=== PATIENT | female | born 1985 | race Caucasian/White ===

== ENCOUNTER 2020-10-23 22:52 | Emergency (ER) | payer OTHER ==
[2020-10-24 00:04] LABS: Basophils % 1.1 % (0-1.3); Hematocrit 40.7 % (36.0-45.0); Lymphocytes % 31.6 % (15.3-44.8); MPV 7.9 fL (7.6-11.3); RBC Red Blood Cell Count 4.92 M/uL (3.86-4.86)
[2020-10-24 00:05] LABS: Protime INR 1.01
[2020-10-24 00:18] LABS: ALT/SGPT 20 U/L (12-78); AST/SGOT 10 U/L (15-37); Albumin 3.5 g/dL (3.4-5.0); Alkaline Phosphatase 104 U/L (45-117); BUN Blood Urea Nitrogen 13 mg/dL (7-18); Bicarbonate 30 mmol/L (21-32); Bilirubin Direct 0.1 mg/dL (0-0.2); Bilirubin Total 0.5 mg/dL (0.2-1.0); Glucose Level 96 mg/dL (74-106); NT PRO-BNP 100 pg/mL (<125); Potassium 3.7 mmol/L (3.5-5.1); Protein, Total 6.9 g/dL (6.4-8.2); Sodium Level 141 mmol/L (136-145); Troponin (Emerg Dept Use Only) < 0.02 ng/mL (0.0-0.045)
--- NOTE | 2020-10-24 00:56 | ER ---
Nurse's Notes [facility] Name: Chantal Richards Age: 34 yrs Sex: Female : 1985 Arrival Date: 10/23/2020 Time: 23:20 Bed DIS4 Private MD: Diagnosis: Chest pain, unspecified Presentation: 10/23 23:29 Chief complaint: Patient states: chest tightness that radiates into left arm for a few em days, denies pain N/V or shortness of breath, checked BP at home and it was 150/106. Coronavirus screen: Client denies travel out of the [place] in the last 14 days. Ebola Screen: Patient negative for fever greater than or equal to 101.5 degrees Fahrenheit, and additional compatible Ebola Virus Disease symptoms Patient denies exposure to infectious person. Patient denies travel to an Ebola-affected area in the 21 days before illness onset. No symptoms or risks identified at this time. Initial Sepsis Screen: Does the patient meet any 2 criteria? No. Patient's initial sepsis screen is negative. Does the patient have a suspected source of infection? No. Patient's initial sepsis screen is negative. Risk Assessment: Do you want to hurt yourself or someone else? Patient reports no desire to harm self or others. Onset of symptoms was October 23, 2020. 23:29 Method Of Arrival: Ambulatory em 23:29 Acuity: WEST 3 em Triage Assessment: 10/24 00:08 General: Appears in no apparent distress. Behavior is calm, cooperative. Pain: ak2 Complains of pain in chest. Cardiovascular: No deficits noted. 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 - Social history:: Smoking status: Patient reports the use of cigarette tobacco products, smokes one pack cigarettes per day. Screenin/12 00:09 Abuse screen: Denies threats or abuse. Denies injuries from another. Nutritional ak2 screening: No deficits noted. Tuberculosis screening: No symptoms or risk factors identified. Fall Risk None identified. Assessment: 00:09 Pain: Pain does not radiate. Pain began 2-3 days ago. ak2 00:09 General: Appears in no apparent distress. Neuro: No deficits noted. Cardiovascular: No ak2 deficits noted. Respiratory: No deficits noted. Vital Signs: 10/23 23:29 BP 115 / 70; Pulse 67; Resp 16; Temp 97.8; Pulse Ox 99% on R/A; Weight 136.98 kg; em Height 5 ft. 4 in. (162.56 cm); Pain 0/10; 10/24 00:39 BP 123 / 75; Pulse 61; Resp 18; Pulse Ox 98% on R/A; ak2 10/23 23:29 Body Mass Index 51.84 (136.98 kg, 162.56 cm) em ED Course: 10/23 23:20 Patient arrived in ED. am4 23:32 Triage completed. em 23:32 Arm band placed on. em 23:36 Montez Mott is Primary Nurse. ak2 23:37 Latrell Machado NP is PHCP. pm1 23:37 Arun Reyes MD is Attending Physician. pm1 07 00:09 Patient has correct armband on for positive identification. quality assurance monitor on. Pulse ak2 ox on. NIBP on. 00:09 No provider procedures requiring assistance completed. Patient did not have IV access ak2 during this emergency room visit. Patient maintains SpO2 saturation greater than 95% on room air. 00:59 XRAY Chest (1 view) In Process Unspecified. EDMS Administered Medications: 01:06 Drug: Ketorolac 30 mg Route: IVP; Site: right antecubital; ak2 Outcome: 00:40 Condition: good ak2 00:56 Discharge ordered by . pm1 01:09 Discharged to home ambulatory. ak2 01:09 Discharge instructions given to patient. 01:09 Patient left the ED. ak2 Signatures: Dispatcher [employer] EDMS Augusto Lowe RN RN Latrell Machado NP FRINGE MAKER pm1 Roslyn Flores am4 Montez Mott ak2
--- NOTE | 2020-10-24 00:57 | EDPHYS ---
Physician Documentation [facility] Name: Chantal Richards Age: 34 yrs Sex: Female : 1985 Arrival Date: 10/23/2020 Time: 23:20 Bed DIS4 Private MD: ED Physician Arun Reyes HPI: 10/23 23:37 This 34 yrs old Unknown Female presents to ER via Ambulatory with complaints of Chest pm1 Pain. 23:37 The patient or guardian reports chest pain that is located primarily in the mid-sternal pm1 area. The pain radiates to the left arm. Associated signs and symptoms: Pertinent negatives: abdominal pain, nausea, palpitations, shortness of breath, syncope, vomiting. The chest pain is described as a pressure. Duration: The patient or guardian reports multiple episodes, episodes last for a few seconds. Episode at 1000 this AM lasted for 30 minutes. Pain has improved now. Modifying factors: the symptoms are aggravated by exertion. Severity of pain: in the emergency department the pain has improved. The patient has not experienced similar symptoms in the past. The patient has not recently seen a physician. 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 - Social history:: Smoking status: Patient reports the use of cigarette tobacco products, smokes one pack cigarettes per day. ROS: 23:37 Constitutional: Negative for fever, chills, and weight loss. pm1 23:37 Respiratory: Negative for shortness of breath, cough, wheezing, and pleuritic chest pain, Abdomen/GI: Negative for abdominal pain, nausea, vomiting, diarrhea, and constipation, Back: Negative for injury and pain, MS/Extremity: Negative for injury and deformity, Skin: Negative for injury, rash, and discoloration. 23:37 Neuro: Negative for headache, weakness, numbness, tingling, and seizure. 23:37 Cardiovascular: Positive for chest pain, Negative for edema, orthopnea, palpitations. 23:37 All other systems are negative. Exam: 23:37 Constitutional: This is a well developed, well nourished patient who is awake, alert, pm1 and in no acute distress. Head/Face: Normocephalic, atraumatic. 23:37 Chest/axilla: Normal chest wall appearance and motion. Nontender with no deformity. No lesions are appreciated. 23:37 Back: No spinal tenderness. No costovertebral tenderness. Full range of motion. Skin: Warm, dry with normal turgor. Normal color with no rashes, no lesions, and no evidence of cellulitis. MS/ Extremity: Pulses equal, no cyanosis. Neurovascular intact. Full, normal range of motion. 23:37 Eyes: Exam is negative for acute changes, Extraocular movements: no acute changes, Conjunctiva: no acute changes, no injection. 23:37 Cardiovascular: Exam negative for acute changes, Rate: normal, Rhythm: regular, Pulses: no pulse deficits are appreciated, Heart sounds: normal, normal S1and S2. 23:37 Respiratory: Exam negative for acute changes, respiratory distress, shortness of breath, Breath sounds: are clear throughout. 23:37 Abdomen/GI: Inspection: obese Palpation: abdomen is soft and non-tender, in all quadrants. 23:37 Neuro: Exam negative for acute changes, Orientation: is normal, Mentation: is normal, Motor: is normal, moves all fours. Vital Signs: 23:29 BP 115 / 70; Pulse 67; Resp 16; Temp 97.8; Pulse Ox 99% on R/A; Weight 136.98 kg; em Height 5 ft. 4 in. (162.56 cm); Pain 0/10; 10/24 00:39 BP 123 / 75; Pulse 61; Resp 18; Pulse Ox 98% on R/A; ak2 10/23 23:29 Body Mass Index 51.84 (136.98 kg, 162.56 cm) em MDM: 10/23 23:37 Patient medically screened. pm1 10/24 00:48 Data reviewed: vital signs. Data interpreted: Pulse oximetry: on room air is 98 %. pm1 Interpretation: normal. Counseling: I had a detailed discussion with the patient and/or guardian regarding: the historical points, exam findings, and any diagnostic results supporting the discharge/admit diagnosis, lab results, radiology results, the need for outpatient follow up, to return to the emergency department if symptoms worsen or persist or if there are any questions or concerns that arise at home. 00:48 ED course: Patient does not want to stay in the hospital and would like to go home. pm1 Chest pain has improved with medications. Chest pain onset 3 days ago and cardiac work up and troponin is negative. 10/23 23:37 Order name: Basic Metabolic Panel pm1 10/23 23:37 Order name: CBC with Diff; Complete Time: 00:32 pm1 10/23 23:37 Order name: LFT's; Complete Time: 00:32 pm1 10/23 23:37 Order name: Magnesium; Complete Time: 00:32 pm1 10/23 23:37 Order name: NT PRO-BNP; Complete Time: 00:32 pm1 10/23 23:37 Order name: PT-INR; Complete Time: 00:32 pm1 10/23 23:37 Order name: Troponin (emerg Dept Use Only); Complete Time: 00:32 pm1 10/23 23:37 Order name: XRAY Chest (1 view); Complete Time: 13:46 pm1 10/23 23:37 Order name: EKG; Complete Time: 23:38 pm1 10/23 23:37 Order name: Cardiac monitoring pm1 10/23 23:37 Order name: EKG - Nurse/Tech pm1 10/23 23:37 Order name: IV Saline Lock pm10/23 23:37 Order name: Basic Metabolic Panel; Complete Time: 00:32 EDMS 10/23 23:37 Order name: Labs collected and sent pm1 10/23 23:37 Order name: O2 Per Protocol pm10/23 23:37 Order name: O2 Sat Monitoring pm1 Administered Medications: 01:06 Drug: Ketorolac 30 mg Route: IVP; Site: right antecubital; ak2 Disposition: 06:09 Co-signature as Attending Physician, Arun Reyes MD. [email or web address] Disposition Summary: 10/24/20 00:56 Discharge Ordered Location: Home pm1 Problem: new pm1 Symptoms: have improved pm1 Condition: Stable pm1 Diagnosis - Chest pain, unspecified pm1 Followup: pm1 - With: Emergency Department - When: As needed - Reason: Worsening of condition Followup: pm1 - With: Private Physician - When: 2 - 3 days - Reason: Recheck today's complaints, Continuance of care, Re-evaluation by your physician Discharge Instructions: - Discharge Summary Sheet pm1 - Nonspecific Chest Pain, Adult pm1 Forms: - Medication Reconciliation Form pm1 - Thank You Letter pm1 - Antibiotic Education pm1 - Prescription Opioid Use pm1 Signatures: Dispatcher [employer] Augusto Cannon, RN RN Latrell Ronquillo, CHEIKH SUPERVISOR CLAIMS pm1 Arun Reyes MD MD [facility] Montez Mott [facility]
[2020-10-24 01:19] VITALS: BP 123/75; O2SAT 98
[2020-10-24 01:21] VITALS: TEMP 97.8
[2020-10-24] MEDS ORDERED: KETOROLAC 30 MG/ML INJ ONE (01:24)
--- NOTE | 2020-10-24 08:46 | RAD REPORT ---
EXAM DESCRIPTION: RAD - Chest Single View - 10/24/2020 12:59 am CLINICAL HISTORY: CHEST PAIN Chest pain. COMPARISON: No comparisons FINDINGS: Portable technique limits examination quality. The lungs are grossly clear. The heart is normal in size. No displaced fractures. IMPRESSION: No acute intrathoracic process suspected.
--- NOTE | 2020-10-24 16:06 | EKG ---
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
== END 2020-10-24 01:09 | disposition home or self-care (01) ==
LOC: ER 22:52
DX: R07.9 Chest pain, unspecified (principal); F17.210 Nicotine dependence, cigarettes, uncomplicated
CPT/HCPCS: 36415; 71045; 80048; 80076; 83735; 83880; 84484; 85025; 85610; 93005; 96374; 99284

== ENCOUNTER 2021-11-15 15:29 | Observation (INO) | payer OTHER ==
--- OUTSIDE RECORDS SUMMARY | 2021-11-15 15:33 | XMS REPORT | Continuity of Care Document ---
:1985 Author Organization [facility] [place] t Address [address] [place] [address] Care Team Providers Name Role Phone RHETT FOSTER Primary Care Physician Unavailable ASCENCION SANDY Attending Clinician Unavailable RHETT FOSTER Attending Clinician Unavailable RHETT HARGROVE Attending Clinician Unavailable Heather BURNETTE Attending Clinician Unavailable Heather Smith Attending Clinician ANT RANKIN Attending Clinician Unavailable Ant Rankin MD Attending Clinician Doctor Unassigned, [place] Attending Clinician Unavailable Rhett Foster MD Attending Clinician Ivis Rodriguez Attending Clinician Lenin Orozco Attending Clinician IVIS SEPULVEDA Attending Clinician Unavailable THO Attending Clinician Unavailable KATYA HOWELL Attending Clinician Unavailable Heather BURNETTE Admitting Clinician Unavailable THO Admitting Clinician Unavailable Payers Payer Name Policy Type Policy Number Effective Date Expiration Date [facility] [id number] 2021 [place] 00:00[place] [id number] 2020 00:00:00 Problems Condition Condition Condition Status Onset Resolution Last Treating Co mments Source Name Details Category Date Date Treatment Clinician Date Status Status Disease Active 2020-04 [facility] [address] ity of laparoscop [place] sleeve ic sleeve 00 Medi sara gastrectom gastrectom Br anch y y Pain Pain Disease Active Univers pelvic pelvic 3-02 ity of 00:: [place] [facility] BMI BMI Disease Active Univers 45.0-49.9, 45.0-49.9, 3-02 it y of adult adult 00:00: [place] [facility] Hyperchole Hyperchole Disease Active U charlee sterolemia sterolemia 01-05 it y of 00:: [place] [address] Medical Branch Abnormal Abnormal Disease Active Overview: Un shellie TSH TSH 01-05 Formattin ity of 00:00: g of this note Medical might be Branch different from the original. 01/06/20: Low TSH, f/u labs ordered. Kidney Kidney Disease Active 2018-04 Univers stones stones 2-27 ity of 00:00: [place] [facility] Obesity Obesity Disease Active 2018-04 Univers (BMI (BMI 2-12 ity of 30-39.9) 30-39.9) 00:00: [address] Branch UTI UTI Disease Active 2018-04 Univers symptoms symptoms 2-12 ity of 00:00: [address] Screen for Screen for Disease Active 2018-04 U charlee STD STD 2-12 ity of (sexually (sexually 00:[place] transmit[place] transmitte 00 Me dical d disease) d disease) Br anch Gastroesop Gastroesop Disease Active U charlee hageal hageal 2-13 ity of reflux reflux 00:00: [place] disease, disease, 00 Medica l esophagiti esophagiti Br anch s presence s presence not not specified specified Microscopi Microscopi Disease Active 2017-04 U charlee c c 0-12 it[place] of hematuria hematuria 00:00[place] [facility] Abnormal Abnormal Disease Active Unive rs cervical cervical 9-11 ity of Papanicola Papanicola [place] smear, ou smear, 00 Medi sara unspecifie unspecifie Br anch d abnormal d abnormal pap pap finding finding IUD IUD Disease Active 2016-04 Univers (intrauter (intrauter 2-08 it y of ine ine 00:00: [place] device) in device) in [address] Branch Anxiety Anxiety Disease Active Univers and and 12-31 it[place] of depression depression [place] 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 12-31 ity of reaction reaction 00:00: [place] [facility] Well woman Well woman Disease Active U nivers exam exam 12-14 ity of 00:00: [place] [facility] Morbid Morbid Disease Active Univers obesity obesity 12-14 ity of 00:00: [place] [facility] Encounter Encounter Disease Active Uni vers for repeat for repeat 11-23 it y of Papanicola Papanicola 00:[place] smear ou smear 00 Medica l of cervix of cervix Bran ch Cardiomyop Cardiomyop Disease Active U nivers athy athy 11-07 ity of 00:00: [place] [facility] CHF CHF Disease Active Univers (congestiv (congestiv 11-07 it y of e heart e heart 00:00: [place] failure) failure) 00 Medica l Branch Vaginal Vaginal Disease Active 2015-04 Overview: Univ ers low risk low risk 2-07 Formattin ity of human human 00:00: g of this [place] papillomav papillomav 00 note Me dical irus (HPV) irus (HPV) might be Branch DNA test DNA test different positive positive from the original. Needs repeat pap in 1 year Allergies, Adverse Reactions, Alerts Allergy Allergy Status Severity Reaction(s) Onset Inactive Treating Comm ents Source Name Type Date Date Clinician NO KNOWN Drug Active Univers ALLERGIE Class ity of S [facility] Social History Social Habit Start Date Stop Date Quantity Comments Source Exposure to 2021-10-30 2021-11-09 Not sure [facility] SARS-CoV-2 (event) 00:00:00 14:46:00 [facility] Alcohol intake 2021-11-07 2021-11-07 0 /d University of 00:00:00 00:00:00 [facility] Cigarettes smoked 2021-05-24 2021-05-24 Univers ity of current (pack per 00:00:00 00:00:00 [facility] ed) - Reported Branch Tobacco use and 2021-05-24 2021-05-24 Smokeless Universit y of exposure 00:00:00 00:00:00 tobacco non-user [facility] [place] History of tobacco 2019-05-24 2008-12-28 Cigarette Smoker University of use 00:00:00 00:00:00 [facility] Sex [birth year] Universit y of 00:00:00 00:00:00 [facility] Smoking Status Start Date Stop Date Source Never Smoker [place] [facility] Kaveh virgen Ex-smoker 2021-05-24 00:00:00 2021-05-24 00:00:00 [facility] Medications Ordered Filled Start Stop Current Ordering Indication Dosage Frequency Signature Comments Components Source Medication Medication Date Date Medication? Clinician (SIG) Name Name NaCl 0.9% No 1000mL at 999 Uni vers (NS) bolus 11-09 mL/hr, ity of infusion 22:00: 22:12 1,000 mL, Jesus as 1,000 mL 00 :00 IV Medical Infusion, [place] ONCE, 1 dose, On [place] 11/09/21 at 1700, STAT ketorolac No 15mg 15 mg, Unive rs (TORADOL) 11-09 Slow IV ity of injection 20:45: 19:47 Push, [place] 15 mg 00 :00 ONCE, 1 Medical dose, On Branch [place] 11/09/21 at 1545, AYAKA dicyclomine Yes [id number] 20mg Take 1 Univers 20 mg 11-09 tablet by ity of tablet 00:00: mouth 4 [place] 00 (four) Medical times [place] daily. sulfamethox 2021- Yes [id number] 1{tbl} Take 1 Univers azole-trime -11-13 tablet by it y of thoprim 00:00: 04:59 mouth in [place] (BACTRIM 00 :00 the Medical DS) 800-160 morning Branc h mg per and 1 tablet tablet in the evening. Do all this for 5 days. sulfamethox 2021- Yes [id number] 1{tbl} Take 1 Univers azole-trime 11-07 tablet by it y of thoprim 00:00: 04:59 mouth in [place] (BACTRIM 00 :00 the Medical DS) 800-160 morning Branc h mg per and 1 tablet tablet in the evening. Do all this for 5 days. ondansetron 2021-0 Yes [id number] DISSOLVE 1 Univers 4 mg 7-22 TABLET ON ity of disintegrat 00:00: THE TONGUE [place] ing tablet 00 EVERY 8 Medica l HOURS Branch NEEDED FOR NAUSEA ondansetron 2021-0 Yes [id number] DISSOLVE 1 Univers 4 mg 7-22 TABLET ON ity of disintegrat 00:00: THE TONGUE [place] ing tablet 00 EVERY 8 Medica l HOURS Branch NEEDED FOR NAUSEA ondansetron 2021-0 Yes [id number] DISSOLVE 1 Univers 4 mg 7-22 TABLET ON ity of disintegrat 00:00: THE TONGUE [place] ing tablet 00 EVERY 8 Medica l HOURS Branch NEEDED FOR NAUSEA busPIRone 2021-0 Yes 15mg Take 1 Univer s 15 mg 6-28 tablet by ity of tablet 00:00: mouth 2 [place] (two) Medical times Branch daily. busPIRone 2021-0 Yes 15mg Take 1 Univer s 15 mg 6-28 tablet by ity of tablet 00:00: mouth 2 [place] (two) Medical times Branch daily. busPIRone 2021-0 Yes 15mg Take 1 Univer s 15 mg 6-28 tablet by ity of tablet 00:00: mouth 2 [place] (two) Medical times Branch daily. busPIRone 2021-0 Yes 15mg Take 1 Univer s 15 mg 6-28 tablet by ity of tablet 00:00: mouth 2 [place] (two) Medical times Branch daily. Nitrofurant 2021-0 2021- Yes [id number] 100mg Take 1 Univers oin&Nit. 6-17 06-25 capsule by ity of Macrocryst 00:00: 04:59 mouth 2 [place] as 100 mg 00 :00 (two) Medical capsule times Branch daily for 7 days. venlafaxine 2021-0 Yes [id number] TAKE 1 Univers XR 150 mg 5-31 CAPSULE BY ity of 24 hr 00:00: MOUTH [place] capsule 00 EVERY DAY Medical WITH FOOD Branch venlafaxine 2021-0 Yes [id number] TAKE 1 Univers XR 150 mg 5-31 CAPSULE BY ity of 24 hr 00:00: MOUTH [place] capsule 00 EVERY DAY Medical WITH FOOD Branch venlafaxine 2021-0 Yes [id number] TAKE 1 Univers XR 150 mg 5-31 CAPSULE BY ity of 24 hr 00:00: MOUTH [place] capsule 00 EVERY DAY Medical WITH FOOD Branch venlafaxine 2021-0 Yes [id number] TAKE 1 Univers XR 150 mg 5-31 CAPSULE BY ity of 24 hr 00:00: MOUTH [place] capsule 00 EVERY DAY Medical WITH FOOD Branch venlafaxine 2021-0 Yes [id number] TAKE 1 Univers XR 150 mg 5-31 CAPSULE BY ity of 24 hr 00:00: MOUTH [place] capsule 00 EVERY DAY Medical WITH FOOD Branch venlafaxine 2021-0 Yes [id number] TAKE 1 Univers XR 150 mg 5-31 CAPSULE BY ity of 24 hr 00:00: MOUTH [place] capsule 00 EVERY DAY Medical WITH FOOD Branch traMADoL 50 2021-0 Yes [id number] 50mg Take 1 Univ ers mg tablet 5-19 tablet by ity o f 00:00: mouth [place] 00 every 6 Medical (six) Branch hours as needed for Pain (scale 4-6). Indication s: acute pain ibuprofen 2021-0 Yes [id number] 600mg Take 1 Univers 600 mg 5-19 [id number] tablet by ity of tablet 00:00: mouth [place] 00 every 6 Medical (six) Branch hours as needed for Pain (scale 4-6). traMADoL 50 2021-0 Yes [id number] 50mg Take 1 Univ ers mg tablet 5-19 tablet by ity o f 00:00: mouth [place] 00 every 6 Medical (six) Branch hours as needed for Pain (scale 4-6). Indication s: acute pain ibuprofen 2021-0 Yes [id number] 600mg Take 1 Univers 600 mg 5-19 [id number] tablet by ity of tablet 00:00: mouth [place] 00 every 6 Medical (six) Branch hours as needed for Pain (scale 4-6). traMADoL 50 2021-0 Yes [id number] 50mg Take 1 Univ ers mg tablet 5-19 tablet by ity o f 00:00: mouth [place] 00 every 6 Medical (six) Branch hours as needed for Pain (scale 4-6). Indication s: acute pain ibuprofen 2021-0 Yes [id number] 600mg Take 1 Univers 600 mg 5-19 [id number] tablet by ity of tablet 00:00: mouth [place] 00 every 6 Medical (six) Branch hours as needed for Pain (scale 4-6). traMADoL 50 2021-0 Yes [id number] 50mg Take 1 Univ ers mg tablet - tablet by ity o f 00:00: mouth [place] 00 every 6 Medical (six) Branch hours as needed for Pain (scale 4-6). Indication s: acute pain ibuprofen Yes [id number] 600mg Take 1 Univers 600 mg - [id number] tablet by ity of tablet 00:00: mouth [place] 00 every 6 Medical (six) Branch hours as needed for Pain (scale 4-6). traMADoL 50 2021- No [id number] 50mg Take 1 Uni vers mg tablet 08-31 tablet by ity of 00:00: 00:00 mouth [place] 00 :00 every 6 Medical (six) Branch hours as needed for Pain (scale 4-6). Indication s: acute pain ibuprofen 0 2021- No [id number] 600mg Take 1 Univers 600 mg 08-31 [id number] tablet by ity o f tablet 00:00: 00:00 mouth [place] 00 :00 every 6 Medical (six) Branch hours as needed for Pain (scale 4-6). BINAXNOW Yes TEST Univer s COVID-19 AG 5-13 DIRECTED ity of SELF TEST 00:00: TODAY [place] Kit 00 Medical Branch BINAXNOW 0 Yes TEST Univer s COVID-19 AG 5-13 DIRECTED ity of SELF TEST 00:00: TODAY [place] Kit 00 Medical Branch BINAXNOW 2021- No TEST Unive rs COVID-19 AG 5-13 11-07 DIRECTED ity of SELF TEST 00:00: 00:00 TODAY [place] Kit 00 :00 Medical Branch ondansetron Yes [id number] DISSOLVE 1 Univers 4 mg 4-21 TABLET ON ity of disintegrat 00:00: THE TONGUE [place] ing tablet 00 EVERY 8 Medica l HOURS Branch NEEDED FOR NAUSEA ondansetron 0 Yes [id number] DISSOLVE 1 Univers 4 mg 4-21 TABLET ON ity of disintegrat 00:00: THE TONGUE [place] ing tablet 00 EVERY 8 Medica l HOURS Branch NEEDED FOR NAUSEA ondansetron 0 Yes [id number] DISSOLVE 1 Univers 4 mg 4-21 TABLET ON ity of disintegrat 00:00: THE TONGUE [place] ing tablet 00 EVERY 8 Medica l HOURS Branch NEEDED FOR NAUSEA ondansetron 0 2022- No [id number] DISSOLVE 1 Univers 4 mg 4-21 07-22 TABLET ON ity of disintegrat 00:00: 00:00 THE TONGUE [place] ing tablet 00 :00 EVERY 8 Medica l HOURS Branch NEEDED FOR NAUSEA OMEPRAZOLE 2021-0 Yes [id number] 40mg TAKE 1 Univers 40 mg 4-14 CAPSULE BY ity of capsule 00:00: [facility] DAILY Medical Branch OMEPRAZOLE 2021-0 Yes [id number] 40mg TAKE 1 Univers 40 mg 4-14 CAPSULE BY ity of capsule 00:00: [facility] DAILY Medical Branch OMEPRAZOLE 2021-0 Yes [id number] 40mg TAKE 1 Univers 40 mg 4-14 CAPSULE BY ity of capsule 00:00: [facility] DAILY Medical Branch OMEPRAZOLE 2021-0 Yes [id number] 40mg TAKE 1 Univers 40 mg 4-14 CAPSULE BY ity of capsule 00:00: [facility] DAILY Medical Branch OMEPRAZOLE 2021-0 Yes [id number] 40mg TAKE 1 Univers 40 mg 4-14 CAPSULE BY ity of capsule 00:00: [facility] DAILY Medical Branch OMEPRAZOLE 2021-0 Yes [id number] 40mg TAKE 1 Univers 40 mg 4-14 CAPSULE BY ity of capsule 00:00: [facility] DAILY Medical Branch BARIATRIC 2021-0 Yes 1{tbl} Take 1 Univ ers MULTIVITAMI 2-09 tablet by ity of NS ORAL 14:30: mouth 2 [place] [address] [facility]) Medical times Branch daily. VITAMIN D-3 2021-0 Yes [id number] Take Univ ers ORAL 2-09 50,000 ity of 14:30: Units by [place] [address] mouth. Medical Branch BARIATRIC 2021-0 Yes 1{tbl} Take 1 Univ ers MULTIVITAMI 2-09 tablet by ity of NS ORAL 14:30: mouth 2 [place] [address] (two) Medical times Branch daily. VITAMIN D-3 2021-0 Yes [id number] Take Univ ers ORAL 2-09 50,000 ity of 14:30: Units by [place] [address] mouth. Medical Branch BARIATRIC 2022-0 Yes 1{tbl} Take 1 Univ ers MULTIVITAMI 2-09 tablet by ity of NS ORAL 14:30: mouth 2 [place] 31 (two) Medical times Branch daily. VITAMIN D-3 Yes [id number] Take Univ ers ORAL 2-09 50,000 ity of 14:30: Units by [place] 31 mouth. Medical Branch BARIATRIC Yes 1{tbl} Take 1 Univ ers MULTIVITAMI 2-09 tablet by ity of NS ORAL 14:30: mouth 2 [place] 31 (two) Medical times Branch daily. VITAMIN D-3 Yes [id number] Take Univ ers ORAL 2-09 50,000 ity of 14:30: Units by [place] 31 mouth. Medical Branch BARIATRIC Yes 1{tbl} Take 1 Univ ers MULTIVITAMI 2-09 tablet by ity of NS ORAL 14:30: mouth 2 [place] 31 (two) Medical times Branch daily. VITAMIN D-3 Yes [id number] Take Univ ers ORAL 2-09 50,000 ity of 14:30: Units by [place] 31 mouth. Medical Branch BARIATRIC Yes 1{tbl} Take 1 Univ ers MULTIVITAMI 2-09 tablet by ity of NS ORAL 14:30: mouth 2 [place] 31 (two) Medical times Branch daily. VITAMIN D-3 Yes [id number] Take Univ ers ORAL 2-09 50,000 ity of 14:30: Units by [place] 31 mouth. Medical Branch levonorgest Yes 1{each} 1 Each by Univers rel 20 7-14 Intrauteri ity of mcg/24 15:36: ne route. [place] hours (5 48 Medical yrs) 52 mg Branch IUD levonorgest Yes 1{each} 1 Each by Univers rel 20 7-14 Intrauteri ity of mcg/24 15:36: ne route. [place] hours (5 48 Medical yrs) 52 mg Branch IUD levonorgest Yes 1{each} 1 Each by Univers rel 20 7-14 Intrauteri ity of mcg/24 15:36: ne route. [place] hours (5 48 Medical yrs) 52 mg Branch IUD levonorgest Yes 1{each} 1 Each by Univers rel 20 7-14 Intrauteri ity of mcg/24 15:36: ne route. [place] hours (5 48 Medical yrs) 52 mg Branch IUD levonorgest 2020-0 Yes 1{each} 1 Each by Univers rel 20 7-14 Intrauteri ity of mcg/24 15:36: ne route. [place] hours (5 48 Medical yrs) 52 mg Branch IUD levonorgest 2020-0 Yes 1{each} 1 Each by Univers rel 20 7-14 Intrauteri ity of mcg/24 15:36: ne route. [place] hours (5 48 Medical yrs) 52 mg Branch IUD busPIRone 2020-0 Yes 15mg Take 15 mg Un shellie 15 mg 4-21 by mouth 2 ity of tablet 00:00: (two) [place] 00 times Medical daily. Branch busPIRone 2020-0 Yes 15mg Take 15 mg Un shellie 15 mg 4-21 by mouth 2 ity of tablet 00:00: (two) [place] 00 times Medical daily. Branch busPIRone 1-0 Yes 15mg Take 15 mg Un shellie 15 mg 4-21 by mouth 2 ity of tablet 00:00: (two) [place] 00 times Medical daily. Branch busPIRone 2020-0 Yes 15mg Take 15 mg Un shellie 15 mg 4-21 by mouth 2 ity of tablet 00:00: (two) [place] 00 times Medical daily. Branch busPIRone 2021-0 2- No 15mg Take 15 mg U nivers 15 mg 4-21 07-26 by mouth 2 ity of tablet 00:00: 00:00 (two) [place] 00 :00 times Medical daily. Branch levocetiriz 2019- Yes 5mg Take 1 Univ ers ine 5 mg 2-13 tablet by ity of tablet 00:00: mouth [place] 00 daily. Medical Branch levocetiriz 2019- Yes 5mg Take 1 Univ ers ine 5 mg 2-13 tablet by ity of tablet 00:00: mouth [place] 00 daily. Medical Branch levocetiriz 2019- Yes 5mg Take 1 Univ ers ine 5 mg 2-13 tablet by ity of tablet 00:00: mouth [place] 00 daily. Medical Branch levocetiriz 2019- Yes 5mg Take 1 Univ ers ine 5 mg 2-13 tablet by ity of tablet 00:00: mouth [place] 00 daily. Medical Branch levocetiriz 2018-04 Yes 5mg Take 1 Univ ers ine 5 mg 2-13 tablet by ity of tablet 00:00: mouth daily. Medical Branch levocetiriz 2018-04 Yes 5mg Take 1 Univ ers ine 5 mg 2-13 tablet by ity of tablet 00:00: mouth daily. Medical Branch FLUTICASONE Yes [id number] SHAKE U nivers 50 1-30 LIQUID AND ity of mcg/actuati 00:00: USE 2 [place] on nasal 00 SPRAYS IN Medica l spray EACH Branch NOSTRIL DAILY FLUTICASONE Yes [id number] SHAKE U nivers 50 1-30 LIQUID AND ity of mcg/actuati 00:00: USE 2 [place] on nasal 00 SPRAYS IN Medica l spray EACH Branch NOSTRIL DAILY FLUTICASONE Yes [id number] SHAKE U nivers 50 1-30 LIQUID AND ity of mcg/actuati 00:00: USE 2 [place] on nasal 00 SPRAYS IN Medica l spray EACH Branch NOSTRIL DAILY FLUTICASONE Yes [id number] SHAKE U nivers 50 1-30 LIQUID AND ity of mcg/actuati 00:00: USE 2 [place] on nasal 00 SPRAYS IN Medica l spray EACH Branch NOSTRIL DAILY FLUTICASONE Yes [id number] SHAKE U nivers 50 1-30 LIQUID AND ity of mcg/actuati 00:00: USE 2 [place] on nasal 00 SPRAYS IN Medica l spray EACH Branch NOSTRIL DAILY FLUTICASONE Yes [id number] SHAKE U nivers 50 1-30 LIQUID AND ity of mcg/actuati 00:00: USE 2 [place] on nasal 00 SPRAYS IN Medica l spray EACH Branch NOSTRIL DAILY diclofenac diclofenac No diclofenac [facility] sodium 75 sodium 75 sodium 75 Family mg mg mg Practic tablet,berto tablet,berto tablet,del e yed release yed release ayed TK 1 T PO TK 1 T PO release TK BID WC BID WC 1 T PO BID WC omeprazole omeprazole No omeprazole [place] 40 mg 40 mg 40 mg Family capsule,del capsule,del capsule,de Practic ayed ayed layed e release release release TAKE 1 TAKE 1 TAKE 1 CAPSULE BY CAPSULE BY CAPSULE BY MOUTH DAILY MOUTH DAILY MOUTH DAILY Saxenda 3 Saxenda 3 No Saxenda 3 [place] mg/0.5 mL mg/0.5 mL mg/0.5 mL Family (18 mg/3 (18 mg/3 (18 mg/3 Pra ctic mL) mL) mL) e subcutaneou subcutaneou subcutaneo s pen s pen us pen injector injector injector ADM 3 MG SC ADM 3 MG SC ADM 3 MG D D SC D sertraline sertraline No sertraline [facility] 100 mg 100 mg 100 mg Family tablet TAKE tablet TAKE tablet Practic 1 TABLET BY 1 TABLET BY TAKE 1 e MOUTH EVERY MOUTH EVERY TABLET BY DAY DAY MOUTH EVERY DAY venlafaxine venlafaxine No venlafaxin [facility] ER 150 mg ER 150 mg e ER 150 F amily capsule,ext capsule,ext mg P ractic ended ended capsule,ex e release 24 release 24 tended hr TAKE 1 hr TAKE 1 release 24 CAPSULE BY CAPSULE BY hr TAKE 1 MOUTH EVERY MOUTH EVERY CAPSULE BY DAY WITH DAY WITH MOUTH FOOD FOOD EVERY DAY WITH FOOD amoxicillin amoxicillin No 1 Q12H amoxicilli [facility] [phone] [id number] [phone] Family mg-potassiu mg-potassiu mg-potassi Practic m m um e clavulanate clavulanate clavulanat 125 mg 125 mg e 125 mg tablet Take tablet Take tablet 1 tablet 1 tablet Take 1 every 12 every 12 tablet hours by hours by every 12 oral route oral route hours by with meals with meals oral route for 7 days. for 7 days. with meals for 7 days. aripiprazol aripiprazol No aripiprazo [place] e 5 mg e 5 mg le 5 mg Family tablet TAKE tablet TAKE tablet Practic 1 TABLET BY 1 TABLET BY TAKE 1 e MOUTH EVERY MOUTH EVERY TABLET BY DAY DAY MOUTH EVERY DAY BD BD No BD [place] Ultra-Fine Ultra-Fine Ultra-Fine Family Cora Pen Cora Pen Cora Pen Pra ctic Needle 32 Needle 32 Needle 32 e gauge x gauge x gauge x 5/32" U UTD 5/32" U UTD 5/32" U DAILY TO DAILY TO UTD DAILY INJ SAXENDA INJ SAXENDA TO INJ SAXENDA buspirone 5 buspirone 5 No buspirone [place] mg tablet mg tablet 5 mg Famil y TAKE 1 TAKE 1 tablet Practic TABLET BY TABLET BY TAKE 1 e MOUTH THREE MOUTH THREE TABLET BY TIMES DAILY TIMES DAILY MOUTH THREE TIMES DAILY Immunizations Ordered Filled Immunization Date Status Comments Sourc e Immunization Name Name Influenza Virus 2020-12-07 Completed Universit y of Vaccine 00:00:00 [facility] Influenza Virus 2020-12-07 Completed Universit y of Vaccine 00:00:00 [facility] Influenza Virus 2020-12-07 Completed Universit y of Vaccine 00:00:00 [facility] Influenza Virus 2020-12-07 Completed Universit y of Vaccine 00:00:00 [facility] SARS-COV-2 SARS-COV-2 2020-05-30 Completed [facility] (COVID-19) vaccine, (COVID-19) vaccine, 00:00:00 Practice UNSPECIFIED UNSPECIFIED SARS-COV-2 COVID-19 2020-05-24 Completed Unive rsity of PFIZER VACCINE 00:00:00 [facility] [place] [facility] SARS-COV-2 COVID-19 2020-05-24 Completed Unive rsity of PFIZER VACCINE 00:00:00 [facility] [place] [facility] SARS-COV-2 COVID-19 2020-05-24 Completed Unive rsity of PFIZER VACCINE 00:00:00 [facility] [place] [facility] SARS-COV-2 COVID-19 2020-05-24 Completed Unive rsity of PFIZER VACCINE 00:00:00 [facility] [place] [facility] SARS-COV-2 SARS-COV-2 2020-05-03 Completed [facility] (COVID-19) vaccine, (COVID-19) vaccine, 00:00:00 Practice UNSPECIFIED UNSPECIFIED SARS-COV-2 COVID-19 2020-04-15 Completed Unive rsity of PFIZER VACCINE 00:00:00 [facility] [place] [facility] SARS-COV-2 COVID-19 2020-04-15 Completed Unive rsity of PFIZER VACCINE 00:00:00 [facility] [place] [facility] SARS-COV-2 COVID-19 2020-04-15 Completed Unive rsity of PFIZER VACCINE 00:00:00 [facility] [place] [facility] SARS-COV-2 COVID-19 2020-04-15 Completed Unive rsity of PFIZER VACCINE 00:00:00 [facility] [place] [facility] SARS-COV-2 COVID-19 2020-04-15 Completed Unive rsity of PFIZER VACCINE 00:00:00 [facility] [place] [facility] SARS-COV-2 COVID-19 2020-04-15 Completed Unive rsity of PFIZER VACCINE 00:00:00 [facility] Branch Influenza Virus 2019-12-07 Completed Universit y of Vaccine Quad IM, 00:00:00 [place] [facility] Preserv and ABX Branch Free 6 MO-64 YRS Influenza Virus 2019-12-07 Completed Universit y of Vaccine [facility] IM, 00:00:00 [place] [facility] Preserv and ABX Branch Free 6 MO-64 YRS Influenza Virus 2019-12-07 Completed Universit y of Vaccine [facility] IM, 00:00:00 [place] [facility] Preserv and ABX Branch Free 6 MO-64 YRS Influenza Virus 2019-12-07 Completed Universit y of Vaccine [facility] IM, 00:00:00 [place] [facility] Preserv and ABX Branch Free 6 MO-64 YRS Influenza Virus 2019-12-03 Completed Universit y of Vaccine [place] .5 mL 00:00:00 [place] [facility] 6+ MO Branch Influenza Virus 2019-12-03 Completed Universit y of Vaccine [place] .5 mL 00:00:00 [facility] IM 6+ MO Branch Influenza Virus 2019-12-03 Completed Universit y of Vaccine [place] .5 mL 00:00:00 [facility] IM 6+ MO Branch Influenza Virus 2019-12-03 Completed Universit y of Vaccine [place] .5 mL 00:00:00 [facility] 6+ MO Branch Pneumococcal 13 2019-06-19 Completed Universit y of Conjugate, PCV13 00:00:[address] [facility] dical (Prevnar 13) Branch Pneumococcal 13 2019-06-19 Completed Universit y of Conjugate, PCV13 00:00:[address] [facility] dical (Prevnar 13) Branch Pneumococcal 13 2019-06-19 Completed Universit y of Conjugate, PCV13 00:00:[address] [facility] dical (Prevnar 13) Branch Pneumococcal 13 2019-06-19 Completed Universit y of Conjugate, PCV13 00:00:[address] [facility] dical (Prevnar 13) Branch Influenza Virus 2018-12-14 Completed Universit y of Vaccine Quad .5 mL 00:00:00 [facility] IM 6+ MO Branch Influenza Virus 2018-12-14 Completed Universit y of Vaccine Quad .5 mL 00:00:00 [facility] IM 6+ MO Branch Influenza Virus 2018-12-14 Completed Universit y of Vaccine Quad .5 mL 00:00:00 [facility] IM 6+ MO Branch Influenza Virus 2018-12-14 Completed Universit y of Vaccine Quad .5 mL 00:00:00 [facility] 6+ [place] Influenza Virus 2018-12-14 Completed Universit y of Vaccine Quad .5 mL 00:00:00 [facility] 6+ MO Branch Influenza Virus 2018-12-14 Completed Universit y of Vaccine Quad .5 mL 00:00:00 [facility] 6+ MO Branch Pneumococcal 2018-07-15 Completed University o f Polysaccharide, 00:00:00 [facility] PPSV23 (PNEUMOVAX) Branch Pneumococcal 2018-07-15 Completed University o f Polysaccharide, 00:00:00 [facility] PPSV23 (PNEUMOVAX) Branch Pneumococcal 2018-07-15 Completed University o f Polysaccharide, 00:00:00 [facility] PPSV23 (PNEUMOVAX) Branch Pneumococcal 2018-07-15 Completed University o f Polysaccharide, 00:00:00 [facility] PPSV23 (PNEUMOVAX) Branch Pneumococcal 2018-07-15 Completed University o f Polysaccharide, 00:00:00 [facility] PPSV23 (PNEUMOVAX) Branch Pneumococcal 2018-07-15 Completed University o f Polysaccharide, 00:00:00 [facility] PPSV23 (PNEUMOVAX) Branch Influenza Virus 2017-11-30 Completed Universit y of Vaccine 00:00:00 [facility] Influenza Virus 2017-11-30 Completed Universit y of Vaccine 00:00:00 [facility] Influenza Virus 2017-11-30 Completed Universit y of Vaccine 00:00:00 [facility] Influenza Virus 2017-11-30 Completed Universit y of Vaccine 00:00:00 [facility] Influenza Virus 2017-11-30 Completed Universit y of Vaccine 00:00:00 [facility] Influenza Virus 2017-11-30 Completed Universit y of Vaccine 00:00:00 [facility] Rho (d) Immune 2016-11-02 Completed University of Globulin 00:00:00 [facility] Rho (d) Immune 2016-11-02 Completed University of Globulin 00:00:00 [facility] Rho (d) Immune 2016-11-02 Completed University of Globulin 00:00:00 [facility] Rho (d) Immune 2016-11-02 Completed University of Globulin 00:00:00 [facility] Rho (d) Immune 2016-11-02 Completed University of Globulin 00:00:00 [facility] Rho (d) Immune 2016-11-02 Completed University of Globulin 00:00:00 [facility] TDAP 2016-08-17 Completed University of 00:00:00 [facility] TDAP 2016-08-17 Completed University of 00:00:00 [facility] TDAP 2016-08-17 Completed University of 00:00:00 [facility] TDAP 2016-08-17 Completed University of 00:00:00 [facility] TDAP 2016-08-17 Completed University of 00:00:00 [facility] TDAP 2016-08-17 Completed University of 00:00:00 [facility] Influenza Virus 2016-03-16 Completed Universit y of Vaccine Quad IM 3+ 00:00:00 [facility] Influenza Virus 2016-03-16 Completed Universit y of Vaccine Quad IM 3+ 00:00:00 [facility] Influenza Virus 2016-03-16 Completed Universit y of Vaccine Quad IM 3+ 00:00:00 [facility] Influenza Virus 2016-03-16 Completed Universit y of Vaccine Quad IM 3+ 00:00:00 [facility] Influenza Virus 2016-03-16 Completed Universit y of Vaccine Quad IM 3+ 00:00:00 [facility] Influenza Virus 2016-03-16 Completed Universit y of Vaccine Quad IM 3+ 00:00:00 [facility] Rubella 2011-09-03 Completed University of 00:00:00 [facility] Rubella 2011-09-03 Completed University of 00:00:00 [facility] Rubella 2011-09-03 Completed University of 00:00:00 [facility] Rubella 2011-09-03 Completed University of 00:00:00 [facility] Rubella 2011-09-03 Completed University of 00:00:00 [facility] Rubella 2011-09-03 Completed University of 00:00:00 [facility] Td 2006-04-15 Completed University of 00:00:00 [facility] Td 2006-04-15 Completed University of 00:00:00 [facility] Td 2006-04-15 Completed University of 00:00:00 [facility] Td 2006-04-15 Completed University of 00:00:00 [facility] Td 2006-04-15 Completed University of 00:00:00 [facility] Td 2006-04-15 Completed University of 00:00:00 [facility] Vital Signs Vital Name Observation Time Observation Value Comments Source Heart rate 2021-11-09 22:06:00 60 /min [facility] Oxygen saturation in 2021-11-09 22:06:00 98 /min University of Arterial blood by [facility] Pulse oximetry Branch Systolic blood 2021-11-09 22:03:00 111 mm[Hg] Univer sity of pressure [facility] Diastolic blood 2021-11-09 22:03:00 75 mm[Hg] Unive rsity of pressure [facility] Respiratory rate 2021-11-09 22:03:00 18 /min Univ ersity [facility] Body temperature 2021-11-09 18:59:00 37.06 Tanisha Univ ers[facility] Body weight 2021-11-09 18:59:00 86.183 kg [facility] BMI 2021-11-09 18:59:00 28.06 kg/m2 [facility] Systolic blood 2021-11-07 22:35:00 116 mm[Hg] Univer sity of pressure [facility] Diastolic blood 2021-11-07 22:35:00 79 mm[Hg] Unive rsity of pressure [facility] Heart rate 2021-11-07 22:35:00 73 /min [facility] Body temperature 2021-11-07 22:35:00 36.72 Tanisha [facility] Respiratory rate 2021-11-07 22:35:00 16 /min Univ ers[facility] Body height 2021-11-07 22:35:00 175.3 cm [facility] Body weight 2021-11-07 22:35:00 86.365 kg [facility] BMI 2021-11-07 22:35:00 28.12 kg/m2 [facility] Oxygen saturation in 2021-11-07 22:35:00 99 /min University of Arterial blood by [facility] Pulse oximetry Branch Systolic blood 2021-09-29 22:37:00 123 mm[Hg] Univer sity of pressure [facility] Diastolic blood 2021-09-29 22:37:00 77 mm[Hg] Unive rsity of pressure [facility] Heart rate 2021-09-29 22:37:00 65 /min [facility] Body temperature 2021-09-29 22:37:00 36.83 Tanisha [facility] Respiratory rate 2021-09-29 22:37:00 16 /min [facility] Body height 2021-09-29 22:37:00 175.3 cm [facility] Body weight 2021-09-29 22:37:00 94.62 kg [facility] BMI 2021-09-29 22:37:00 30.80 kg/m2 [facility] Oxygen saturation in 2021-09-29 22:37:00 100 /min [facility] Arterial blood by [facility] Pulse oximetry Branch Height 2020-09-07 00:00:00 69 [in_i] [facility] BMI (Body Mass 2020-09-07 00:00:00 43.1 kg/m2 [facility] Family Index) Practice Body Weight 2020-09-07 00:00:00 292 [lb_av] [facility] Procedures Procedure Date / Time Performing Clinician Source Performed CT ABDOMEN PELVIS WO 2021-11-09 19:46:15 Heather Burnette [facility] CONTRAST [facility] POCT TEST 2021-11-09 19:40:00 Heather Burnette [facility] LIPASE 2021-11-09 19:39:00 Heather Burnette [facility] MAGNESIUM 2021-11-09 19:39:00 Heather Burnette [facility] COMP. METABOLIC PANEL 2021-11-09 19:39:00 Heather Burnette [facility] ([id number]) [facility] CBC WITH DIFF 2021-11-09 19:39:00 Heather Burnette [facility] URINALYSIS 2021-11-09 19:05:00 Heather Burnette Taisha [facility] CONSENT/REFUSAL FOR 2021-11-09 18:52:52 Doctor Unassigned, No Un [facility] DIAGNOSIS AND TREATMENT Name Medical [place] POCT URINALYSIS 2021-11-07 22:44:00 Ant Rankin [facility] POCT URINALYSIS 2021-09-29 00:00:00 Ivis Sepulveda o tavon [facility] AUTHORIZATION FOR 2021-09-14 05:01:00 Doctor Unassigned, No Univ [facility] RELEASE OF PHI Name Medical Branch Plan of Care Planned Activity Planned Date Details Comments Source Instructions [facility] Family Practice Encounters Start End Encounter Admission Attending Care Care Encounter Source Date/Time Date/Time Type Type Clinicians Facility Department ID 2021-11-29 2021-11-29 [id number] Univers 15:30:00 15:30:[id number] [facility] 2021-11-29 2021-11-29 Outpatient Shari [facility]KA [facility] [id number] Univers 15:30:00 15:30:[address] [facility] 2021-11-21 2021-11-21 Outpatient R CRISTIAN [facility] [id number] Univers 08:30:00 08:30:00 RHETT [id number] [facility] 2021-11-20 2021-11-20 Outpatient Shari HARGROVE [facility] [id number] Univers 00:00:00 00:00:00 RHETT [id number] [facility] 2021-11-16 2021-11-16 Outpatient R [facility] [id number] Univers 10:30:00 10:30:00 [facility] [id number] [facility] 2021-11-10 2021-11-10 Outpatient Shari FOSTER [facility] [id number] Univers 10:30:00 10:30:00 [facility] [id number] [facility] 2021-11-09 2021-11-09 Emergency X Haether BURNETTE [facility] ERT [id number] Univers 14:01:00 17:13:00 ity [facility] 2021-11-09 2021-11-09 Emergency Heather Burnette [facility] [id number] Univers 14:01:00 17:13:00 Taisha CAMPOS [id number] i ty [facility] [id number] [facility] [id number] [place] [address] [place] 2021-11-07 2021-11-07 Outpatient R CHUCHO [facility] [id number] Univers 17:20:00 17:56:21 ANT [facility] 2021-11-07 2021-11-07 [facility] [id number] Univers 17:20:00 17:56:21 [id number] [facility] y of [place] 4.2.7.2.686 Jesus as NITISH?BLEA [id number] [place] stacie HOBBS [address] [place] MEDICAL OFFICE [facility] 2021-11-07 2021-11-07 Outpatient R [facility] [id number] Univers 17:20:00 17:20:00 [id number] [facility] 2021-11-03 2021-11-03 Refill Doctor [facility] [id number] Univers 00:00:00 00:00:00 Unassigned, HEALTH [id number] ity of [place] BETH [id number] Jesus as NITISH?BLEA [id number] Va stacie HOBBS 044 [facility] OFFICE [facility] 2021-10-19 2021-10-19 [facility] [id number] Q-[id number] Univers 09:00:00 09:00:00 RHETT [id number] [facility] 2021-10-19 2021-10-19 [facility] [id number] Univers 09:00:00 09:00:00 RHETT [facility] 2021-10-10 2021-10-10 [facility] [id number] Univers 00:00:00 00:00:00 [place] [id number] it y of [place] BETH [id number] Jesus as NITISH?BLEA [id number] Va stacie HOBBS [address] [place] [address] OFFICE [facility] 2021-10-09 2021-10-09 [facility] [id number] Q-[id number] Univers 10:30:00 10:30:00 RHETT [id number] [facility] 2021-10-09 2021-10-09 Outpatient R [facility] [id number] Univers 10:30:00 10:30:00 RHETT jesus [facility] 2021-09-29 2021-09-29 Urgent Coco Ivis [facility] [id number] Univers 17:45:00 18:05:00 Care Rubinmojennifer [facility] [id number] ity of [place] 4.2.7.2.686 Jesus as NITISH?BLEA [id number] [address] MEDICAL OFFICE BUILDING 2021-09-29 2021-09-29 Outpatient R COCO [facility] [id number] Univers 17:45:00 17:45:00 IVIS [facility] 2021-09-14 2021-09-14 Orders Doctor CAM [id number] Univers 00:00:00 00:00:00 Only Unassigned, [place] [id number] [id number] Jesus as [id number] [address] 2020-09-09 2020-09-09 Outpatient FREEMAN_P_W VFP VFP [address] [place] [address] 08:41:00 08:41:00 AG [id number] Family Practic e 2020-09-07 2020-09-07 Outpatient FREEMAN_P_W VFP VFP [address] [place] [address] 04:12:00 04:12:00 AG [id number] Family Practic e 2020-09-07 2020-09-07 Porchae B VFP [place] - [id number] [facility] 00:00:00 00:00:00 Clover Cronell Famil y SCRAPPER: [id number] Medical - Pract [facility]_[place] [address], ([facility]) [place] [address] , Ph. 2020-09-06 2020-09-06 Outpatient FREEMAN_P_W VFP VFP 155 [id number] [facility] 07:41:00 07:41:00 AG [id number] Family Practic e 2020-03-14 2020-03-14 Outpatient [facility] [id number] [place] 00:00:00 00:00:00 KATYA [address] 2020-02-23 2020-02-23 Outpatient [facility] [id number] [place] 00:00:00 00:00:00 KATYA [address] Results Test Description Test Time Test Comments Results Result Comments Source MAGNESIUM 2021-11-09 20:05:24 Test Item Value Reference Range Interpretation Comme nts MAGNESIUM (test code = 2029902512) 2.0 mg/dL 1.7-2.4 Lab Interpretation (test code = 46303-0) Normal [facility] METABOLIC PANEL (09833)2021-11-09 20:05:04 Test Item Value Reference Range Interpretation Comments NA (test code = 139 mmol/L 135-145 5190345209) K (test code = 3.7 mmol/L 3.5-5 4104170227) CL (test code = 106 mmol/L 98-108 5586756535) CO2 TOTAL (test code 24 mmol/L 23-31 = 2338460297) AGAP (test code = 2-16 7932111257) BUN (test code = 13 mg/dL 7-23 5929862583) GLUCOSE (test code = 78 mg/dL 70-110 6437476561) CREATININE (test code 0.71 mg/dL 0.5-1.04 = 8818978307) TOTAL BILI (test code 0.9 mg/dL 0.1-1.1 = 8810946364) CALCIUM (test code = 9.1 mg/dL 8.6-10.6 8533877863) T PROTEIN (test code 6.9 g/dL 6.3-8.2 = 2830161421) ALBUMIN (test code = 4.2 g/dL 3.5-5 6610822223) ALK PHOS (test code = 79 U/L 34-122 7808206477) ALTv (test code = 14 U/L 5-35 1742-6) AST(SGOT) (test code 18 U/L 13-40 = 4201088619) eGFR (test code = mL/min/1.73m2 5222516398) MILA (test code = MILA) Association of Glomerular Filtration Rate (GFR) and Staging of Kidney Disease* + + +- +| GFR (mL/min/1.73 m2) ?| With Kidney Damage ?| ?Without Kidney Damage+ ------+ ----+ ------+| ?>90 ?| ?Stage one ?| ? Normal ?+ -+ + -+| ?60-89 ?| ?Stage two ?| ? Decreased GFR ? + + +- +| ?30-59 ?| ?Stage three ?| ? Stage three ? + + +- +| ?15-29 ?| ?Stage four ? | ? Stage four ?+ -+ + -+| ?<15 (or dialysis) ? ?| ?Stage five ? | ? Stage five ?+ -+ + -+ *Each stage assumes the associated GFR level has been in effect for at least three months. ?Stages 1 to 5, with or without kidney disease, indicate chronic kidney disease. Notes: Determination of stages one and two (with eGFR >59mL/min/1.73 m2) requires estimation of kidney damage for at least three months as defined by structural or functional abnormalities of the kidney, manifested by either:Pathological abnormalities or Markers of kidney damage (including abnormalities in the composition of the blood or urine or abnormalities in imaging tests). [facility]2022-07-28 20:02:45 Test Item Value Reference Range Interpretation Comments LIPASE (test code = 8054290523) 45 U/L 0-220 Lab Interpretation (test code = Normal 01268-1) [facility] WITH [id number] 19:55:44 Test Item Value Reference Range Interpretation Comments WBC (test code = See_Comment [Automated message] 6690-2) The system [employer] generated this result transmitted ref erence range: 4.30 - 1 1.10 10*3/?L. The re ference range was not u sed to interpret this result as normal/abnor mal. RBC (test code = See_Comment [Automated message] 789-8) The system [employer] generated this result transmitted ref erence range: 3.93 - 5 .25 10*6/?L. The re ference range was not u sed to interpret this result as normal/abnor mal. HGB (test code = 14.1 g/dL 11.6-15 718-7) HCT (test code = 41.6 % 35.7-45.2 4544-3) MCV (test code = 85.2 fL 80.6-95.5 787-2) MCH (test code = 28.9 pg 25.9-32.8 785-6) MCHC (test code = 33.9 g/dL 31.6-35.1 786-4) RDW-SD (test code 41.3 fL 39-49.9 = 66860-6) RDW-CV (test code 13.2 % 12-15.5 = 788-0) PLT (test code = See_Comment [Automated message] 777-3) The system [employer] generated this result transmitted ref erence range: 166 - 35 8 10*3/?L. The re ference range was not u sed to interpret this result as normal/abnor mal. MPV (test code = 10.1 fL 9.5-12.9 13244-0) NRBC/100 WBC (test See_Comment [Automat ed message] code = 4684709413) The syste m which generated this result transmitted ref erence range: 0.0 - 10 .0 /100 WBCs. The refer ence range was not u sed to interpret this result as normal/abnor mal. NRBC x10^3 (test See_Comment [Automated message] code = 6858473133) The syste m which generated this result transmitted ref erence range: 10*3/?L. The reference range was not used to interpr et this result as normal/abnormal . GRAN MAT (NEUT) % 52.6 % (test code = 770-8) IMM GRAN % (test 0.30 % code = 3691165661) LYMPH % (test code 36.5 % = 736-9) MONO % (test code 7.9 % = 5905-5) EOS % (test code = 2.0 % 713-8) BASO % (test code 0.7 % = 706-2) GRAN MAT 3.14 10*3/uL 1.88-7.09 x10^3(ANC) (test code = 1454116540) IMM GRAN x10^3 0-0.06 (test code = 8153128124) LYMPH x10^3 (test 2.18 10*3/uL 1.32-3.29 code = 731-0) MONO x10^3 (test 0.47 10*3/uL 0.33-0.92 code = 742-7) EOS x10^3 (test 0.12 10*3/uL 0.03-0.39 code = 711-2) BASO x10^3 (test 0.04 10*3/uL 0.01-0.07 code = 704-7) [facility] [id number] 19:40:00 Test Item Value Reference Range Interpretation Comments POCT PREG (test code = 1605) negative On board controls acceptable with present C Line (test code = 3574) POCT PREG LOT # (test code = 3575) [id number] POCT PREG TEST DATE (test 02/12/2023 code = 3576) Lab Interpretation (test code = Normal 27113-3) [facility] URINALYSIS W SPECIFIC [id number] 22:44:00 Test Item Value Reference Range Interpretation Comments POCT U SP GRAV (test code = 1.030 mg/dl 1.005-1.025 A 3255) POCT PH U (test code = 3254) 5 mg/dl 5-8 POCT U LEUK EST (test code = + Negative - Negative 3263) POCT U NIT (test code = 3262) pos Negative - Negative POCT U PROT (test code = trace Negative - Negative 3259) POCT U GLU (test code = 3256) norm Negative - Negative POCT U KETONE (test code = neg Negative - Negative 3258) POCT U UROBILI (test code = norm 0.2-1 3260) POCT U BILI (test code = neg Negative - Negative 3261) POCT U BLD (test code = 3257) trace Negative - Negative POCT U COLOR (test code = dark 3266) POCT U APPEAR (test code = cloudy 3267) Lab Interpretation (test code Abnormal = 35123-1) [facility] URINALYSIS W SPECIFIC [id number] 22:58:00 Test Item Value Reference Range Interpretation Comments POCT U SP GRAV 1.020 mg/dl 1.005-1.025 (test code = 3255) POCT PH U (test 5.0 mg/dl 5-8 code = 3254) POCT U LEUK EST negative Negative - Negative (test code = 3263) POCT U NIT (test positive Negative - Negative code = 3262) POCT U PROT (test trace Negative - Negative code = 3259) POCT U GLU (test normal Negative - Negative code = 3256) POCT U KETONE negative Negative - Negative (test code = 3258) POCT U UROBILI normal 0.2-1 (test code = 3260) POCT U BILI (test negative Negative - Negative code = 3261) POCT U BLD (test trace Negative - Negative code = 3257) POCT U COLOR (test dark yellow code = 3266) POCT U APPEAR clear (test code = 3267) MILA (test code = accurate development and MILA) interpretation of all internal controls [facility]
[2021-11-15 16:31] LABS: Absolute Lymphocytes (CBC) 2.3 K/uL (0.7-4.9); Hematocrit 41.4 % (36.0-45.0); Lymphocytes % 32.1 % (15.3-44.8); MCV 85.1 fL (80-100); RBC Red Blood Cell Count 4.86 M/uL (3.86-4.86)
[2021-11-15] MEDS ORDERED: NA CHLORIDE 0.9% 1,000 ML ONE ×2 (16:31→19:33)
[2021-11-15] MEDS ORDERED: KETOROLAC 30 MG/ML INJ ONE (16:31)
[2021-11-15] MEDS ORDERED: ONDANSETRON 4 MG/2 ML VIAL ONE ×2 (16:31→19:33)
--- NOTE | 2021-11-15 16:45 | RAD REPORT ---
EXAM DESCRIPTION: US - Abdomen Exam Limited - 11/15/2021 4:32 pm CLINICAL HISTORY: ABD PAIN COMPARISON: No comparisons FINDINGS: Multiple variably sized gallstones are present filling the lumen of a normal-sized gallbla dder. Sludge is present within the lumen as well. There is no wall thickening or pericholecystic flui d. No common duct stone or biliary tree dilatation identified. IMPRESSION: Multi stone cholelithiasis with no wall thickening or pericholecystic fluid. No duct stone or biliary tree dilatation.
[2021-11-15 16:47] LABS: Albumin 3.5 g/dL (3.4-5.0); Bilirubin Total 0.5 mg/dL (0.2-1.0); Potassium 3.9 mmol/L (3.5-5.1); Protein, Total 6.8 g/dL (6.4-8.2)
--- NOTE | 2021-11-15 16:52 | EDPHYS ---
Physician Documentation [facility] Name: Chantal Crews Age: 35 yrs Sex: Female : 1985 Arrival Date: 11/15/2021 Time: 15:31 Bed 24 Private MD: Sincere Baptiste ED Physician Cristopher Cordova HPI: 11/15 16:01 This 35 yrs old Female presents to ER via Ambulatory with complaints of Abdominal Pain. kb 16:01 The patient presents with abdominal pain in the right upper quadrant. Onset: The kb symptoms/episode began/occurred 1 week(s) ago. The symptoms do not radiate. Associated signs and symptoms: Pertinent positives: nausea, Pertinent negatives: diarrhea, fever, vomiting. The symptoms are described as constant. Modifying factors: The symptoms are alleviated by nothing, the symptoms are aggravated by nothing. Severity of pain: At its worst the pain was moderate in the emergency department the pain is unchanged. The patient has not experienced similar symptoms in the past. The patient has been recently seen by a physician:. Patient reports right upper quadrant pain that started last week. Was seen at [facility] on , had blood work and CT scan done which revealed gallstones. Was seen by Dr. Grewal yesterday scheduled for outpatient ultrasound tomorrow. Came in today because pain was worse. Reports nausea denies vomiting or diarrhea denies fever.. SPINNERET PERSON: 15:38 LMP N/A - Mirena tw2 Historical: - Allergies: 15:35 No Known Allergies; tw2 - Home Meds: 15:35 venlafaxine 150 mg oral tr24 1 tab once daily [Active]; buspirone 15 mg Oral tab 1 tab tw2 3 times a day [Active]; dicyclomine 20 mg Oral tab 1 tab 3 times per day [Active]; Zofran 4 mg Oral tab 1 tab 4 times per day [Active]; omeprazole 40 mg Oral cpDR 1 cap once daily [Active]; - PMHx: 15:35 Hypertensive disorder; Depressive disorder; tw2 - PSHx: 15:35 gastric sleeve; Tonsillectomy; section; Appendectomy; adenoid sx; tw2 - Immunization history:: Client reports receiving the 2nd dose of the Covid vaccine. - Social history:: Smoking status: Patient reports the use of cigarette tobacco products, smokes one pack cigarettes per day. ROS: 16:01 Constitutional: Negative for fever, chills, and weight loss. kb 16:01 Abdomen/GI: Positive for abdominal pain, nausea, Negative for vomiting, diarrhea. 16:01 All other systems are negative. Exam: 16:01 Constitutional: This is a well developed, well nourished patient who is awake, alert, kb and in no acute distress. Head/Face: Normocephalic, atraumatic. ENT: Moist Mucous membranes Cardiovascular: Regular rate and rhythm with a normal S1 and S2. No gallops, murmurs, or rubs. No pulse deficits. Respiratory: Respirations even and unlabored. No increased work of breathing. Talking in full sentences Skin: Warm, dry with normal turgor. Normal color. MS/ Extremity: Pulses equal, no cyanosis. Neurovascular intact. Full, normal range of motion. Neuro: Awake and alert, GCS 15, oriented to person, place, time, and situation. Moves all extremities. Normal gait. Psych: Awake, alert, with orientation to person, place and time. Behavior, mood, and affect are within normal limits. 16:01 Abdomen/GI: Inspection: abdomen appears normal, Bowel sounds: normal, in all quadrants, Palpation: soft, in all quadrants, moderate abdominal tenderness, in the right upper quadrant. Vital Signs: 15:33 BP 115 / 85; Pulse 75; Resp 17; Temp 97.9(TE); Pulse Ox 98% on R/A; Weight 79.38 kg tw2 (R); Height 5 ft. 9 in. (175.26 cm); Pain 10/10; 17:00 BP 118 / 64; Pulse 69; Resp 18; Pulse Ox 98% on R/A; ph 18:00 BP 120 / 87; Pulse 56; Resp 18; Pulse Ox 98% on R/A; ph 19:20 BP 119 / 65; Pulse 51; Resp 18; Pulse Ox 100% on R/A; ph 15:33 Body Mass Index 25.84 (79.38 kg, 175.26 cm) tw2 MDM: 15:41 Patient medically screened. kb 15:51 Physician consultation: Sincere Grewal MD in the emergency department to see patient at kb 15:51. 16:01 Data reviewed: vital signs, nurses notes. Data interpreted: Pulse oximetry: on room air kb is 98 %. Interpretation: normal. 16:06 Counseling: I had a detailed discussion with the patient and/or guardian regarding: the kb historical points, exam findings, and any diagnostic results supporting the discharge/admit diagnosis, lab results, radiology results, the need for further work-up and treatment in the hospital. ED course: Dr. Grewal saw patient in ER. Once patient admitted under his service with IV fluids, pain medication as needed, antibiotics, n.p.o. after midnight. Plan is to take patient to the OR tomorrow.. 11/15 15:47 Order name: CBC with Diff; Complete Time: 16:42 kb 11/15 15:47 Order name: CMP; Complete Time: 16:50 kb 11/15 15:47 Order name: Lipase; Complete Time: 16:50 kb 11/15 15:47 Order name: Abdomen Limited US; Complete Time: 16:50 kb 11/15 16:51 Order name: SARS RAPID; Complete Time: 18:25 kb 11/15 15:47 Order name: IV Saline Lock; Complete Time: 16:18 kb 11/15 15:47 Order name: Labs collected and sent; Complete Time: 16:18 kb Administered Medications: 16:32 Drug: Zofran (Ondansetron) 4 mg Route: IVP; Site: right antecubital; ph 19:19 Follow up: Response: No adverse reaction ph 16:35 Drug: NS 0.9% 1000 ml Route: IV; Rate: 1 bolus; Site: right antecubital; ph 19:19 Follow up: Response: No adverse reaction; IV Status: Completed infusion; IV Intake: ph 1000ml 16:35 Drug: Ketorolac 15 mg Route: IVP; Site: right antecubital; ph 16:50 Follow up: Response: No adverse reaction; Pain is unchanged, physician notified ph 17:10 Drug: morphine 4 mg Route: IVP; Infused Over: 4 mins; Site: right antecubital; ph 19:16 Follow up: Response: No adverse reaction ld1 18:16 Drug: Zosyn (piperacillin-tazobactam) 3.375 grams Route: IVPB; Infused Over: 60 mins; ph Site: right antecubital; 19:15 Follow up: Response: No adverse reaction; IV Status: Completed infusion; IV Intake: ld1 100ml Disposition Summary: 11/15/21 16:51 Hospitalization Ordered Hospitalization Status: Observation kb Provider: Sincere Grewal Condition: Stable kb Problem: new kb Symptoms: are unchanged kb Bed/Room Type: Standard kb Location: Intensive Care Unit(11/15/21 20:11) Room Assignment: 2-(11/15/21 20:11) cg Diagnosis - Other cholelithiasis without obstruction kb Forms: - Medication Reconciliation Form kb - SBAR form kb Signatures: Dispatcher [employer] EDSharron Crespo, CABLE RESPOOLER-C CABLE RESPOOLER-Ciarra Vasquez RN RN Allison Valentine RN RN Mami Chang RN RN tw2 Uma Gutierres RN ld1 Corrections: (The following items were deleted from the chart) 20:11 16:51 Telemetry/MedSurg (observation) kb 20:11 16:51 kb
--- NOTE | 2021-11-15 16:52 | ER ---
Nurse's Notes [facility] Name: Chantal Crews Age: 35 yrs Sex: Female : 1985 Arrival Date: 11/15/2021 Time: 15:31 Bed 24 Private MD: Sincere Baptiste Diagnosis: Other cholelithiasis without obstruction Presentation: 11/15 15:33 Chief complaint: Patient states: its my gallbladder. i went to [facility] last tw2 week and they told me it was my intestines. so i took my paperwork to dr. araujo and he told me i had gallstones and if it got worse to call him. i left a voicemail and text the staff and i am just in pain. +N. Coronavirus screen: At this time, the client does not indicate any symptoms associated with coronavirus-19. Ebola Screen: Patient denies travel to an Ebola-affected area in the 21 days before illness onset. Initial Sepsis Screen: Does the patient meet any 2 criteria? No. Patient's initial sepsis screen is negative. Does the patient have a suspected source of infection? No. Patient's initial sepsis screen is negative. Risk Assessment: Do you want to hurt yourself or someone else? Patient reports no desire to harm self or others. Onset of symptoms was November 15, 2021. 15:33 Method Of Arrival: Ambulatory tw2 15:33 Acuity: WEST 3 tw2 Triage Assessment: 15:35 General: Appears in no apparent distress. uncomfortable, Behavior is calm, cooperative, tw2 appropriate for age. Pain: Complains of pain in right lower quadrant. GI: Reports lower abdominal pain, upper abdominal pain, nausea. 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 - Social history:: Smoking status: Patient reports the use of cigarette tobacco products, smokes one pack cigarettes per day. Screenin:39 Abuse screen: Denies threats or abuse. Nutritional screening: No deficits noted. tw2 Tuberculosis screening: No symptoms or risk factors identified. Fall Risk None identified. Assessment: 16:30 General: Appears in no apparent distress. uncomfortable, well groomed, Behavior is ph calm, cooperative, appropriate for age, Reports fever for. Pain: Complains of pain in right upper quadrant. Neuro: Level of Consciousness is awake, alert, obeys commands, Oriented to person, place, time, situation. Cardiovascular: Capillary refill < 3 seconds in bilateral fingers Patient's skin is warm and dry. Respiratory: Airway is patent Respiratory effort is even, unlabored, Respiratory pattern is regular, symmetrical. GI: Abdomen is non-distended, Bowel sounds present X 4 quads. Abd is soft X 4 quads Reports upper abdominal pain, nausea. Derm: Skin is healthy with good turgor, Skin is pink, warm \T\ dry. Musculoskeletal: Circulation, motion, and sensation intact. Range of motion: intact in all extremities. Vital Signs: 15:33 BP 115 / 85; Pulse 75; Resp 17; Temp 97.9(TE); Pulse Ox 98% on R/A; Weight 79.38 kg tw2 (R); Height 5 ft. 9 in. (175.26 cm); Pain 10/10; 17:00 BP 118 / 64; Pulse 69; Resp 18; Pulse Ox 98% on R/A; ph 18:00 BP 120 / 87; Pulse 56; Resp 18; Pulse Ox 98% on R/A; ph 19:20 BP 119 / 65; Pulse 51; Resp 18; Pulse Ox 100% on R/A; ph 15:33 Body Mass Index 25.84 (79.38 kg, 175.26 cm) tw2 ED Course: 15:31 Patient arrived in ED. mr 15:31 Sincere Baptiste MD is Private Physician. mr 15:34 Sharron Gould FNP-C is PHCP. kb 15:34 Cristopher Cordova MD is Attending Physician. kb 15:35 Triage completed. tw2 15:38 Arm band placed on. tw2 16:00 Ciarra Berman RN is Primary Nurse. ph 16:15 Initial lab(s) drawn, by me, sent to lab. Inserted saline lock: 20 gauge in right dh3 antecubital area, using aseptic technique. Blood collected. 16:33 Abdomen Limited US In Process Unspecified. EDMS 16:51 Sincere Araujo MD is Hospitalizing Provider. kb 19:24 Patient has correct armband on for positive identification. Bed in low position. Call ph light in reach. Side rails up X 1. panel monitor on. Pulse ox on. Door closed. Noise minimized. Warm blanket given. 19:24 No provider procedures requiring assistance completed. Patient admitted, IV remains in ph place. Administered Medications: 16:32 Drug: Zofran (Ondansetron) 4 mg Route: IVP; Site: right antecubital; ph 19:19 Follow up: Response: No adverse reaction ph 16:35 Drug: NS 0.9% 1000 ml Route: IV; Rate: 1 bolus; Site: right antecubital; ph 19:19 Follow up: Response: No adverse reaction; IV Status: Completed infusion; IV Intake: ph 1000ml 16:35 Drug: Ketorolac 15 mg Route: IVP; Site: right antecubital; ph 16:50 Follow up: Response: No adverse reaction; Pain is unchanged, physician notified ph 17:10 Drug: morphine 4 mg Route: IVP; Infused Over: 4 mins; Site: right antecubital; ph 19:16 Follow up: Response: No adverse reaction ld1 18:16 Drug: Zosyn (piperacillin-tazobactam) 3.375 grams Route: IVPB; Infused Over: 60 mins; ph Site: right antecubital; 19:15 Follow up: Response: No adverse reaction; IV Status: Completed infusion; IV Intake: ld1 100ml Medication: 19:24 VIS not applicable for this client. ph Intake: 19:15 IV: 100ml; Total: 100ml. ld1 19:19 IV: 1000ml; Total: 1100ml. ph Outcome: 16:51 Decision to Hospitalize by Provider. kb 21:44 Admitted to ICU accompanied by nurse, via wheelchair, room 2, with chart, Report called ld1 to STONE Jorgensen 21:44 Condition: stable 21:44 Instructed on the need for admit. 21:48 Patient left the ED. ld1 Signatures: Dispatcher [employer] EDMS Sharron Gould, JOANN NELSONP-Charlotte Short Ciarra Berman, RN RN Mami Chang RN RN [facility] Uma Gutierres RN RN ld1
[2021-11-15] MEDS ORDERED: MORPHINE 4 MG/ML SYR ONE ×2 (17:23→19:33)
[2021-11-15] MEDS ORDERED: NA CHLORIDE 0.9% 100 ML ONE (18:00)
[2021-11-15] MEDS ORDERED: PIPERACIL/TAZO 3.375 GM VIAL IV ONE (18:01)
[2021-11-15 18:20] LABS: SARS-CoV-2 Antigen Rapid Res Negative (Negative)
[2021-11-15] MEDS: NA CHLORIDE 0.9% 1,000 ML IV SCH (19:14)
[2021-11-15] MEDS: PIPER TAZO 3.375 GM in NA CHLORIDE 0.9% 100 ML IV SCH (19:14)
[2021-11-15] MEDS ORDERED: ONDANSETRON 4 MG/2 ML VIAL IV PRN (19:14)
[2021-11-15] MEDS: MORPHINE 4 MG/ML SYR IV PRN ×2 (19:27→23:15)
[2021-11-15 22:23] VITALS: BMI 25.8
[2021-11-16] MEDS: PIPER TAZO 3.375 GM in NA CHLORIDE 0.9% 100 ML IV SCH ×3 (00:55→20:38)
[2021-11-16] MEDS: NA CHLORIDE 0.9% 1,000 ML IV SCH ×3 (03:36→20:38)
[2021-11-16] MEDS: MORPHINE 4 MG/ML SYR IV PRN ×4 (04:17→20:24)
[2021-11-16 05:10] LABS: Absolute Lymphocytes (CBC) 2.4 K/uL (0.7-4.9); Hematocrit 34.5 % (36.0-45.0); Lymphocytes % 51.8 % (15.3-44.8); MCV 85.2 fL (80-100); MPV 7.8 fL (7.6-11.3); RBC Red Blood Cell Count 4.05 M/uL (3.86-4.86)
[2021-11-16 05:21] LABS: Albumin 2.8 g/dL (3.4-5.0); Bilirubin Direct 0.1 mg/dL (0-0.2); Bilirubin Total 0.6 mg/dL (0.2-1.0); Potassium 4.7 mmol/L (3.5-5.1); Protein, Total 5.4 g/dL (6.4-8.2)
[2021-11-16 12:42] LABS: Specific Gravity > 1.030 (1.005-1.030)
[2021-11-16] MEDS ORDERED: propofoL 200 MG/20 ML VIAL IV ONE (14:05)
[2021-11-16] MEDS ORDERED: FENTANYL CITR 100 MCG/2 ML ONE (14:05)
[2021-11-16] MEDS ORDERED: MIDAZOLAM HCL 2 MG/2 ML INJ ONE (14:05)
[2021-11-16] MEDS ORDERED: ROCURONIUM 50 MG/5 ML VIAL IV ONE (14:05)
[2021-11-16] MEDS ORDERED: ONDANSETRON 4 MG/2 ML VIAL ONE (14:09)
[2021-11-16] MEDS ORDERED: LIDOCAINE 1% MPF 2 ML AMPULE ONE (14:12)
[2021-11-16] MEDS ORDERED: dexAMETHasone 10 MG/ML VIAL ONE (15:11)
[2021-11-16] MEDS ORDERED: GLYCOPYRROLATE 0.2 MG/ML SYR ONE (15:24)
[2021-11-16] MEDS ORDERED: KETOROLAC 30 MG/ML INJ ONE (16:26)
--- NOTE | 2021-11-16 16:27 | RAD REPORT ---
EXAM DESCRIPTION: RAD - Cholangiogram Oper-Xray Or - 11/16/2021 4:02 pm FINDINGS: Three portable KUB images were obtained during intraoperative cholangiogram. Visualize common duct shows no stone or other intraluminal abnormality. No stricture or mass. No susp icious or unexpected finding.
--- NOTE | 2021-11-16 16:37 | P.HP ---
Date of Service: 11/15/21 PC: This 35-year-old female presents the emergency room with severe right upper quadrant abdominal pain for diagnosis and treatment. HPC: This patient, who has had previous gastric surgery for weight loss, presents with severe right upper quadrant abdominal pain. I had seen her before in my office. She had a CT scan before that showed gallstones. Should we were waiting an ultrasound for the confirmation, but the patient got herself in crisis and is now in the ER. PSHx: Previous C-sections x4, gastric bypass surgery [sleeve] PMHx: Negative Social Hx: No known allergies Sys R: No cough, wheeze, shortness of breath. No chest pain or palpitations. States she is in relatively good shape, but has been having increasing di scomfort over the last few months. Did have 1 prior ER visit at another facility. O/E: Awake alert very uncomfortable vital signs are stable HEENT: Nonicteric Chest: Chest movement equal bilaterally Abd: Tender in the right upper quadrant [place]: Intact Data: Has documented gallstones Impression: Cholecystitis with cholelithiasis, biliary colic Plan: I will take to the operating room for laparoscopic possible open cholecystectomy with a cholangiogram. The risks of this procedure have been discussed. The possibility of bleeding, infection, injury to bile ducts blood vessels and intestines has been described. The possible need for an open and/or further surgeries and procedures was discussed.
--- NOTE | 2021-11-16 16:43 | P.OP ---
Preoperative diagnosis: Acute on chronic cholecystitis cholecystitis with cholelithiasis, biliary c Postoperative diagnosis: The same Primary procedure: Laparoscopic cholecystectomy Secondary procedure: Intraoperative cholangiogram Anesthesia: General Estimated blood loss: Less than 10 cc Specimen: Gallbladder and contents Findings: Inflamed edematous gallbladder Operative Technique: The patient brought the operating room there the abdomen was prepped with a DuraPrep solution, she was draped in the usual aseptic manner. This patient has had weight loss surgery. She has a lot of redundant skin. Attention was turned towards the umbilicus. A skin incision was made in the subumbilical area. A finger was placed in this to demonstrate down to the fasc ia of the midline. The Visiport was now put into this incision and on top of the fascia. Applying traction with a traumatic towel clip, the anterior abdominal wall was elevated. We now slowly used the Visiport to enter the peritoneal cavity. As we did this we did walk the instrument in a caudad direction. We eventually got into the peritoneal cavity through which we obtained a pneumoperitoneum. Under direct vision a 5 mm trocar was placed in the upper midline and 2 other 5 mm trochars on the right lateral side of the abdomen. We were now able to visualize the right upper quadrant. With the patient placed in reverse Trendelenburg and rolled to the left we could see the gallbladder itself. It was markedly distended and edematous in nature. Chronic adhesions had formed as well as acute ones. These were taken down using blunt and sharp dissection. The cystic duct and artery were now isolated. Having obtained the critical view a clip was placed between the gallbladder and the c ystic duct. An opening was made into the cystic duct through which we obtained intraoperative cholangiogram. It was necessary to use the x-ray machine as the fluoroscopy was unavailable. We did 5 7 and 11 seconds shots to demonstrate the extrahepatic biliary tree. No filling defects were noted. At this point clips were placed on the distal portion of the cystic duct. The cystic artery was dealt with in a similar fashion. The structures were now divided. We began our dissection out of the gallbladder off of the liver bed. We could see that there were small areas in 2 places that appeared to be small duct of Luschka. We clipped these and divided them in the usual manner. The gallbladder was now detached, placed into an Endo Catch, and brought out through the umbilical trocar site. Attention was turned back towards our umbilical trocar site. This is a 10 mm hole. I tried to close this by me if through our umbilical incision how ever we had walked it may be 4 cm in a caudad direction and we could not easily place our Endo Close needle. Hence a counterincision was made on the skin directly over the opening. The Endo Close was then used to approximate the fascial defect. Attention was turned towards the rest of the peritoneal cavity. Adequate hemostasis having been ensured, the area was aspirated of irrigating fluid. The pneumoperitoneum was collapsed, and trever applied to the skin. At the end of the procedure she was stable and sent to the recovery room. Needle sponge instrument count were correct. No drains were placed. Complications: None Transferred to: Recovery Room Condition: Good
[2021-11-16] MEDS ORDERED: HYDROCODONE/APAP 7.5/325 MG TAB PO PRN (16:50)
[2021-11-16] MEDS: HYDROMORPHONE HCL 1 MG/ML INJ ONE ×4 (16:54→17:19)
[2021-11-16 17:49] VITALS: O2SAT 97
[2021-11-16] MEDS: PANTOPRAZOLE 40MG TABLET PO SCH (20:57)
[2021-11-17] MEDS: HYDROCODONE/APAP 7.5/325 MG TAB PO PRN ×2 (00:43→09:57)
[2021-11-17] MEDS: PIPER TAZO 3.375 GM in NA CHLORIDE 0.9% 100 ML IV SCH ×2 (00:43→09:52)
[2021-11-17] MEDS: MORPHINE 4 MG/ML SYR IV PRN ×2 (02:09→06:38)
[2021-11-17] MEDS: NA CHLORIDE 0.9% 1,000 ML IV SCH (06:35)
[2021-11-17] MEDS: PANTOPRAZOLE 40MG TABLET PO SCH (06:35)
[2021-11-17 12:10] VITALS: BP 99/60; TEMP 97
[2021-11-17] MEDS ORDERED: PANTOPRAZOLE 40MG TABLET PO SCH (20:34)
== END 2021-11-17 13:03 | disposition home or self-care (01) ==
LOC: ER 15:29 → ERHOLD 16:55 → 3RD-ICU 21:17 → 2ND 11-16 14:00
PROVIDERS: ADMIT Surgery; ATTEND Surgery
PROC: 0FT44ZZ Resection of Gallbladder, Percutaneous Endoscopic Approach (ICD-10-PCS; principal; 2021-11-15)
PROC: BF00YZZ Plain Radiography of Bile Ducts using Other Contrast (ICD-10-PCS; 2021-11-15)
DX: K80.12 Calculus of gallbladder with acute and chronic cholecystitis without obstruction (principal); F17.210 Nicotine dependence, cigarettes, uncomplicated; Z20.822 Contact with and (suspected) exposure to COVID-19; Z98.84 Bariatric surgery status
CPT/HCPCS: 96365; 96361; 85025 ×2; 80048; 36415; 81025; 80076; 88304; 83690 ×2; 80053; 74300; 76705; 94010; 96375; 99285; 87811; 47563; J2704; J2543 ×6; J2250; J3010; J1100; J1170 ×2; J7030 ×7; J2405 ×3

== ENCOUNTER 2021-11-17 14:03 | Emergency (ER) | payer OTHER ==
--- OUTSIDE RECORDS SUMMARY | 2021-11-17 14:07 | XMS REPORT | Continuity of Care Document ---
:1985 Author Organization [facility] t Address [address] [place] [address] Care Team Providers Name Role Phone Rhett Foster MD Primary Care Physician [phone] ASCENCION SANDY Attending Clinician Unavailable RHETT FOSTER Attending Clinician Unavailable RHETT HARGROVE Attending Clinician Unavailable Rhett Foster MD Attending Clinician Heather BURNETTE Attending Clinician Unavailable Heather Smith Attending Clinician ANT RANKIN Attending Clinician Unavailable Ant Rankin MD Attending Clinician Doctor Unassigned, [place] Attending Clinician Unavailable Ivis Rodriguez Attending Clinician Lenin Orozco Attending Clinician IVIS SEPULVEDA Attending Clinician Unavailable KRAIG_P_YULI Attending Clinician Unavailable KATYA HOWELL Attending Clinician Unavailable Heather BURNETTE Admitting Clinician Unavailable THO Admitting Clinician Unavailable Payers Payer Name Policy Type Policy Number Effective Date Expiration Date [facility] [id number] 2021 [place] 00[place] [id number] 2020 00:00:00 Problems Condition Condition Condition Status Onset Resolution Last Treating Co mments Source Name Details Category Date Date Treatment Clinician Date Status Status Disease Active 2020-04 Univers post post 1-05 ity of laparoscop [place]op [place] sleeve ic sleeve 00 Medi sara gastrectom gastrectom Br anch y y Pain Pain Disease Active Univers pelvic pelvic 3-02 ity of 00:00: [place] [address] Medical Branch BMI BMI Disease Active Univers 45.0-49.9, 45.0-49.9, 3-02 it y of adult adult 00:00: [place] [facility] Branch Hyperchole Hyperchole Disease Active U charlee sterolemia sterolemia 01-05 it y of 00:: [place] [address] Medical Branch Abnormal Abnormal Disease Active Overview: Un shellie TSH TSH 01-05 Formattin ity of 00:00: g of this note Medical might be Branch different from the original. 01/06/20: Low TSH, f/u labs ordered. Kidney Kidney Disease Active 2018-04 Univers stones stones 2-27 ity of 00:00: [address] Branch Obesity Obesity Disease Active 2018-04 Univers (BMI (BMI 2-12 ity of 30-39.9) 30-39.9) 00:00: [place] [address] Medical Branch UTI UTI Disease Active 2018-04 Univers symptoms symptoms 2-12 ity of 00:00: [address] Screen for Screen for Disease Active [...] specified Microscopi Microscopi Disease Active 2017-04 U [place] c c 0-12 it[place] of hemat[place] Abnormal Abnormal Disease Active Unive [...] grief 12-31 ity of reaction reaction 00:00: [place] 00 [facility] Well woman Well woman Disease Active U nivers exam exam 12-14 ity of 00:00: Medical Branch Morbid Morbid Disease Active Univers obesity obesity 12-14 ity of 00:00: Medical [place] Encounter Encounter Disease Active Uni vers for repeat for repeat 11-23 it y of Papanicola [place]ola [place] smear ou smear 00 Medica l of cervix of cervix Bran ch Cardiomyop Cardiomyop Disease Active U nivers athy athy 11-07 ity of 00:00: [place] 00 Medical Branch CHF CHF Disease Active Univers (congestiv (congestiv 11-07 it y of e heart e heart 00:00: [place] failure) failure) 00 Medica l Branch Vaginal Vaginal Disease Active 2015-04 Overview: Univ ers low risk low risk 2-07 Formattin ity of human human 00:00: g of this [place] papillomav papillomav 00 note Me dical irus (HPV) irus (HPV) might be Branch DNA test DNA test different positive positive from the original. Needs repeat pap in 1 year Allergies, Adverse Reactions, Alerts Allergy Allergy Status Severity Reaction(s) Onset Inactive Treating Comm ents Source Name Type Date Date Clinician NO KNOWN Drug Active Univers ALLERGIE Class ity of S [place] [facility] Social History Social Habit Start Date Stop Date Quantity Comments Source Alcohol intake 2021-11-10 2021-11-10 0 /d University of 00:00:00 00:00:00 [place] [facility] Exposure to 2021-10-30 2021-11-09 Not sure [facility] SARS-CoV-2 (event) 00:00:00 14:46:00 [place] [facility] Cigarettes smoked 2021-05-24 2021-05-24 Univers ity of current (pack per 00:00:00 00:00:00 [place] ) - Reported Branch Tobacco use and 2021-05-24 2021-05-24 Smokeless Universit y of exposure 00:00:00 00:00:00 tobacco non-user [facility] History of tobacco 2019-05-24 2008-12-28 Cigarette Smoker University of use 00:00:00 00:00:00 [place] [facility] Sex [birth year] Universit y of 00:00:00 00:00:00 [place] [facility] Smoking Status Start Date Stop Date Source Never Smoker [facility] param Ex-smoker 2021-05-24 00:00:00 2021-05-24 00:00:00 [facility] Medications Ordered Filled Start Stop Current Ordering Indication Dosage Frequency Signature Comments Components Source Medication Medication Date Date Medication? Clinician (SIG) Name Name NaCl 0.9% No 1000mL at 999 Uni vers (NS) bolus 11-09 mL/hr, ity of infusion 22:00: 22:12 1,000 mL, [place] as 1,000 mL 00 :00 IV Medical Infusion, Branch ONCE, 1 dose, On [place] 11/09/21 at 1700, STAT ketorolac No 15mg 15 mg, Unive rs (TORADOL) 11-09 Slow IV ity of injection 20:45: 19:47 Push, [place] 15 mg 00 :00 ONCE, 1 Medical dose, On Branch [facility] 11/09/21 at 1545, AYAKA dicyclomine Yes [id number] 20mg Take 1 Univers 20 mg -28 tablet by ity of tablet 00:00: mouth 4 [place] [address] ([facility]) Medical times [place] daily. dicyclomine Yes [id number] 20mg Take 1 Univers 20 mg 7-28 tablet by ity of tablet 00:00: mouth 4 [place] 00 (four) Medical times Valentine daily. sulfamethox 2021- Yes [id number] 1{tbl} Take 1 Univers azole-trime 11-07 tablet by it y of thoprim 00:00: 04:59 mouth in [place] (BACTRIM 00 :00 the Medical DS) 800-160 morning Branc h mg per and 1 tablet tablet in the evening. Do all this for 5 days. sulfamethox 2-0 2- Yes [id number] 1{tbl} Take 1 Univers azole-trime 7-26 08-01 tablet by it y of thoprim 00:00: 04:59 mouth in [place] (BACTRIM 00 :00 the Medical DS) 800-160 morning Branc h mg per and 1 tablet tablet in the evening. Do all this for 5 days. ondansetron 2021-0 Yes [id number] DISSOLVE 1 Univers 4 mg 7-22 TABLET ON ity of disintegrat 00:00: THE TONGUE [place] ing tablet 00 EVERY 8 Medica l HOURS Branch NEEDED FOR NAUSEA ondansetron 2021-0 Yes [id number] DISSOLVE 1 Univers 4 mg 7-22 TABLET ON ity of disintegrat 00:00: THE TONGUE [place] ing tablet 00 EVERY 8 Medica l HOURS Branch NEEDED FOR NAUSEA ondansetron 2021-0 Yes [id number] DISSOLVE 1 Univers 4 mg 7-22 TABLET ON ity of disintegrat 00:00: THE TONGUE [place] ing tablet 00 EVERY 8 Medica l HOURS Branch NEEDED FOR NAUSEA ondansetron 2021-0 Yes [id number] DISSOLVE 1 Univers 4 mg 7-22 TABLET ON ity of disintegrat 00:00: THE TONGUE [place] ing tablet 00 EVERY 8 Medica l HOURS Branch NEEDED FOR NAUSEA busPIRone 2-0 Yes 15mg Take 1 Univer s 15 mg 6-28 tablet by ity of tablet 00:00: mouth 2 (two) Medical times Branch daily. busPIRone 2022-0 Yes 15mg Take 1 Univer s 15 mg 6-28 tablet by ity of tablet 00:00: mouth 2 (two) Medical times Branch daily. busPIRone 2022-0 Yes 15mg Take 1 Univer s 15 mg 6-28 tablet by ity of tablet 00:00: mouth 2 (two) Medical times Branch daily. busPIRone 2022-0 Yes 15mg Take 1 Univer s 15 mg 6-28 tablet by ity of tablet 00:00: mouth 2 (two) Medical times Branch daily. busPIRone 2022-0 Yes 15mg Take 1 Univer s 15 mg 6-28 tablet by ity of tablet 00:00: mouth 2 [place] 00 (two) Medical times Branch daily. Nitrofurant 2021- Yes [id number] 100mg Take 1 Univers oin&Nit. 6-17 06-25 capsule by ity of Macrocryst 00:00: 04:59 mouth 2 [place] as 100 mg 00 :00 (two) Medical capsule times Branch daily for 7 days. venlafaxine 0 Yes [id number] TAKE 1 Univers XR 150 mg 5-31 CAPSULE BY ity of 24 hr 00:00: MOUTH [place] capsule 00 EVERY DAY Medical WITH FOOD Branch venlafaxine 0 Yes [id number] TAKE 1 Univers XR 150 mg 5-31 CAPSULE BY ity of 24 hr 00:00: MOUTH [place] capsule 00 EVERY DAY Medical WITH FOOD Branch venlafaxine 0 Yes [id number] TAKE 1 Univers XR 150 mg 5-31 CAPSULE BY ity of 24 hr 00:00: MOUTH [place] capsule 00 EVERY DAY Medical WITH FOOD Branch venlafaxine 0 Yes [id number] TAKE 1 Univers XR 150 mg 5-31 CAPSULE BY ity of 24 hr 00:00: MOUTH [place] capsule 00 EVERY DAY Medical WITH FOOD Branch venlafaxine 0 Yes [id number] TAKE 1 Univers XR 150 mg 5-31 CAPSULE BY ity of 24 hr 00:00: MOUTH [place] capsule 00 EVERY DAY Medical WITH FOOD Branch venlafaxine 0 Yes [id number] TAKE 1 Univers XR 150 mg 5-31 CAPSULE BY ity of 24 hr 00:00: MOUTH [place] capsule 00 EVERY DAY Medical WITH FOOD Branch venlafaxine 0 Yes [id number] TAKE 1 Univers XR 150 mg 5-31 [...] 4-6). Indication s: acute pain ibuprofen 0 Yes [id number] 600mg Take 1 Univers 600 mg 5-19 [id number] tablet by ity of tablet 00:00: mouth [place] 00 every 6 Medical (six) Branch hours as needed for Pain (scale 4-6). traMADoL 50 2021-0 Yes [id number] 50mg Take 1 Univ ers mg tablet 5-19 tablet by ity o f 00:00: mouth [place] 00 every 6 Medical (six) Branch hours as needed for Pain (scale 4-6). Indication s: acute pain ibuprofen 2021-0 Yes [id number] 600mg Take 1 Univers 600 mg 5-19 [id number] tablet by ity of tablet 00:00: mouth [place] 00 every 6 Medical (six) Branch hours as needed for Pain (scale 4-6). traMADoL 50 2021-0 Yes [id number] 50mg Take 1 Univ ers mg tablet 5-19 tablet by ity o f 00:00: mouth [place] 00 every 6 Medical (six) Branch hours as needed for Pain (scale 4-6). Indication s: acute pain ibuprofen 2021-0 Yes [id number] 600mg Take 1 Univers 600 mg 5- [id number] tablet by ity of tablet 00:00: mouth [place] 00 every 6 Medical (six) Branch hours as needed for Pain (scale 4-6). traMADoL 50 2021-0 Yes [id number] 50mg Take 1 Univ ers mg tablet 5-19 tablet by ity o f 00:00: mouth [place] 00 every 6 Medical (six) Branch hours as needed for Pain (scale 4-6). Indication s: acute pain ibuprofen 2021-0 Yes [id number] 600mg Take 1 Univers 600 mg 5-19 [id number] tablet by ity of tablet 00:00: mouth [place] 00 every 6 Medical (six) Branch hours as needed for Pain (scale 4-6). traMADoL 50 2021-0 2021- No [id number] 50mg Take 1 Uni vers mg tablet 08-31- tablet by ity of 00:00: 00:00 mouth [place] 00 :00 every 6 Medical (six) Branch hours as needed for Pain (scale 4-6). Indication s: acute pain ibuprofen 2021-0 2021- No [id number] 600mg Take 1 Univers 600 mg -31 10- [id number] tablet by ity o f tablet 00:00: 00:00 mouth [place] 00 :00 every 6 Medical (six) Branch hours as needed for Pain (scale 4-6). BINAXNOW 0 Yes TEST Univer s COVID-19 AG 5-13 DIRECTED ity of SELF TEST 00:00: TODAY [place] Kit 00 Medical Branch BINAXNOW 2-0 Yes TEST Univer s COVID-19 AG 5-13 DIRECTED ity of SELF TEST 00:00: TODAY [place] Kit 00 Medical Branch BINAXNOW 2-0 2022- No TEST Unive rs COVID-19 AG 5-13 11-07 DIRECTED ity of SELF TEST 00:00: 00:00 TODAY [place] Kit 00 :00 Medical Branch ondansetron 2-0 Yes [id number] DISSOLVE 1 Univers 4 mg 4-21 TABLET ON ity of disintegrat 00:00: THE TONGUE [place] ing tablet 00 EVERY 8 Medica l HOURS Branch NEEDED FOR NAUSEA ondansetron 2-0 Yes [id number] DISSOLVE 1 Univers 4 mg 4-21 TABLET ON ity of disintegrat 00:00: THE TONGUE [place] ing tablet 00 EVERY 8 Medica l HOURS Branch NEEDED FOR NAUSEA ondansetron 2-0 Yes [id number] DISSOLVE 1 Univers 4 mg 4-21 TABLET ON ity of disintegrat 00:00: THE TONGUE [place] ing tablet 00 EVERY 8 Medica l HOURS Branch NEEDED FOR NAUSEA ondansetron 2-0 2- No [id number] DISSOLVE 1 Univers 4 mg 4-21 07-22 TABLET ON ity of disintegrat 00:00: 00:00 THE TONGUE [place] ing tablet 00 :00 EVERY 8 Medica l HOURS Branch NEEDED FOR NAUSEA OMEPRAZOLE 2022-0 Yes [id number] 40mg TAKE 1 Univers 40 mg 4-14 CAPSULE BY ity of capsule 00:00: [facility] 00 DAILY Medical Branch OMEPRAZOLE 2022-0 Yes [id number] 40mg TAKE 1 Univers 40 mg 4-14 CAPSULE BY ity of capsule 00:00: MOUTH 00 DAILY Medical Branch OMEPRAZOLE 2022-0 Yes [id number] 40mg TAKE 1 Univers 40 mg 4-14 CAPSULE BY ity of capsule 00:00: MOUTH [place] 00 DAILY Medical Branch OMEPRAZOLE 2022-0 Yes [id number] 40mg TAKE 1 Univers 40 mg 4-14 CAPSULE BY ity of capsule 00:00: MOUTH [place] 00 DAILY Medical Branch OMEPRAZOLE 2022-0 Yes [id number] 40mg TAKE 1 Univers 40 mg 4-14 CAPSULE BY ity of capsule 00:00: MOUTH [place] 00 DAILY Medical Branch OMEPRAZOLE 2022-0 Yes [id number] 40mg TAKE 1 Univers 40 mg 4-14 CAPSULE BY ity of capsule 00:00: MOUTH [place] 00 DAILY Medical Branch OMEPRAZOLE 2021-0 Yes [id number] 40mg TAKE 1 Univers 40 mg 4-14 CAPSULE BY ity of capsule 00:00: MOUTH [place] 00 DAILY Medical Branch BARIATRIC 2021-0 Yes 1{tbl} Take 1 Univ ers MULTIVITAMI 2-09 tablet by ity of NS ORAL 14:30: mouth 2 [place] [address] (two) Medical times Branch daily. VITAMIN D-3 Yes [id number] Take Univ ers ORAL 2-09 50,000 ity of 14:30: Units by [place] [address] mouth. Medical Branch BARIATRIC Yes 1{tbl} Take 1 Univ ers MULTIVITAMI 2-09 tablet by ity of NS ORAL 14:30: mouth 2 [place] [address] (two) Medical times Branch daily. VITAMIN D-3 Yes [id number] Take Univ ers ORAL 2-09 50,000 ity of 14:30: Units by [place] [address] mouth. Medical Branch BARIATRIC Yes 1{tbl} Take 1 Univ ers MULTIVITAMI 2-09 tablet by ity of NS ORAL 14:30: mouth 2 [place] [address] (two) Medical times Branch daily. VITAMIN D-3 Yes [id number] Take Univ ers ORAL 2-09 50,000 ity of 14:30: Units by [place] [address] mouth. Medical Branch BARIATRIC Yes 1{tbl} Take 1 Univ ers MULTIVITAMI 2-09 tablet by ity of NS ORAL 14:30: mouth 2 [place] [address] (two) Medical times Branch daily. VITAMIN D-3 Yes [id number] Take Univ ers ORAL 2-09 50,000 ity of 14:30: Units by [place] [address] mouth. Medical Branch BARIATRIC Yes 1{tbl} Take 1 Univ ers MULTIVITAMI 2-09 tablet by ity of NS ORAL 14:30: mouth 2 [place] [address] (two) Medical times Branch daily. VITAMIN D-3 Yes [id number] Take Univ ers ORAL 2-09 50,000 ity of 14:30: Units by [place] [address] mouth. Medical Branch BARIATRIC Yes 1{tbl} Take 1 Univ ers MULTIVITAMI 2-09 tablet by ity of NS ORAL 14:30: mouth 2 [place] [address] (two) Medical times Branch daily. VITAMIN D-3 Yes [id number] Take Univ ers ORAL 2-09 50,000 ity of 14:30: Units by [place] [address] mouth. Medical Branch BARIATRIC Yes 1{tbl} Take 1 Univ ers MULTIVITAMI 2-09 tablet by ity of NS ORAL 14:30: mouth 2 [place] [address] (two) Medical times Branch daily. VITAMIN D-3 Yes [id number] Take [facility] ers ORAL 2-09 50,000 ity of 14:30: Units by [place] [address] mouth. Medical Branch levonorgest 2020-0 Yes 1{each} 1 Each by Univers rel 20 7-14 Intrauteri ity of mcg/24 15:36: ne route. [place] hours (5 48 Medical yrs) 52 mg Branch IUD levonorgest 0 Yes 1{each} 1 Each by Univers rel 20 7-14 Intrauteri ity of mcg/24 15:36: ne route. [place] hours (5 48 Medical yrs) 52 mg Branch IUD levonorgest Yes 1{each} 1 Each by Univers rel 20 7-14 Intrauteri ity of mcg/24 15:36: ne route. [place] hours (5 48 Medical yrs) 52 mg Branch IUD levonorgest 0 Yes 1{each} 1 Each by Univers rel 20 7-14 Intrauteri ity of mcg/24 15:36: ne route. [place] hours (5 48 Medical yrs) 52 mg Branch IUD levonorgest 2020-0 Yes 1{each} 1 Each by Univers rel 20 7-14 Intrauteri ity of mcg/24 15:36: ne route. [place] hours (5 48 Medical yrs) 52 mg Branch IUD levonorgest 0 Yes 1{each} 1 Each by Univers rel 20 7-14 Intrauteri ity of mcg/24 15:36: ne route. [place] hours (5 48 Medical yrs) 52 mg Branch IUD levonorgest 2020-0 Yes 1{each} 1 Each by Univers rel 20 7-14 Intrauteri ity of mcg/24 15:36: ne route. [place] hours (5 48 Medical yrs) 52 mg Branch IUD busPIRone 2021-0 Yes 15mg Take 15 mg Un shellie [...] 00 times Medical daily. Branch busPIRone 2020-0 2021- No 15mg Take 15 mg U nivers 15 mg 4-21 -26 by mouth 2 ity of tablet 00:00: 00:00 (two) [place] 00 :00 times Medical daily. Branch levocetiriz 2018-04 Yes 5mg Take 1 [...] 00:00: mouth [place] 00 daily. Medical Branch FLUTICASONE 2019-0 Yes [id number] SHAKE U nivers 50 1-30 LIQUID AND ity of mcg/actuati 00:00: USE 2 [place] on nasal 00 SPRAYS IN Medica l spray EACH Branch NOSTRIL DAILY FLUTICASONE Yes [id number] SHAKE U nivers 50 1-30 LIQUID AND ity of mcg/actuati 00:00: USE 2 [place] on nasal 00 SPRAYS IN Medica l spray EACH Branch NOSTRIL DAILY FLUTICASONE Yes [id number] SHAKE U nivers 50 1-30 LIQUID AND ity of mcg/actuati 00:00: USE 2 [place] on nasal 00 SPRAYS IN Medica l spray EACH Branch NOSTRIL DAILY FLUTICASONE Yes [id number] SHAKE U nivers 50 1-30 LIQUID AND ity of mcg/actuati 00:00: USE 2 [place] on nasal 00 SPRAYS IN Medica l spray EACH Branch NOSTRIL DAILY FLUTICASONE Yes [id number] SHAKE U nivers 50 1-30 LIQUID AND ity of mcg/actuati 00:00: USE 2 [place] on nasal 00 SPRAYS IN Medica l spray EACH Branch NOSTRIL DAILY FLUTICASONE Yes [id number] SHAKE U nivers 50 1-30 LIQUID AND ity of mcg/actuati 00:00: USE 2 [place] on nasal 00 SPRAYS IN Medica l spray EACH Branch NOSTRIL DAILY FLUTICASONE Yes [id number] SHAKE U nivers 50 1-30 LIQUID AND ity of mcg/actuati 00:00: USE 2 [place] on nasal 00 SPRAYS IN Medica l spray EACH Branch NOSTRIL DAILY diclofenac diclofenac No diclofenac [facility] sodium 75 sodium 75 sodium 75 Family [...] D SC D sertraline sertraline No sertraline [place] 100 mg 100 mg 100 mg Family tablet TAKE tablet TAKE tablet Practic 1 TABLET BY 1 TABLET BY TAKE 1 e MOUTH EVERY MOUTH EVERY TABLET BY DAY DAY MOUTH EVERY DAY venlafaxine venlafaxine No venlafaxin [place] ER 150 mg ER 150 mg e ER 150 F amily capsule,ext capsule,ext mg P ractic ended ended capsule,ex e release 24 release 24 tended hr TAKE 1 hr TAKE 1 release 24 CAPSULE BY CAPSULE BY hr TAKE 1 MOUTH EVERY MOUTH EVERY CAPSULE BY DAY WITH DAY WITH MOUTH FOOD FOOD EVERY DAY WITH FOOD amoxicillin amoxicillin No 1 Q12H amoxicilli [facility] [id number] 875 Family mg-potassiu mg-potassiu [...] Completed Universit y of Vaccine 00:00:00 [place] [facility] Influenza Virus 2020-12-07 Completed Universit y of Vaccine 00:00:00 [place] [facility] Influenza Virus 2020-12-07 Completed Universit y of Vaccine 00:00:00 [place] [facility] Influenza Virus 2020-12-07 Completed Universit y of Vaccine 00:00:00 [place] [facility] Influenza Virus 2020-12-07 Completed Universit y of Vaccine 00:00:00 [place] [facility] SARS-COV-2 SARS-COV-2 2020-05-30 Completed [facility] (COVID-19) vaccine, (COVID-19) vaccine, 00:00:00 Practice UNSPECIFIED UNSPECIFIED SARS-COV-2 COVID-19 2020-05-24 Completed Unive rsity of PFIZER VACCINE 00:00:[address] [facility] SARS-COV-2 COVID-19 2020-05-24 Completed Unive rsity of PFIZER VACCINE 00:00:[address] [facility] SARS-COV-2 COVID-19 2020-05-24 Completed Unive rsity of PFIZER VACCINE 00:00:[address] [facility] SARS-COV-2 COVID-19 2020-05-24 Completed Unive rsity of PFIZER VACCINE 00:00:[address] [facility] SARS-COV-2 COVID-19 2020-05-24 Completed Unive rsity of PFIZER VACCINE 00:00:[address] [facility] SARS-COV-2 SARS-COV-2 2020-05-03 Completed [facility] (COVID-19) vaccine, (COVID-19) vaccine, 00:00:00 Practice UNSPECIFIED UNSPECIFIED SARS-COV-2 COVID-19 2020-04-15 Completed Unive rsity of PFIZER VACCINE 00:00:[address] [facility] SARS-COV-2 COVID-19 2020-04-15 Completed Unive rsity of PFIZER VACCINE 00:00:[address] [facility] SARS-COV-2 COVID-19 2020-04-15 Completed Unive rsity of PFIZER VACCINE 00:00:[address] [facility] SARS-COV-2 COVID-19 2020-04-15 Completed Unive rsity of PFIZER VACCINE 00:00:[address] [facility] SARS-COV-2 COVID-19 2020-04-15 Completed Unive rsity of PFIZER VACCINE 00:00:[address] [facility] SARS-COV-2 COVID-19 2020-04-15 Completed Unive rsity of PFIZER VACCINE 00:00:[address] [facility] SARS-COV-2 COVID-19 2020-04-15 Completed Unive rsity of PFIZER VACCINE 00:00:[address] [facility] Influenza Virus 2019-12-07 Completed Universit y of Vaccine Quad IM, 00:00:00 [facility] dical Preserv and ABX Branch Free 6 MO-64 YRS Influenza Virus 2019-12-07 Completed Universit y of Vaccine Quad IM, 00:00:00 [place] Me dical Preserv and ABX Branch Free 6 MO-64 YRS Influenza Virus 2019-12-07 Completed Universit y of Vaccine Quad IM, 00:00:00 [place] Me dical Preserv and ABX Branch Free 6 MO-64 YRS Influenza Virus 2019-12-07 Completed Universit y of Vaccine Quad IM, 00:00:00 [facility] dical Preserv and ABX Branch Free 6 MO-64 YRS Influenza Virus 2019-12-07 Completed Universit y of Vaccine Quad IM, 00:00:00 [facility] dical Preserv and ABX Branch Free 6 MO-64 YRS Influenza Virus 2019-12-03 Completed Universit y of Vaccine Quad .5 mL 00:00:00 [place] Medical IM 6+ MO Branch Influenza Virus 2019-12-03 Completed Universit y of Vaccine Quad .5 mL 00:00:00 [place] Medical IM 6+ MO Branch Influenza Virus 2019-12-03 Completed Universit y of Vaccine Quad .5 mL 00:00:00 [facility] IM 6+ MO Branch Influenza Virus 2019-12-03 Completed Universit y of Vaccine Quad .5 mL 00:00:00 [place] Medical IM 6+ MO Branch Influenza Virus 2019-12-03 Completed Universit y of Vaccine Quad .5 mL 00:00:00 [place] Medical IM 6+ MO Branch Pneumococcal 13 2019-06-19 Completed Universit y of Conjugate, PCV13 00:00:00 [facility] dical (Prevnar 13) Branch Pneumococcal 13 2019-06-19 Completed Universit y of Conjugate, PCV13 00:00:00 [facility] dical (Prevnar 13) Branch Pneumococcal 13 2019-06-19 Completed Universit y of Conjugate, PCV13 00:00:00 [facility] dical (Prevnar 13) Branch Pneumococcal 13 2019-06-19 Completed Universit y of Conjugate, PCV13 00:00:00 [facility] dical (Prevnar 13) Branch Pneumococcal 13 2019-06-19 Completed Universit y of Conjugate, PCV13 00:00:00 [facility] dical (Prevnar 13) Branch Influenza Virus 2018-12-14 Completed Universit y of Vaccine Quad .5 mL 00:00:00 [place] Medical IM 6+ MO Branch Influenza Virus 2018-12-14 Completed Universit y of Vaccine Quad .5 mL 00:00:00 [place] Medical IM 6+ MO Branch Influenza Virus 2018-12-14 Completed Universit y of Vaccine Quad .5 mL 00:00:00 [place] Medical IM 6+ MO Branch Influenza Virus 2018-12-14 Completed Universit y of Vaccine Quad .5 mL 00:00:00 [place] Medical IM 6+ MO Branch Influenza Virus 2018-12-14 Completed Universit y of Vaccine Quad .5 mL 00:00:00 [facility] 6+ MO Branch Influenza Virus 2018-12-14 Completed Universit y of Vaccine Quad .5 mL 00:00:00 [place] Medical IM 6+ MO Branch Influenza Virus 2018-12-14 Completed Universit y of Vaccine Quad .5 mL 00:00:00 [facility] 6+ MO Branch Pneumococcal 2018-07-15 Completed University [...] 2018-07-15 Completed University o f Polysaccharide, 00:00:00 [place] Med ical PPSV23 (PNEUMOVAX) Branch Influenza Virus 2017-11-30 Completed Universit y of Vaccine 00:00:00 [facility] Influenza Virus 2017-11-30 Completed Universit y of Vaccine 00:00:00 [facility] Influenza Virus 2017-11-30 Completed Universit y of Vaccine 00:00:00 [place] [facility] Influenza Virus 2017-11-30 Completed Universit y of Vaccine 00:00:00 [place] [facility] Influenza Virus 2017-11-30 Completed Universit y of Vaccine 00:00:00 [place] [facility] Influenza Virus 2017-11-30 Completed Universit y of Vaccine 00:00:00 [place] [facility] Influenza Virus 2017-11-30 Completed Universit y of Vaccine 00:00:00 [facility] Rho (d) Immune 2016-11-02 Completed University of Globulin 00:00:00 [place] [facility] Rho (d) Immune 2016-11-02 Completed University of Globulin 00:00:00 [place] [facility] Rho (d) Immune 2016-11-02 Completed [facility] Globulin 00:00:00 [facility] Rho (d) Immune 2016-11-02 Completed [facility] Globulin 00:00:00 [facility] Rho (d) Immune 2016-11-02 Completed [facility] Globulin 00:00:00 [facility] Rho (d) Immune 2016-11-02 Completed [facility] Globulin 00:00:00 [facility] Rho (d) Immune 2016-11-02 Completed [facility] Globulin 00:00:00 [facility] TDAP 2016-08-17 Completed University of 00:00:00 [facility] TDAP 2016-08-17 Completed University of 00:00:00 [facility] TDAP 2016-08-17 Completed University of 00:00:00 [facility] TDAP 2016-08-17 Completed University of 00:00:00 [facility] TDAP 2016-08-17 Completed University of 00:00:00 [facility] TDAP 2016-08-17 Completed University of 00:00:00 [facility] TDAP 2016-08-17 Completed University of 00:00:00 [facility] Influenza Virus 2016-03-16 Completed Universit y of Vaccine Quad IM 3+ 00:00:00 [facility] Influenza Virus 2016-03-16 Completed Universit y of Vaccine Quad IM 3+ 00:00:00 [facility] Influenza Virus 2016-03-16 Completed Universit y of Vaccine Quad IM 3+ 00:00:00 [facility] Influenza Virus 2016-03-16 Completed Universit y of Vaccine Quad IM 3+ 00:00:00 [facility] Influenza Virus 2016-03-16 Completed Universit y of Vaccine Quad IM 3+ 00:00:00 [facility] Influenza Virus 2016-03-16 Completed Universit y of Vaccine Quad IM 3+ 00:00:00 [facility] Influenza Virus 2016-03-16 Completed Universit y of Vaccine Quad IM 3+ 00:00:00 [facility] Rubella 2011-09-03 Completed University of 00:00:00 [facility] Rubella 2011-09-03 Completed [facility] of 00:00:00 [facility] Rubella 2011-09-03 Completed [facility] of 00:00:00 [facility] Rubella 2011-09-03 Completed [facility] of 00:00:00 [facility] Rubella 2011-09-03 Completed [facility] of 00:00:00 [facility] Rubella 2011-09-03 Completed University of 00:00:00 [facility] Rubella 2011-09-03 Completed University of 00:00:00 [facility] Td 2006-04-15 Completed University of 00:00:00 [facility] Td 2006-04-15 Completed [facility] of 00:00:00 [facility] Td 2006-04-15 Completed University of 00:00:00 [facility] Td 2006-04-15 Completed University of 00:00:00 [facility] Td 2006-04-15 Completed University of 00:00:00 [facility] Td 2006-04-15 Completed University of 00:00:00 [facility] Td 2006-04-15 Completed University of 00:00:00 [facility] Vital Signs Vital Name Observation Time Observation Value Comments Source Heart rate 2021-11-09 22:06:00 60 /min [facility] Oxygen saturation in 2021-11-09 22:06:00 98 /min [facility] Arterial blood by [facility] Pulse oximetry Branch Systolic blood 2021-11-09 22:03:00 111 mm[Hg] Univer sity of pressure [facility] Diastolic blood 2021-11-09 22:03:00 75 mm[Hg] Unive rsity of pressure [facility] Respiratory rate 2021-11-09 22:03:00 18 /min [facility] Body temperature 2021-11-09 18:59:00 37.06 Tanisha [facility] Body weight 2021-11-09 18:59:00 86.183 kg [facility] BMI 2021-11-09 18:59:00 28.06 kg/m2 [facility] Systolic blood 2021-11-07 22:35:00 116 mm[Hg] Univer sity of pressure [facility] Diastolic blood 2021-11-07 22:35:00 79 mm[Hg] Unive rsity of pressure [facility] Heart rate 2021-11-07 22:35:00 73 /min [facility] Body temperature 2021-11-07 22:35:00 36.72 Tanisha [facility] Respiratory rate 2021-11-07 22:35:00 16 /min [facility] Body height 2021-11-07 22:35:00 175.3 cm [facility] Body weight 2021-11-07 22:35:00 86.365 kg [facility] BMI 2021-11-07 22:35:00 28.12 kg/m2 [facility] Oxygen saturation in 2021-11-07 22:35:00 99 /min [facility] of Arterial blood by [employer] sara Pulse oximetry Branch Systolic blood 2021-09-29 22:37:00 123 mm[Hg] Univer sity of pressure [facility] Diastolic blood 2021-09-29 22:37:00 77 mm[Hg] Unive rsity of pressure [facility] Heart rate 2021-09-29 22:37:00 65 /min [facility] Body temperature 2021-09-29 22:37:00 36.83 Tanisha [facility] Respiratory rate 2021-09-29 22:37:00 16 /min [facility] Body height 2021-09-29 22:37:00 175.3 cm [facility] Body weight 2021-09-29 22:37:00 94.62 kg [facility] BMI 2021-09-29 22:37:00 30.80 kg/m2 [facility] Oxygen saturation in 2021-09-29 22:37:00 100 /min [facility] of Arterial blood by [employer] sara Pulse oximetry Branch Height 2020-09-07 00:00:00 69 [in_i] [facility] BMI (Body Mass 2020-09-07 00:00:00 43.1 kg/m2 [facility] Body Weight 2020-09-07 00:00:00 292 [lb_av] [facility] Procedures Procedure Date / Time Performing Clinician Source Performed CT ABDOMEN PELVIS WO 2021-11-09 19:46:15 Heather Burnette [facility] CONTRAST [facility] POCT TEST 2021-11-09 19:40:00 Heather Burnette [facility] LIPASE 2021-11-09 19:39:00 Heather Burnette [facility] MAGNESIUM 2021-11-09 19:39:00 Heather Burnette Taisha [facility] COMP. METABOLIC PANEL 2021-11-09 19:39:[address] [facility] ([id number]) [facility] CBC WITH DIFF 2021-11-09 19:39:[address] [facility] URINALYSIS 2021-11-09 19:05:[address] [facility] CONSENT/REFUSAL FOR 2021-11-09 18:52:52 Doctor Unassigned, No [facility] DIAGNOSIS AND TREATMENT [facility] POCT URINALYSIS 2021-11-07 22:44:00 Ant Rankin [facility] POCT URINALYSIS 2021-09-29 00:00:00 Ivis Sepulveda [facility] AUTHORIZATION FOR 2021-09-14 05:01:00 Doctor Unassigned, No [facility] RELEASE OF PHI [facility] Plan of Care Planned Activity Planned Date Details Comments Source Instructions [facility] Encounters Start End Encounter Admission Attending Care Care Encounter Source Date/Time Date/Time Type Type Clinicians Facility Department ID 2021-11-29 2021-11-[address] [facility] [id number] Univers 15:30:00 15:30:00 ASCENCION [id number] [facility] 2021-11-29 2021-11-[address] [facility] [id number] Univers 15:30:00 15:30:00 ASCENCION [facility] 2021-11-21 2021-11-[address] [facility] [id number] Univers 08:30:00 08:30:[id number] [facility] 2021-11-20 2021-11-[address] [facility] [id number] Univers 00:00:00 00:00:[id number] [facility] 2021-11-16 2021-11-[address] [facility] [id number] Univers 10:30:00 10:30:[id number] [facility] 2021-11-16 2021-11-16 [facility] [id number] Univers 00:00:00 00:00:00 [facility] [id number] it y of [place] CAMP[place] [id number] Jesus as NITISH?BLE [id number] Oh stacie [address] MEDICAL OFFICE BUILDING 2021-11-10 2021-11-[address] [facility] [id number] Univers 10:30:00 10:30:00 RHETT [id number] [facility] 2021-11-09 2021-11-09 Emergency X Heather BURNETTE [facility] ERT [id number] Univers 14:01:00 17:13:[address] [facility] 2021-11-09 2021-11-09 Emergency Heather Burnette [facility] [id number] Univers 14:01:00 17:13:00 Taisha CAMPOS [id number] i [id number] [id number] [facility] [address] 2021-11-07 2021-11-[address] [facility] [id number] Univers 17:20:00 17:56:21 ANT [facility] 2021-11-07 2021-11-07 Urgent Chucho [facility] [id number] Univers 17:20:00 17:56:21 Care Ant [facility] [id number] it y of [place] [id number] Jesus as NITISH?BLEA [id number] Oh stacie HOBBS [address] MEDICAL OFFICE [facility] 2021-11-07 2021-11-[address] [facility] [id number] Univers 17:20:00 17:20:[id number] [facility] 2021-11-03 2021-11-03 Refill Doctor [facility] 1.2.840.114 [id number] Univers 00:00:00 [facility]:00:[facility] [id number] ity of [place] [id number] Jesus as NITISH?BLEA [id number] Oh stacie HOBBS [address] [place] OFFICE [facility] 2021-10-19 2021-10-19 [facility] [id number] Q-[id number] Univers 09:00:00 09:00:00 RHETT [id number] [facility] 2021-10-19 2021-10-19 [facility] [id number] Univers 09:00:00 09:00:00 RHETT [facility] 2021-10-10 2021-10-10 Telephone [facility] 1.2.840.114 [id number] Univers 00:00:00 00:00:00 [facility] [id number] it y of [place] [id number] Jesus as NITISH?BLEA [id number] Oh stacie [facility] [address] [place] OFFICE [facility] 2021-10-09 2021-10-09 [facility] [id number] Q-[id number] Univers 10:30:00 10:30:00 RHETT [id number] [facility] 2021-10-09 2021-10-09 [facility] [id number] Univers 10:30:00 10:30:00 RHETT [facility] 2021-09-29 2021-09-29 Urgent Ivis Sepulveda [facility] 1.2.840.114 [id number] Univers 17:45:00 18:05:00 Lenin Rucker [facility] [id number] ity of [place] [id number] Jesus as NITISH?BLEA [id number] Oh stacie [address] MEDICAL OFFICE BUILDING 2021-09-29 2021-09-[address] [facility] [id number] Univers 17:45:00 17:45:00 IVIS ity of [facility] 2021-09-14 2021-09-14 Orders Doctor CAM 1.2.840.114 [id number] [facility] 00:00:00 00:00:00 Only Unassigned, STEPHANIE [id number] [place] [facility] [id number] Jesus as [id number] [address] 2020-09-09 2020-09-09 Outpatient FREEMAN_P_W VFP VFP [id number] [facility] 08:41:00 08:41:00 AG [id number] Family Practic e 2020-09-07 2020-09-07 Outpatient FREEMAN_P_W VFP VFP [id number] [facility] 04:12:00 04:12:00 AG [id number] Family Practic e 2020-09-07 2020-09-07 Porchae B VFP [place] - [id number] [facility] 00:00:00 00:00:00 Kraig Clover Famil y NANOSCIENCE TECHNICIAN: [id number] Medical - Pract [facility], [place] [address], ([facility]) [place] [address] , Ph. 2020-09-06 2020-09-06 Outpatient FREEMAN_P_W VFP VFP [id number] [facility] 07:41:00 07:41:00 AG [id number] Family Practic e 2020-03-14 2020-03-14 Outpatient DANTE, [facility] [id number] 00:00:00 00:00:00 KATYA [address] 2020-02-23 2020-02-23 Outpatient DANTE, [facility] [id number] 00:00:00 00:00:00 KATYA [address] Results Test Description Test Time Test Comments Results Result Comments Source MAGNESIUM 2021-11-09 20:05:24 Test Item Value Reference Range Interpretation Comme nts MAGNESIUM (test code = 5525884825) 2.0 mg/dL 1.7-2.4 Lab Interpretation (test code = 19016-2) [facility]07726[facility]2021-11-09 20:05:04 Test Item Value Reference Range Interpretation Comments NA (test code = 139 mmol/L 135-145 6410798808) K (test code = 3.7 mmol/L 3.5-5 9973981164) CL (test code = 106 mmol/L 98-108 4118052503) CO2 TOTAL (test code 24 mmol/L 23-31 = 8217040889) AGAP (test code = 2-16 8293874055) BUN (test code = 13 mg/dL 7-23 8919218937) GLUCOSE (test code = 78 mg/dL 70-110 0486182104) CREATININE (test code 0.71 mg/dL 0.5-1.04 = 4971061279) TOTAL BILI (test code 0.9 mg/dL 0.1-1.1 = 5091159881) CALCIUM (test code = 9.1 mg/dL 8.6-10.6 7687600814) T PROTEIN (test code 6.9 g/dL 6.3-8.2 = 0834883965) ALBUMIN (test code = 4.2 g/dL 3.5-5 6925375807) ALK PHOS (test code = 79 U/L 34-122 9642549157) ALTv (test code = 14 U/L 5-35 1742-6) AST(SGOT) (test code 18 U/L 13-40 = 4190186484) eGFR (test code = mL/min/1.73m2 7256807924) MILA (test code = MILA) Association of [...] or urine or abnormalities in imaging tests). [facility] 20[facility]02:45 Test Item Value Reference Range Interpretation Comments LIPASE (test code = 4365128515) 45 U/L 0-220 Lab Interpretation (test code = Normal 35272-1) [facility] WITH [id number] 19:55:44 Test Item Value Reference Range Interpretation Comments WBC (test code = See_Comment [Automated message] 7690-2) The system FREEjit generated this result transmitted ref erence range: 4.30 - 1 1.10 10*3/?L. The re ference range was not u sed to interpret this result as normal/abnor mal. RBC (test code = See_Comment [Automated message] 789-8) The system FREEjit generated this result transmitted ref erence range: [...] RDW-SD (test code 41.3 fL 39-49.9 = 19093-8) RDW-CV (test code 13.2 % 12-15.5 = 788-0) PLT (test code = See_Comment [Automated message] 777-3) The system whic h generated this result transmitted ref erence range: 166 - 35 8 10*3/?L. The re ference range was not u sed to interpret this result as normal/abnor mal. MPV (test code = 10.1 fL 9.5-12.9 80315-6) NRBC/100 WBC (test See_Comment [Automat ed message] code = 0482099547) The syste m which generated this result transmitted ref erence range: 0.0 - 10 .0 /100 WBCs. The refer ence range was not u sed to interpret this result as normal/abnor mal. NRBC x10^3 (test See_Comment [Automated message] code = 0938933124) The syste m which generated this result transmitted ref erence range: 10*3/?L. The reference range was not used to interpr et this result as normal/abnormal . GRAN MAT (NEUT) % 52.6 % (test code = 770-8) IMM GRAN % (test 0.30 % code = 1874448387) LYMPH % (test code 36.5 % = 736-9) MONO % (test code 7.9 % = 5905-5) EOS % (test code = 2.0 % 713-8) BASO % (test code 0.7 % = 706-2) GRAN MAT 3.14 10*3/uL 1.88-7.09 x10^3(ANC) (test code = 2367986098) IMM GRAN x10^3 0-0.06 (test code = 8671549404) LYMPH x10^3 (test 2.18 10*3/uL 1.32-3.29 code = 731-0) MONO x10^3 (test 0.47 10*3/uL 0.33-0.92 code = 742-7) EOS x10^3 (test 0.12 10*3/uL 0.03-0.39 code = 711-2) BASO x10^3 (test 0.04 10*3/uL 0.01-0.07 code = 704-7) [facility] [id number] 19:40:00 Test Item Value Reference Range Interpretation Comments POCT PREG (test code = 1605) negative On board controls acceptable with present C Line (test code = 3574) POCT PREG LOT # (test code = 3575) [id number] POCT PREG TEST DATE (test 02/12/2023 code = 3576) Lab Interpretation (test code = Normal 53801-9) [facility] URINALYSIS W SPECIFIC [id number] 22:44:00 Test Item Value Reference Range Interpretation Comments POCT U SP GRAV (test code = 1.030 mg/dl 1.005-1.025 A 3255) POCT PH U (test code = 3254) 5 mg/dl 5-8 POCT U LEUK EST (test code = + Negative - Negative 3) POCT U NIT (test code = 3262) pos Negative - Negative POCT U PROT (test code = trace Negative - Negative 3259) POCT U GLU (test code = 3256) norm Negative - Negative POCT U KETONE (test code = neg Negative - Negative 8) POCT U UROBILI (test code = norm 0.2-1 0) POCT U BILI (test code = neg Negative - Negative 3261) POCT U BLD (test code = 3257) trace Negative - Negative POCT U COLOR (test code = dark 3266) POCT U APPEAR (test code = cloudy 3267) Lab Interpretation (test code Abnormal = 70940-8) [facility] URINALYSIS W SPECIFIC [id number] 22:58:00 Test Item Value Reference Range Interpretation [...] and MILA) interpretation of all internal controls [facility]
[2021-11-17 14:48] LABS: Absolute Lymphocytes (CBC) 1.8 K/uL (0.7-4.9); Hematocrit 27.3 % (36.0-45.0); Lymphocytes % 12.5 % (15.3-44.8); MCV 85.8 fL (80-100); RBC Red Blood Cell Count 3.18 M/uL (3.86-4.86)
[2021-11-17 14:51] LABS: Protime INR 1.22
[2021-11-17 15:05] LABS: Potassium 4.4 mmol/L (3.5-5.1)
--- NOTE | 2021-11-17 16:12 | RAD REPORT ---
EXAM DESCRIPTION: CT - Abdomen Pelvis W Contrast - 11/17/2021 4:00 pm CLINICAL HISTORY: Abdominal pain COMPARISON: none. TECHNIQUE: Computed axial tomography of the abdomen pelvis was obtained. 100 cc Isovue-300 was admin istered intravenously. Oral contrast was not requested which limits evaluation of bowel and appendix All CT scans are performed using dose optimization technique as appropriate and may include automated exposure control or mA/KV adjustment according to patient size. FINDINGS: Recent cholecystectomy. Minimal fluid collection within the gallbladder fossa. Small amoun t of pneumoperitoneum. 14 centimeter hematoma within the right anterior subcutaneous fat of the abdomen extending to the lev el of iliac crest. Extensive stranding within the adjacent subcutaneous fat. No intraabdominal hematoma. IUD in place. 2 centimeter right ovarian cyst. Small amount of free fluid. No evidence of diverticuli tis IMPRESSION: 14 centimeters hematoma within the right anterior subcutaneous fat of the abdomen
--- NOTE | 2021-11-17 16:13 | RAD REPORT ---
EXAM DESCRIPTION: Clarita Single View11/17/2021 3:16 pm CLINICAL HISTORY: Abdominal pain COMPARISON: 2020 FINDINGS: The lungs appear clear of acute infiltrate. The heart is normal size IMPRESSION: No acute abnormalities displayed
[2021-11-17] MEDS ORDERED: NA CHLORIDE 0.9% 1,000 ML ONE ×2 (16:35→17:52)
[2021-11-17] MEDS ORDERED: FENTANYL CITR 100 MCG/2 ML ONE (19:11)
--- NOTE | 2021-11-17 19:30 | EDPHYS ---
Physician Documentation [facility] Name: Chantal Crews Age: 36 yrs Sex: Female : 1985 Arrival Date: 11/17/2021 Time: 14:06 Bed 6 Private MD: ED Physician Roscoe Morse HPI: 11/17 14:23 This 36 yrs old Female presents to ER via EMS with complaints of Syncope. pm1 14:23 The patient has experienced syncope, collapsed. Onset: The symptoms/episode pm1 began/occurred just prior to arrival. Duration: This was a single episode. Context: the episode(s) was witnessed, by family, occurred at home, occurred while the patient was standing, Just prior to the episode the patient experienced dizziness. Associated injury: The patient did not suffer any apparent associated injury. Associated signs and symptoms: Pertinent negatives: chest pain, headache, shortness of breath, neck pain. Current symptoms: Currently, the patient is not experiencing any symptoms. The patient has not experienced similar symptoms in the past. The patient has been recently seen by a physician: Dr. Grewal. 36 year old female presents ER with complaints of syncopal episode. Patient with admission to the hospital 2 days ago with surgery yesterday for cholecystectomy. Patient kept in the hospital due to hematoma to her abdominal wall. Patient discharged home today and as she got out of her truck she started feeling dizziness. She tried to walk to sit down and she collapsed. No head injury or neck pain. Patient reports pain to abdominal area that is the same as her postoperative pain. Patient has not taken any pain medications today or any hypertension medications. 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: 14:14 LMP N/A - Post-menopause jg9 Historical: - Allergies: 14:10 No Known Allergies; jg9 - Home Meds: 14:10 buspirone 15 mg Oral tab 1 tab 3 TIMES A DAY [Active]; dicyclomine 20 mg Oral tab 1 tab jg9 3 times per day [Active]; omeprazole 40 mg Oral cpDR 1 cap once daily [Active]; venlafaxine 150 mg Oral tr24 1 tab once daily [Active]; Zofran 4 mg Oral tab 1 tab 4 times per day [Active]; - PMHx: 14:10 depressive disorder; Hypertensive disorder; jg9 - PSHx: 14:10 adenoid sx; Appendectomy; section; gastric sleeve; Tonsillectomy; jg9 - Immunization history:: Client reports receiving the 2nd dose of the Covid vaccine, Pneumococcal vaccine is up to date, Flu vaccine is not up to date. - Social history:: Smoking status: Patient reports the use of cigarette tobacco products, smokes one pack cigarettes per day. ROS: 14:23 Constitutional: Negative for fever, chills, and weight loss, Cardiovascular: Negative pm1 for chest pain, palpitations, and edema, Respiratory: Negative for shortness of breath, cough, wheezing, and pleuritic chest pain. 14:23 Back: Negative for injury and pain, MS/Extremity: Negative for injury and deformity, Skin: Negative for injury, rash, and discoloration. 14:23 Abdomen/GI: Positive for abdominal pain, of the abdomen diffusely, Negative for nausea, vomiting, diarrhea, constipation. 14:23 Neuro: Positive for dizziness, Negative for headache, numbness, tingling. 14:23 All other systems are negative. Exam: 14:23 Abdomen/GI: Inspection: bruising, right lower quadrant and left lower quadrant, pm1 Palpation: soft, in all quadrants, mild abdominal tenderness. 14:23 Constitutional: This is a well developed, well nourished patient who is awake, alert, and in no acute distress. Head/Face: Normocephalic, atraumatic. 14:23 Back: No spinal tenderness. No costovertebral tenderness. Full range of motion. 14:23 MS/ Extremity: Pulses equal, no cyanosis. Neurovascular intact. Full, normal range of motion. 14:23 Cardiovascular: Exam negative for acute changes, Rate: normal, Rhythm: regular, Pulses: no pulse deficits are appreciated. 14:23 Respiratory: Exam negative for acute changes, respiratory distress, shortness of breath. 14:23 Skin: Appearance: normal except for affected area, ecchymosis, noted on the, left lower quadrant and right lower quadrant. 14:23 Neuro: Exam negative for acute changes, Orientation: is normal, Mentation: is normal, Motor: moves all fours. Vital Signs: 14:05 BP 100 / 58; Pulse 82; Resp 17 S; Temp 98.0(TE); Pulse Ox 98% on R/A; Weight 79.38 kg; jg9 Height 5 ft. 9 in. (175.26 cm); Pain 8/10; 14:41 BP 95 / 56 Supine; tp1 14:42 BP 101 / 67 Sitting; tp1 14:46 BP 92 / 60; Pulse 70; Resp 18 S; Pulse Ox 98% on R/A; jg9 15:15 BP 95 / 59; Pulse 76; Resp 18 S; Pulse Ox 100% on R/A; jg9 16:25 BP 107 / 57; Pulse 72; Resp 19; Pulse Ox 98% on R/A; tp1 17:20 BP 113 / 55; Pulse 76; Resp 19; Pulse Ox 98% on R/A; tp1 18:05 BP 110 / 56 RA; Pulse 70; Resp 22; Pulse Ox 100% on R/A; tp1 18:07 BP 94 / 46 LA; tp1 18:54 BP 105 / 54 RA; Pulse 65; Resp 13; Pulse Ox 100% on R/A; tp1 19:29 BP 113 / 58; Pulse 68; Resp 25; Pulse Ox 100% ; vc1 14:05 Body Mass Index 25.84 (79.38 kg, 175.26 cm) jg9 MDM: 14:14 Patient medically screened. pm1 15:08 Physician consultation: Sincere Grewal MD regarding patient's condition, in the pm1 emergency department to see patient at 15:08, No need for CT imaging of abdomen. Bleeding rom hematoma. Apply abdomina binder to patient and give IV fluids, 2 L NS. 17:41 ED course: Patient is feeling better after 2 L of normal saline but reported she has pm1 not urinated yet. Patient would like another bag of normal saline.. 19:28 Data reviewed: vital signs. Data interpreted: Pulse oximetry: on room air is 100 %. pm1 Interpretation: normal. Counseling: I had a detailed discussion with the patient and/or guardian regarding: the historical points, exam findings, and any diagnostic results supporting the discharge/admit diagnosis, lab results, radiology results, the need for outpatient follow up, a general surgeon, to return to the emergency department if symptoms worsen or persist or if there are any questions or concerns that arise at home. 11/17 14:23 Order name: Basic Metabolic Panel; Complete Time: 15:09 pm1 11/17 14:23 Order name: CBC with Diff; Complete Time: 14:55 pm1 11/17 14:23 Order name: PT-INR; Complete Time: 14:55 pm1 11/17 14:23 Order name: Troponin HS; Complete Time: 15:09 pm1 11/17 14:23 Order name: XRAY Chest (1 view); Complete Time: 16:22 pm1 11/17 15:30 Order name: CT Abd/Pelvis - IV Contrast Only; Complete Time: 16:22 pm1 11/17 14:23 Order name: EKG; Complete Time: 14:24 pm1 11/17 14:23 Order name: Cardiac monitoring; Complete Time: 14:40 pm1 11/17 14:23 Order name: EKG - Nurse/Tech; Complete Time: 14:33 pm1 11/17 14:23 Order name: IV Saline Lock; Complete Time: 14:33 pm1 11/17 14:23 Order name: Labs collected and sent; Complete Time: 14:33 pm1 11/17 14:23 Order name: O2 Per Protocol; Complete Time: 14:33 pm1 11/17 14:23 Order name: O2 Sat Monitoring; Complete Time: 14:33 pm11/17 14:23 Order name: Orthostatics; Complete Time: 14:47 pm1 11/17 15:09 Order name: Misc. Order: Abdominal binder; Complete Time: 16:35 pm1 EC:18 Rate is 68 beats/min. Rhythm is regular, Normal Sinus Rhythm with No ectopy. QRS [place] pm1 is Normal. No Q waves. No ST changes noted. Clinical impression: No evidence of ischemia and Sinus rhythm with short [place], nonspecific T wave abnormality, abnormal normal EKG. Administered Medications: 14:58 Drug: NS 0.9% 1000 ml Route: IV; Rate: 1000 ml; Site: right antecubital; tp1 15:30 Follow up: IV Status: Completed infusion; IV Intake: 1000ml jg9 16:30 Drug: NS 0.9% 1000 ml Route: IV; Rate: 1000 ml; Site: right antecubital; tp1 17:18 Follow up: IV Status: Completed infusion; IV Intake: 1000ml tp1 17:58 Drug: NS 0.9% 1000 ml Route: IV; Rate: 1000 ml; Site: right antecubital; jg9 18:53 Follow up: IV Status: Completed infusion; IV Intake: 1000ml tp1 19:09 Drug: fentaNYL (PF) 25 mcg Route: IVP; Site: right antecubital; tp1 19:29 Follow up: Response: No adverse reaction; Marked relief of symptoms; Pain is decreased; vc1 RASS: Alert and Calm (0) Point of Care Testin:14 n/a jg9 Ranges: Critical Glucose Levels:Adult <50 mg/dl or >400 mg/dl <40 mg/dl or >180 mg/dl Disposition Summary: 11/17/21 19:29 Discharge Ordered Location: Home pm1 Problem: new pm1 Symptoms: have improved pm1 Condition: Stable pm1 Diagnosis - Dehydration pm1 - Syncope pm1 Followup: pm1 - With: Emergency Department - When: As needed - Reason: Worsening of condition Followup: pm1 - With: Private Physician - When: 2 - 3 days - Reason: Recheck today's complaints, Continuance of care, Re-evaluation by your physician Discharge Instructions: - Discharge Summary Sheet pm1 - Dehydration, Adult pm1 - Orthostatic Hypotension pm1 - Syncope pm1 - Rehydration, Adult pm1 Forms: - Medication Reconciliation Form pm1 - Thank You Letter pm1 - Antibiotic Education pm1 - Prescription Opioid Use pm1 Signatures: Dispatcher [employer] EDMS Latrell Machado NP PARTS CLERK [employer] MAINTENANCE pm1 Leidy Sanchez RN RN tp1 Coco Herrera RN RN jg9 Mariaa Delgado RN vc1
--- NOTE | 2021-11-17 19:30 | ER ---
Nurse's Notes [facility] Name: Chantal Crews Age: 36 yrs Sex: Female : 1985 Arrival Date: 11/17/2021 Time: 14:06 Bed 6 Private MD: Diagnosis: Dehydration;Syncope Presentation: 11/17 14:05 Initial Sepsis Screen: Does the patient meet any 2 criteria? No. Patient's initial jg9 sepsis screen is negative. Does the patient have a suspected source of infection? No. Patient's initial sepsis screen is negative. Risk Assessment: Do you want to hurt yourself or someone else? Patient reports no desire to harm self or others. Onset of symptoms was November 17, 2021. 14:05 Acuity: WEST 3 jg9 14:07 Chief complaint: EMS states: EMS report syncopal event/seizure activity reported by jg9 bystanders, patient discharged today after having a cholecystectomy on 11/15/21, patient remained in hospital under observation due to hematoma that developed secondary to the surgery and patient was discharged this morning. Patient reports that she stood up felt dizzy went to sit back down and the next thing she remembered was hearing her Mom on the phone will 911. Coronavirus screen: Vaccine status: Patient reports receiving the 2nd dose of the covid vaccine. Ebola Screen: Patient negative for fever greater than or equal to 101.5 degrees Fahrenheit, and additional compatible Ebola Virus Disease symptoms Patient denies exposure to infectious person. Patient denies travel to an Ebola-affected area in the 21 days before illness onset. 14:07 Method Of Arrival: EMS: [facility] jg9 Triage Assessment: 14:00 General: Appears uncomfortable, Behavior is calm, cooperative. Pain: Complains of pain jg9 in right lower quadrant and left lower quadrant Pain currently is 8 out of 10 on a pain scale. Neuro: Reports dizziness, since this morning a syncopal episode. SPRAGGER: 14:14 LMP N/A - Post-menopause jg9 Historical: - Allergies: 14:10 No Known Allergies; jg9 - Home Meds: 14:10 buspirone 15 mg Oral tab 1 tab 3 TIMES A DAY [Active]; dicyclomine 20 mg Oral tab 1 tab jg9 3 times per day [Active]; omeprazole 40 mg Oral cpDR 1 cap once daily [Active]; venlafaxine 150 mg Oral tr24 1 tab once daily [Active]; Zofran 4 mg Oral tab 1 tab 4 times per day [Active]; - PMHx: 14:10 depressive disorder; Hypertensive disorder; jg9 - PSHx: 14:10 adenoid sx; Appendectomy; section; gastric sleeve; Tonsillectomy; jg9 - Immunization history:: Client reports receiving the 2nd dose of the Covid vaccine, Pneumococcal vaccine is up to date, Flu vaccine is not up to date. - Social history:: Smoking status: Patient reports the use of cigarette tobacco products, smokes one pack cigarettes per day. Screenin:13 Abuse screen: Denies threats or abuse. Denies injuries from another. Nutritional jg9 screening: No deficits noted. Tuberculosis screening: No symptoms or risk factors identified. Fall Risk Fall in past 12 months (25 points). Assessment: 14:15 Neuro: Level of Consciousness is awake, alert, obeys commands, Oriented to person, jg9 place, time, situation, Appropriate for age. 14:15 Cardiovascular: Rhythm is regular. jg9 14:21 Pain: Complains of pain in abdomen Pain does not radiate. Pain currently is 7 out of 10 tp1 on a pain scale. Quality of pain is described as tender, Pain began 2-3 days ago. Neuro:. Cardiovascular: Patient's skin is warm and dry. Respiratory: Airway is patent Respiratory effort is even, unlabored. GI: Abdomen is round non-distended, bruised on right lower quadrant and left lower quadrant Patient currently denies nausea, vomiting. : No signs and/or symptoms were reported regarding the genitourinary system. EENT: No deficits noted. EENT: Lid(s) pale. Derm: Skin is pale. Musculoskeletal: Circulation, motion, and sensation intact. 14:22 Reassessment: provider notified of pain, provider stated pain medication is being with tp1 held due to vitals. 14:42 Reassessment: reported feeling like she was about to pass out, dizziness, and sweating tp1 while standing during orthostatic BP. currently is resting in bed. BP 92/60, HR 70, RR 18. provider notified. 15:00 Reassessment: Rai at bedside. tp1 15:40 Reassessment: Patient appears in no apparent distress at this time. No changes from tp1 previously documented assessment. Patient and/or family updated on plan of care and expected duration. Pain level reassessed. Patient is alert, oriented x 3, equal unlabored respirations, skin warm/dry/pink. rates pain 8/10. 16:41 Reassessment: Patient appears in no apparent distress at this time. No changes from tp1 previously documented assessment. Patient and/or family updated on plan of care and expected duration. Pain level reassessed. Patient is alert, oriented x 3, equal unlabored respirations, skin warm/dry/pink. ABD binder placed on P. rates pain 9/10, denies need for pain medication. 17:41 Reassessment: Patient appears in no apparent distress at this time. No changes from tp1 previously documented assessment. Patient and/or family updated on plan of care and expected duration. Pain level reassessed. Patient is alert, oriented x 3, equal unlabored respirations, skin warm/dry/pink. rates pain 7/10. states "pain is tolerable". 18:52 Reassessment: Patient appears in no apparent distress at this time. No changes from tp1 previously documented assessment. Patient and/or family updated on plan of care and expected duration. Pain level reassessed. Patient is alert, oriented x 3, equal unlabored respirations, skin warm/dry/pink. assisted to restroom. rates pain 10/10. 19:28 Reassessment: Patient and/or family updated on plan of care and expected duration. Pain vc1 level reassessed. Patient is alert, oriented x 3, equal unlabored respirations, skin warm/dry/pink. Patient states feeling better. Patient states symptoms have improved. 19:32 Reassessment: Pt states " I am feeling better and ready to go home". jb4 Vital Signs: 14:05 BP 100 / 58; Pulse 82; Resp 17 S; Temp 98.0(TE); Pulse Ox 98% on R/A; Weight 79.38 kg; jg9 Height 5 ft. 9 in. (175.26 cm); Pain 8/10; 14:41 BP 95 / 56 Supine; tp1 14:42 BP 101 / 67 Sitting; tp1 14:46 BP 92 / 60; Pulse 70; Resp 18 S; Pulse Ox 98% on R/A; jg9 15:15 BP 95 / 59; Pulse 76; Resp 18 S; Pulse Ox 100% on R/A; jg9 16:25 BP 107 / 57; Pulse 72; Resp 19; Pulse Ox 98% on R/A; tp1 17:20 BP 113 / 55; Pulse 76; Resp 19; Pulse Ox 98% on R/A; tp1 18:05 BP 110 / 56 RA; Pulse 70; Resp 22; Pulse Ox 100% on R/A; tp1 18:07 BP 94 / 46 LA; tp1 18:54 BP 105 / 54 RA; Pulse 65; Resp 13; Pulse Ox 100% on R/A; tp1 19:29 BP 113 / 58; Pulse 68; Resp 25; Pulse Ox 100% ; vc1 14:05 Body Mass Index 25.84 (79.38 kg, 175.26 cm) jg9 ED Course: 14:06 Patient arrived in ED. jg9 14:06 Coco Herrera RN is Primary Nurse. j9 14:06 Latrell Machado NP is PHCP. pm1 14:06 Roscoe Morse MD is Attending Physician. pm1 14:10 Triage completed. jg9 14:14 Arm band placed on right wrist. jg9 14:15 Patient has correct armband on for positive identification. Bed in low position. Call jg9 light in reach. Side rails up X 1. 14:15 Maintain EMS IV. Dressing intact. Good blood return noted. Site clean \\T\\ dry. Gauge \\T\\ jg 9 site: 20 r ac. 14:21 Primary Nurse role handed off by Coco Herrera, STONE tp1 14:21 Leidy Sanchez RN is Primary Nurse. tp1 14:29 Client placed on continuous cardiac and pulse oximetry monitoring. NIBP monitoring tp1 applied. 14:33 Initial lab(s) drawn, sent to lab. EKG done, reviewed by Latrell Machado NP. tp1 14:34 Door closed. Noise minimized. Warm blanket given. tp1 14:36 Basic Metabolic Panel Sent. kc6 14:36 CBC with Diff Sent. kc6 14:36 PT-INR Sent. kc6 14:36 Troponin HS Sent. kc6 15:18 XRAY Chest (1 view) In Process Unspecified. EDMS 16:02 CT Abd/Pelvis - IV Contrast Only In Process Unspecified. EDMS 18:52 Assisted to bathroom. tp1 19:30 No provider procedures requiring assistance completed. IV discontinued, intact, vc1 bleeding controlled, No redness/swelling at site. Pressure dressing applied. Administered Medications: 14:58 Drug: NS 0.9% 1000 ml Route: IV; Rate: 1000 ml; Site: right antecubital; tp1 15:30 Follow up: IV Status: Completed infusion; IV Intake: 1000ml jg9 16:30 Drug: NS 0.9% 1000 ml Route: IV; Rate: 1000 ml; Site: right antecubital; tp1 17:18 Follow up: IV Status: Completed infusion; IV Intake: 1000ml tp1 17:58 Drug: NS 0.9% 1000 ml Route: IV; Rate: 1000 ml; Site: right antecubital; jg9 18:53 Follow up: IV Status: Completed infusion; IV Intake: 1000ml tp1 19:09 Drug: fentaNYL (PF) 25 mcg Route: IVP; Site: right antecubital; tp1 19:29 Follow up: Response: No adverse reaction; Marked relief of symptoms; Pain is decreased; vc1 RASS: Alert and Calm (0) Medication: 19:30 VIS not applicable for this client. vc1 Point of Care Testin:14 n/a jg9 Ranges: Intake: 15:30 IV: 1000ml; Total: 1000ml. jg9 17:18 IV: 1000ml; Total: 2000ml. tp1 18:53 IV: 1000ml; Total: 3000ml. tp1 Outcome: 19:29 Discharge ordered by . pm1 19:45 Discharged to home via wheelchair. vc1 19:45 Condition: good 19:45 Discharge instructions given to patient, Instructed on discharge instructions, follow up and referral plans. 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 19:46 Patient left the ED. vc1 Signatures: Dispatcher [employer] EDMS Latrell Machado METAL ENGRAVER METAL ENGRAVER pm1 Sincere Maria RN RN jb4 Leidy Sanchez RN RN tp1 Coco Herrera RN RN jg9 Mariaa Delgado RN RN vc1 Manjula Carranza kc6 Corrections: (The following items were deleted from the chart) 15:28 14:46 BP 92 / 60; Pulse 70bpm; Resp 18bpm; Pulse Ox 98% RA; tp1 jg9 17:27 17:20 BP 96 / 52; Pulse 76bpm; Resp 19bpm; Pulse Ox 98% RA; tp1 tp1 18:52 18:04 Reassessment: Patient appears in no apparent distress at this time. No changes tp1 from previously documented assessment. Patient and/or family updated on plan of care and expected duration. Pain level reassessed. Patient is alert, oriented x 3, equal unlabored respirations, skin warm/dry/pink. rates pain 7/10. states "pain is tolerable" tp1 19:09 19:07 fentaNYL (PF) 25 mcg IVP in left antecubital tp1 tp1 19:10 16:30 NS 0.9% 1000 ml IV at 1000 ml in left antecubital tp1 tp1 19:10 17:18 IV Status: Completed infusion; IV Intake: 1000ml tp1 tp1
[2021-11-17 20:54] VITALS: TEMP 98
[2021-11-17 21:24] VITALS: O2SAT 100
[2021-11-17 21:33] VITALS: BP 113/58
--- NOTE | 2021-11-18 09:13 | EKG ---
Test Date: 2021-11-17 Test Time: 14:17:18 Battalion Chief: YOSVANY MEASUREMENT RESULTS: Intervals: Rate: 68 SC: 98 QRSD: 76 QT: 336 QTc: 357 Lloyd: P: 42 SC: 98 QRS: -6 T: 65 INTERPRETIVE STATEMENTS: Sinus rhythm with short SC Nonspecific T wave abnormality Abnormal ECG No previous ECG available for comparison Electronically Signed On 11-18-21 09:12:54 CDT by Moisés Evangelista
== END 2021-11-17 19:46 | disposition home or self-care (01) ==
LOC: ER 14:03
DX: E86.0 Dehydration (principal); I10 Essential (primary) hypertension; F32.A Depression, unspecified; F17.210 Nicotine dependence, cigarettes, uncomplicated
CPT/HCPCS: 96361; 93005; 85025; 80048; 36415; 85610; 84484; 74177; 71045; 96374; 99284; Q9967; J3010; J7030 ×2

== ENCOUNTER 2023-02-06 08:32 | Emergency (ER) | payer BC ==
--- OUTSIDE RECORDS SUMMARY | 2023-02-06 08:45 | XMS REPORT | Continuity of Care Document ---
:[address] [facility] t Address [address] [facility] [address] [place] [address] Care Team Providers Name Role Phone Asked, No Pcp Primary Care Physician Unavailable CHRISTIE GONZALEZ Attending Clinician Unavailable MARLEY MCFARLANE Attending Clinician Unavailable Marley Rueda Attending Clinician SAKSHI AGUIRRE Attending Clinician Unavailable Nurse, [facility] Attending Clinician Unavailable Unknown, Attending Attending Clinician Unavailable Sakshi Aguirre PA-C Attending Clinician Nidhi Castillo Attending Clinician Rhett Foster MD Attending Clinician Christie Gonzalez MD Attending Clinician SARAH DIXON Attending Clinician Unavailable KIRSTIN RANKIN Attending Clinician Unavailable Chucho COOMBS, Kirstin Attending Clinician Doctor Unassigned, Gaylord Attending Clinician Unavailable Michael Hernandez Attending Clinician Unavailable CORAL SCHNEIDER Attending Clinician Unavailable Ibikunle ENROLLMENT ADVISOR, Folusho F Attending Clinician AYANNA ALONSO Attending Clinician Unavailable Aynana Alonso MD Attending Clinician RUTH PITT Attending Clinician Unavailable Ruth Pitt NP Attending Clinician 2, Adc Lab Attending Clinician Unavailable Kaleb RITTER, Mohini Attending Clinician Unavailable Ebcuca ENROLLMENT ADVISORLenin Attending Clinician JAMI BARRETO Attending Clinician Unavailable Estevan ENROLLMENT ADVISOR, Jami Attending Clinician GENOVEVA ALEXANDRE Attending Clinician Unavailable LENIN TERRELL Attending Clinician Unavailable Bettie NELSONP, Genoveva Attending Clinician TIANA SMITH Attending Clinician Unavailable Ace RITTER, Allison Attending Clinician Unavailable Radha Jimenez RN Attending Clinician Unavailable FADY KIMBLE Attending Clinician Unavailable Lamin NELSONP, Fady Attending Clinician Kellie Salas LVN Attending Clinician Unavailable Tiana Smith MD Attending Clinician Lab, Ang - Db Attending Clinician Unavailable RHETT FOSTER Attending Clinician Unavailable RHETT HARGROVE Attending Clinician Unavailable Heather GARCIA Attending Clinician Unavailable Heather Smith Attending Clinician BRIANNA COWAN Attending Clinician Unavailable TIANA BURK Attending Clinician Unavailable Tiana Tyler Attending Clinician Nidhi Castillo MD Attending Clinician ORQUIDEA WATSON Attending Clinician Unavailable Pob, Adc Lab Main Attending Clinician Unavailable NIDHI CASTILLO Attending Clinician Unavailable Heather Attending Clinician Unavailable Only, Ang Db Test Attending Clinician Unavailable FREECALLUMP_ALEXG Attending Clinician Unavailable Kapil Almanza DO Attending Clinician Karel NELSONP, Braulio Mccarthy Attending Clinician BRAULIO GARBER Attending Clinician Unavailable Pascale Oreilly Attending Clinician Teri Shepherd MD Attending Clinician KATYA HOWELL Attending Clinician Unavailable Visit, Stephan-chp Nurse Attending Clinician Unavailable Nick Lopez Attending Clinician NICK BERNARD Attending Clinician Unavailable Provider, [facility] Attending Clinician Unavailable UNKNOWN, ATTENDING Attending Clinician Unavailable Lab, Adc Fam Pob I Attending Clinician Unavailable Ulises Paniagua Attending Clinician SAIMA PARKS Attending Clinician Unavailable Magdaleno Hewitt MD, Saima Attending Clinician ULISES NEGRETE Attending Clinician Unavailable Eda Coates RN Attending Clinician Jan RITTER, Margi Stone Attending Clinician TERI SHEPHERD Attending Clinician Unavailable AMADOU BERNARD Attending Clinician Unavailable Nidhi Castillo Admitting Clinician Unavailable CORAL SCHNEIDER Admitting Clinician Unavailable RUTH PITT Admitting Clinician Unavailable Heather GARCIA Admitting Clinician Unavailable AMADOU BERNARD Admitting Clinician Unavailable TIANA BURK Admitting Clinician Unavailable Rickey_Kaveh Admitting Clinician Unavailable HEATHER_YULI Admitting Clinician Unavailable TERI SHEPHERD Admitting Clinician Unavailable Payers Payer Name Policy Type Policy Number Effective Date Expiration Date S ource [facility] OF [place] [facility] [id number] 2020 [facility] 00:00:00 [facility] [id number] 2019 [place]PO/[place] 00:[place] [id number] 2020 00:00:00 Problems Condition Condition Condition Status Onset Resolution Last Treating Co mments Source Name Details Category Date Date Treatment Clinician Date CHF CHF Disease Active Methodi (congestiv (congestiv 11-08 st e heart e heart 00:00: Hospita failure) failure) 00 l History of History of Disease Active M ethodi morbid morbid 11-08 obesity obesity 00:00: Hospita 00 l Arthritis Arthritis Disease Active Met hodi 11-08 st 00:00: Hospita 00 l Status Status Disease Active 2020-04 Univers post post 1-05 ity of [place]osc[place] sleeve ic sleeve 00 Medi sara gastrectom gastrectom Br anch y y Pain Pain Disease Active Univers pelvic pelvic 3-02 ity of 00:00: [place] [address] Medical Branch BMI BMI Disease Active Univers 45.0-49.9, 45.0-49.9, 3-02 it y of adult adult 00:00: [place] [facility] Abnormal Abnormal Disease Active Overview: Un shellie TSH TSH 01-05 Formattin ity of 00:00: g of this note Medical might be Branch different from the original. 01/06/20: Low TSH, f/u labs ordered. Hyperchole Hyperchole Disease Active M ethodi sterolemia sterolemia 01-05 st 00:00: Hospita 00 l Kidney Kidney Disease Active 2018-04 Methodi stones stones 2-27 st 00:00: Hospita 00 l Obesity Obesity Disease Active 2018-04 Univers (BMI (BMI 2-12 ity of 30-39.9) 30-39.9) 00:00: [place] [address] Medical Branch UTI UTI Disease Active 2018-04 Univers symptoms symptoms 2-12 ity of 00:00: [place] [facility] Screen for Screen for Disease Active 2018-04 U nivers STD STD 2-12 ity of (sexually ([place] transmit[place] transmitte 00 Me dical d disease) d disease) Br anch Gastroesop Gastroesop Disease Active M ethodi hageal hageal 2-13 st reflux reflux 00:00: Hospita disease disease 00 l Microscopi Microscopi Disease Active 2017-04 M ethodi c c 0-12 st hematuria hematuria 00:00: Hosp iza 00 l Abnormal Abnormal Disease Active Unive rs cervical cervical 9-11 ity of Papanicola [place]ola [place] smear, ou smear, 00 Medi sara unspecifie unspecifie Br anch d abnormal d abnormal pap pap finding finding IUD IUD Disease Active 2016-04 Univers (intrauter (intrauter 2-08 it y of ine ine 00:00: [place] device) in device) in [address] Branch Presence Presence Disease Active 2016-04 Metho di of 52 mg of [address] levonorges levonorges 00:00: Ho spita trel-relea trel-relea 00 l sing sing intrauteri intrauteri ne device ne device (IUD) (IUD) 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 12-31 ity of reaction reaction 00:00: [place] 00 Medical Branch Anxiety Anxiety Disease Active Methodi and and 12-31 st depression depression 00:00: Ho spita 00 l Well woman Well woman Disease Active U nivers exam exam 12-14 ity of 00:00: [place] [facility] Morbid Morbid Disease Active Univers obesity obesity 12-14 ity of 00:00: Medical Branch Encounter Encounter Disease Active Uni vers for repeat for repeat 11-23 it y of Papanicola [place]apan[place]ola [place] smear ou smear 00 Medica l of cervix of cervix Bran ch CHF CHF Disease Active Univers (congestiv (congestiv 11-07 it y of e heart e heart 00:00: [place] failure) failure) 00 Medica l Branch Cardiomyop Cardiomyop Disease Active M ethodi athy athy 11-07 st 00:00: Hospita 00 l Vaginal Vaginal Disease Active 2015-04 Overview: Univ ers low risk low risk 2-07 Formattin ity of human human 00:00: g of this [place] papillomav papillomav 00 note Me dical irus (HPV) irus (HPV) might be Branch DNA test DNA test different positive positive from the original. Needs repeat pap in 1 year Allergies, Adverse Reactions, Alerts Allergy Allergy Status Severity Reaction(s) Onset Inactive Treating Comm ents Source Name Type Date Date Clinician No Known DA Active [facility] [place] [facility] NO KNOWN Drug Active [facility] ALLERGIE Class ity of S [facility] Family History Family Member Diagnosis Comments Start Date Stop Date Source Maternal grandmother Heart disease [facility] Maternal grandmother Ovarian cancer [facility] Maternal grandmother Diabetes [facility] Natural mother Diabetes [facility] Natural mother Ovarian cancer [facility] Paternal grandfather Colon cancer [facility] Paternal grandfather Heart disease [facility] Paternal grandfather Hypertension [facility] Paternal grandmother Heart disease [facility] Paternal grandmother Hypertension [facility] Natural father Hypertension [facility] Maternal grandfather Hypertension [facility] Maternal grandfather Lung cancer [facility] Social History Social Habit Start Date Stop Date Quantity Comments Source Gender identity [facility] History of tobacco Smokes tobacco Me thodist use daily Hospital Sexual orientation [facility] Tobacco use and 2022-11-08 2022-11-08 Smokeless Restorationism exposure 00:00:00 00:00:00 tobacco non-user Hospital Alcohol intake 2022-11-08 2022-11-08 Current drinker Metho dist 00:00:00 00:00:00 of alcohol Hospital (finding) History of Social 2022-11-08 2022-11-[address] function 00:00:00 00:00:00 Hospital Exposure to 2022-07-08 2022-07-18 Not sure University SARS-CoV-2 (event) 00:00:00 04:53:00 [facility] Cigarettes smoked 2022-03-28 2022-03-28 Univers ity of current (pack per 00:00:00 00:00:00 [facility] ) - Reported Branch Alcohol Comment 2020-02-23 2020-02-23 1-2 Beers month Meth odist 00:00:00 00:00:00 Hospital Sex [birth year] Universit y of 00:00:00 00:00:00 [facility] Smoking Status Start Date Stop Date Source Never Smoker [place] Family P param Smokes tobacco daily 2022-11-08 00:00:00 [facility] Ex-smoker 2022-03-28 00:00:00 2022-03-28 00:00:00 [facility] Medications Ordered Filled Start Stop Current Ordering Indication Dosage Frequency Signature Comments Components Source Medication Medication Date Date Medication? Clinician (SIG) Name Name nicotine 2022- No [id number] 1{patch Q24H Place 1 Methodi (NICODERM 12-24 } patch on st CQ) 7 mg/24 00:00: 04:59 the skin H ospita hr 00 :00 daily for l 14 days. estradioL 1 Yes [id number] 1mg Take 1 Univers mg tablet 9-06 tablet by ity o f 00:00: mouth in [place] 00 the Medical morning. Branch estradioL 1 2022-0 Yes [id number] 1mg Take 1 Univers mg tablet 9-06 tablet by ity o f 00:00: mouth in [place] 00 the Medical morning. Branch estradioL 1 2022-0 Yes [id number] 1mg Take 1 Univers mg tablet 9-06 tablet by ity o f 00:00: mouth in [place] 00 the Medical morning. Branch estradioL 1 2022-0 Yes [id number] 1mg Take 1 Univers mg tablet 9-06 tablet by ity o f 00:00: mouth in [place] 00 the Medical morning. Branch nicotine 2022-2022- No [id number] 1{patch Q24H Place 1 Methodi (NICODERM 8-27 09-11 } patch on st CQ) 14 00:00: 04:59 the skin Hospit a mg/24 hr 00 :00 daily for l 14 days. nicotine 2022-2022- No [id number] 1{patch Q24H Place 1 Methodi (NICODERM 7-30 08-28 } patch on st CQ) 21 00:00: 04:59 the skin Hospit a mg/24 hr 00 :00 daily for l 28 days. Nitrofurant 2022-2022- Yes [id number] 100mg Take 1 Univers oin&Nit. 7 08-05 capsule by ity of Macrocryst 00:00: 04:59 [place] 100 mg 00 :00 the Medical capsule morning Branch and 1 capsule in the evening. Do all this for 5 days. phenazopyri 2022-2022- Yes [id number] 200mg Take 2 Univers dine 100 mg 11-11 08-02 tablets by i ty of tablet 00:00: 04:59 mouth in [place] 00 :00 the Medical morning Branch and 2 tablets at noon and 2 tablets in the evening. Do all this for 2 days. nicotine 2022- No [id number] Place 21 Methodi 21-14-7 727 07-[address] mg/24 hr 00:00: 00:00 skin daily Ho spita patch, TD 00 :00 for 28 l daily, days, THEN sequential 14 mg daily for 14 days, THEN 7 mg daily for 14 days. sertraline 2022- No 100mg QD Take 100 M ethodi (ZOLOFT) 11-06 07-[address] 100 MG 14:35: 00:00 mouth Hospita tablet 26 :00 daily. l lamoTRIgine 2022-0 Yes 25mg QD Take 1 Meth gamaliel (LaMICtal) 7-25 tablet (25 st 25 MG 14:13: mg total) Hospita tablet 24 by mouth l daily. venlafaxine 0 Yes Method i XR 7-25 st (EFFEXOR-XR 00:00: Hospit a ) 150 MG 24 00 l hr capsule busPIRone 0 Yes Methodi (BUSPAR) 30 7-25 st MG tablet 00:00: Hospita 00 l estradioL 2022-0 Yes Methodi (ESTRACE) 1 7-24 st MG tablet 00:00: Hospita 00 l dexamethaso 2022- No 10mg 10 mg, Uni vers ne 10-26 Oral, ity of (DECADRON 04:45: 16:44 ONCE, 1 [place] PHOS[place]ATE) 00 :00 dose, On Medic al injection [facility] 10 mg 10/25/22 at 2345, Routine dexamethaso 2022- No 10mg 10 mg, Uni vers ne sod phos 10-26 Slow IV ity of PF 03:45: 03:42 Push, [place] injection 00 :00 ONCE, 1 Medical 10 mg dose, On [facility] 10/25/22 at 2245, 1 mL LORazepam 2022- No .5mg 0.5 mg, Univ ers (ATIVAN) 10-26 Slow IV ity of injection 03:30: 03:39 Push, [place] 0.5 mg 00 :00 ONCE, 1 Medical dose, On [facility] 10/25/22 at 2230, STAT dexAMETHaso 2022- No 8mg 8 mg, Univ ers ne 10-25 Oral, ity of (DECADRON) 14:15: 13:12 ONCE, 1 [place] as tablet 8 mg 00 :00 dose, On Medi sara [facility] 10/25/22 at 0915, Routine ketorolac 2022- No 60mg 60 mg, Unive rs (TORADOL) 10-25 Intramuscu ity of injection 14:00: 13:11 [place] 60 mg 00 :00 NOW, 1 Medical dose, On Branch [facility] 10/25/22 at 0900, AYAKA gabapentin 2022-0 2022- No 300mg 300 mg, Un shellie (NEURONTIN) 10-25 Oral, ity of capsule 300 13:15: 13:12 ONCE, 1 [place] mg 00 :00 dose, On Medical [place] Branch 10/25/22 at 0815, AYAKA ketorolac 2022-0 Yes [id number] 10mg Take 1 Un shellie 10 mg 7-13 tablet by ity of tablet 00:00: mouth [place] 00 every 6 Medical (six) Branch hours as needed for Pain (scale 4-6) or Pain (scale 7-10). gabapentin 2022-0 Yes [id number] 100mg Take 1 Univers (NEURONTIN) 7-13 capsule by it y of 100 mg 00:00: mouth in [place] capsule 00 the Medical morning Branch and 1 capsule at noon and 1 capsule in the evening. predniSONE 2022-0 Yes [id number] Take 2 U nivers 20 mg 7-13 tablets PO ity of tablet 00:00: daily [place] [facility] Branch ketorolac 2022-0 Yes [id number] 10mg Take 1 Un shellie 10 mg 7-13 tablet by ity of tablet 00:00: mouth [place] 00 every 6 Medical (six) Branch hours as needed for Pain (scale 4-6) or Pain (scale 7-10). gabapentin 2022-0 Yes [id number] 100mg Take 1 Univers (NEURONTIN) 7-13 capsule by it y of 100 mg 00:00: mouth in [place] capsule 00 the Medical morning Branch and 1 capsule at noon and 1 capsule in the evening. predniSONE 2023-0 Yes [id number] Take 2 U nivers 20 mg 7-13 tablets PO ity of tablet 00:00: daily [place] [facility] ketorolac 2023-0 Yes [id number] 10mg Take 1 Un shellie 10 mg 7-13 tablet by ity of tablet 00:00: mouth [place] 00 every 6 Medical (six) Branch hours as needed for Pain (scale 4-6) or Pain (scale 7-10). gabapentin 2023-0 Yes [id number] 100mg Take 1 Univers (NEURONTIN) 7-13 capsule by it y of 100 mg 00:00: mouth in [place] capsule 00 the Medical morning Branch and 1 capsule at noon and 1 capsule in the evening. predniSONE 2022-0 Yes [id number] Take 2 U nivers 20 mg 7-13 tablets PO ity of tablet 00:00: daily Medical Branch ketorolac 2023-0 Yes [id number] 10mg Take 1 Un shellie 10 mg 7-13 tablet by ity of tablet 00:00: mouth [place] 00 every 6 Medical (six) Branch hours as needed for Pain (scale 4-6) or Pain (scale 7-10). gabapentin 2022-0 Yes [id number] 100mg Take 1 Univers (NEURONTIN) 7-13 capsule by it y of 100 mg 00:00: mouth in [place] capsule 00 the Medical morning Branch and 1 capsule at noon and 1 capsule in the evening. predniSONE 2022-0 Yes [id number] Take 2 U nivers 20 mg 7-13 tablets PO ity of tablet 00:00: daily Medical Branch ketorolac 2023-0 Yes [id number] 10mg Take 1 Un shellie 10 mg 7-13 tablet by ity of tablet 00:00: mouth [place] 00 every 6 Medical (six) Branch hours as needed for Pain (scale 4-6) or Pain (scale 7-10). gabapentin 2022-0 Yes [id number] 100mg Take 1 Univers (NEURONTIN) 7-13 capsule by it y of 100 mg 00:00: mouth in [place] capsule 00 the Medical morning Branch and 1 capsule at noon and 1 capsule in the evening. predniSONE 3-0 Yes [id number] Take 2 U nivers 20 mg 7-13 tablets PO ity of tablet 00:00: daily Medical Branch ketorolac 2023-0 Yes [id number] 10mg Take 1 Un shellie 10 mg 7-13 tablet by ity of tablet 00:00: mouth [place] 00 every 6 Medical (six) Branch hours as needed for Pain (scale 4-6) or Pain (scale 7-10). gabapentin 2023-0 Yes [id number] 100mg Take 1 Univers (NEURONTIN) 7-13 capsule by it y of 100 mg 00:00: mouth in [place] capsule 00 the Medical morning Branch and 1 capsule at noon and 1 capsule in the evening. predniSONE 2023-0 Yes [id number] Take 2 U nivers 20 mg 7-13 tablets PO ity of tablet 00:00: daily [place] [facility] Branch ketorolac 2023-0 Yes [id number] 10mg Take 1 Un shellie 10 mg 7-13 tablet by ity of tablet 00:00: mouth [place] 00 every 6 Medical (six) Branch hours as needed for Pain (scale 4-6) or Pain (scale 7-10). gabapentin 202-0 Yes [id number] 100mg Take 1 Univers (NEURONTIN) 7-13 capsule by it y of 100 mg 00:00: mouth in [place] capsule 00 the Medical morning Branch and 1 capsule at noon and 1 capsule in the evening. predniSONE 2022-0 Yes [id number] Take 2 U nivers 20 mg 7-13 tablets PO ity of tablet 00:00: daily [place] [facility] Branch ketorolac 3-0 Yes [id number] 10mg Take 1 Un shellie 10 mg 7-13 tablet by ity of tablet 00:00: mouth [place] 00 every 6 Medical (six) Branch hours as needed for Pain (scale 4-6) or Pain (scale 7-10). gabapentin 2022-0 Yes [id number] 100mg Take 1 Univers (NEURONTIN) 7-13 capsule by it y of 100 mg 00:00: mouth in [place] capsule 00 the Medical morning Branch and 1 capsule at noon and 1 capsule in the evening. predniSONE 2022-0 Yes [id number] Take 2 U nivers 20 mg 7-13 tablets PO ity of tablet 00:00: daily [place] [facility] Branch ketorolac 2023-0 Yes [id number] 10mg Take 1 Un shellie 10 mg 7-13 tablet by ity of tablet 00:00: mouth [place] 00 every 6 Medical (six) Branch hours as needed for Pain (scale 4-6) or Pain (scale 7-10). gabapentin 2023-0 Yes [id number] 100mg Take 1 Univers (NEURONTIN) 7-13 capsule by it y of 100 mg 00:00: mouth in [place] capsule 00 the Medical morning Branch and 1 capsule at noon and 1 capsule in the evening. predniSONE 3-0 Yes [id number] Take 2 U nivers 20 mg 7-13 tablets PO ity of tablet 00:00: daily [place] [facility] Branch ketorolac 2023-0 Yes [id number] 10mg Take 1 Un shellie 10 mg 7-13 tablet by ity of tablet 00:00: mouth [place] 00 every 6 Medical (six) Branch hours as needed for Pain (scale 4-6) or Pain (scale 7-10). gabapentin 2022-0 Yes [id number] 100mg Take 1 Univers (NEURONTIN) 7-13 capsule by it y of 100 mg 00:00: mouth in [place] capsule 00 the Medical morning Branch and 1 capsule at noon and 1 capsule in the evening. predniSONE 2022-0 Yes [id number] Take 2 U nivers 20 mg 7-13 tablets PO ity of tablet 00:00: daily [place] 00 Medical Branch HYDROcodone 2022-0 2022- No 1{tbl} 1 tablet, Univers -acetaminop 10-13 Oral, ity of hen (NORCO) 02:15: 01:38 ONCE, 1 [place] 10-325 mg 00 :00 dose, On Medica l tablet 1 Fri Branch tablet 10/12/22 at 2115, Routine ibuprofen 2022-0 2022- No 800mg 800 mg, Uni vers (IBU) 10-13 Oral, ity of tablet 800 01:15: 01:39 ONCE, 1 [place] mg 00 :00 dose, On Medical Fri Branch 10/12/22 at 2015, AYAKA naproxen 2022-0 Yes [id number] 500mg Take 1 Univers 500 mg 6-30 [id number] tablet by ity of tablet 00:00: mouth 2 [place] 00 (two) Medical times Branch daily with meals as needed for Pain (scale 4-6) or Pain (scale 1-3). naproxen 2022-0 Yes [id number] 500mg Take 1 Univers 500 mg 6-30 [id number] tablet by ity of tablet 00:00: mouth 2 [place] 00 (two) Medical times Branch daily with meals as needed for Pain (scale 4-6) or Pain (scale 1-3). naproxen 2022-0 Yes [id number] 500mg Take 1 Univers 500 mg 6-30 [id number] tablet by ity of tablet 00:00: mouth 2 [place] 00 (two) Medical times Branch daily with meals as needed for Pain (scale 4-6) or Pain (scale 1-3). naproxen 2022-0 Yes [id number] 500mg Take 1 Univers 500 mg 6-30 [id number] tablet by ity of tablet 00:00: mouth (two) Medical times Branch daily with meals as needed for Pain (scale 4-6) or Pain (scale 1-3). naproxen 2023-0 Yes [id number] 500mg Take 1 Univers 500 mg 6-30 [id number] tablet by ity of tablet 00:00: mouth (two) Medical times Branch daily with meals as needed for Pain (scale 4-6) or Pain (scale 1-3). naproxen 2023-0 Yes [id number] 500mg Take 1 Univers 500 mg 6-30 [id number] tablet by ity of tablet 00:00: mouth (two) Medical times Branch daily with meals as needed for Pain (scale 4-6) or Pain (scale 1-3). naproxen 3-0 Yes [id number] 500mg Take 1 Univers 500 mg 6-30 [id number] tablet by ity of tablet 00:00: mouth (two) Medical times Branch daily with meals as needed for Pain (scale 4-6) or Pain (scale 1-3). naproxen 3-0 Yes [id number] 500mg Take 1 Univers 500 mg 6-30 [id number] tablet by ity of tablet 00:00: mouth (two) Medical times Branch daily with meals as needed for Pain (scale 4-6) or Pain (scale 1-3). naproxen 3-0 Yes [id number] 500mg Take 1 Univers 500 mg 6-30 [id number] tablet by ity of tablet 00:00: mouth (two) Medical times Branch daily with meals as needed for Pain (scale 4-6) or Pain (scale 1-3). naproxen 2023-0 Yes [id number] 500mg Take 1 Univers 500 mg 6-30 [id number] tablet by ity of tablet 00:00: mouth (two) Medical times Branch daily with meals as needed for Pain (scale 4-6) or Pain (scale 1-3). naproxen 2023-0 Yes [id number] 500mg Take 1 Univers 500 mg 6-30 [id number] tablet by ity of tablet 00:00: mouth (two) Medical times Branch daily with meals as needed for Pain (scale 4-6) or Pain (scale 1-3). VENLAFAXINE 2022-0 Yes [id number] TAKE 1 Univers XR 150 mg 6-26 CAPSULE BY ity of 24 hr 00:00: MOUTH [place] capsule 00 EVERY DAY Medical WITH FOOD Branch VENLAFAXINE 3-0 Yes [id number] TAKE 1 Univers XR 150 mg 6-26 CAPSULE BY ity of 24 hr 00:00: MOUTH [place] capsule 00 EVERY DAY Medical WITH FOOD Branch VENLAFAXINE 2022-0 Yes [id number] TAKE 1 Univers XR 150 mg 6-26 CAPSULE BY ity of 24 hr 00:00: MOUTH [place] capsule 00 EVERY DAY Medical WITH FOOD Branch VENLAFAXINE 2022-0 Yes [id number] TAKE 1 Univers XR 150 mg 6-26 CAPSULE BY ity of 24 hr 00:00: MOUTH [place] capsule 00 EVERY DAY Medical WITH FOOD Branch VENLAFAXINE 2022-0 Yes [id number] TAKE 1 Univers XR 150 mg 6-26 CAPSULE BY ity of 24 hr 00:00: MOUTH [place] capsule 00 EVERY DAY Medical WITH FOOD Branch VENLAFAXINE 2022-0 Yes [id number] TAKE 1 Univers XR 150 mg 6-26 CAPSULE BY ity of 24 hr 00:00: MOUTH [place] capsule 00 EVERY DAY Medical WITH FOOD Branch VENLAFAXINE 2022-0 Yes [id number] TAKE 1 Univers XR 150 mg 6-26 CAPSULE BY ity of 24 hr 00:00: MOUTH [place] capsule 00 EVERY DAY Medical WITH FOOD Branch VENLAFAXINE 2022-0 Yes [id number] TAKE 1 Univers XR 150 mg 6-26 CAPSULE BY ity of 24 hr 00:00: MOUTH [place] capsule 00 EVERY DAY Medical WITH FOOD Branch VENLAFAXINE 2022-0 Yes [id number] TAKE 1 Univers XR 150 mg 6-26 CAPSULE BY ity of 24 hr 00:00: MOUTH [place] capsule 00 EVERY DAY Medical WITH FOOD Branch VENLAFAXINE 2022-0 Yes [id number] TAKE 1 Univers XR 150 mg 6-26 CAPSULE BY ity of 24 hr 00:00: MOUTH [place] capsule 00 EVERY DAY Medical WITH FOOD Branch VENLAFAXINE 3-0 Yes [id number] TAKE 1 Univers XR 150 mg 6-26 CAPSULE BY ity of 24 hr 00:00: MOUTH [place] capsule 00 EVERY DAY Medical WITH FOOD Branch VENLAFAXINE 2023-0 Yes [id number] TAKE 1 Univers XR 150 mg 6-26 CAPSULE BY ity of 24 hr 00:00: MOUTH [place] capsule 00 EVERY DAY Medical WITH FOOD Branch VENLAFAXINE 2022-0 Yes [id number] TAKE 1 Univers XR 150 mg 6-26 CAPSULE BY ity of 24 hr 00:00: MOUTH [place] capsule 00 EVERY DAY Medical WITH FOOD Branch VENLAFAXINE 2022-0 Yes [id number] TAKE 1 Univers XR 150 mg 5-15 CAPSULE BY ity of 24 hr 00:00: MOUTH [place] capsule 00 EVERY DAY Medical WITH FOOD Branch VENLAFAXINE 2022-0 2023- No [id number] TAKE 1 [facility] XR 150 mg 5-15 06-26 CAPSULE BY ity of 24 hr 00:00: 00:00 MOUTH [place] capsule 00 :00 EVERY DAY Medical WITH FOOD Branch ondansetron 2022-0 Yes 4mg Take 1 [facility] 4 mg 4-24 tablet by ity of disintegrat 00:00: mouth [place] ing tablet 00 every 8 Medica l (eight) Branch hours as needed for Nausea and Vomiting (N/V). ondansetron 2022-0 Yes 4mg Take 1 [facility] ers 4 mg 4-24 tablet by ity of disintegrat 00:00: mouth [place] ing tablet 00 every 8 Medica l (eight) Branch hours as needed for Nausea and Vomiting (N/V). ondansetron 2022-0 Yes 4mg Take 1 [facility] ers 4 mg 4-24 tablet by ity of disintegrat 00:00: mouth [place] ing tablet 00 every 8 Medica l (eight) Branch hours as needed for Nausea and Vomiting (N/V). ondansetron 2022-0 Yes 4mg Take 1 [facility] ers 4 mg 4-24 tablet by ity of disintegrat 00:00: mouth [place] ing tablet 00 every 8 Medica l (eight) Branch hours as needed for Nausea and Vomiting (N/V). ondansetron 3-0 2023- No 4mg Take 1 [facility] vers 4 mg 4-24 06-30 tablet by [facility] disintegrat 00:00: 00:[place] :00 every 8 Medica l (eight) Branch hours as needed for Nausea and Vomiting (N/V). estradioL 1 2022-0 Yes [id number] 1mg Take 1 [facility] mg tablet 4-13 tablet by ity o f 00:00: mouth in [place] 00 the Medical morning. Branch estradioL 1 2022-0 Yes [id number] 1mg Take 1 [facility] mg tablet 4-13 tablet by ity o f 00:00: mouth in [place] the Medical morning. Branch estradioL 1 2022-0 Yes [id number] 1mg Take 1 [facility] mg tablet 4-13 tablet by ity o f 00:00: mouth in [place] the Medical morning. Branch estradioL 1 2022-0 Yes [id number] 1mg Take 1 [facility] mg tablet 4-13 tablet by ity o f 00:00: mouth in [place] the Medical morning. Branch estradioL 1 2022-0 Yes [id number] 1mg Take 1 [facility] mg tablet 4-13 tablet by ity o f 00:00: mouth in [place] the Medical morning. Branch estradioL 1 2022-0 Yes [id number] 1mg Take 1 [facility] mg tablet 4-13 tablet by ity o f 00:00: mouth in [place] the Medical morning. Branch estradioL 1 2022-0 Yes [id number] 1mg Take 1 [facility] mg tablet 4-13 tablet by ity o f 00:00: mouth in [place] the Medical morning. Branch estradioL 1 2022-0 Yes [id number] 1mg Take 1 [facility] mg tablet 4-13 tablet by ity o f 00:00: mouth in [place] the Medical morning. Branch estradioL 1 2022-0 Yes [id number] 1mg Take 1 [facility] mg tablet 4-13 tablet by ity o f 00:00: mouth in [place] the Medical morning. Branch estradioL 1 2022-0 Yes [id number] 1mg Take 1 [facility] mg tablet 4-13 tablet by ity o f 00:00: mouth in [place] the Medical morning. Branch estradioL 1 2022-0 Yes [id number] 1mg Take 1 [facility] mg tablet 4-13 tablet by ity o f 00:00: mouth in [place] the Medical morning. Branch estradioL 1 2022-0 3- No [id number] 1mg Take 1 [facility] mg tablet 4-13 09-06 tablet by ity of 00:00: 00:00 mouth in [place] 00 :00 the Medical morning. Branch venlafaxine 2022-0 Yes [id number] TAKE 1 [facility] XR 150 mg 4-11 CAPSULE BY ity of 24 hr 00:00: MOUTH [place] capsule 00 EVERY DAY Medical WITH FOOD Branch busPIRone 2023-0 Yes [id number] 15mg Take 1 [facility] 15 mg 4-11 tablet by ity of tablet 00:00: mouth in [place] the Medical morning Branch and 1 tablet in the evening. ondansetron 2023-0 Yes [id number] Appointmen [facility] 4 mg 4-11 t is ity of disintegrat 00:00: required [place] ing tablet 00 before Medical next Branch refill omeprazole 2023-0 Yes [id number] 40mg Take 1 [facility] 40 mg 4-11 capsule by ity of capsule 00:00: mouth in [place] 00 the Medical morning. Branch venlafaxine 2023-0 Yes [id number] TAKE 1 [facility] XR 150 mg 4-11 CAPSULE BY ity of 24 hr 00:00: MOUTH [place] capsule 00 EVERY DAY Medical WITH FOOD Branch busPIRone 3-0 Yes [id number] 15mg Take 1 [facility] n[facility] 15 mg 4-11 tablet by ity of tablet 00:00: mouth in [place] the Medical morning Branch and 1 tablet in the evening. ondansetron 2023-0 Yes [id number] Appointmen [facility] 4 mg 4-11 t is ity of disintegrat 00:00: required [place] ing tablet 00 before Medical next Branch refill omeprazole 3-0 Yes [id number] 40mg Take 1 [facility] 40 mg 4-11 capsule by ity of capsule 00:00: mouth in [place] 00 the Medical morning. Branch omeprazole 3-0 Yes [id number] 40mg Take 1 [facility] 40 mg 4-11 capsule by ity of capsule 00:00: mouth in [place] 00 the Medical morning. Branch venlafaxine 2023-0 Yes [id number] TAKE 1 [facility] XR 150 mg 4-11 CAPSULE BY ity of 24 hr 00:00: MOUTH [place] capsule 00 EVERY DAY Medical WITH FOOD Branch busPIRone 2023-0 Yes [id number] 15mg Take 1 [facility] n[facility] 15 mg 4-11 tablet by ity of tablet 00:00: mouth in [place] 00 the Medical morning Branch and 1 tablet in the evening. ondansetron 2023-0 Yes [id number] Appointmen [facility] 4 mg 4-11 t is ity of disintegrat 00:00: required [place] ing tablet 00 before Medical next Branch refill omeprazole 2023-0 Yes [id number] 40mg Take 1 [facility] 40 mg 4-11 capsule by ity of capsule 00:00: mouth in [place] 00 the Medical morning. Branch omeprazole 2022-0 Yes [id number] 40mg Take 1 [facility] 40 mg 4-11 capsule by ity of capsule 00:00: mouth in [place] 00 the Medical morning. Branch venlafaxine 2022-0 Yes [id number] TAKE 1 [facility] XR 150 mg 4-11 CAPSULE BY ity of 24 hr 00:00: MOUTH [place] capsule 00 EVERY DAY Medical WITH FOOD Branch busPIRone 2022-0 Yes [id number] 15mg Take 1 [facility] n[facility] 15 mg 4-11 tablet by ity of tablet 00:00: mouth in [place] the Medical morning Branch and 1 tablet in the evening. ondansetron 2022-0 Yes [id number] Appointmen [facility] 4 mg 4-11 t is ity of disintegrat 00:00: required [place] ing tablet 00 before Medical next Branch refill omeprazole 2022-0 Yes [id number] 40mg Take 1 [facility] 40 mg 4-11 capsule by ity of capsule 00:00: mouth in [place] the Medical morning. Branch omeprazole 2022-0 Yes [id number] 40mg Take 1 [facility] 40 mg 4-11 capsule by ity of capsule 00:00: mouth in [place] the Medical morning. Branch venlafaxine 2022-0 Yes [id number] TAKE 1 [facility] XR 150 mg 4-11 CAPSULE BY ity of 24 hr 00:00: MOUTH [place] capsule 00 EVERY DAY Medical WITH FOOD Branch busPIRone 2022-0 Yes [id number] 15mg Take 1 [facility] nivers 15 mg 4-11 tablet by ity of tablet 00:00: mouth in [place] the Medical morning Branch and 1 tablet in the evening. ondansetron 3-0 Yes [id number] Appointmen [facility] 4 mg 4-11 t is ity of disintegrat 00:00: required [place] ing tablet 00 before Medical next Branch refill omeprazole 2022-0 Yes [id number] 40mg Take 1 [facility] 40 mg 4-11 capsule by ity of capsule 00:00: mouth in [place] 00 the Medical morning. Branch omeprazole 2022-0 Yes [id number] 40mg Take 1 [facility] 40 mg 4-11 capsule by ity of capsule 00:00: mouth in [place] 00 the Medical morning. Branch venlafaxine 3-0 Yes [id number] TAKE 1 [facility] XR 150 mg 4-11 CAPSULE BY ity of 24 hr 00:00: MOUTH [place] capsule 00 EVERY DAY Medical WITH FOOD Branch busPIRone 3-0 Yes [id number] 15mg Take 1 [facility] nivers 15 mg 4-11 tablet by ity of tablet 00:00: mouth in [place] 00 the Medical morning Branch and 1 tablet in the evening. ondansetron 3-0 Yes [id number] Appointmen [facility] 4 mg 4-11 t is ity of disintegrat 00:00: required [place] ing tablet 00 before Medical next Branch refill omeprazole 3-0 Yes [id number] 40mg Take 1 [facility] 40 mg 4-11 capsule by ity of capsule 00:00: mouth in [place] 00 the Medical morning. Branch omeprazole 3-0 Yes [id number] 40mg Take 1 [facility] 40 mg 4-11 capsule by ity of capsule 00:00: mouth in [place] the Medical morning. Branch busPIRone 3-0 Yes [id number] 15mg Take 1 [facility] n[facility] 15 mg 4-11 tablet by ity of tablet 00:00: mouth in [place] the Medical morning Branch and 1 tablet in the evening. ondansetron 3-0 Yes [id number] Appointmen [facility] 4 mg 4-11 t is ity of disintegrat 00:00: required [place] ing tablet 00 before Medical next Branch refill omeprazole 3-0 Yes [id number] 40mg Take 1 [facility] 40 mg 4-11 capsule by ity of capsule 00:00: mouth in [place] 00 the Medical morning. Branch omeprazole 2023-0 Yes [id number] 40mg Take 1 [facility] 40 mg 4-11 capsule by ity of capsule 00:00: mouth in [place] 00 the Medical morning. Branch busPIRone 2023-0 Yes [id number] 15mg Take 1 [facility] n[facility] 15 mg 4-11 tablet by ity of tablet 00:00: mouth in [place] the Medical morning Branch and 1 tablet in the evening. ondansetron 2023-0 Yes [id number] Appointmen [facility] 4 mg 4-11 t is ity of disintegrat 00:00: required [place] ing tablet 00 before Medical next Branch refill omeprazole 3-0 Yes [id number] 40mg Take 1 [facility] 40 mg 4-11 capsule by ity of capsule 00:00: mouth in [place] the morning. Branch omeprazole 3-0 Yes [id number] 40mg Take 1 [facility] 40 mg 4-11 capsule by ity of capsule 00:00: mouth in [place] the morning. Branch busPIRone 2022-0 Yes [id number] 15mg Take 1 [facility] nivers 15 mg 4-11 tablet by ity of tablet 00:00: mouth in [place] the morning Branch and 1 tablet in the evening. ondansetron 2022-0 Yes [id number] Appointmen [facility] 4 mg 4-11 t is ity of disintegrat 00:00: required [place] ing tablet 00 before next Branch refill omeprazole 2022-0 Yes [id number] 40mg Take 1 [facility] 40 mg 4-11 capsule by ity of capsule 00:00: mouth in [place] the morning. Branch omeprazole 2022-0 Yes [id number] 40mg Take 1 [facility] 40 mg 4-11 capsule by ity of capsule 00:00: mouth in [place] the morning. Branch busPIRone 2022-0 Yes [id number] 15mg Take 1 [facility] n[facility] 15 mg 4-11 tablet by ity of tablet 00:00: mouth in [place] the morning Branch and 1 tablet in the evening. omeprazole 2022-0 Yes [id number] 40mg Take 1 [facility] 40 mg 4-11 capsule by ity of capsule 00:00: mouth in [place] the morning. Branch busPIRone 3-0 Yes [id number] 15mg Take 1 [facility] nivers 15 mg 4-11 tablet by ity of tablet 00:00: mouth in [place] the morning Branch and 1 tablet in the evening. omeprazole 3-0 Yes [id number] 40mg Take 1 [facility] 40 mg 4-11 capsule by ity of capsule 00:00: mouth in [place] the morning. Branch busPIRone 3-0 Yes [id number] 15mg Take 1 [facility] nivers 15 mg 4-11 tablet by ity of tablet 00:00: mouth in [place] the morning Branch and 1 tablet in the evening. omeprazole 2023-0 Yes [id number] 40mg Take 1 [facility] 40 mg 4-11 capsule by ity of capsule 00:00: mouth in [place] the morning. Branch busPIRone 3-0 Yes [id number] 15mg Take 1 [facility] nivers 15 mg 4-11 tablet by ity of tablet 00:00: mouth in [place] the morning Branch and 1 tablet in the evening. omeprazole 2023-0 Yes [id number] 40mg Take 1 [facility] 40 mg 4-11 capsule by ity of capsule 00:00: mouth in [place] the morning. Branch busPIRone 3-0 Yes [id number] 15mg Take 1 [facility] nivers 15 mg 4-11 tablet by ity of tablet 00:00: mouth in [place] the morning Branch and 1 tablet in the evening. omeprazole 3-0 Yes [id number] 40mg Take 1 [facility] 40 mg 4-11 capsule by ity of capsule 00:00: mouth in [place] the morning. Branch busPIRone 3-0 Yes [id number] 15mg Take 1 [facility] nivers 15 mg 4-11 tablet by ity of tablet 00:00: mouth in [place] the morning Branch and 1 tablet in the evening. omeprazole 3-0 Yes [id number] 40mg Take 1 [facility] 40 mg 4-11 capsule by ity of capsule 00:00: mouth in [place] the morning. Branch busPIRone 3-0 Yes [id number] 15mg Take 1 [facility] nivers 15 mg 4-11 tablet by ity of tablet 00:00: mouth in [place] the morning Branch and 1 tablet in the evening. omeprazole 3-0 Yes [id number] 40mg Take 1 [facility] 40 mg 4-11 capsule by ity of capsule 00:00: mouth in [place] the morning. Branch busPIRone 2023-0 Yes [id number] 15mg Take 1 [facility] nivers 15 mg 4-11 tablet by ity of tablet 00:00: mouth in [place] the morning Branch and 1 tablet in the evening. omeprazole 2023-0 Yes [id number] 40mg Take 1 [facility] 40 mg 4-11 capsule by ity of capsule 00:00: mouth in [place] the Medical morning. Branch busPIRone 3-0 Yes [id number] 15mg Take 1 [facility] nivers 15 mg 4-11 tablet by ity of tablet 00:00: mouth in [place] 00 the Medical morning Branch and 1 tablet in the evening. omeprazole 2022-0 Yes [id number] 40mg Take 1 [facility] 40 mg 4-11 capsule by ity of capsule 00:00: mouth in [place] 00 the Medical morning. Branch busPIRone 2022-0 Yes [id number] 15mg Take 1 [facility] nivers 15 mg 4-11 tablet by ity of tablet 00:00: mouth in [place] 00 the Medical morning Branch and 1 tablet in the evening. omeprazole 2022-0 Yes [id number] 40mg Take 1 [facility] 40 mg 4-11 capsule by ity of capsule 00:00: mouth in [place] 00 the Medical morning. Branch busPIRone 2022-0 Yes [id number] 15mg Take 1 [facility] nivers 15 mg 4-11 tablet by ity of tablet 00:00: mouth in [place] 00 the Medical morning Branch and 1 tablet in the evening. omeprazole 2022-0 Yes [id number] 40mg Take 1 [facility] 40 mg 4-11 capsule by ity of capsule 00:00: mouth in [place] 00 the Medical morning. Branch ondansetron 2022- No [id number] Appointmen [facility] 4 mg 4-11 06-30 t is ity of disintegrat 00:00: 00:00 required [place] ing tablet 00 :00 before Medical next Branch refill omeprazole 2022-2022- No [id number] 40mg Take 1 [facility] 40 mg 4-11 06-30 capsule by ity of capsule 00:00: 00:00 mouth in [place] 00 :00 the Medical morning. Branch venlafaxine 2022- No [id number] TAKE 1 [facility] XR 150 mg 4-11 05-15 CAPSULE BY ity of 24 hr 00:00: 00:00 MOUTH [place] capsule 00 :00 EVERY DAY Medical WITH FOOD Branch levonorgest 2022- No [id number] 1{devic [facility] reL 07-18 e} ity of (MIRENA) 22:00: 21:13 [place] IUD 1 00 :00 [facility] Branch levonorgest 2022- No [id number] 1{devic 1 Device, [facility] reL 07-18 e} Intrauteri ity of (MIRENA) 22:00: 21:13 [place], ONCE, [place] IUD 1 00 :00 1 dose, On [place] Sat07/18/22 Branch at 1700, Routine levonorgest No [id number] 1{devic [facility] reL 4-05 04-05 e} ity of (MIRENA) 22:00: 21:13 [place] IUD 1 00 :00 [place] [facility] levonorgest 2022- No [id number] 1{devic 1 Device, [facility] reL 4-05 04-05 e} Intrauteri ity of (MIRENA) 22:00: 21:13 ne, ONCE, [place] IUD 1 00 :00 1 dose, On [place] 07/18/22 Branch at 1700, Routine levonorgest 2022- No 1{devic 1 Device [facility] rel 20 4-05 04-05 e} by ity of mcg/24 15:01: 00:[place]uteri [place] hours (5 06 :00 ne route. Medica l yrs) 52 mg Branch IUD levonorgest 2022- No 1{devic 1 Device [facility] rel 20 4-05 04-05 e} by ity of mcg/24 15:01: 00:[place] Intrauteri [place] hours (5 06 :00 ne route. Medica l yrs) 52 mg Branch IUD levonorgest 2022- No 1{devic 1 Device [facility] rel 20 4-05 04-05 e} by ity of mcg/24 15:01: 00:[place] Intrauteri [place] hours (5 06 :00 ne route. Medica l yrs) 52 mg Branch IUD levonorgest 2022- No 1{devic 1 Device [facility] rel 20 4-05 04-05 e} by ity of mcg/24 15:01: 00:00 Intrauteri [place] hours (5 06 :00 ne route. Medica l yrs) 52 mg Branch IUD levonorgest 2022- No 1{devic 1 Device [facility] rel 20 4-05 04-05 e} by ity of mcg/24 15:01: 00:[place] Intrauteri [place] hours (5 06 :00 ne route. Medica l yrs) 52 mg Branch IUD levonorgest 2022- No 1{devic 1 Device [facility] rel 20 4-05 04-05 e} by ity of mcg/24 15:01: 00:00 Intrauteri [place] hours (5 06 :00 ne route. Medica l yrs) 52 mg Branch IUD levonorgest 2022- No 1{devic 1 Device [facility] rel 20 4-05 04-05 e} by ity of mcg/24 15:01: 00:[place] Intrauteri [place] hours (5 06 :00 ne route. Medica l yrs) 52 mg Branch IUD BARIATRIC Yes 1{tbl} Take 1 Univ ers MULTIVITAMI 4-05 tablet by ity of NS ORAL 14:19: mouth 2 [place] [address] (two) Medical times Branch daily. VITAMIN D-3 Yes [id number] Take Univ ers ORAL 4-05 50,000 ity of 14:19: Units by [place] 48 mouth. Medical Branch BARIATRIC Yes 1{tbl} Take 1 Univ ers MULTIVITAMI 4-05 tablet by ity of NS ORAL 14:19: mouth 2 [place] [address] (two) Medical times Branch daily. VITAMIN D-3 Yes [id number] Take Univ ers ORAL 4-05 50,000 ity of 14:19: Units by [place] mouth. Medical Branch BARIATRIC Yes 1{tbl} Take 1 Univ ers MULTIVITAMI 4-05 tablet by ity of NS ORAL 14:19: mouth 2 [place] 48 (two) Medical times Branch daily. VITAMIN D-3 Yes [id number] Take Univ ers ORAL 4-05 50,000 ity of 14:19: Units by [place] 48 mouth. Medical Branch BARIATRIC Yes 1{tbl} Take 1 [facility] ers MULTIVITAMI 4-05 tablet by ity of NS ORAL 14:19: mouth 2 [place] 48 (two) Medical times Branch daily. VITAMIN D-3 Yes [id number] Take Univ ers ORAL 4-05 50,000 ity of 14:19: Units by [place] 48 mouth. Medical Branch BARIATRIC Yes 1{tbl} Take 1 [facility] ers MULTIVITAMI 4-05 tablet by ity of NS ORAL 14:19: mouth 2 [place] 48 (two) Medical times Branch daily. VITAMIN D-3 Yes [id number] Take Univ ers ORAL 4-05 50,000 ity of 14:19: Units by [place] 48 mouth. Medical Branch BARIATRIC Yes 1{tbl} Take 1 [facility] ers MULTIVITAMI 4-05 tablet by ity of NS ORAL 14:19: mouth 2 [place] [address] (two) Medical times Branch daily. VITAMIN D-3 Yes [id number] Take Univ ers ORAL 4-05 50,000 ity of 14:19: Units by [place] 48 mouth. Medical Branch BARIATRIC Yes 1{tbl} Take 1 Univ ers MULTIVITAMI 4-05 tablet by ity of NS ORAL 14:19: mouth 2 [place] 48 (two) Medical times Branch daily. VITAMIN D-3 Yes [id number] Take Univ ers ORAL 4-05 50,000 ity of 14:19: Units by [place] 48 mouth. Medical Branch BARIATRIC Yes 1{tbl} Take 1 Univ ers MULTIVITAMI 4-05 tablet by ity of NS ORAL 14:19: mouth 2 [place] [address] (two) Medical times Branch daily. VITAMIN D-3 Yes [id number] Take Univ ers ORAL 4-05 50,000 ity of 14:19: Units by [place] mouth. Medical Branch BARIATRIC Yes 1{tbl} Take 1 Univ ers MULTIVITAMI 4-05 tablet by ity of NS ORAL 14:19: mouth 2 [place] [address] (two) Medical times Branch daily. VITAMIN D-3 Yes [id number] Take Univ ers ORAL 4-05 50,000 ity of 14:19: Units by [place] 48 mouth. Medical Branch BARIATRIC Yes 1{tbl} Take 1 [facility] ers MULTIVITAMI 4-05 tablet by ity of NS ORAL 14:19: mouth 2 [place] 48 (two) Medical times Branch daily. VITAMIN D-3 Yes [id number] Take Univ ers ORAL 4-05 50,000 ity of 14:19: Units by [place] 48 mouth. Medical Branch BARIATRIC Yes 1{tbl} Take 1 Univ ers MULTIVITAMI 4-05 tablet by ity of NS ORAL 14:19: mouth 2 [place] 48 (two) Medical times Branch daily. VITAMIN D-3 Yes [id number] Take Univ ers ORAL 4-05 50,000 ity of 14:19: Units by [place] mouth. Medical Branch BARIATRIC Yes 1{tbl} Take 1 [facility] ers MULTIVITAMI 4-05 tablet by ity of NS ORAL 14:19: mouth 2 [place] [address] (two) Medical times Branch daily. VITAMIN D-3 0 Yes [id number] Take Univ ers ORAL 4-05 50,000 ity of 14:19: Units by [place] 48 mouth. Medical Branch BARIATRIC Yes 1{tbl} Take 1 [facility] ers MULTIVITAMI 4-05 tablet by ity of NS ORAL 14:19: mouth 2 [place] [address] (two) Medical times Branch daily. VITAMIN D-3 0 Yes [id number] Take Univ ers ORAL 4-05 50,000 ity of 14:19: Units by [place] [address] mouth. Medical Branch BARIATRIC Yes 1{tbl} Take 1 [facility] ers MULTIVITAMI 4-05 tablet by ity of NS ORAL 14:19: mouth 2 [place] [address] ([facility]) Medical times Branch daily. VITAMIN D-3 Yes [id number] Take Univ ers ORAL 4-05 50,000 ity of 14:19: Units by [place] [address] mouth. Medical Branch BARIATRIC Yes 1{tbl} Take 1 Univ ers MULTIVITAMI 4-05 tablet by ity of NS ORAL 14:19: mouth 2 [place] [address] (two) Medical times Branch daily. VITAMIN D-3 0 Yes [id number] Take Univ ers ORAL 4-05 50,000 ity of 14:19: Units by [place] [address] mouth. Medical Branch BARIATRIC Yes 1{tbl} Take 1 Univ ers MULTIVITAMI 4-05 tablet by ity of NS ORAL 14:19: mouth 2 [place] [address] (two) Medical times Branch daily. VITAMIN D-3 0 Yes [id number] Take Univ ers ORAL 4-05 50,000 ity of 14:19: Units by [place] 48 mouth. Medical Branch BARIATRIC Yes 1{tbl} Take 1 [facility] ers MULTIVITAMI 4-05 tablet by ity of NS ORAL 14:19: mouth 2 [place] [address] (two) Medical times Branch daily. VITAMIN D-3 2023-0 Yes [id number] Take Univ ers ORAL 4-05 50,000 ity of 14:19: Units by [place] 48 mouth. Medical Branch BARIATRIC Yes 1{tbl} Take 1 Univ ers MULTIVITAMI 4-05 tablet by ity of NS ORAL 14:19: mouth 2 [place] 48 (two) Medical times Branch daily. VITAMIN D-3 Yes [id number] Take Univ ers ORAL 4-05 50,000 ity of 14:19: Units by [place] 48 mouth. Medical Branch BARIATRIC Yes 1{tbl} Take 1 Univ ers MULTIVITAMI 4-05 tablet by ity of NS ORAL 14:19: mouth 2 [place] 48 (two) Medical times Branch daily. VITAMIN D-3 Yes [id number] Take Univ ers ORAL 4-05 50,000 ity of 14:19: Units by [place] 48 mouth. Medical Branch BARIATRIC Yes 1{tbl} Take 1 Univ ers MULTIVITAMI 4-05 tablet by ity of NS ORAL 14:19: mouth 2 [place] 48 (two) Medical times Branch daily. VITAMIN D-3 Yes [id number] Take Univ ers ORAL 4-05 50,000 ity of 14:19: Units by [place] 48 mouth. Medical Branch BARIATRIC Yes 1{tbl} Take 1 Univ ers MULTIVITAMI 4-05 tablet by ity of NS ORAL 14:19: mouth 2 [place] 48 (two) Medical times Branch daily. VITAMIN D-3 Yes [id number] Take Univ ers ORAL 4-05 50,000 ity of 14:19: Units by [place] 48 mouth. Medical Branch BARIATRIC Yes 1{tbl} Take 1 Univ ers MULTIVITAMI 4-05 tablet by ity of NS ORAL 14:19: mouth 2 [place] 48 (two) Medical times Branch daily. VITAMIN D-3 Yes [id number] Take Univ ers ORAL 4-05 50,000 ity of 14:19: Units by [place] 48 mouth. Medical Branch BARIATRIC Yes 1{tbl} Take 1 Univ ers MULTIVITAMI 4-05 tablet by ity of NS ORAL 14:19: mouth 2 [place] 48 (two) Medical times Branch daily. VITAMIN D-3 Yes [id number] Take Univ ers ORAL 4-05 50,000 ity of 14:19: Units by [place] 48 mouth. Medical Branch BARIATRIC Yes 1{tbl} Take 1 Univ ers MULTIVITAMI 4-05 tablet by ity of NS ORAL 14:19: mouth 2 [place] [address] (two) Medical times Branch daily. VITAMIN D-3 Yes [id number] Take Univ ers ORAL 4-05 50,000 ity of 14:19: Units by [place] 48 mouth. Medical Branch BARIATRIC Yes 1{tbl} Take 1 Univ ers MULTIVITAMI 4-05 tablet by ity of NS ORAL 14:19: mouth 2 [place] [address] (two) Medical times Branch daily. VITAMIN D-3 Yes [id number] Take Univ ers ORAL 4-05 50,000 ity of 14:19: Units by [place] 48 mouth. Medical Branch BARIATRIC Yes 1{tbl} Take 1 Univ ers MULTIVITAMI 4-05 tablet by ity of NS ORAL 14:19: mouth 2 [place] [address] (two) Medical times Branch daily. VITAMIN D-3 Yes [id number] Take Univ ers ORAL 4-05 50,000 ity of 14:19: Units by [place] mouth. Medical Branch BARIATRIC Yes 1{tbl} Take 1 Univ ers MULTIVITAMI 4-05 tablet by ity of NS ORAL 14:19: mouth 2 [place] [address] (two) Medical times Branch daily. VITAMIN D-3 Yes [id number] Take Univ ers ORAL 4-05 50,000 ity of 14:19: Units by [place] mouth. Medical Branch BARIATRIC Yes 1{tbl} Take 1 Univ ers MULTIVITAMI 4-05 tablet by ity of NS ORAL 14:19: mouth 2 [place] [address] (two) Medical times Branch daily. VITAMIN D-3 Yes [id number] Take Univ ers ORAL 4-05 50,000 ity of 14:19: Units by [place] 48 mouth. Medical Branch BARIATRIC Yes 1{tbl} Take 1 Univ ers MULTIVITAMI 4-05 tablet by ity of NS ORAL 14:19: mouth 2 [place] [address] (two) Medical times Branch daily. VITAMIN D-3 0 Yes [id number] Take Univ ers ORAL 4-05 50,000 ity of 14:19: Units by [place] 48 mouth. Medical Branch ONDANSETRON 2023-0 Yes [id number] DISSOLVE 1 [facility] 4 mg 2-13 TABLET ON ity of disintegrat 00:00: THE TONGUE [place] ing tablet 00 EVERY 8 Medica l HOURS Branch NEEDED FOR NAUSEA ONDANSETRON 2023-0 Yes [id number] DISSOLVE 1 [facility] 4 mg 2-13 TABLET ON ity of disintegrat 00:00: THE TONGUE [place] ing tablet 00 EVERY 8 Medica l HOURS Branch NEEDED FOR NAUSEA ONDANSETRON 2023-0 Yes [id number] DISSOLVE 1 [facility] 4 mg 2-13 TABLET ON ity of disintegrat 00:00: THE TONGUE [place] ing tablet 00 EVERY 8 Medica l HOURS Branch NEEDED FOR NAUSEA ONDANSETRON 2023-0 Yes [id number] DISSOLVE 1 [facility] 4 mg 2-13 TABLET ON ity of disintegrat 00:00: THE TONGUE [place] ing tablet 00 EVERY 8 Medica l HOURS Branch NEEDED FOR NAUSEA ONDANSETRON 2023-0 Yes [id number] DISSOLVE 1 [facility] 4 mg 2-13 TABLET ON ity of disintegrat 00:00: THE TONGUE [place] ing tablet 00 EVERY 8 Medica l HOURS Branch NEEDED FOR NAUSEA ONDANSETRON 2023-0 Yes [id number] DISSOLVE 1 [facility] 4 mg 2-13 TABLET ON ity of disintegrat 00:00: THE TONGUE [place] ing tablet 00 EVERY 8 Medica l HOURS Branch NEEDED FOR NAUSEA ONDANSETRON 2023-0 Yes [id number] DISSOLVE 1 [facility] 4 mg 2-13 TABLET ON ity of disintegrat 00:00: THE TONGUE [place] ing tablet 00 EVERY 8 Medica l HOURS Branch NEEDED FOR NAUSEA ONDANSETRON 2023-0 3- No [id number] DISSOLVE 1 [facility] 4 mg 2-13 04-11 TABLET ON ity of disintegrat 00:00: 00:00 THE TONGUE [place] ing tablet 00 :00 EVERY 8 Medica l HOURS Branch NEEDED FOR NAUSEA BUSPIRONE 2023-0 Yes [id number] TAKE 1 U nivers 15 mg 2-02 TABLET BY ity of tablet 00:00: [facility] 00 TWICE Medical DAILY Branch BUSPIRONE 2023-0 Yes [id number] TAKE 1 U nivers 15 mg 2-02 TABLET BY ity of tablet 00:00: [facility] 00 TWICE Medical DAILY Branch BUSPIRONE 2023-0 Yes [id number] TAKE 1 U nivers 15 mg 2-02 TABLET BY ity of tablet 00:00: MOUTH [place] 00 TWICE Medical DAILY Branch BUSPIRONE 0 Yes [id number] TAKE 1 U nivers 15 mg 2-02 TABLET BY ity of tablet 00:00: MOUTH [place] 00 TWICE Medical DAILY Branch BUSPIRONE 0 Yes [id number] TAKE 1 U nivers 15 mg 2-02 TABLET BY ity of tablet 00:00: MOUTH [place] 00 TWICE Medical DAILY Branch BUSPIRONE 0 Yes [id number] TAKE 1 U nivers 15 mg 2-02 TABLET BY ity of tablet 00:00: MOUTH [place] 00 TWICE Medical DAILY Branch BUSPIRONE 0 Yes [id number] TAKE 1 U nivers 15 mg 2-02 TABLET BY ity of tablet 00:00: MOUTH [place] 00 TWICE Medical DAILY Branch BUSPIRONE 0 Yes [id number] TAKE 1 U nivers 15 mg 2-02 TABLET BY ity of tablet 00:00: MOUTH [place] 00 TWICE Medical DAILY Branch BUSPIRONE 0 2022- No [id number] TAKE 1 [facility] 15 mg 2-02 04-11 TABLET BY ity of tablet 00:00: 00:00 MOUTH [place] 00 :00 TWICE Medical DAILY Branch PNV 2021-04- No Take by Univers no.95/ashely 2-14 12-14 mouth. ity o f us 14:19: 00:00 [place] fum/folic 11 :00 Medical ac Branch ( ORAL) PNV 2021-04- No Take by Univers no.95/ashely 2-14 12-14 mouth. ity o f us 14:19: 00:00 [place] fum/folic 11 :00 Medical ac Branch ( ORAL) BARIATRIC 2021-04 Yes 1{tbl} Take 1 Univ ers MULTIVITAMI 2-14 tablet by ity of NS ORAL 13:54: mouth 2 [place] 51 (two) Medical times Branch daily. BARIATRIC 2021-04 Yes 1{tbl} Take 1 Univ ers MULTIVITAMI 2-14 tablet by ity of NS ORAL 13:54: mouth 2 [place] 51 (two) Medical times Branch daily. BARIATRIC 2021-04 Yes 1{tbl} Take 1 Univ ers MULTIVITAMI 2-14 tablet by ity of NS ORAL 13:54: mouth 2 [place] 51 (two) Medical times Branch daily. BARIATRIC 2021-04 Yes 1{tbl} Take 1 Univ ers MULTIVITAMI 2-14 tablet by ity of NS ORAL 13:54: mouth 2 [place] 51 (two) Medical times Branch daily. BARIATRIC 2021-04 Yes 1{tbl} Take 1 Univ ers MULTIVITAMI 2-14 tablet by ity of NS ORAL 13:54: mouth 2 [place] 51 (two) Medical times Branch daily. BARIATRIC 2021-04 Yes 1{tbl} Take 1 Univ ers MULTIVITAMI 2-14 tablet by ity of NS ORAL 13:54: mouth 2 [place] 51 (two) Medical times Branch daily. BARIATRIC 2021-04 Yes 1{tbl} Take 1 Univ ers MULTIVITAMI 2-14 tablet by ity of NS ORAL 13:54: mouth 2 [place] 51 (two) Medical times Branch daily. BARIATRIC 2021-04 Yes 1{tbl} Take 1 Univ ers MULTIVITAMI 2-14 tablet by ity of NS ORAL 13:54: mouth 2 [place] 51 (two) Medical times Branch daily. BARIATRIC 2021-04 Yes 1{tbl} Take 1 Univ ers MULTIVITAMI 2-14 tablet by ity of NS ORAL 13:54: mouth 2 [place] 51 (two) Medical times Branch daily. estradioL 2021-04 Yes [id number] 1mg Take 1 [facility] mg tablet 2-14 tablet by ity o f 00:00: mouth in [place] 00 the Medical morning. Branch miSOPROStoL 2021-04 Yes [id number] 200ug Take 1 [facility] 200 mcg 2-14 tablet by ity of tablet 00:00: mouth [place] [address] SEE-INSTRU Medical CTIONS. Branch Take one tab the night before and one tab the morning of procedure estradioL 1 2021-04 Yes [id number] 1mg Take 1 [facility] mg tablet 2-14 tablet by ity o f 00:00: mouth in [place] 00 the Medical morning. Branch miSOPROStoL 2021-04 Yes [id number] 200ug Take 1 [facility] 200 mcg 2-14 tablet by ity of tablet 00:00: mouth [place] [address] SEE-INSTRU Medical CTIONS. Branch Take one tab the night before and one tab the morning of procedure estradioL 1 2021-04 Yes [id number] 1mg Take 1 [facility] mg tablet 2-14 tablet by ity o f 00:00: mouth in [place] 00 the Medical morning. Branch miSOPROStoL 2021-04 Yes [id number] 200ug Take 1 [facility] 200 mcg 2-14 tablet by ity of tablet 00:00: [facility] [place] [facility] Branch Take one tab the night before and one tab the morning of procedure estradioL 1 2021-04 Yes [id number] 1mg Take 1 [facility] mg tablet 2-14 tablet by ity o f 00:00: mouth in [place] the Medical morning. Branch miSOPROStoL 2021-04 Yes [id number] 200ug Take 1 [facility] 200 mcg 2-14 tablet by ity of tablet 00:00: mouth [place] [facility] Branch Take one tab the night before and one tab the morning of procedure estradioL 1 2021-04 Yes [id number] 1mg Take 1 [facility] mg tablet 2-14 tablet by ity o f 00:00: mouth in [place] the Medical morning. Branch miSOPROStoL 2021-04 Yes [id number] 200ug Take 1 [facility] 200 mcg 2-14 tablet by ity of tablet 00:00: mouth [place] [facility] Branch Take one tab the night before and one tab the morning of procedure estradioL 1 2021-04 Yes [id number] 1mg Take 1 [facility] mg tablet 2-14 tablet by ity o f 00:00: mouth in [place] the Medical morning. Branch miSOPROStoL 2021-04 Yes [id number] 200ug Take 1 [facility] 200 mcg 2-14 tablet by ity of tablet 00:00: mouth [place] [facility]. Branch Take one tab the night before and one tab the morning of procedure estradioL 1 2021-04 Yes [id number] 1mg Take 1 [facility] mg tablet 2-14 tablet by ity o f 00:00: mouth in [place] the Medical morning. Branch miSOPROStoL 2021-04 Yes [id number] 200ug Take 1 [facility] 200 mcg 2-14 tablet by ity of tablet 00:00: mouth [place] [facility]. Branch Take one tab the night before and one tab the morning of procedure estradioL 1 2021-04 Yes [id number] 1mg Take 1 [facility] mg tablet 2-14 tablet by ity o f 00:00: mouth in [place] the Medical morning. Branch miSOPROStoL 2021-04 Yes [id number] 200ug Take 1 [facility] 200 mcg 2-14 tablet by ity of tablet 00:00: mouth [place] 00 [facility] CTIONS. Branch Take one tab the night before and one tab the morning of procedure estradioL 1 2021-04 Yes [id number] 1mg Take 1 [facility] mg tablet 2-14 tablet by ity o f 00:00: mouth in [place] 00 the Medical morning. Branch miSOPROStoL 2021-04 Yes [id number] 200ug Take 1 [facility] 200 mcg 2-14 tablet by ity of tablet 00:00: mouth [place] [facility]. Branch Take one tab the night before and one tab the morning of procedure miSOPROStoL 2021-04- No [id number] 200ug Take 1 [facility] 200 mcg 2-14 04-05 tablet by ity of tablet 00:00: 00:00 [facility] Branch Take one tab the night before and one tab the morning of procedure estradioL 1 2021-04- No [id number] 1mg Take 1 [facility] mg tablet 2-14 04-05 tablet by ity of 00:00: 00:00 mouth in [place] 00 :00 the Medical morning. Branch miSOPROStoL 2021-04- No [id number] 200ug Take 1 [facility] 200 mcg 2-14 04-05 tablet by ity of tablet 00:00: 00:00 [facility] 00 :00 [facility] CTIONS. Branch Take one tab the night before and one tab the morning of procedure estradioL 1 2021-04- No [id number] 1mg Take 1 [facility] mg tablet 2-14 04-05 tablet by ity of 00:00: 00:00 mouth in [place] 00 :00 the Medical morning. Branch BUSPIRONE 2021-04 Yes TAKE 1 Univer s 15 mg 1-18 TABLET BY ity of tablet 00:00: MOUTH [place] 00 TWICE Medical DAILY Branch BUSPIRONE 2021-04 Yes TAKE 1 Univer s 15 mg 1-18 TABLET BY ity of tablet 00:00: MOUTH [place] 00 TWICE Medical DAILY Branch BUSPIRONE 2021-04 Yes TAKE 1 Univer s 15 mg 1-18 TABLET BY ity of tablet 00:00: [facility] 00 TWICE Medical DAILY Branch BUSPIRONE 2021-04- No TAKE 1 Unive rs 15 mg -18 05-17 TABLET BY ity of tablet 00:00: 00:00 MOUTH [place] 00 :00 TWICE Medical DAILY Branch ketorolac 2021-04- No [id number] 30mg [facility] (TORADOL) -14 14 4 ity of injection 19:15: 18:22 [place] 30 mg 00 :00 Medical Branch ketorolac 2021-04- No [id number] 30mg 30 mg, Univers (TORADOL) 04-28 4 Intramuscu ity of injection 19:15: 18:22 [place], ONCE, [place] 30 mg 00 :00 1 dose, On Medical Mon Branch 02/26/22 at 1315, Routine cyclobenzap 2021-04 Yes [id number] 5mg Take 1 Univers rine 5 mg 1-14 4 tablet by ity o f tablet 00:00: mouth at [place] 00 bedtime. Medical Branch [facility] 2021-04 Yes [id number] 5mL Take 5 mL Univers mine-pseudo 1-14 by mouth 4 it y of ephedrine-D 00:00: (four) [place] (BROMFED 00 times Medical DM) 2-30-10 daily as Bran ch mg/5 mL needed for syrup Congestion /Allergies . cyclobenzap 2021-04 Yes [id number] 5mg Take 1 Univers rine 5 mg 1-14 4 tablet by ity o f tablet 00:00: mouth at [place] 00 bedtime. Medical Branch [facility] 2021-04 Yes [id number] 5mL Take 5 mL [facility] mine-pseudo 1-14 by mouth 4 it y of ephedrine-D 00:00: (four) [place] (BROMFED 00 times Medical DM) 2-30-10 daily as Bran ch mg/5 mL needed for syrup Congestion /Allergies . cyclobenzap 2021-04 Yes [id number] 5mg Take 1 [facility] rine 5 mg 1-14 4 tablet by ity o f tablet 00:00: mouth at [place] 00 bedtime. Medical Branch [facility] 2021-04 Yes [id number] 5mL Take 5 mL Univers mine-pseudo 1-14 by mouth 4 it y of ephedrine-D 00:00: (four) [place] (BROMFED 00 times Medical DM) 2-30-10 daily as Bran ch mg/5 mL needed for syrup Congestion /Allergies . cyclobenzap 2021-04 Yes [id number] 5mg Take 1 Univers rine 5 mg 1-14 4 tablet by ity o f tablet 00:00: mouth at [place] 00 bedtime. [facility] 2021-04 Yes [id number] 5mL Take 5 mL [facility] mine-pseudo 1-14 by mouth 4 it y of ephedrine-D 00:00: (four) [place] (BROMFED 00 times Medical DM) 2-30-10 daily as Bran ch mg/5 mL needed for syrup Congestion /Allergies . cyclobenzap 2021-04 Yes [id number] 5mg Take 1 Univers rine 5 mg 1-14 4 tablet by ity o f tablet 00:00: mouth at [place] 00 bedtime. Medical Branch [facility] 2021-04 Yes [id number] 5mL Take 5 mL [facility] mine-pseudo 1-14 by mouth 4 it y of ephedrine-D 00:00: (four) [place] (BROMFED 00 times Medical DM) 2-30-10 daily as Bran ch mg/5 mL needed for syrup Congestion /Allergies . cyclobenzap 2021-04 Yes [id number] 5mg Take 1 Univers rine 5 mg 1-14 4 tablet by ity o f tablet 00:00: mouth at [place] 00 bedtime. Medical [facility] 2021-04 Yes [id number] 5mL Take 5 mL [facility] mine-pseudo 1-14 by mouth 4 it y of ephedrine-D 00:00: (four) [place] (BROMFED 00 times Medical DM) 2-30-10 daily as Bran ch mg/5 mL needed for syrup Congestion /Allergies . cyclobenzap 2021-04 Yes [id number] 5mg Take 1 Univers rine 5 mg 1-14 4 tablet by ity o f tablet 00:00: mouth at [place] 00 bedtime. [facility] Yes [id number] 5mL Take 5 mL [facility] mine-pseudo 1-14 by mouth 4 it y of ephedrine-D 00:00: (four) [place] (BROMFED 00 times Medical DM) 2-30-10 daily as Bran ch mg/5 mL needed for syrup Congestion /Allergies . cyclobenzap 2021-04 Yes [id number] 5mg Take 1 Univers rine 5 mg 1-14 4 tablet by ity o f tablet 00:00: mouth at [place] 00 bedtime. Medical Branch [facility] 2021-04 Yes [id number] 5mL Take 5 mL Univers mine-pseudo 1-14 by mouth 4 it y of ephedrine-D 00:00: (four) [place] (BROMFED 00 times Medical DM) 2-30-10 daily as Bran ch mg/5 mL needed for syrup Congestion /Allergies . cyclobenzap 2021-04 Yes [id number] 5mg Take 1 Univers rine 5 mg 1-14 4 tablet by ity o f tablet 00:00: mouth at [place] 00 bedtime. Medical Branch [facility] 2021-04 Yes [id number] 5mL Take 5 mL Univers mine-pseudo 1-14 by mouth 4 it y of ephedrine-D 00:00: (four) [place] (BROMFED 00 times Medical DM) 2-30-10 daily as Bran ch mg/5 mL needed for syrup Congestion /Allergies . cyclobenzap 2021-04 Yes [id number] 5mg Take 1 Univers rine 5 mg 1-14 4 tablet by ity o f tablet 00:00: mouth at [place] 00 bedtime. Medical Branch [facility] 2021-04 Yes [id number] 5mL Take 5 mL Univers mine-pseudo 1-14 by mouth 4 it y of ephedrine-D 00:00: (four) [place] (BROMFED 00 times Medical DM) 2-30-10 daily as Bran ch mg/5 mL needed for syrup Congestion /Allergies . cyclobenzap 2021-04 Yes [id number] 5mg Take 1 Univers rine 5 mg 1-14 4 tablet by ity o f tablet 00:00: mouth at [place] 00 bedtime. [facility] 2021-04 Yes [id number] 5mL Take 5 mL [facility] mine-pseudo 1-14 by mouth 4 it y of ephedrine-D 00:00: (four) [place] (BROMFED 00 times Medical DM) 2-30-10 daily as Bran ch mg/5 mL needed for syrup Congestion /Allergies . cyclobenzap 2021-04 Yes [id number] 5mg Take 1 Univers rine 5 mg 1-14 4 tablet by ity o f tablet 00:00: mouth at [place] 00 bedtime. Medical Branch bromphenira 2021-04 Yes [id number] 5mL Take 5 mL [facility] mine-pseudo 1-14 by mouth 4 it y of ephedrine-D 00:00: (four) [place] (BROMFED times Medical DM) 2-30-10 daily as Bran ch mg/5 mL needed for syrup Congestion /Allergies . bromphenira 2021-04 Yes [id number] 5mL Take 5 mL [facility] mine-pseudo 1-14 by mouth 4 it y of ephedrine-D 00:00: (four) [place] (BROMFED 00 times Medical DM) 2-30-10 daily as Bran ch mg/5 mL needed for syrup Congestion /Allergies . bromphenira 2021-04 Yes [id number] 5mL Take 5 mL [facility] mine-pseudo 1-14 by mouth 4 it y of ephedrine-D 00:00: (four) [place] (BROMFED times Medical DM) 2-30-10 daily as Bran ch mg/5 mL needed for syrup Congestion /Allergies . bromphenira 2021-04 Yes [id number] 5mL Take 5 mL [facility] mine-pseudo 1-14 by mouth 4 it y of ephedrine-D 00:00: (four) [place] (BROMFED times Medical DM) 2-30-10 daily as Bran ch mg/5 mL needed for syrup Congestion /Allergies . bromphenira 2021-04 Yes [id number] 5mL Take 5 mL Univers mine-pseudo 1-14 by mouth 4 it y of ephedrine-D 00:00: (four) [place] (BROMFED 00 times Medical DM) 2-30-10 daily as Bran ch mg/5 mL needed for syrup Congestion /Allergies . bromphenira 2021-04 Yes [id number] 5mL Take 5 mL [facility] mine-pseudo 1-14 by mouth 4 it y of ephedrine-D 00:00: (four) [place] (BROMFED 00 times Medical DM) 2-30-10 daily as Bran ch mg/5 mL needed for syrup Congestion /Allergies . bromphenira 2021-04 Yes [id number] 5mL Take 5 mL [facility] mine-pseudo 1-14 by mouth 4 it y of ephedrine-D 00:00: (four) [place] (BROMFED 00 times Medical DM) 2-30-10 daily as Bran ch mg/5 mL needed for syrup Congestion /Allergies . bromphenira 2021-04 Yes [id number] 5mL Take 5 mL [facility] mine-pseudo 1-14 by mouth 4 it y of ephedrine-D 00:00: (four) [place] (BROMFED 00 times Medical DM) 2-30-10 daily as Bran ch mg/5 mL needed for syrup Congestion /Allergies . bromphenira 2021-04 Yes [id number] 5mL Take 5 mL Univers mine-pseudo 1-14 by mouth 4 it y of ephedrine-D 00:00: (four) [place] (BROMFED 00 times Medical DM) 2-30-10 daily as Bran ch mg/5 mL needed for syrup Congestion /Allergies . bromphenira 2021-04 Yes [id number] 5mL Take 5 mL [facility] mine-pseudo 1-14 by mouth 4 it y of ephedrine-D 00:00: (four) [place] (BROMFED 00 times Medical DM) 2-30-10 daily as Bran ch mg/5 mL needed for syrup Congestion /Allergies . bromphenira 2021-04 Yes [id number] 5mL Take 5 mL [facility] mine-pseudo 1-14 by mouth 4 it y of ephedrine-D 00:00: (four) [place] (BROMFED 00 times Medical DM) 2-30-10 daily as Bran ch mg/5 mL needed for syrup Congestion /Allergies . bromphenira 2021-04 Yes [id number] 5mL Take 5 mL [facility] mine-pseudo 1-14 by mouth 4 it y of ephedrine-D 00:00: (four) [place] (BROMFED 00 times Medical DM) 2-30-10 daily as Bran ch mg/5 mL needed for syrup Congestion /Allergies . bromphenira 2021-04 Yes [id number] 5mL Take 5 mL Univers mine-pseudo 1-14 by mouth 4 it y of ephedrine-D 00:00: (four) [place] (BROMFED 00 times Medical DM) 2-30-10 daily as Bran ch mg/5 mL needed for syrup Congestion /Allergies . bromphenira 2021-04- No [id number] 5mL Take 5 mL [facility] mine-pseudo 1-14 06-30 by mouth 4 i ty of ephedrine-D 00:00: 00:00 (four) [place] (BROMFED 00 :00 times Medical DM) 2-30-10 daily as Bran ch mg/5 mL needed for syrup Congestion /Allergies . cyclobenzap 2021-04- No [id number] 5mg Take 1 Univers rine 5 mg 04-28 4 tablet by ity of tablet 00:00: 00:00 mouth at [place] 00 :00 bedtime. Medical Branch cyclobenzap 2021-04- No [id number] 5mg Take 1 Univers rine 5 mg 04-28 4 tablet by ity of tablet 00:00: 00:00 mouth at [place] 00 :00 bedtime. Medical Branch amoxicillin 2021-04- No [id number] 1{tbl} Take 1 Univers -clavulanat -14 -22 tablet by it y of e 00:00: 05:59 mouth in [place] (AUGMENTIN) 00 :00 the Medical 875-125 mg morning Branch per tablet and 1 tablet in the evening. Do all this for 7 days. amoxicillin 2021-04- No [id number] 1{tbl} Take 1 Univers -clavulanat -14 -22 tablet by it y of e 00:00: 05:59 mouth in [place] (AUGMENTIN) 00 :00 the Medical 875-125 mg morning Branch per tablet and 1 tablet in the evening. Do all this for 7 days. amoxicillin 2021-04- No [id number] 1{tbl} Take 1 Univers -clavulanat 1-14 -22 tablet by it y of e 00:00: 05:59 mouth in [place] (AUGMENTIN) 00 :00 the Medical 875-125 mg morning Branch per tablet and 1 tablet in the evening. Do all this for 7 days. fluconazole 2021-04 Yes [id number] 150mg Take 1 Univers (DIFLUCAN) 0-29 tablet by ity of 150 mg 00:00: mouth [place] tablet 00 every 72 Medical ([facility] wo) hours. fluconazole 2021-04 Yes [id number] 150mg Take 1 Univers (DIFLUCAN) 0-29 tablet by ity of 150 mg 00:00: mouth [place] tablet 00 every 72 Medical ([facility]) hours. fluconazole 2021-04 Yes [id number] 150mg Take 1 Univers (DIFLUCAN) 0-29 tablet by ity of 150 mg 00:00: mouth [place] tablet 00 every 72 Medical ([facility]) hours. fluconazole 2021-04 Yes [id number] 150mg Take 1 Univers (DIFLUCAN) 0-29 tablet by ity of 150 mg 00:00: mouth [place] tablet 00 every 72 Medical ([facility] wo) hours. fluconazole 2021-04 Yes [id number] 150mg Take 1 Univers (DIFLUCAN) 0-29 tablet by ity of 150 mg 00:00: mouth [place] tablet 00 every 72 Medical ([facility] wo) hours. fluconazole 2021-04 Yes [id number] 150mg Take 1 Univers (DIFLUCAN) 0-29 tablet by ity of 150 mg 00:00: mouth [place] tablet 00 every 72 Medical ([facility]) hours. fluconazole 2021-04 Yes [id number] 150mg Take 1 Univers (DIFLUCAN) 0-29 tablet by ity of 150 mg 00:00: mouth [place] tablet 00 every 72 Medical ([facility] wo) hours. fluconazole 2021-04 Yes [id number] 150mg Take 1 Univers (DIFLUCAN) 0-29 tablet by ity of 150 mg 00:00: mouth [place] tablet 00 every 72 Medical ([facility]) hours. fluconazole 2021-04 Yes [id number] 150mg Take 1 Univers (DIFLUCAN) 0-29 tablet by ity of 150 mg 00:00: mouth [place] tablet 00 every 72 Medical ([facility] wo) hours. fluconazole 2021-04 Yes [id number] 150mg Take 1 Univers (DIFLUCAN) 0-29 tablet by ity of 150 mg 00:00: mouth [place] tablet 00 every 72 Medical ([facility] wo) hours. fluconazole 2021-04 Yes [id number] 150mg Take 1 Univers (DIFLUCAN) 0-29 tablet by ity of 150 mg 00:00: mouth [place] tablet 00 every 72 Medical ([facility] wo) hours. fluconazole 2021-04 Yes [id number] 150mg Take 1 Univers (DIFLUCAN) 0-29 tablet by ity of 150 mg 00:00: mouth [place] tablet 00 every 72 Medical ([facility] wo) hours. fluconazole 2021-04 Yes [id number] 150mg Take 1 Univers (DIFLUCAN) 0-29 tablet by ity of 150 mg 00:00: mouth [place] tablet 00 every 72 Medical ([facility] wo) hours. fluconazole 2021-04- No [id number] 150mg Take 1 Univers (DIFLUCAN) 0-29 04-05 tablet by ity of 150 mg 00:00: 00:00 mouth [place] tablet 00 :00 every 72 Medical ([facility] wo) hours. fluconazole 2021-04- No [id number] 150mg Take 1 Univers (DIFLUCAN) 0-29 04-05 tablet by ity of 150 mg 00:00: 00:00 mouth [place] tablet 00 :00 every 72 Medical ([facility] wo) hours. metroNIDAZO 2021-04- No [id number] 500mg Take 1 Univers LE (FLAGYL) 0-29 11-06 tablet by it y of 500 mg 00:00: 04:59 mouth [place] tablet 00 :00 every 12 Medical (twelve) Branch hours for 7 days. ONDANSETRON 2021-04 Yes [id number] DISSOLVE 1 Univers 4 mg 0-20 TABLET ON ity of disintegrat 00:00: THE TONGUE [place] ing tablet 00 EVERY 8 Medica l HOURS Branch NEEDED FOR NAUSEA ONDANSETRON 2021-04 Yes [id number] DISSOLVE 1 Univers 4 mg 0-20 TABLET ON ity of disintegrat 00:00: THE TONGUE [place] ing tablet 00 EVERY 8 Medica l HOURS Branch NEEDED FOR NAUSEA ONDANSETRON 2021-04 Yes [id number] DISSOLVE 1 Univers 4 mg 0-20 TABLET ON ity of disintegrat 00:00: THE TONGUE [place] ing tablet 00 EVERY 8 Medica l HOURS Branch NEEDED FOR NAUSEA ONDANSETRON 2021-04 Yes [id number] DISSOLVE 1 Univers 4 mg 0-20 TABLET ON ity of disintegrat 00:00: THE TONGUE [place] ing tablet 00 EVERY 8 Medica l HOURS Branch NEEDED FOR NAUSEA ONDANSETRON 2021-04 Yes [id number] DISSOLVE 1 [facility] 4 mg 0-20 TABLET ON ity of disintegrat 00:00: THE TONGUE [place] ing tablet 00 EVERY 8 Medica l HOURS Branch NEEDED FOR NAUSEA ONDANSETRON 2021-04 Yes [id number] DISSOLVE 1 [facility] 4 mg 0-20 TABLET ON ity of disintegrat 00:00: THE TONGUE [place] ing tablet 00 EVERY 8 Medica l HOURS Branch NEEDED FOR NAUSEA ONDANSETRON 2021- Yes [id number] DISSOLVE 1 [facility] 4 mg 0-20 TABLET ON ity of disintegrat 00:00: THE TONGUE [place] ing tablet 00 EVERY 8 Medica l HOURS Branch NEEDED FOR NAUSEA ONDANSETRON 2021- Yes [id number] DISSOLVE 1 [facility] 4 mg 0-20 TABLET ON ity of disintegrat 00:00: THE TONGUE [place] ing tablet 00 EVERY 8 Medica l HOURS Branch NEEDED FOR NAUSEA ONDANSETRON 2021- Yes [id number] DISSOLVE 1 [facility] 4 mg 0-20 TABLET ON ity of disintegrat 00:00: THE TONGUE [place] ing tablet 00 EVERY 8 Medica l HOURS Branch NEEDED FOR NAUSEA ONDANSETRON 2021- Yes [id number] DISSOLVE 1 [facility] 4 mg 0-20 TABLET ON ity of disintegrat 00:00: THE TONGUE [place] ing tablet 00 EVERY 8 Medica l HOURS Branch NEEDED FOR NAUSEA ONDANSETRON 2021-3- No [id number] DISSOLVE 1 Univers 4 mg 0-20 02-13 TABLET ON ity of disintegrat 00:00: 00:00 THE TONGUE [place] ing tablet 00 :00 EVERY 8 Medica l HOURS Branch NEEDED FOR NAUSEA bromphenira 2021-0 Yes [id number] 5mL Take 5 mL [facility] mine-pseudo 9-06 by mouth 4 it y of ephedrine-D 00:00: (four[place] (BROMFED 00 times Medical DM) 2-30-10 daily as Bran ch mg/5 mL needed for syrup Congestion /Allergies . bromphenira 2021-0 Yes [id number] 5mL Take 5 mL [facility] mine-pseudo 9-06 by mouth 4 it y of ephedrine-D 00:00: (four) [place] (BROMFED 00 times Medical DM) 2-30-10 daily as Bran ch mg/5 mL needed for syrup Congestion /Allergies . bromphenira 2021-0 Yes [id number] 5mL Take 5 mL [facility] mine-pseudo 9-06 by mouth 4 it y of ephedrine-D 00:00: (four) [place] (BROMFED 00 times Medical DM) 2-30-10 daily as Bran ch mg/5 mL needed for syrup Congestion /Allergies . bromphenira 2022-0 Yes [id number] 5mL Take 5 mL [facility] mine-pseudo 9-06 by mouth 4 it y of ephedrine-D 00:00: (four) [place] (BROMFED 00 times Medical DM) 2-30-10 daily as Bran ch mg/5 mL needed for syrup Congestion /Allergies . bromphenira 2022-0 Yes [id number] 5mL Take 5 mL [facility] mine-pseudo 9-06 by mouth 4 it y of ephedrine-D 00:00: (four) [place] (BROMFED 00 times Medical DM) 2-30-10 daily as Bran ch mg/5 mL needed for syrup Congestion /Allergies . bromphenira 2021-0 Yes [id number] 5mL Take 5 mL [facility] mine-pseudo 9-06 by mouth 4 it y of ephedrine-D 00:00: (four) [place] (BROMFED 00 times Medical DM) 2-30-10 daily as Bran ch mg/5 mL needed for syrup Congestion /Allergies . bromphenira 2021-0 Yes [id number] 5mL Take 5 mL [facility] mine-pseudo 9-06 by mouth 4 it y of ephedrine-D 00:00: (four) [place] (BROMFED 00 times Medical DM) 2-30-10 daily as Bran ch mg/5 mL needed for syrup Congestion /Allergies . bromphenira 2021-0 Yes [id number] 5mL Take 5 mL [facility] mine-pseudo 9-06 by mouth 4 it y of ephedrine-D 00:00: (four) [place] (BROMFED 00 times Medical DM) 2-30-10 daily as Bran ch mg/5 mL needed for syrup Congestion /Allergies . bromphenira 2-0 Yes [id number] 5mL Take 5 mL [facility] mine-pseudo 9-06 by mouth 4 it y of ephedrine-D 00:00: (four) [place] (BROMFED 00 times Medical DM) 2-30-10 daily as Bran ch mg/5 mL needed for syrup Congestion /Allergies . bromphenira 2021-0 2- No [id number] 5mL Take 5 mL [facility] mine-pseudo 9-06 11-14 by mouth 4 i ty of ephedrine-D 00:00: 00:00 (four) [place] (BROMFED 00 :00 times Medical DM) 2-30-10 daily as Bran ch mg/5 mL needed for syrup Congestion /Allergies . ondansetron 2022-0 Yes [id number] DISSOLVE 1 Univers 4 mg 8-22 TABLET ON ity of disintegrat 00:00: THE TONGUE [place] ing tablet 00 EVERY 8 Medica l HOURS Branch NEEDED FOR NAUSEA ondansetron 2022-0 Yes [id number] DISSOLVE 1 [facility] 4 mg 8-22 TABLET ON ity of disintegrat 00:00: THE TONGUE [place] ing tablet 00 EVERY 8 Medica l HOURS Branch NEEDED FOR NAUSEA ondansetron 2022-0 Yes [id number] DISSOLVE 1 [facility] 4 mg 8-22 TABLET ON ity of disintegrat 00:00: THE TONGUE [place] ing tablet 00 EVERY 8 Medica l HOURS Branch NEEDED FOR NAUSEA ondansetron 2022-0 Yes [id number] DISSOLVE 1 [facility] 4 mg 8-22 TABLET ON ity of disintegrat 00:00: THE TONGUE [place] ing tablet 00 EVERY 8 Medica l HOURS Branch NEEDED FOR NAUSEA ondansetron 2022-0 Yes [id number] DISSOLVE 1 [facility] 4 mg 8-22 TABLET ON ity of disintegrat 00:00: THE TONGUE [place] ing tablet 00 EVERY 8 Medica l HOURS Branch NEEDED FOR NAUSEA ondansetron 2022-0 Yes [id number] DISSOLVE 1 [facility] 4 mg 8-22 TABLET ON ity of disintegrat 00:00: THE TONGUE [place] ing tablet 00 EVERY 8 Medica l HOURS Branch NEEDED FOR NAUSEA ondansetron 2022-0 2022- No [id number] DISSOLVE 1 [facility] 4 mg 8-22 10-20 TABLET ON ity of disintegrat 00:00: 00:00 THE TONGUE [place] ing tablet 00 :00 EVERY 8 Medica l HOURS Branch NEEDED FOR NAUSEA HYDROcodone 2-0 Yes 1{tbl} Take 1 [facility] -acetaminop 8-18 tablet by ity of hen 10-325 00:00: mouth [place] 00 (four) Medical times Branch daily. HYDROcodone 2022-0 Yes 1{tbl} Take 1 [facility] [place] -acetaminop 8-18 tablet by ity of hen 10-325 00:00: mouth 4 [place] tablet 00 (four) Medical times Branch daily. HYDROcodone 2021-0 Yes 1{tbl} Take 1 [facility] [place] -acetaminop 8-18 tablet by ity of hen 10-325 00:00: mouth 4 [place] tablet 00 (four) Medical times Branch daily. HYDROcodone 0 Yes 1{tbl} Take 1 [facility] [place] -acetaminop 8-18 tablet by ity of hen 10-325 00:00: mouth 4 [place] tablet 00 (four) Medical times Branch daily. HYDROcodone 0 Yes 1{tbl} Take 1 [facility] [place] -acetaminop 8-18 tablet by ity of hen 10-325 00:00: mouth 4 [place] tablet 00 (four) Medical times Branch daily. HYDROcodone 0 Yes 1{tbl} Take 1 [facility] [place] -acetaminop 8-18 tablet by ity of hen 10-325 00:00: mouth 4 [place] tablet 00 (four) Medical times Branch daily. HYDROcodone Yes 1{tbl} Take 1 [facility] [place] -acetaminop 8-18 tablet by ity of hen 10-325 00:00: mouth 4 [place] tablet 00 (four) Medical times Branch daily. HYDROcodone 2021- No 1{tbl} Take 1 [facility] -acetaminop 8-18 12-14 tablet by it y of hen 10-325 00:00: 00:00 mouth 4 [place] mg tablet 00 :00 (four) Medical times Branch daily. HYDROcodone 2021- No 1{tbl} Take 1 [facility]ivers -acetaminop 8-18 12-14 tablet by it y of hen 10-325 00:00: 00:00 mouth 4 [place] mg tablet 00 :00 (four) Medical times Branch daily. BARIATRIC 2021- Yes 1{tbl} Take 1 [facility] ers MULTIVITAMI 8-09 tablet by ity of NS ORAL 09:49: mouth 2 [place] 37 (two) Medical times Branch daily. PNV 2021-0 Yes Take by [facility] no.95/ashely 8-09 mouth. ity of us 09:49: [place] fum/folic 37 Medical ac Branch ( ORAL) BARIATRIC 2021-0 Yes 1{tbl} Take 1 [facility] ers MULTIVITAMI 8-09 tablet by ity of NS ORAL 09:49: mouth 2 [place] 37 (two) Medical times Branch daily. PNV 2021-0 Yes Take by [facility] no.95/ashely 8-09 mouth. ity of us 09:49: [place] fum/folic 37 Medical ac Branch ( ORAL) BARIATRIC 2021-0 Yes 1{tbl} Take 1 [facility] ers MULTIVITAMI 8-09 tablet by ity of NS ORAL 09:49: mouth 2 [place] 37 (two) Medical times Branch daily. PNV 2021-0 Yes Take by [facility] no.95/ashely 8-09 mouth. ity of us 09:49: [place] fum/folic 37 Medical ac Branch ( ORAL) BARIATRIC 2021-0 Yes 1{tbl} Take 1 [facility] ers MULTIVITAMI 8-09 tablet by ity of NS ORAL 09:49: mouth 2 [place] 37 (two) Medical times Branch daily. PNV 2021-0 Yes Take by [facility] no.95/ashely 8-09 mouth. ity of us 09:49: [place] fum/folic 37 Medical ac Branch ( ORAL) BARIATRIC 2021-0 Yes 1{tbl} Take 1 [facility] ers MULTIVITAMI 8-09 tablet by ity of NS ORAL 09:49: mouth 2 [place] 37 (two) Medical times Branch daily. PNV 2021-0 Yes Take by [facility] no.95/ashely 8-09 mouth. ity of us 09:49: [place] fum/folic 37 Medical ac Branch ( ORAL) BARIATRIC 2021-0 Yes 1{tbl} Take 1 [facility] ers MULTIVITAMI 8-09 tablet by ity of NS ORAL 09:49: mouth 2 [place] 37 (two) Medical times Branch daily. PNV 2021-0 Yes Take by [facility] no.95/ashely 8-09 mouth. ity of us 09:49: [place] fum/folic 37 Medical ac Branch ( ORAL) BARIATRIC 2021-0 Yes 1{tbl} Take 1 [facility] ers MULTIVITAMI 8-09 tablet by ity of NS ORAL 09:49: mouth 2 [place] 37 (two) Medical times Branch daily. PNV 2021-0 Yes Take by [facility] no.95/ashely 8-09 mouth. ity of us 09:49: [place] fum/folic 37 Medical ac Branch ( ORAL) BARIATRIC 2021-0 Yes 1{tbl} Take 1 [facility] ers MULTIVITAMI 8-09 tablet by ity of NS ORAL 09:49: mouth 2 [place] 37 (two) Medical times Branch daily. PNV 2021-0 Yes Take by [facility] no.95/ashely 8-09 mouth. ity of us 09:49: [place] fum/folic 37 Medical ac Branch ( ORAL) BARIATRIC 2021-0 Yes 1{tbl} Take 1 [facility] ers MULTIVITAMI 8-09 tablet by ity of NS ORAL 09:49: mouth 2 [place] 37 (two) Medical times Branch daily. PNV 2021-0 Yes Take by [facility] no.95/ashely 8-09 mouth. ity of us 09:49: [place] fum/folic 37 Medical ac Branch ( ORAL) BARIATRIC 2021-0 Yes 1{tbl} Take 1 [facility] ers MULTIVITAMI 8-09 tablet by ity of NS ORAL 09:49: mouth 2 [place] 37 (two) Medical times Branch daily. PNV 2021-0 Yes Take by [facility] no.95/ashely 8-09 mouth. ity of us 09:49: [place] fum/folic 37 Medical ac Branch ( ORAL) BARIATRIC 2021-0 Yes 1{tbl} Take 1 [facility] ers MULTIVITAMI 8-09 tablet by ity of NS ORAL 09:49: mouth 2 [place] 37 (two) Medical times Branch daily. PNV 2021-0 Yes Take by [facility] no.95/ashely 8-09 mouth. ity of us 09:49: [place] fum/folic 37 Medical ac Branch ( ORAL) BARIATRIC 2021-0 Yes 1{tbl} Take 1 [facility] ers MULTIVITAMI 8-09 tablet by ity of NS ORAL 09:49: mouth 2 [place] 37 (two) Medical times Branch daily. PNV 2021-0 Yes Take by [facility] no.95/ashely 8-09 mouth. ity of us 09:49: [place] fum/folic 37 Medical ac Branch ( ORAL) dicyclomine 2-0 Yes [id number] 20mg Take 1 [facility] 20 mg 7-28 tablet by ity of tablet 00:00: mouth 4 [place] 00 (four) Medical times Branch daily. dicyclomine 2022-0 Yes [id number] 20mg Take 1 [facility] 20 mg 7-28 tablet by ity of tablet 00:00: mouth 4 [place] 00 (four) Medical times Branch daily. dicyclomine 2022-0 Yes [id number] 20mg Take 1 [facility] 20 mg 7-28 tablet by ity of tablet 00:00: [address] ([facility]) Medical times Branch daily. dicyclomine 2022-0 Yes [id number] 20mg Take 1 [facility] 20 mg 7-28 tablet by ity of tablet 00:00: [address] (four) Medical times Branch daily. dicyclomine 2022-0 Yes [id number] 20mg Take 1 [facility] 20 mg 7-28 tablet by ity of tablet 00:00: [address] (four) Medical times Branch daily. dicyclomine 2022-0 Yes [id number] 20mg Take 1 [facility] 20 mg 7-28 tablet by ity of tablet 00:00: [address] ([facility]) Medical times Branch daily. dicyclomine 2022-0 Yes [id number] 20mg Take 1 [facility] 20 mg 7-28 tablet by ity of tablet 00:00: [address] ([facility]) Medical times Branch daily. dicyclomine 2022-0 Yes [id number] 20mg Take 1 [facility] 20 mg 7-28 tablet by ity of tablet 00:00: [address] ([facility]) Medical times Branch daily. dicyclomine 2022-0 Yes [id number] 20mg Take 1 [facility] 20 mg 7-28 tablet by ity of tablet 00:00: [address] ([facility]) Medical times Branch daily. dicyclomine 2022-0 Yes [id number] 20mg Take 1 [facility] 20 mg 7-28 tablet by ity of tablet 00:00: [address] ([facility]) Medical times Branch daily. dicyclomine 2022-0 Yes [id number] 20mg Take 1 [facility] 20 mg 7-28 tablet by ity of tablet 00:00: [address] ([facility]) Medical times Branch daily. dicyclomine 2022-0 Yes [id number] 20mg Take 1 [facility] 20 mg 7-28 tablet by ity of tablet 00:00: [address] ([facility]) Medical times Branch daily. dicyclomine 2022-0 Yes [id number] 20mg Take 1 [facility] 20 mg 7-28 tablet by ity of tablet 00:00: [address] ([facility]) Medical times Branch daily. dicyclomine 2022-0 Yes [id number] 20mg Take 1 [facility] 20 mg 7-28 tablet by ity of tablet 00:00: [address] (four) Medical times Branch daily. dicyclomine 2022-0 Yes [id number] 20mg Take 1 [facility] 20 mg 7-28 tablet by ity of tablet 00:00: [address] (four) Medical times Branch daily. dicyclomine 2022-0 Yes [id number] 20mg Take 1 [facility] 20 mg 7-28 tablet by ity of tablet 00:00: [address] (four) Medical times Branch daily. dicyclomine 2022-0 Yes [id number] 20mg Take 1 [facility] 20 mg 7-28 tablet by ity of tablet 00:00: [address] (four) Medical times Branch daily. dicyclomine 2022-0 Yes [id number] 20mg Take 1 [facility] 20 mg 7-28 tablet by ity of tablet 00:00: [address] (four) Medical times Branch daily. dicyclomine 2022-0 Yes [id number] 20mg Take 1 [facility] 20 mg 7-28 tablet by ity of tablet 00:00: [address] (four) Medical times Branch daily. dicyclomine 2022-0 Yes [id number] 20mg Take 1 [facility] 20 mg 7-28 tablet by ity of tablet 00:00: [address] (four) Medical times Branch daily. dicyclomine 2022-0 Yes [id number] 20mg Take 1 [facility] 20 mg 7-28 tablet by ity of tablet 00:00: [address] (four) Medical times Branch daily. dicyclomine 2022-0 2023- No [id number] 20mg Take 1 [facility] 20 mg 7-28 04-05 tablet by ity of tablet 00:00: 00:[address] 00 :00 (four) Medical times Branch daily. dicyclomine 2022-0 2023- No [id number] 20mg Take 1 [facility] 20 mg 7-28 04-05 tablet by ity of tablet 00:00: 00:[address] 00 :00 (four) Medical times Branch daily. busPIRone 2022-0 Yes 15mg Take 1 [facility] s 15 mg 6-28 tablet by ity of tablet 00:00: [address] 00 (two) Medical times Branch daily. busPIRone 2022-0 Yes 15mg Take 1 [facility] s 15 mg 6-28 tablet by ity of tablet 00:00: mouth (two) Medical times Branch daily. busPIRone 2022-0 Yes 15mg Take 1 [facility] 15 mg 6-28 tablet by ity of tablet 00:00: mouth 2 (two) Medical times Branch daily. busPIRone 2022-0 Yes 15mg Take 1 [facility] 15 mg 6-28 tablet by ity of tablet 00:00: mouth (two) Medical times Branch daily. busPIRone 2022-0 Yes 15mg Take 1 [facility] s 15 mg 6-28 tablet by ity of tablet 00:00: mouth (two) Medical times Branch daily. busPIRone 2022-0 Yes 15mg Take 1 [facility] 15 mg 6-28 tablet by ity of tablet 00:00: mouth (two) Medical times Branch daily. busPIRone 2022-0 Yes 15mg Take 1 [facility] 15 mg 6-28 tablet by ity of tablet 00:00: mouth (two) Medical times Branch daily. busPIRone 2022-0 Yes 15mg Take 1 [facility] s 15 mg 6-28 tablet by ity of tablet 00:00: mouth (two) Medical times Branch daily. busPIRone 2022-0 Yes 15mg Take 1 [facility] 15 mg 6-28 tablet by ity of tablet 00:00: mouth (two) Medical times Branch daily. busPIRone 2022-0 Yes 15mg Take 1 [facility] 15 mg 6-28 tablet by ity of tablet 00:00: mouth (two) Medical times Branch daily. busPIRone 2022-0 Yes 15mg Take 1 [facility] s 15 mg 6-28 tablet by ity of tablet 00:00: mouth 2 (two) Medical times Branch daily. busPIRone 2022-0 2022- No 15mg Take 1 [facility] 15 mg 6-28 11-18 tablet by ity of tablet 00:00: 00:00 mouth 2 [place] 00 :00 (two) Medical times Branch daily. busPIRone 2022-0 2022- No 15mg Take 1 [facility] 15 mg 6-28 11-18 tablet by ity of tablet 00:00: 00:00 mouth 2 [place] 00 :00 (two) Medical times Branch daily. venlafaxine 2021-0 Yes [id number] TAKE 1 [facility] XR 150 mg 5-31 CAPSULE BY ity of 24 hr 00:00: MOUTH [place] capsule 00 EVERY DAY Medical WITH FOOD Branch venlafaxine 2021-0 Yes [id number] TAKE 1 [facility] XR 150 mg 5-31 CAPSULE BY ity of 24 hr 00:00: MOUTH [place] capsule 00 EVERY DAY Medical WITH FOOD Branch venlafaxine 2021-0 Yes [id number] TAKE 1 [facility] XR 150 mg 5-31 CAPSULE BY ity of 24 hr 00:00: MOUTH [place] capsule 00 EVERY DAY Medical WITH FOOD Branch venlafaxine 2021-0 Yes [id number] TAKE 1 [facility] XR 150 mg 5-31 CAPSULE BY ity of 24 hr 00:00: MOUTH [place] capsule 00 EVERY DAY Medical WITH FOOD Branch venlafaxine 2021-0 Yes [id number] TAKE 1 [facility] XR 150 mg 5-31 CAPSULE BY ity of 24 hr 00:00: MOUTH [place] capsule 00 EVERY DAY Medical WITH FOOD Branch venlafaxine 2021-0 Yes [id number] TAKE 1 [facility] XR 150 mg 5-31 CAPSULE BY ity of 24 hr 00:00: MOUTH [place] capsule 00 EVERY DAY Medical WITH FOOD Branch venlafaxine 2021-0 Yes [id number] TAKE 1 [facility] XR 150 mg 5-31 CAPSULE BY ity of 24 hr 00:00: MOUTH [place] capsule 00 EVERY DAY Medical WITH FOOD Branch venlafaxine 2021-0 Yes [id number] TAKE 1 [facility] XR 150 mg 5-31 CAPSULE BY ity of 24 hr 00:00: MOUTH [place] capsule 00 EVERY DAY Medical WITH FOOD Branch venlafaxine 2021-0 Yes [id number] TAKE 1 [facility] XR 150 mg 5-31 CAPSULE BY ity of 24 hr 00:00: MOUTH [place] capsule 00 EVERY DAY Medical WITH FOOD Branch venlafaxine 2021-0 Yes [id number] TAKE 1 [facility] XR 150 mg 5-31 CAPSULE BY ity of 24 hr 00:00: MOUTH [place] capsule 00 EVERY DAY Medical WITH FOOD Branch venlafaxine 2021-0 Yes [id number] TAKE 1 [facility] XR 150 mg 5-31 CAPSULE BY ity of 24 hr 00:00: MOUTH [place] capsule 00 EVERY DAY Medical WITH FOOD Branch venlafaxine 2-0 Yes [id number] TAKE 1 [facility] XR 150 mg 5-31 CAPSULE BY ity of 24 hr 00:00: MOUTH [place] capsule 00 EVERY DAY Medical WITH FOOD Branch venlafaxine 2-0 Yes [id number] TAKE 1 [facility] XR 150 mg 5-31 CAPSULE BY ity of 24 hr 00:00: MOUTH [place] capsule 00 EVERY DAY Medical WITH FOOD Branch venlafaxine 2-0 Yes [id number] TAKE 1 [facility] XR 150 mg 5-31 CAPSULE BY ity of 24 hr 00:00: MOUTH [place] capsule 00 EVERY DAY Medical WITH FOOD Branch venlafaxine 2-0 Yes [id number] TAKE 1 [facility] XR 150 mg 5-31 CAPSULE BY ity of 24 hr 00:00: MOUTH [place] capsule 00 EVERY DAY Medical WITH FOOD Branch venlafaxine 2-0 Yes [id number] TAKE 1 [facility] XR 150 mg 5-31 CAPSULE BY ity of 24 hr 00:00: MOUTH [place] capsule 00 EVERY DAY Medical WITH FOOD Branch venlafaxine 2021-0 Yes [id number] TAKE 1 [facility] XR 150 mg 5-31 CAPSULE BY ity of 24 hr 00:00: MOUTH [place] capsule 00 EVERY DAY Medical WITH FOOD Branch venlafaxine 2021-0 Yes [id number] TAKE 1 [facility] XR 150 mg 5-31 CAPSULE BY ity of 24 hr 00:00: MOUTH [place] capsule 00 EVERY DAY Medical WITH FOOD Branch venlafaxine 2021-0 Yes [id number] TAKE 1 [facility] XR 150 mg 5-31 CAPSULE BY ity of 24 hr 00:00: MOUTH [place] capsule 00 EVERY DAY Medical WITH FOOD Branch venlafaxine 2-0 Yes [id number] TAKE 1 [facility] XR 150 mg 5-31 CAPSULE BY ity of 24 hr 00:00: MOUTH [place] capsule 00 EVERY DAY Medical WITH FOOD Branch venlafaxine 2-0 Yes [id number] TAKE 1 [facility] XR 150 mg 5-31 CAPSULE BY ity of 24 hr 00:00: MOUTH [place] capsule 00 EVERY DAY Medical WITH FOOD Branch venlafaxine 2-0 Yes [id number] TAKE 1 [facility] XR 150 mg 5-31 CAPSULE BY ity of 24 hr 00:00: MOUTH [place] capsule 00 EVERY DAY Medical WITH FOOD Branch venlafaxine 2-0 Yes [id number] TAKE 1 [facility] XR 150 mg 5-31 CAPSULE BY ity of 24 hr 00:00: MOUTH [place] capsule 00 EVERY DAY Medical WITH FOOD Branch venlafaxine 2022- No [id number] TAKE 1 [facility] XR 150 mg 5-31 04-11 CAPSULE BY ity of 24 hr 00:00: 00:00 MOUTH [place] capsule 00 :00 EVERY DAY Medical WITH FOOD Branch venlafaxine 2022- No [id number] TAKE 1 [facility] XR 150 mg 5-31 04-11 CAPSULE BY ity of 24 hr 00:00: 00:00 MOUTH [place] capsule 00 :00 EVERY DAY Medical WITH FOOD Branch traMADoL 50 2021- No [id number] 50mg Take 1 Uni vers mg tablet 08-31 tablet by ity of 00:00: 00:00 mouth [place] 00 :00 every 6 Medical (six) Branch hours as needed for Pain (scale 4-6). Indication s: acute pain ibuprofen 2021- No [id number] 600mg Take 1 [facility] 600 mg 08-31 [id number] tablet by ity o f tablet 00:00: 00:00 mouth [place] 00 :00 every 6 Medical (six) Branch hours as needed for Pain (scale 4-6). BINAXNOW 2021- No TEST Unive rs COVID-19 AG 08-25 DIRECTED ity of SELF TEST 00:00: 00:00 TODAY [place] Kit 00 :00 Medical Branch albuterol 2021- No 2{puff} Inhale 2 Univers (PROAIR -29 04-29 Puffs ity of HFA) 90 15:23: 00:00 every 6 [place] mcg/actuati 52 :00 (six) Medical on inhaler hours as Branc h needed for Wheezing or Shortness of Breath. albuterol 2021- No 2{puff} Inhale 2 [facility] (PROAIR 4-29 04-29 Puffs ity of HFA) 90 15:23: 00:00 every 6 [place] mcg/actuati 52 :00 (six) Medical on inhaler hours as Branc h needed for Wheezing or Shortness of Breath. albuterol 2021- No 2{puff} Inhale 2 [facility] (PROAIR 4-29 04-29 Puffs ity of HFA) 90 15:23: 00:00 every 6 [place] mcg/actuati 52 :00 (six) Medical on inhaler hours as Branc h needed for Wheezing or Shortness of Breath. albuterol 2021- No 2{puff} Inhale 2 [facility] (PROAIR -11 08-29 Puffs ity of HFA) 90 15:23: 00:00 every 6 [place] mcg/actuati 52 :00 (six) Medical on inhaler hours as Branc h needed for Wheezing or Shortness of Breath. ondansetron 2021- No [id number] DISSOLVE 1 [facility] 4 mg 4-21 - TABLET ON ity of disintegrat 00:00: 00:00 THE TONGUE [place] ing tablet 00 :00 EVERY 8 Medica l HOURS Branch NEEDED FOR NAUSEA OMEPRAZOLE 0 Yes [id number] 40mg TAKE 1 [facility] 40 mg 4-14 CAPSULE BY ity of capsule 00:00: [facility] DAILY Medical Branch OMEPRAZOLE 2021-0 Yes [id number] 40mg TAKE 1 [facility] 40 mg 4-14 CAPSULE BY ity of capsule 00:00: [facility] DAILY Medical Branch OMEPRAZOLE 2-0 Yes [id number] 40mg TAKE 1 [facility] 40 mg 4-14 CAPSULE BY ity of capsule 00:00: [facility] DAILY Medical Branch OMEPRAZOLE 2021-0 Yes [id number] 40mg TAKE 1 [facility] 40 mg 4-14 CAPSULE BY ity of capsule 00:00: [facility] DAILY Medical Branch OMEPRAZOLE 2-0 Yes [id number] 40mg TAKE 1 [facility] 40 mg 4-14 CAPSULE BY ity of capsule 00:00: [facility] DAILY Medical Branch OMEPRAZOLE 2-0 Yes [id number] 40mg TAKE 1 [facility] 40 mg 4-14 CAPSULE BY ity of capsule 00:00: [facility] DAILY Medical Branch OMEPRAZOLE 2-0 Yes [id number] 40mg TAKE 1 [facility] 40 mg 4-14 CAPSULE BY ity of capsule 00:00: [facility] DAILY Medical Branch OMEPRAZOLE 2-0 Yes [id number] 40mg TAKE 1 [facility] 40 mg 4-14 CAPSULE BY ity of capsule 00:00: [facility] DAILY Medical Branch OMEPRAZOLE 2-0 Yes [id number] 40mg TAKE 1 [facility] 40 mg 4-14 CAPSULE BY ity of capsule 00:00: MOUTH DAILY Medical Branch OMEPRAZOLE 2022-0 Yes [id number] 40mg TAKE 1 [facility] 40 mg 4-14 CAPSULE BY ity of capsule 00:00: MOUTH DAILY Medical Branch OMEPRAZOLE 2022-0 Yes [id number] 40mg TAKE 1 [facility] 40 mg 4-14 CAPSULE BY ity of capsule 00:00: MOUTH DAILY Medical Branch OMEPRAZOLE 2022-0 Yes [id number] 40mg TAKE 1 [facility] 40 mg 4-14 CAPSULE BY ity of capsule 00:00: MOUTH DAILY Medical Branch OMEPRAZOLE 2022-0 Yes [id number] 40mg TAKE 1 [facility] 40 mg 4-14 CAPSULE BY ity of capsule 00:00: MOUTH [place] DAILY Medical Branch OMEPRAZOLE 2022-0 Yes [id number] 40mg TAKE 1 [facility] 40 mg 4-14 CAPSULE BY ity of capsule 00:00: [facility] DAILY Medical Branch OMEPRAZOLE 2022-0 Yes [id number] 40mg TAKE 1 [facility] 40 mg 4-14 CAPSULE BY ity of capsule 00:00: [facility] DAILY Medical Branch OMEPRAZOLE 2022-0 Yes [id number] 40mg TAKE 1 [facility] 40 mg 4-14 CAPSULE BY ity of capsule 00:00: [facility] DAILY Medical Branch OMEPRAZOLE 2022-0 Yes [id number] 40mg TAKE 1 [facility] 40 mg 4-14 CAPSULE BY ity of capsule 00:00: [facility] DAILY Medical Branch OMEPRAZOLE 2022-0 Yes [id number] 40mg TAKE 1 [facility] 40 mg 4-14 CAPSULE BY ity of capsule 00:00: [facility] DAILY Medical Branch OMEPRAZOLE 2022-0 Yes [id number] 40mg TAKE 1 [facility] 40 mg 4-14 CAPSULE BY ity of capsule 00:00: [facility] DAILY Medical Branch OMEPRAZOLE 2022-0 Yes [id number] 40mg TAKE 1 [facility] 40 mg 4-14 CAPSULE BY ity of capsule 00:00: [facility] DAILY Medical Branch OMEPRAZOLE 2022-0 Yes [id number] 40mg TAKE 1 [facility] 40 mg 4-14 CAPSULE BY ity of capsule 00:00: [facility] DAILY Medical Branch OMEPRAZOLE 2022-0 Yes [id number] 40mg TAKE 1 [facility] 40 mg 4-14 CAPSULE BY ity of capsule 00:00: MOUTH [place] 00 DAILY Medical Branch OMEPRAZOLE 2022-0 Yes [id number] 40mg TAKE 1 [facility] 40 mg 4-14 CAPSULE BY ity of capsule 00:00: MOUTH [place] 00 DAILY Medical Branch OMEPRAZOLE 2021-0 2022- No [id number] 40mg TAKE 1 [facility] 40 mg 4-14 -11 CAPSULE BY ity of capsule 00:00: 00:00 MOUTH [place] 00 :00 DAILY Medical Branch OMEPRAZOLE 2021-0 2022- No [id number] 40mg TAKE 1 [facility] 40 mg 4-14 -11 CAPSULE BY ity of capsule 00:00: 00:00 MOUTH [place] 00 :00 DAILY Medical Branch VITAMIN D-3 Yes [id number] Take Univ ers ORAL 2-09 50,000 ity of 14:30: Units by [place] 31 mouth. Medical Branch VITAMIN D-3 Yes [id number] Take Univ ers ORAL 2-09 50,000 ity of 14:30: Units by [place] 31 mouth. Medical Branch VITAMIN D-3 Yes [id number] Take Univ ers ORAL 2-09 50,000 ity of 14:30: Units by [place] 31 mouth. Medical Branch VITAMIN D-3 Yes [id number] Take Univ ers ORAL 2-09 50,000 ity of 14:30: Units by [place] 31 mouth. Medical Branch VITAMIN D-3 Yes [id number] Take Univ ers ORAL 2-09 50,000 ity of 14:30: Units by [place] 31 mouth. Medical Branch VITAMIN D-3 Yes [id number] Take Univ ers ORAL 2-09 50,000 ity of 14:30: Units by [place] 31 mouth. Medical Branch VITAMIN D-3 0 Yes [id number] Take Univ ers ORAL 2-09 50,000 ity of 14:30: Units by [place] 31 mouth. Medical Branch VITAMIN D-3 Yes [id number] Take Univ ers ORAL 2-09 50,000 ity of 14:30: Units by [place] 31 mouth. Medical Branch VITAMIN D-3 0 Yes [id number] Take Univ ers ORAL 2-09 50,000 ity of 14:30: Units by [place] 31 mouth. Medical Branch VITAMIN D-3 0 Yes [id number] Take Univ ers ORAL 2-09 50,000 ity of 14:30: Units by [place] 31 mouth. Medical Branch VITAMIN D-3 Yes [id number] Take Univ ers ORAL 2-09 50,000 ity of 14:30: Units by [place] 31 mouth. Medical Branch VITAMIN D-3 Yes [id number] Take Univ ers ORAL 2-09 50,000 ity of 14:30: Units by [place] 31 mouth. Medical Branch VITAMIN D-3 Yes [id number] Take Univ ers ORAL 2-09 50,000 ity of 14:30: Units by [place] 31 mouth. Medical Branch VITAMIN D-3 Yes [id number] Take Univ ers ORAL 2-09 50,000 ity of 14:30: Units by [place] 31 mouth. Medical Branch VITAMIN D-3 Yes [id number] Take Univ ers ORAL 2-09 50,000 ity of 14:30: Units by [place] 31 mouth. Medical Branch VITAMIN D-3 Yes [id number] Take Univ ers ORAL 2-09 50,000 ity of 14:30: Units by [place] 31 mouth. Medical Branch VITAMIN D-3 Yes [id number] Take Univ ers ORAL 2-09 50,000 ity of 14:30: Units by [place] 31 mouth. Medical Branch VITAMIN D-3 Yes [id number] Take Univ ers ORAL 2-09 50,000 ity of 14:30: Units by [place] 31 mouth. Medical Branch VITAMIN D-3 Yes [id number] Take Univ ers ORAL 2-09 50,000 ity of 14:30: Units by [place] 31 mouth. Medical Branch VITAMIN D-3 Yes [id number] Take Univ ers ORAL 2-09 50,000 ity of 14:30: Units by [place] 31 mouth. Medical Branch VITAMIN D-3 Yes [id number] Take Univ ers ORAL 2-09 50,000 ity of 14:30: Units by [place] 31 mouth. Medical Branch ondansetron 2021- No [id number] 1 tablet [facility] 4 mg 04-26 PO q8hrs ity of disintegrat 00:00: 00:00 PRN nausea [place] ing tablet 00 :00 Medical Branch OMEPRAZOLE 2021- No [id number] 40mg TAKE 1 [facility] 40 mg 04-26 CAPSULE BY ity of capsule 00:00: 00:00 MOUTH [place] 00 :00 DAILY Medical Branch amLODIPine 0 2020- No [id number] 5mg Take 1 [facility] 5 mg tablet 11-24 tablet by it y of 00:00: 00:00 mouth [place] 00 :00 daily. Medical Branch losartan 50 2020-0 2020- No 50mg Take 50 mg [facility] mg tablet 11-14 by mouth ity o f 00:00: 00:00 daily. [place] 00 :00 Medical Branch levonorgest 2020-0 Yes 1{each} 1 [...] levonorgest 2020-0 Yes 1{each} 1 Each by [facility] rel 20 7-14 Intrauteri ity of mcg/24 15:36: ne route. [place] hours (5 48 Medical yrs) 52 mg Branch IUD levonorgest 0 Yes 1{each} 1 Each by [facility] rel 20 7-14 Intrauteri ity of mcg/24 15:36: ne route. [place] hours (5 48 Medical yrs) 52 mg Branch IUD levonorgest 0 Yes 1{each} 1 Each by [facility] rel 20 7-14 Intrauteri ity of mcg/24 15:36: ne route. [place] hours (5 48 Medical yrs) 52 mg Branch IUD levonorgest 2020-0 Yes 1{each} 1 Each by [facility] rel 20 7-14 Intrauteri ity of mcg/24 15:36: ne route. [place] hours (5 48 Medical yrs) 52 mg Branch IUD levonorgest 2020-0 Yes 1{each} 1 Each by [facility] rel 20 7-14 Intrauteri ity of mcg/24 15:36: ne route. [place] hours (5 48 Medical yrs) 52 mg Branch IUD levonorgest 2020-0 Yes 1{each} 1 Each by [facility] rel 20 7-14 Intrauteri ity of mcg/24 15:36: ne route. [place] hours (5 48 Medical yrs) 52 mg Branch IUD levonorgest 2021-0 Yes 1{each} 1 Each by [facility] rel 20 7-14 Intrauteri ity of mcg/24 15:36: ne route. [place] hours (5 48 Medical yrs) 52 mg Branch IUD levonorgest 2021-0 Yes 1{each} 1 Each by [facility] rel 20 7-14 Intrauteri ity of mcg/24 15:36: ne route. [place] [facility] (5 48 Medical yrs) 52 mg Branch IUD levonorgest 2021-0 Yes 1{each} 1 Each by [facility] rel 20 7-14 Intrauteri ity of mcg/24 15:36: ne route. [place] hours (5 48 Medical yrs) 52 mg Branch IUD levonorgest 2021-0 Yes 1{each} 1 Each by [facility] rel 20 7-14 Intrauteri ity of mcg/24 15:36: ne route. [facility] (5 48 Medical yrs) 52 mg Branch IUD levonorgest 2021-0 Yes 1{each} 1 Each by [facility] rel 20 7-14 Intrauteri ity of mcg/24 15:36: ne route. [place] hours (5 48 Medical yrs) 52 mg Branch IUD levonorgest 2021-0 Yes 1{each} 1 Each by [facility] rel 20 7-14 Intrauteri ity of mcg/24 15:36: ne route. [place] hours (5 48 Medical yrs) 52 mg Branch IUD levonorgest 2021-0 Yes 1{each} 1 Each by [facility] rel 20 7-14 Intrauteri ity of mcg/24 15:36: ne route. [place] hours (5 48 Medical yrs) 52 mg Branch IUD levonorgest 2021-0 Yes 1{each} 1 Each by [facility] rel 20 7-14 Intrauteri ity of mcg/24 15:36: ne route. [place] hours (5 48 Medical yrs) 52 mg Branch IUD levonorgest 2021-0 Yes 1{each} 1 Each by [facility] rel 20 7-14 Intrauteri ity of mcg/24 15:36: ne route. [place] hours (5 48 Medical yrs) 52 mg Branch IUD levonorgest 2021-0 Yes 1{each} 1 Each by [facility] rel [...] Intrauteri ity of mcg/24 15:36: ne route. [place] hours (5 48 Medical yrs) 52 mg Branch IUD OMEPRAZOLE 2020- No [id number] 40mg TAKE 1 [facility] 40 mg 7-12 10-05 CAPSULE BY ity of capsule 00:00: 00:00 MOUTH [place] 00 :00 DAILY Medical Branch venlafaxine 2021- No TAKE 1 [facility] vers XR 150 mg 6-30 05-31 CAPSULE BY ity of 24 hr 00:00: 00:00 MOUTH [place] capsule 00 :00 EVERY DAY Medical WITH FOOD Branch venlafaxine 2021- No TAKE 1 Uni vers XR 150 mg 6-30 05-31 CAPSULE BY ity of 24 hr 00:00: 00:00 MOUTH [place] capsule 00 :00 EVERY DAY Medical WITH FOOD Branch busPIRone 2021- No 15mg Take 15 mg U nivers 15 mg 4-02 11- by mouth 2 ity of tablet 00:00: 00:00 (two) [place] 00 :00 times Medical daily. Branch busPIRone 2021- No 15mg Take 15 mg U nivers 15 mg 4-21 -26 by mouth 2 ity of tablet 00:00: 00:00 (two) [place] 00 :00 times Medical daily. Branch busPIRone 2021- No 15mg Take 15 mg U nivers 15 mg 4-21 -26 by mouth 2 ity of tablet 00:00: 00:00 (two) [place] 00 :00 times Medical daily. Branch Nitrofurant 2020- No [id number] 100mg Take 1 [facility] oin&Nit. 3-16 capsule by ity of Macrocryst 00:00: 04:59 mouth 2 [place] as (MACROBID) 00 :00 (two) Medical 100 mg times Branch capsule daily for 10 days. metroNIDAZO 2020- No [id number] 500mg Take 1 [facility] LE 500 mg 06-1511 tablet by ity of tablet 00:00: 05:59 mouth 2 [place] 00 :00 (two) Medical times Branch daily for 7 days. ondansetron 2020- No [id number] 4mg Take 1 [facility] (ZOFRAN 06-13 tablet by ity of ODT) 4 mg 00:00: 00:00 mouth [place] disintegrat 00 :00 every 8 Medic al ing tablet (eight) Branch hours as needed for Nausea and Vomiting (N/V). benzonatate 2020- No [id number] 100mg Take 1 [facility] 100 mg 04-16 capsule by ity of capsule 00:00: 00:00 mouth 3 [place] 00 :00 (three) Medical times Branch daily as needed for Cough. methylPREDN 2020- No [id number] Take by Univers ISolone 4 04-16 mouth ity of mg tablets 00:00: 00:00 SEE-INSTRU [place] 00 :00 CTIONS. Medical follow Branch package directions sertraline 2019-04 Yes 100mg QD Take 100 [facility] th[facility] (ZOLOFT) 1-[address] 100 MG 11:39: [facility] tablet 29 daily. l omeprazole Yes 40mg QD Take 40 mg M ethodi (PriLOSEC) - by mouth st 40 MG 00:00: daily. [facility] capsule 00 l omeprazole Yes 40mg QD Take 1 Metho di (PriLOSEC) - capsule st 40 MG 00:00: (40 mg [facility] capsule 00 total) by l mouth daily. OMEPRAZOLE 2020- No [id number] 40mg TAKE 1 [facility] 40 mg 12-31-12 CAPSULE BY ity of capsule 00:00: 00:00 MOUTH [place] 00 :00 DAILY Medical Branch SAXENDA 3 2019- No [id number] INJECT 3 [facility] mg/0.5 mL 6-18 08-28 MG UNDER ity o f (18 mg/3 00:00: 00:[place]IN [place] mL) PnI[place] 00 :00 EVERY DAY Medica l Branch DICLOFENAC 2020- No [id number] TAKE 1 [facility] 75 mg EC 09-24 [id number] TABLET BY ity of tablet 00:00: 00:00 MOUTH [place] 00 :00 TWICE Medical DAILY WITH Branch MEALS DICLOFENAC No [id number] TAKE 1 [facility] 75 mg EC 09-24 [id number] TABLET BY ity of tablet 00:00: 00:00 MOUTH [place] 00 :00 TWICE Medical DAILY WITH Branch MEALS DICLOFENAC No [id number] TAKE 1 [facility] 75 mg EC 09-24 [id number] TABLET BY ity of tablet 00:00: 00:00 MOUTH [place] 00 :00 TWICE Medical DAILY WITH Branch MEALS naproxen 2019- No [id number] 500mg Take 1 [facility] 500 mg 08-23 tablet by ity of tablet 00:00: 00:00 mouth 2 [place] 00 :00 (two) Medical times Branch daily with meals. omeprazole 2019- No [id number] 40mg Take 1 [facility] 40 mg 07-08 capsule by ity of capsule 00:00: 00:00 mouth [place] 00 :00 daily. Medical Branch ondansetron 2019- No [id number] 4mg Take 1 [facility] 4 mg 04-27 tablet by ity of disintegrat 00:00: 00:00 mouth [place] tablet 00 :00 every 4 Medica l (four) Branch hours as needed for Nausea and Vomiting (N/V). traMADol 50 2019- No [id number] 50mg Take 1 [facility] mg tablet 04-27 tablet by ity of 00:00: 00:00 mouth [place] 00 :00 every 6 Medical (six) Branch hours as needed for Pain (scale 4-6). ARIPIPRAZOL No 5mg Take 5 mg [facility] E ORAL 04-16 by mouth ity of 00:00: 00:00 daily. [place] 00 :00 Takes 1 Medical 1/2 tablet Branch daily ARIPIPRAZOL 2020-0 2021- No 5mg Take 5 mg [facility] E ORAL 04-16 by mouth ity of 00:00: 00:00 daily. [place] 00 :00 Takes 1 Medical 1/2 tablet Branch daily ARIPIPRAZOL 2020- No 5mg Take 5 mg [facility] E ORAL 04-16 by mouth ity of 00:00: 00:00 daily. [place] 00 :00 Takes 1 Medical 1/2 tablet Branch daily traZODone 2019- No TK 1 T PO Un shellie 50 mg 04-16 QD HS PRN ity of tablet 00:00: 00:00 [place] 00 :00 Medical Branch Insulin 2018-04- No [id number] Use as Un shellie [place], 06-11 directed ity of Disposable, 00:00: 00:00 to inject [place] (PEN 00 :00 Saxenda Medical NEEDLE) 32 daily Branch gauge x 5/32" Ndle acetaminoph 2018-04- No [id number] 1{tbl} Take 1 [facility] en-codeine 05-30 tablet by ity of (TYLENOL-CO 00:00: 00:00 mouth [place] DEINE #3[place] 00 :00 every 4 Medical 300-30 mg (four) Branch tablet hours as needed for Pain (scale 1-3). levocetiriz 2018-04 Yes 5mg Take 1 Univ [...] mouth [place] 00 daily. Medical Branch levocetiriz 2019 Yes 5mg Take 1 Univ ers ine [...] mouth [place] 00 daily. Medical Branch levocetiriz 2019 Yes 5mg Take 1 Univ ers ine [...] tablet by ity of tablet 00:00: mouth in [place] 00 the Medical morning. Branch levocetiriz 2019- Yes 5mg Take 1 Univ ers ine 5 mg 2-13 tablet by ity of tablet 00:00: mouth in [place] 00 the Medical morning. Branch levocetiriz 2019- Yes 5mg Take 1 Univ ers ine 5 mg 2-13 tablet by ity of tablet 00:00: mouth in [place] 00 the Medical morning. Branch levocetiriz 2019- Yes 5mg Take 1 Univ ers ine 5 mg 2-13 tablet by ity of tablet 00:00: mouth in [place] 00 the Medical morning. Branch levocetiriz 2019- Yes 5mg Take 1 Univ ers ine 5 mg 2-13 tablet by ity of tablet 00:00: mouth in [place] 00 the Medical morning. Branch levocetiriz 2019- Yes 5mg Take 1 Univ ers ine 5 mg 2-13 tablet by ity of tablet 00:00: mouth in [place] 00 the Medical morning. Branch levocetiriz 2019- Yes 5mg Take 1 Univ ers ine 5 mg 2-13 tablet by ity of tablet 00:00: mouth in [place] 00 the Medical morning. Branch levocetiriz 2019- Yes 5mg Take 1 Univ ers ine 5 mg 2-13 tablet by ity of tablet 00:00: mouth in [place] 00 the Medical morning. Branch levocetiriz 2019- Yes 5mg Take 1 Univ ers ine 5 mg 2-13 tablet by ity of tablet 00:00: mouth in [place] 00 the Medical morning. Branch levocetiriz 2019- Yes 5mg Take 1 Univ ers ine 5 mg 2-13 tablet by ity of tablet 00:00: mouth in [place] 00 the Medical morning. Branch levocetiriz 2019- Yes 5mg Take 1 Univ ers ine 5 mg 2-13 tablet by ity of tablet 00:00: mouth in [place] 00 the Medical morning. Branch levocetiriz 2019- Yes 5mg Take 1 Univ ers ine 5 mg 2-13 tablet by ity of tablet 00:00: mouth in [place] 00 the Medical morning. Branch levocetiriz 2019- Yes 5mg Take 1 Univ ers ine 5 mg 2-13 tablet by ity of tablet 00:00: mouth in [place] 00 the Medical morning. Branch levocetiriz 2019- Yes 5mg Take 1 Univ ers ine 5 mg 2-13 tablet by ity of tablet 00:00: mouth in [place] 00 the Medical morning. Branch levocetiriz 2019- Yes 5mg Take 1 Univ ers ine 5 mg 2-13 tablet by ity of tablet 00:00: mouth in [place] 00 the Medical morning. Branch levocetiriz 2019- Yes 5mg Take 1 Univ ers ine 5 mg 2-13 tablet by ity of tablet 00:00: mouth in [place] 00 the Medical morning. Branch levocetiriz 2019- Yes 5mg Take 1 Univ ers ine 5 mg 2-13 tablet by ity of tablet 00:00: mouth in [place] 00 the Medical morning. Branch levocetiriz 2019- Yes 5mg Take 1 Univ ers ine 5 mg 2-13 tablet by ity of tablet 00:00: mouth in [place] 00 the Medical morning. Branch levocetiriz 2019- Yes 5mg Take 1 Univ ers ine 5 mg 2-13 tablet by ity of tablet 00:00: mouth in [place] 00 the Medical morning. Branch levocetiriz 2019- Yes 5mg Take 1 Univ ers ine 5 mg 2-13 tablet by ity of tablet 00:00: mouth in [place] 00 the Medical morning. Branch levocetiriz 2019- Yes 5mg Take 1 Univ ers ine 5 mg 2-13 tablet by ity of tablet 00:00: mouth in [place] 00 the Medical morning. Branch levocetiriz 2019- Yes 5mg Take 1 Univ ers ine 5 mg 2-13 tablet by ity of tablet 00:00: mouth in [place] 00 the Medical morning. Branch levocetiriz 2019- Yes 5mg Take 1 Univ ers ine 5 mg 2-13 tablet by ity of tablet 00:00: mouth in [place] 00 the Medical morning. Branch levocetiriz 2019- Yes 5mg Take 1 Univ ers ine 5 mg 2-13 tablet by ity of tablet 00:00: mouth in [place] 00 the Medical morning. Branch levocetiriz 2019- Yes 5mg Take 1 Univ ers ine 5 mg 2-13 tablet by ity of tablet 00:00: mouth in [place] 00 the Medical morning. Branch levocetiriz 2019- Yes 5mg Take 1 Univ ers ine 5 mg 2-13 tablet by ity of tablet 00:00: mouth in [place] 00 the Medical morning. Branch levocetiriz 2019- Yes 5mg Take 1 Univ ers ine 5 mg 2-13 tablet by ity of tablet 00:00: mouth in [place] 00 the Medical morning. Branch levocetiriz 2019- Yes 5mg Take 1 Univ ers ine 5 mg 2-13 tablet by ity of tablet 00:00: mouth in [place] 00 the Medical morning. Branch levocetiriz 2019- Yes 5mg Take 1 Univ ers ine 5 mg 2-13 tablet by ity of tablet 00:00: mouth in [place] 00 the Medical morning. Branch levocetiriz 2019- Yes 5mg Take 1 Univ ers ine 5 mg 2-13 tablet by ity of tablet 00:00: mouth in [place] 00 the Medical morning. Branch levocetiriz 2019- Yes 5mg Take 1 Univ ers ine 5 mg 2-13 tablet by ity of tablet 00:00: mouth in [place] 00 the Medical morning. Branch levocetiriz 2018- Yes 5mg Take 1 Univ ers ine 5 mg 2-13 tablet by ity of tablet 00:00: mouth in [place] 00 the Medical morning. Branch levocetiriz 2018- Yes 5mg Take 1 Univ ers ine 5 mg 2-13 tablet by ity of tablet 00:00: mouth in [place] 00 the Medical morning. Branch levocetiriz 2019- Yes 5mg Take 1 Univ ers ine 5 mg 2-13 tablet by ity of tablet 00:00: mouth in [place] 00 the Medical morning. Branch levocetiriz 2019- Yes 5mg Take 1 Univ ers ine 5 mg 2-13 tablet by ity of tablet 00:00: mouth in [place] 00 the Medical morning. Branch levocetiriz 2019- Yes 5mg Take 1 Univ ers ine 5 mg 2-13 tablet by ity of tablet 00:00: mouth in [place] 00 the Medical morning. Branch levocetiriz 2019- Yes 5mg Take 1 Univ ers ine 5 mg 2-13 tablet by ity of tablet 00:00: mouth in [place] 00 the Medical morning. Branch SERTraline 2018-04 2020- No TK 1 T PO U nivers 100 mg 2-05 09-18 QD ity of tablet 00:00: 00:00 [place] 00 :00 Medical Branch FLUTICASONE Yes [id number] SHAKE U nivers 50 1-30 LIQUID AND ity of mcg/actuati 00:00: USE 2 [place] on nasal 00 SPRAYS IN Medica l spray EACH Branch NOSTRIL DAILY FLUTICASONE Yes [id number] SHAKE U nivers 50 1-30 LIQUID AND ity of mcg/actuati 00:00: USE 2 [place] on nasal 00 SPRAYS IN Medica l spray EACH Branch NOSTRIL DAILY FLUTICASONE Yes [id number] SHAKE U nivers 50 1-30 LIQUID AND ity of mcg/actuati 00:00: USE 2 [place] on nasal 00 SPRAYS IN Medica l spray EACH Branch NOSTRIL DAILY FLUTICASONE Yes [id number] SHAKE U nivers 50 1-30 LIQUID AND ity of mcg/actuati 00:00: USE 2 [place] on nasal 00 SPRAYS IN Medica l spray EACH Branch NOSTRIL DAILY FLUTICASONE Yes [id number] SHAKE U nivers 50 1-30 LIQUID AND ity of mcg/actuati 00:00: USE 2 [place] on nasal 00 SPRAYS IN Medica l spray EACH Branch NOSTRIL DAILY FLUTICASONE Yes [id number] SHAKE U nivers 50 1-30 LIQUID AND ity of mcg/actuati 00:00: USE 2 [place] on nasal 00 SPRAYS IN Medica l spray EACH Branch NOSTRIL DAILY FLUTICASONE Yes [id number] SHAKE U nivers 50 1-30 LIQUID AND ity of mcg/actuati 00:00: USE 2 [place] on nasal 00 SPRAYS IN Medica l spray EACH Branch NOSTRIL DAILY FLUTICASONE Yes [id number] SHAKE U nivers 50 1-30 LIQUID AND ity of mcg/actuati 00:00: USE 2 [place] on nasal 00 SPRAYS IN Medica l spray EACH Branch NOSTRIL DAILY FLUTICASONE Yes [id number] SHAKE U nivers 50 1-30 LIQUID AND ity of mcg/actuati 00:00: USE 2 [place] on nasal 00 SPRAYS IN Medica l spray EACH Branch NOSTRIL DAILY FLUTICASONE Yes [id number] SHAKE U nivers 50 1-30 LIQUID AND ity of mcg/actuati 00:00: USE 2 [place] on nasal 00 SPRAYS IN Medica l spray EACH Branch NOSTRIL DAILY FLUTICASONE Yes [id number] SHAKE U nivers 50 1-30 LIQUID AND ity of mcg/actuati 00:00: USE 2 [place] on nasal 00 SPRAYS IN Medica l spray EACH Branch NOSTRIL DAILY FLUTICASONE Yes [id number] SHAKE U nivers 50 1-30 LIQUID AND ity of mcg/actuati 00:00: USE 2 [place] on nasal 00 SPRAYS IN Medica l spray EACH Branch NOSTRIL DAILY FLUTICASONE Yes [id number] SHAKE U nivers 50 1-30 LIQUID AND ity of mcg/actuati 00:00: USE 2 [place] on nasal 00 SPRAYS IN Medica l spray EACH Branch NOSTRIL DAILY FLUTICASONE Yes [id number] SHAKE U nivers 50 1-30 LIQUID AND ity of mcg/actuati 00:00: USE 2 [place] on nasal 00 SPRAYS IN Medica l spray EACH Branch NOSTRIL DAILY FLUTICASONE Yes [id number] SHAKE U nivers 50 1-30 LIQUID AND ity of mcg/actuati 00:00: USE 2 [place] on nasal 00 SPRAYS IN Medica l spray EACH Branch NOSTRIL DAILY FLUTICASONE Yes [id number] SHAKE U nivers 50 1-30 LIQUID AND ity of mcg/actuati 00:00: USE 2 [place] on nasal 00 SPRAYS IN Medica l spray EACH Branch NOSTRIL DAILY FLUTICASONE Yes [id number] SHAKE U nivers 50 1-30 LIQUID AND ity of mcg/actuati 00:00: USE 2 [place] on nasal 00 SPRAYS IN Medica l spray EACH Branch NOSTRIL DAILY FLUTICASONE Yes [id number] SHAKE U nivers 50 1-30 LIQUID AND ity of mcg/actuati 00:00: USE 2 [place] on nasal 00 SPRAYS IN Medica l spray EACH Branch NOSTRIL DAILY FLUTICASONE Yes [id number] SHAKE U nivers 50 1-30 LIQUID AND ity of mcg/actuati 00:00: USE 2 [place] on nasal 00 SPRAYS IN Medica l spray EACH Branch NOSTRIL DAILY FLUTICASONE Yes [id number] SHAKE U nivers 50 1-30 LIQUID AND ity of mcg/actuati 00:00: USE 2 [place] on nasal 00 SPRAYS IN Medica l spray EACH Branch NOSTRIL DAILY FLUTICASONE Yes [id number] SHAKE U nivers 50 1-30 LIQUID AND ity of mcg/actuati 00:00: USE 2 [place] on nasal 00 SPRAYS IN Medica l spray EACH Branch NOSTRIL DAILY FLUTICASONE Yes [id number] SHAKE U nivers 50 1-30 LIQUID AND ity of mcg/actuati 00:00: USE 2 [place] on nasal 00 SPRAYS IN Medica l spray EACH Branch NOSTRIL DAILY FLUTICASONE Yes [id number] SHAKE U nivers 50 1-30 LIQUID AND ity of mcg/actuati 00:00: USE 2 [place] 00 SPRAYS IN Medica l spray EACH Branch NOSTRIL DAILY FLUTICASONE Yes [id number] SHAKE U nivers 50 1-30 LIQUID AND ity of mcg/actuati 00:00: USE 2 [place] 00 SPRAYS IN Medica l spray EACH Branch NOSTRIL DAILY FLUTICASONE Yes [id number] SHAKE U nivers 50 1-30 LIQUID AND ity of mcg/actuati 00:00: USE 2 [place] 00 SPRAYS IN Medica l spray EACH Branch NOSTRIL DAILY FLUTICASONE Yes [id number] SHAKE U nivers 50 1-30 LIQUID AND ity of mcg/actuati 00:00: USE 2 [place] on nasal 00 SPRAYS IN Medica l spray EACH Branch NOSTRIL DAILY FLUTICASONE Yes [id number] SHAKE U nivers 50 1-30 LIQUID AND ity of mcg/actuati 00:00: USE 2 [place] on nasal 00 SPRAYS IN Medica l spray EACH Branch NOSTRIL DAILY FLUTICASONE Yes [id number] SHAKE U nivers 50 1-30 LIQUID AND ity of mcg/actuati 00:00: USE 2 [place] on nasal 00 SPRAYS IN Medica l spray EACH Branch NOSTRIL DAILY FLUTICASONE Yes [id number] SHAKE U nivers 50 1-30 LIQUID AND ity of mcg/actuati 00:00: USE 2 [place] on nasal 00 SPRAYS IN Medica l spray EACH Branch NOSTRIL DAILY FLUTICASONE Yes [id number] SHAKE U nivers 50 1-30 LIQUID AND ity of mcg/actuati 00:00: USE 2 [place] on nasal 00 SPRAYS IN Medica l spray EACH Branch NOSTRIL DAILY FLUTICASONE Yes [id number] SHAKE U nivers 50 1-30 LIQUID AND ity of mcg/actuati 00:00: USE 2 [place] on nasal 00 SPRAYS IN Medica l spray EACH Branch NOSTRIL DAILY FLUTICASONE Yes [id number] SHAKE U nivers 50 1-30 LIQUID AND ity of mcg/actuati 00:00: USE 2 [place] on nasal 00 SPRAYS IN Medica l spray EACH Branch NOSTRIL DAILY FLUTICASONE Yes [id number] SHAKE U nivers 50 1-30 LIQUID AND ity of mcg/actuati 00:00: USE 2 [place] on nasal 00 SPRAYS IN Medica l spray EACH Branch NOSTRIL DAILY FLUTICASONE Yes [id number] SHAKE U nivers 50 1-30 LIQUID AND ity of mcg/actuati 00:00: USE 2 [place] on nasal 00 SPRAYS IN Medica l spray EACH Branch NOSTRIL DAILY FLUTICASONE Yes [id number] SHAKE U nivers 50 1-30 LIQUID AND ity of mcg/actuati 00:00: USE 2 [place] on nasal 00 SPRAYS IN Medica l spray EACH Branch NOSTRIL DAILY FLUTICASONE Yes [id number] SHAKE U nivers 50 1-30 LIQUID AND ity of mcg/actuati 00:00: USE 2 [place] on nasal 00 SPRAYS IN Medica l spray EACH Branch NOSTRIL DAILY FLUTICASONE Yes [id number] SHAKE U nivers 50 1-30 LIQUID AND ity of mcg/actuati 00:00: USE 2 [place] on nasal 00 SPRAYS IN Medica l spray EACH Branch NOSTRIL DAILY FLUTICASONE Yes [id number] SHAKE U nivers 50 1-30 LIQUID AND ity of mcg/actuati 00:00: USE 2 [place] on nasal 00 SPRAYS IN Medica l spray EACH Branch NOSTRIL DAILY FLUTICASONE Yes [id number] SHAKE U nivers 50 1-30 LIQUID AND ity of mcg/actuati 00:00: USE 2 [place] on nasal 00 SPRAYS IN Medica l spray EACH Branch NOSTRIL DAILY FLUTICASONE Yes [id number] SHAKE U nivers 50 1-30 LIQUID AND ity of mcg/actuati 00:00: USE 2 [place] on nasal 00 SPRAYS IN Medica l spray EACH Branch NOSTRIL DAILY FLUTICASONE Yes [id number] SHAKE U nivers 50 1-30 LIQUID AND ity of mcg/actuati 00:00: USE 2 [place] on nasal 00 SPRAYS IN Medica l spray EACH Branch NOSTRIL DAILY FLUTICASONE Yes [id number] SHAKE U nivers 50 1-30 LIQUID AND ity of mcg/actuati 00:00: USE 2 [place] nasal 00 SPRAYS IN Medica l spray EACH Branch NOSTRIL DAILY FLUTICASONE Yes [id number] SHAKE U nivers 50 1-30 LIQUID AND ity of mcg/actuati 00:00: USE 2 [place] on nasal 00 SPRAYS IN Medica l spray EACH Branch NOSTRIL DAILY FLUTICASONE Yes [id number] SHAKE U nivers 50 1-30 LIQUID AND ity of mcg/actuati 00:00: USE 2 [place] nasal 00 SPRAYS IN Medica l spray EACH Branch NOSTRIL DAILY FLUTICASONE Yes [id number] SHAKE U nivers 50 1-30 LIQUID AND ity of mcg/actuati 00:00: USE 2 [place] on nasal 00 SPRAYS IN Medica l spray EACH Branch NOSTRIL DAILY FLUTICASONE Yes [id number] SHAKE U nivers 50 1-30 LIQUID AND ity of mcg/actuati 00:00: USE 2 [place] on nasal 00 SPRAYS IN Medica l spray EACH Branch NOSTRIL DAILY FLUTICASONE Yes [id number] SHAKE U nivers 50 1-30 LIQUID AND ity of mcg/actuati 00:00: USE 2 [place] nasal 00 SPRAYS IN Medica l spray EACH Branch NOSTRIL DAILY FLUTICASONE Yes [id number] SHAKE U nivers 50 1-30 LIQUID AND ity of mcg/actuati 00:00: USE 2 [place] on nasal 00 SPRAYS IN Medica l spray EACH Branch NOSTRIL DAILY FLUTICASONE Yes [id number] SHAKE U nivers 50 1-30 LIQUID AND ity of mcg/actuati 00:00: USE 2 [place] on nasal 00 SPRAYS IN Medica l spray EACH Branch NOSTRIL DAILY FLUTICASONE Yes [id number] SHAKE U nivers 50 1-30 LIQUID AND ity of mcg/actuati 00:00: USE 2 [place] on nasal 00 SPRAYS IN Medica l spray EACH Branch NOSTRIL DAILY FLUTICASONE Yes [id number] SHAKE U nivers 50 1-30 LIQUID AND ity of mcg/actuati 00:00: USE 2 [place] on nasal 00 SPRAYS IN Medica l spray EACH Branch NOSTRIL DAILY FLUTICASONE Yes [id number] SHAKE U nivers 50 1-30 LIQUID AND ity of mcg/actuati 00:00: USE 2 [place] on nasal 00 SPRAYS IN Medica l spray EACH Branch NOSTRIL DAILY FLUTICASONE Yes [id number] SHAKE U nivers 50 1-30 LIQUID AND ity of mcg/actuati 00:00: USE 2 [place] on nasal 00 SPRAYS IN Medica l spray EACH Branch NOSTRIL DAILY FLUTICASONE Yes [id number] SHAKE U nivers 50 1-30 LIQUID AND ity of mcg/actuati 00:00: USE 2 [place] on nasal 00 SPRAYS IN Medica l spray EACH Branch NOSTRIL DAILY FLUTICASONE Yes [id number] SHAKE U nivers 50 1-30 LIQUID AND ity of mcg/actuati 00:00: USE 2 [place] on nasal 00 SPRAYS IN Medica l spray EACH Branch NOSTRIL DAILY FLUTICASONE Yes [id number] SHAKE U nivers 50 1-30 LIQUID AND ity of mcg/actuati 00:00: USE 2 [place] on nasal 00 SPRAYS IN Medica l spray EACH Branch NOSTRIL DAILY FLUTICASONE Yes [id number] SHAKE U nivers 50 1-30 LIQUID AND ity of mcg/actuati 00:00: USE 2 [place] on nasal 00 SPRAYS IN Medica l spray EACH Branch NOSTRIL DAILY FLUTICASONE 2019-0 Yes [id number] SHAKE U nivers 50 1-30 LIQUID AND ity of mcg/actuati 00:00: USE 2 [place] on nasal 00 SPRAYS IN Medica l spray EACH Branch NOSTRIL DAILY diclofenac diclofenac No diclofenac [facility] sodium 75 sodium 75 sodium [...] Saxenda 3 Saxenda 3 No Saxenda 3 [facility] mg/0.5 mL mg/0.5 mL mg/0.5 mL [facility] (18 mg/3 (18 mg/3 (18 mg/3 Pra ctic mL) mL) mL) e subcutaneou subcutaneou subcutaneo s pen s pen us pen injector injector injector ADM 3 MG SC ADM 3 MG SC ADM 3 MG D D SC D sertraline sertraline No sertraline [facility] 100 mg 100 mg 100 mg Family tablet TAKE tablet TAKE tablet Practic 1 TABLET BY 1 TABLET BY TAKE 1 e MOUTH EVERY MOUTH EVERY TABLET BY DAY DAY MOUTH EVERY DAY venlafaxine venlafaxine No venlafaxin [facility] ER 150 mg ER 150 [...] FOOD amoxicillin amoxicillin No 1 Q12H amoxicilli [facility] [phone] Family [...] e gauge x gauge x gauge x " U UTD " U UTD " U DAILY TO DAILY TO UTD DAILY INJ SAXENDA INJ SAXENDA TO INJ SAXENDA buspirone 5 buspirone 5 No buspirone [place] mg tablet mg tablet 5 mg Famil y TAKE 1 TAKE 1 tablet Practic TABLET BY TABLET BY TAKE 1 e MOUTH THREE MOUTH THREE TABLET BY TIMES DAILY TIMES DAILY MOUTH THREE TIMES DAILY Immunizations Ordered Immunization Filled Date Status Comments Sour ce Name Immunization Name Influenza Virus 2022-01-16 Completed [facility]00 [facility] Influenza Virus 2022-01-16 Completed [facility] Vaccine 00:00:00 [facility] Influenza Virus 2022-01-16 Completed [facility] of Vaccine 00:00:00 [facility] Influenza Virus 2022-01-16 Completed [facility] of Vaccine 00:00:00 [facility] Influenza Virus 2022-01-16 Completed [facility] y of Vaccine 00:00:00 [facility] Influenza Virus 2022-01-16 Completed [facility] y of Vaccine 00:00:00 [facility] Influenza Virus 2022-01-16 Completed [facility] y of Vaccine 00:00:00 [facility] Influenza Virus 2022-01-16 Completed [facility] y of Vaccine 00:00:00 [facility] Influenza Virus 2022-01-16 Completed [facility]it y of Vaccine 00:00:00 [facility] Influenza Virus 2022-01-16 Completed [facility]it y of Vaccine 00:00:00 [facility] Influenza Virus 2022-01-16 Completed [facility]it y of Vaccine 00:00:00 [facility] Influenza Virus 2022-01-16 Completed [facility]it y of Vaccine 00:00:00 [facility] Influenza Virus 2022-01-16 Completed [facility]it y of Vaccine 00:00:00 [facility] Influenza Virus 2022-01-16 Completed [facility]it y of Vaccine 00:00:00 [facility] Influenza Virus 2022-01-16 Completed [facility] Vaccine [facility]:00 [facility] [facility] [place] Influenza Virus 2022-01-16 Completed [facility] Vaccine 00:00:00 [facility] [place] Influenza Virus 2022-01-16 Completed [facility] Vaccine 00:00:00 [facility] [place] Influenza Virus 2022-01-16 Completed [facility] Vaccine 00:00:00 [facility] [place] Influenza Virus 2022-01-16 Completed [facility] Vaccine 00:00:00 [facility] [place] Influenza Virus 2022-01-16 Completed [facility] Vaccine 00:00:00 [facility] [place] Influenza Virus 2022-01-16 Completed [facility] Vaccine 00:00:00 [facility] [place] Influenza Virus 2022-01-16 Completed [facility] Vaccine 00:00:00 [facility] [place] Influenza Virus 2022-01-16 Completed [facility] Vaccine 00:00:00 [facility] [place] Influenza Virus 2022-01-16 Completed [facility] Vaccine 00:00:00 [facility] [place] Influenza Virus 2022-01-16 Completed [facility] Vaccine 00:00:00 [facility] [place] Influenza Virus 2022-01-16 Completed [facility] Vaccine 00:00:00 [facility] [place] Influenza Virus 2022-01-16 Completed [facility] Vaccine 00:00:00 [facility] [place] Influenza Virus 2022-01-16 Completed [facility] Vaccine 00:00:00 [facility] [place] Influenza Virus 2022-01-16 Completed [facility] Vaccine 00:00:00 [facility] [place] Pneumococcal 20 2021-09-26 Completed [facility] of Conjugate, PCV20 00:00:00 [facility] dical (Prevnar 20) Branch Pneumococcal 20 2021-09-26 Completed [facility] of Conjugate, PCV20 00:00:00 [facility] dical (Prevnar 20) Branch Pneumococcal 20 2021-09-26 Completed [facility] of Conjugate, PCV20 00:00:00 [facility] dical (Prevnar 20) Branch Pneumococcal 20 2021-09-26 Completed [facility] of Conjugate, PCV20 00:00:00 [facility] dical (Prevnar 20) Branch Pneumococcal 20 2021-09-26 Completed [facility] of Conjugate, PCV20 00:00:00 [facility] dical (Prevnar 20) Branch Pneumococcal 20 2021-09-26 Completed [facility] Conjugate, PCV20 00:00:00 [facility] (Pre[facility]ar 20) [facility] Pneumococcal 20 2021-09-26 Completed [facility] Conjugate, PCV20 00:00:00 [facility] (Pre[facility]ar 20) [facility] Pneumococcal 20 2021-09-26 Completed [facility] Conjugate, PCV20 00:00:00 [facility] (Prevnar 20) [facility] Pneumococcal 20 2021-09-26 Completed [facility] Conjugate, PCV20 00:00:00 [facility] (Prevnar 20) [facility] Pneumococcal 20 2021-09-26 Completed [facility] Conjugate, PCV20 00:00:00 [facility] (Prevnar 20) [facility] Pneumococcal 20 2021-09-26 Completed [facility] Conjugate, PCV20 00:00:00 [facility] (Prevnar 20) [facility] Pneumococcal 20 2021-09-26 Completed [facility] Conjugate, PCV20 00:00:00 [facility] (Pre[facility]ar 20) [facility] Pneumococcal 20 2021-09-26 Completed [facility] Conjugate, PCV20 00:00:00 [facility] (Pre[facility]ar 20) [facility] Pneumococcal 20 2021-09-26 Completed [facility] Conjugate, PCV20 00:00:00 [facility] (Pre[facility]ar 20) [facility] Pneumococcal 20 2021-09-26 Completed [facility] Conjugate, PCV20 00:00:00 [facility] (Prevnar 20) [facility] Pneumococcal 20 2021-09-26 Completed [facility] Conjugate, PCV20 00:00:00 [facility] dical (Prevnar 20) Branch Pneumococcal 20 2021-09-26 Completed [facility] Conjugate, PCV20 00:00:00 [facility] (Pre[facility]ar 20) [facility] Pneumococcal 20 2021-09-26 Completed [facility] Conjugate, PCV20 00:00:00 [facility] (Prevnar 20) [facility] Pneumococcal 20 2021-09-26 Completed [facility] Conjugate, PCV20 00:00:00 [facility] (Prevnar 20) [facility] Pneumococcal 20 2021-09-26 Completed [facility] Conjugate, PCV20 00:00:00 [place] [facility] (Pre[facility]ar 20) [facility] Pneumococcal 20 2021-09-26 Completed [facility] Conjugate, PCV20 00:00:00 [place] [facility] (Prevnar 20) [facility] Pneumococcal 20 2021-09-26 Completed [facility] Conjugate, PCV20 00:00:00 [facility] (Prevnar 20) [facility] Pneumococcal 20 2021-09-26 Completed [facility] Conjugate, PCV20 00:00:00 [facility] (Prevnar 20) [facility] Pneumococcal 20 2021-09-26 Completed [facility] Conjugate, PCV20 00:00:00 [facility] (Prevnar 20) [facility] Pneumococcal 20 2021-09-26 Completed [facility] Conjugate, PCV20 00:00:00 [facility] (Prevnar 20) [facility] Pneumococcal 20 2021-09-26 Completed [facility] Conjugate, PCV20 00:00:00 [facility] (Prevnar 20) [facility] Pneumococcal 20 2021-09-26 Completed [facility] Conjugate, PCV20 00:00:00 [facility] (Prevnar 20) [facility] Pneumococcal 20 2021-09-26 Completed [facility] Conjugate, PCV20 00:00:00 [facility] dical (Prevnar 20) Branch Pneumococcal 20 2021-09-26 Completed [facility] of Conjugate, PCV20 00:00:00 [facility] dical (Prevnar 20) Branch SARS-COV-2 COVID-19 2021-01-12 Completed [facility] of PFIZER VACCINE 00:00:00 [facility] SARS-COV-2 COVID-19 2021-01-12 Completed [facility]ive rsity of PFIZER VACCINE 00:00:00 [facility] SARS-COV-2 COVID-19 2021-01-12 Completed [facility]ive rsity of PFIZER VACCINE 00:00:00 [facility] SARS-COV-2 COVID-19 2021-01-12 Completed [facility]ive rs[facility] of PFIZER VACCINE 00:00:00 [facility] SARS-COV-2 COVID-19 2021-01-12 Completed [facility]ive rs[facility] of PFIZER VACCINE 00:00:00 [facility] SARS-COV-2 COVID-19 2021-01-12 Completed [facility] of PFIZER VACCINE 00:00:00 [facility] SARS-COV-2 COVID-19 2021-01-12 Completed [facility] rs[facility] of PFIZER VACCINE 00:00:00 [facility] SARS-COV-2 COVID-19 2021-01-12 Completed [facility] PFIZER VACCINE 00:00:00 [facility] SARS-COV-2 COVID-19 2021-01-12 Completed [facility]ive rs[facility] of PFIZER VACCINE 00:00:00 [facility] SARS-COV-2 COVID-19 2021-01-12 Completed [facility] rs[facility] of PFIZER VACCINE 00:00:00 [facility] SARS-COV-2 COVID-19 2021-01-12 Completed [facility] rs[facility] of PFIZER VACCINE 00:00:00 [facility] SARS-COV-2 COVID-19 2021-01-12 Completed [facility] rs[facility] of PFIZER VACCINE 00:00:00 [facility] SARS-COV-2 COVID-19 2021-01-12 Completed [facility] rs[facility] of PFIZER VACCINE 00:00:00 [facility] SARS-COV-2 COVID-19 2021-01-12 Completed [facility] rs[facility] of PFIZER VACCINE 00:00:00 [facility] SARS-COV-2 COVID-19 2021-01-12 Completed [facility] rs[facility] of PFIZER VACCINE 00:00:00 [facility] SARS-COV-2 COVID-19 2021-01-12 Completed [facility]ive rsity of PFIZER VACCINE 00:00:00 [facility] SARS-COV-2 COVID-19 2021-01-12 Completed [facility] of PFIZER VACCINE 00:00:00 [facility] SARS-COV-2 COVID-19 2021-01-12 Completed [facility]ive rsity of PFIZER VACCINE 00:00:00 [facility] SARS-COV-2 COVID-19 2021-01-12 Completed [facility]ive rsity of PFIZER VACCINE 00:00:00 [facility] SARS-COV-2 COVID-19 2021-01-12 Completed [facility] rsity of PFIZER VACCINE 00:00:00 [facility] SARS-COV-2 COVID-19 2021-01-12 Completed [facility] rs[facility] of PFIZER VACCINE 00:00:00 [facility] SARS-COV-2 COVID-19 2021-01-12 Completed [facility]ive rs[facility] of PFIZER VACCINE 00:00:00 [facility] SARS-COV-2 COVID-19 2021-01-12 Completed [facility]ive rs[facility] of PFIZER VACCINE 00:00:00 [facility] SARS-COV-2 COVID-19 2021-01-12 Completed [facility] rs[facility] of PFIZER VACCINE 00:00:00 [facility] SARS-COV-2 COVID-19 2021-01-12 Completed [facility] of PFIZER VACCINE 00:00:00 [facility] SARS-COV-2 COVID-19 2021-01-12 Completed [facility] of PFIZER VACCINE 00:00:00 [facility] SARS-COV-2 COVID-19 2021-01-12 Completed [facility] of PFIZER VACCINE 00:00:00 [facility] SARS-COV-2 COVID-19 2021-01-12 Completed [facility] of PFIZER VACCINE 00:00:00 [facility] SARS-COV-2 COVID-19 2021-01-12 Completed [facility] of PFIZER VACCINE 00:00:00 [facility] Influenza Virus 2020-12-07 Completed [facility] Vaccine 00:00:00 [facility] [place] Influenza Virus 2020-12-07 Completed [facility] Vaccine 00:00:00 [facility] [place] Influenza Virus 2020-12-07 Completed [facility] Vaccine 00:00:00 [facility] [place] Influenza Virus 2020-12-07 Completed [facility] Vaccine 00:00:00 [facility] [place] Influenza Virus 2020-12-07 Completed [facility] Vaccine 00:00:00 [facility] [place] Influenza Virus 2020-12-07 Completed [facility] Vaccine 00:00:00 [facility] [place] Influenza Virus 2020-12-07 Completed [facility] Vaccine 00:00:00 [facility] [place] Influenza Virus 2020-12-07 Completed [facility] Vaccine 00:00:00 [facility] [place] Influenza Virus 2020-12-07 Completed [facility] Vaccine 00:00:00 [facility] [place] Influenza Virus 2020-12-07 Completed [facility] Vaccine 00:00:00 [facility] [place] Influenza Virus 2020-12-07 Completed [facility] Vaccine 00:00:00 [facility] [place] Influenza Virus 2020-12-07 Completed [facility] Vaccine 00:00:00 [facility] [place] Influenza Virus 2020-12-07 Completed [facility] Vaccine 00:00:00 [facility] [place] Influenza Virus 2020-12-07 Completed [facility] Vaccine 00:00:00 [facility] [place] Influenza Virus 2020-12-07 Completed [facility] Vaccine 00:00:00 [facility] [place] Influenza Virus 2020-12-07 Completed [facility] Vaccine 00:00:00 [facility] [place] Influenza Virus 2020-12-07 Completed [facility] Vaccine 00:00:00 [facility] [place] Influenza Virus 2020-12-07 Completed [facility] Vaccine 00:00:00 [facility] [place] Influenza Virus 2020-12-07 Completed [facility] Vaccine 00:00:00 [facility] [place] Influenza Virus 2020-12-07 Completed [facility] Vaccine 00:00:00 [facility] [place] Influenza Virus 2020-12-07 Completed [facility] Vaccine 00:00:00 [facility] [place] Influenza Virus 2020-12-07 Completed [facility] Vaccine 00:00:00 [facility] [place] Influenza Virus 2020-12-07 Completed [facility] Vaccine 00:00:00 [facility] [place] Influenza Virus 2020-12-07 Completed [facility] Vaccine 00:00:00 [facility] [place] Influenza Virus 2020-12-07 Completed [facility] Vaccine 00:00:00 [facility] [place] Influenza Virus 2020-12-07 Completed [facility] Vaccine 00:00:00 [facility] [place] Influenza Virus 2020-12-07 Completed [facility] Vaccine 00:00:00 [facility] [place] Influenza Virus 2020-12-07 Completed [facility] Vaccine 00:00:00 [facility] [place] Influenza Virus 2020-12-07 Completed [facility] Vaccine 00:00:00 [facility] [place] Influenza Virus 2020-12-07 Completed [facility] Vaccine 00:00:00 [facility] [place] Influenza Virus 2020-12-07 Completed [facility] Vaccine 00:00:00 [facility] [place] Influenza Virus 2020-12-07 Completed [facility] Vaccine 00:00:00 [facility] [place] Influenza Virus 2020-12-07 Completed [facility] Vaccine 00:00:00 [facility] [place] Influenza Virus 2020-12-07 Completed [facility] Vaccine 00:00:00 [facility] [place] Influenza Virus 2020-12-07 Completed [facility] Vaccine 00:00:00 [facility] [place] Influenza Virus 2020-12-07 Completed [facility] Vaccine 00:00:00 [facility] [place] Influenza Virus 2020-12-07 Completed [facility] Vaccine 00:00:00 [facility] [place] Influenza Virus 2020-12-07 Completed [facility] Vaccine 00:00:00 [facility] [place] Influenza Virus 2020-12-07 Completed [facility] Vaccine 00:00:00 [facility] [place] Influenza Virus 2020-12-07 Completed [facility] Vaccine 00:00:00 [facility] [place] Influenza Virus 2020-12-07 Completed [facility] Vaccine 00:00:00 [facility] [place] SARS-COV-2 SARS-COV-2 2020-05-30 Completed [facility] (COVID-19) vaccine, (COVID-19) 00:00:00 [facility] UNSPECIFIED vaccine, UNSPECIFIED SARS-COV-2 COVID-19 2020-05-24 Completed Unive rsity of PFIZER VACCINE 00:00:00 [facility] SARS-COV-2 COVID-19 2020-05-24 Completed Unive rsity of PFIZER VACCINE 00:00:00 [facility] SARS-COV-2 COVID-19 2020-05-24 Completed [facility]ive rs[facility] of PFIZER VACCINE 00:00:00 [facility] SARS-COV-2 COVID-19 2020-05-24 Completed [facility]ive rsity of PFIZER VACCINE 00:00:00 [facility] SARS-COV-2 COVID-19 2020-05-24 Completed [facility]ive rsity of PFIZER VACCINE 00:00:00 [facility] SARS-COV-2 COVID-19 2020-05-24 Completed [facility] of PFIZER VACCINE 00:00:00 [facility] SARS-COV-2 COVID-19 2020-05-24 Completed [facility] of PFIZER VACCINE 00:00:00 [facility] SARS-COV-2 COVID-19 2020-05-24 Completed [facility] of PFIZER VACCINE 00:00:00 [facility] SARS-COV-2 COVID-19 2020-05-24 Completed [facility] of PFIZER VACCINE 00:00:00 [facility] SARS-COV-2 COVID-19 2020-05-24 Completed [facility] of PFIZER VACCINE 00:00:00 [facility] SARS-COV-2 COVID-19 2020-05-24 Completed [facility] of PFIZER VACCINE 00:00:00 [facility] SARS-COV-2 COVID-19 2020-05-24 Completed [facility] of PFIZER VACCINE 00:00:00 [facility] SARS-COV-2 COVID-19 2020-05-24 Completed [facility] of PFIZER VACCINE 00:00:00 [facility] SARS-COV-2 COVID-19 2020-05-24 Completed [facility] rsity of PFIZER VACCINE 00:00:00 [facility] SARS-COV-2 COVID-19 2020-05-24 Completed [facility] of PFIZER VACCINE 00:00:00 [facility] SARS-COV-2 COVID-19 2020-05-24 Completed [facility] of PFIZER VACCINE 00:00:00 [facility] SARS-COV-2 COVID-19 2020-05-24 Completed [facility] of PFIZER VACCINE 00:00:00 [facility] SARS-COV-2 COVID-19 2020-05-24 Completed [facility] of PFIZER VACCINE 00:00:00 [facility] SARS-COV-2 COVID-19 2020-05-24 Completed [facility] of PFIZER VACCINE 00:00:00 [facility] SARS-COV-2 COVID-19 2020-05-24 Completed [facility] of PFIZER VACCINE 00:00:00 [facility] SARS-COV-2 COVID-19 2020-05-24 Completed [facility] of PFIZER VACCINE 00:00:00 [facility] SARS-COV-2 COVID-19 2020-05-24 Completed [facility] of PFIZER VACCINE 00:00:00 [facility] SARS-COV-2 COVID-19 2020-05-24 Completed [facility] of PFIZER VACCINE 00:00:00 [facility] SARS-COV-2 COVID-19 2020-05-24 Completed [facility] of PFIZER VACCINE 00:00:00 [facility] SARS-COV-2 COVID-19 2020-05-24 Completed [facility] of PFIZER VACCINE 00:00:00 [facility] SARS-COV-2 COVID-19 2020-05-24 Completed [facility] of PFIZER VACCINE 00:00:00 [facility] SARS-COV-2 COVID-19 2020-05-24 Completed [facility] of PFIZER VACCINE 00:00:00 [facility] SARS-COV-2 COVID-19 2020-05-24 Completed [facility] of PFIZER VACCINE 00:00:00 [facility] SARS-COV-2 COVID-19 2020-05-24 Completed [facility] of PFIZER VACCINE 00:00:00 [facility] SARS-COV-2 COVID-19 2020-05-24 Completed [facility] of PFIZER VACCINE 00:00:00 [facility] SARS-COV-2 COVID-19 2020-05-24 Completed [facility] of PFIZER VACCINE 00:00:00 [facility] SARS-COV-2 COVID-19 2020-05-24 Completed [facility] of PFIZER VACCINE 00:00:00 [facility] SARS-COV-2 COVID-19 2020-05-24 Completed [facility] of PFIZER VACCINE 00:00:00 [facility] SARS-COV-2 COVID-19 2020-05-24 Completed [facility] of PFIZER VACCINE 00:00:00 [facility] SARS-COV-2 COVID-19 2020-05-24 Completed [facility] of PFIZER VACCINE 00:00:00 [facility] SARS-COV-2 COVID-19 2020-05-24 Completed [facility] of PFIZER VACCINE 00:00:00 [facility] SARS-COV-2 COVID-19 2020-05-24 Completed [facility] of PFIZER VACCINE 00:00:00 [facility] SARS-COV-2 COVID-19 2020-05-24 Completed [facility] of PFIZER VACCINE 00:00:00 [facility] SARS-COV-2 COVID-19 2020-05-24 Completed [facility] of PFIZER VACCINE 00:00:00 [facility] SARS-COV-2 COVID-19 2020-05-24 Completed [facility] of PFIZER VACCINE 00:00:00 [facility] SARS-COV-2 COVID-19 2020-05-24 Completed [facility] of PFIZER VACCINE 00:00:00 [facility] SARS-COV-2 COVID-19 2020-05-03 Completed [facility] of PFIZER VACCINE 00:00:00 [facility] SARS-COV-2 COVID-19 2020-05-03 Completed [facility] of PFIZER VACCINE 00:00:00 [facility] SARS-COV-2 COVID-19 2020-05-03 Completed [facility] of PFIZER VACCINE 00:00:00 [facility] SARS-COV-2 COVID-19 2020-05-03 Completed [facility] of PFIZER VACCINE 00:00:00 [facility] SARS-COV-2 COVID-19 2020-05-03 Completed [facility] of PFIZER VACCINE 00:00:00 [facility] SARS-COV-2 COVID-19 2020-05-03 Completed [facility] of PFIZER VACCINE 00:00:00 [facility] SARS-COV-2 COVID-19 2020-05-03 Completed [facility] of PFIZER VACCINE 00:00:00 [facility] SARS-COV-2 COVID-19 2020-05-03 Completed [facility] of PFIZER VACCINE 00:00:00 [facility] SARS-COV-2 COVID-19 2020-05-03 Completed [facility] of PFIZER VACCINE 00:00:00 [facility] SARS-COV-2 COVID-19 2020-05-03 Completed [facility] of PFIZER VACCINE 00:00:00 [facility] SARS-COV-2 COVID-19 2020-05-03 Completed [facility] of PFIZER VACCINE 00:00:00 [facility] SARS-COV-2 COVID-19 2020-05-03 Completed [facility] of PFIZER VACCINE 00:00:00 [facility] SARS-COV-2 COVID-19 2020-05-03 Completed [facility] of PFIZER VACCINE 00:00:00 [facility] SARS-COV-2 COVID-19 2020-05-03 Completed [facility] of PFIZER VACCINE 00:00:00 [facility] SARS-COV-2 COVID-19 2020-05-03 Completed [facility] of PFIZER VACCINE 00:00:00 [facility] SARS-COV-2 COVID-19 2020-05-03 Completed [facility] of PFIZER VACCINE 00:00:00 [facility] SARS-COV-2 COVID-19 2020-05-03 Completed [facility] of PFIZER VACCINE 00:00:00 [facility] SARS-COV-2 COVID-19 2020-05-03 Completed [facility] of PFIZER VACCINE 00:00:00 [facility] SARS-COV-2 COVID-19 2020-05-03 Completed [facility] of PFIZER VACCINE 00:00:00 [facility] SARS-COV-2 COVID-19 2020-05-03 Completed [facility] of PFIZER VACCINE 00:00:00 [facility] SARS-COV-2 COVID-19 2020-05-03 Completed [facility] of PFIZER VACCINE 00:00:00 [facility] SARS-COV-2 COVID-19 2020-05-03 Completed [facility] of PFIZER VACCINE 00:00:00 [facility] SARS-COV-2 COVID-19 2020-05-03 Completed [facility] of PFIZER VACCINE 00:00:00 [facility] SARS-COV-2 COVID-19 2020-05-03 Completed [facility] of PFIZER VACCINE 00:00:00 [facility] SARS-COV-2 COVID-19 2020-05-03 Completed [facility] of PFIZER VACCINE 00:00:00 [facility] SARS-COV-2 COVID-19 2020-05-03 Completed [facility] of PFIZER VACCINE 00:00:00 [facility] SARS-COV-2 COVID-19 2020-05-03 Completed [facility] of PFIZER VACCINE 00:00:00 [facility] SARS-COV-2 COVID-19 2020-05-03 Completed [facility] of PFIZER VACCINE 00:00:00 [facility] SARS-COV-2 COVID-19 2020-05-03 Completed [facility] of PFIZER VACCINE 00:00:00 [facility] SARS-COV-2 SARS-COV-2 2020-05-03 Completed [facility] (COVID-19) vaccine, (COVID-19) 00:00:00 [facility] UNSPECIFIED vaccine, UNSPECIFIED SARS-COV-2 COVID-19 2020-04-15 Completed [facility] PFIZER VACCINE 00:00:00 [facility] SARS-COV-2 COVID-19 2020-04-15 Completed [facility] of PFIZER VACCINE 00:00:00 [facility] SARS-COV-2 COVID-19 2020-04-15 Completed [facility] of PFIZER VACCINE 00:00:00 [facility] SARS-COV-2 COVID-19 2020-04-15 Completed [facility] PFIZER VACCINE 00:00:00 [facility] SARS-COV-2 COVID-19 2020-04-15 Completed [facility] of PFIZER VACCINE 00:00:00 [facility] SARS-COV-2 COVID-19 2020-04-15 Completed [facility] of PFIZER VACCINE 00:00:00 [facility] SARS-COV-2 COVID-19 2020-04-15 Completed [facility] of PFIZER VACCINE 00:00:00 [facility] SARS-COV-2 COVID-19 2020-04-15 Completed [facility] of PFIZER VACCINE 00:00:00 [facility] SARS-COV-2 COVID-19 2020-04-15 Completed [facility] PFIZER VACCINE 00:00:00 [facility] SARS-COV-2 COVID-19 2020-04-15 Completed [facility] of PFIZER VACCINE 00:00:00 [facility] SARS-COV-2 COVID-19 2020-04-15 Completed [facility] of PFIZER VACCINE 00:00:00 [facility] SARS-COV-2 COVID-19 2020-04-15 Completed [facility] PFIZER VACCINE 00:00:00 [facility] SARS-COV-2 COVID-19 2020-04-15 Completed [facility] of PFIZER VACCINE 00:00:00 [facility] SARS-COV-2 COVID-19 2020-04-15 Completed [facility] PFIZER VACCINE 00:00:00 [facility] SARS-COV-2 COVID-19 2020-04-15 Completed [facility] of PFIZER VACCINE 00:00:00 [facility] SARS-COV-2 COVID-19 2020-04-15 Completed [facility] of PFIZER VACCINE 00:00:00 [facility] SARS-COV-2 COVID-19 2020-04-15 Completed [facility] of PFIZER VACCINE 00:00:00 [facility] SARS-COV-2 COVID-19 2020-04-15 Completed [facility] PFIZER VACCINE 00:00:00 [facility] SARS-COV-2 COVID-19 2020-04-15 Completed [facility] PFIZER VACCINE 00:00:00 [facility] SARS-COV-2 COVID-19 2020-04-15 Completed [facility] of PFIZER VACCINE 00:00:00 [facility] SARS-COV-2 COVID-19 2020-04-15 Completed [facility] of PFIZER VACCINE 00:00:00 [facility] SARS-COV-2 COVID-19 2020-04-15 Completed [facility] of PFIZER VACCINE 00:00:00 [facility] SARS-COV-2 COVID-19 2020-04-15 Completed [facility] of PFIZER VACCINE 00:00:00 [facility] SARS-COV-2 COVID-19 2020-04-15 Completed [facility] of PFIZER VACCINE 00:00:00 [facility] SARS-COV-2 COVID-19 2020-04-15 Completed [facility] of PFIZER VACCINE 00:00:00 [facility] SARS-COV-2 COVID-19 2020-04-15 Completed [facility] of PFIZER VACCINE 00:00:00 [facility] SARS-COV-2 COVID-19 2020-04-15 Completed [facility] of PFIZER VACCINE 00:00:00 [facility] SARS-COV-2 COVID-19 2020-04-15 Completed [facility] of PFIZER VACCINE 00:00:00 [facility] SARS-COV-2 COVID-19 2020-04-15 Completed [facility] of PFIZER VACCINE 00:00:00 [facility] SARS-COV-2 COVID-19 2020-04-15 Completed [facility] of PFIZER VACCINE 00:00:00 [facility] SARS-COV-2 COVID-19 2020-04-15 Completed [facility] of PFIZER VACCINE 00:00:00 [facility] SARS-COV-2 COVID-19 2020-04-15 Completed [facility] of PFIZER VACCINE 00:00:00 [facility] SARS-COV-2 COVID-19 2020-04-15 Completed [facility] of PFIZER VACCINE 00:00:00 [facility] SARS-COV-2 COVID-19 2020-04-15 Completed [facility] of PFIZER VACCINE 00:00:00 [facility] SARS-COV-2 COVID-19 2020-04-15 Completed [facility] of PFIZER VACCINE 00:00:00 [facility] SARS-COV-2 COVID-19 2020-04-15 Completed [facility] of PFIZER VACCINE 00:00:00 [facility] SARS-COV-2 COVID-19 2020-04-15 Completed [facility] of PFIZER VACCINE 00:00:00 [facility] SARS-COV-2 COVID-19 2020-04-15 Completed [facility] of PFIZER VACCINE 00:00:00 [facility] SARS-COV-2 COVID-19 2020-04-15 Completed [facility] of PFIZER VACCINE 00:00:00 [facility] SARS-COV-2 COVID-19 2020-04-15 Completed [facility] of PFIZER VACCINE 00:00:00 [facility] SARS-COV-2 COVID-19 2020-04-15 Completed [facility] of PFIZER VACCINE 00:00:00 [facility] Influenza Virus 2019-12-07 Completed [facility] of Vaccine Quad IM, 00:00:00 [place] [facility] Preserv and ABX Free Bran ch 6 MO-64 YRS Influenza Virus 2019-12-07 Completed [facility] Vaccine Quad IM, 00:00:00 [facility] Preserv and ABX Free Bran ch 6 MO-64 YRS Influenza Virus 2019-12-07 Completed [facility] Vaccine Quad IM, 00:00:00 [place] [facility] Preserv and ABX Free Bran ch 6 MO-64 YRS Influenza Virus 2019-12-07 Completed [facility] Vaccine Quad IM, 00:00:00 [place] [facility] Preserv and ABX Free Bran ch 6 MO-64 YRS Influenza Virus 2019-12-07 Completed [facility] Vaccine Quad IM, 00:00:00 [place] [facility] Preserv and ABX Free Bran ch 6 MO-64 YRS Influenza Virus 2019-12-07 Completed [facility] Vaccine Quad IM, 00:00:00 [place] [facility] Preserv and ABX Free Bran ch 6 MO-64 YRS Influenza Virus 2019-12-07 Completed [facility] Vaccine Quad IM, 00:00:00 [place] [facility] Preserv and ABX Free Bran ch 6 MO-64 YRS Influenza Virus 2019-12-07 Completed [facility] Vaccine Quad IM, 00:00:00 [place] [facility] Preserv and ABX Free Bran ch 6 MO-64 YRS Influenza Virus 2019-12-07 Completed [facility] Vaccine Quad IM, 00:00:00 [place] [facility] Preserv and ABX Free Bran ch 6 MO-64 YRS Influenza Virus 2019-12-07 Completed [facility] Vaccine Quad IM, 00:00:00 [place] [facility] Preserv and ABX Free Bran ch 6 MO-64 YRS Influenza Virus 2019-12-07 Completed [facility] Vaccine Quad IM, 00:00:00 [place] [facility] Preserv and ABX Free Bran ch 6 MO-64 YRS Influenza Virus 2019-12-07 Completed [facility] Vaccine Quad IM, 00:00:00 [place] [facility] Preserv and ABX Free Bran ch 6 MO-64 YRS Influenza Virus 2019-12-07 Completed [facility] Vaccine Quad IM, 00:00:00 [place] [facility] Preserv and ABX Free Bran ch 6 MO-64 YRS Influenza Virus 2019-12-07 Completed [facility] Vaccine Quad IM, 00:00:00 [place] [facility] Preserv and ABX Free Bran ch 6 MO-64 YRS Influenza Virus 2019-12-07 Completed [facility] Vaccine Quad IM, 00:00:00 [place] [facility] Preserv and ABX Free Bran ch 6 MO-64 YRS Influenza Virus 2019-12-07 Completed [facility] Vaccine Quad IM, 00:00:00 [place] [facility] Preserv and ABX Free Bran ch 6 MO-64 YRS Influenza Virus 2019-12-07 Completed [facility] Vaccine Quad IM, 00:00:00 [place] [facility] Preserv and ABX Free Bran ch 6 MO-64 YRS Influenza Virus 2019-12-07 Completed [facility] Vaccine Quad IM, 00:00:00 [place] [facility] Preserv and ABX Free Bran ch 6 MO-64 YRS Influenza Virus 2019-12-07 Completed [facility] Vaccine Quad IM, 00:00:00 [place] [facility] Preserv and ABX Free Bran ch 6 MO-64 YRS Influenza Virus 2019-12-07 Completed [facility] Vaccine Quad IM, 00:00:00 [place] [facility] Preserv and ABX Free Bran ch 6 MO-64 YRS Influenza Virus 2019-12-07 Completed [facility] Vaccine Quad IM, 00:00:00 [place] [facility] Preserv and ABX Free Bran ch 6 MO-64 YRS Influenza Virus 2019-12-07 Completed [facility] Vaccine Quad IM, 00:00:00 [place] [facility] Preserv and ABX Free Bran ch 6 MO-64 YRS Influenza Virus 2019-12-07 Completed [facility] Vaccine Quad IM, 00:00:00 [place] [facility] Preserv and ABX Free Bran ch 6 MO-64 YRS Influenza Virus 2019-12-07 Completed [facility] Vaccine Quad IM, 00:00:00 [place] [facility] Preserv and ABX Free Bran ch 6 MO-64 YRS Influenza Virus 2019-12-07 Completed [facility] Vaccine Quad IM, 00:00:00 [place] [facility] Preserv and ABX Free Bran ch 6 MO-64 YRS Influenza Virus 2019-12-07 Completed [facility] Vaccine Quad IM, 00:00:00 [place] [facility] Preserv and ABX Free Bran ch 6 MO-64 YRS Influenza Virus 2019-12-07 Completed [facility] Vaccine Quad IM, 00:00:00 [place] [facility] Preserv and ABX Free Bran ch 6 MO-64 YRS Influenza Virus 2019-12-07 Completed [facility] Vaccine Quad IM, 00:00:00 [place] [facility] Preserv and ABX Free Bran ch 6 MO-64 YRS Influenza Virus 2019-12-07 Completed [facility] Vaccine Quad IM, 00:00:00 [place] [facility] Preserv and ABX Free Bran ch 6 MO-64 YRS Influenza Virus 2019-12-07 Completed [facility] Vaccine Quad IM, 00:00:00 [place] [facility] Preserv and ABX Free Bran ch 6 MO-64 YRS Influenza Virus 2019-12-07 Completed [facility] Vaccine Quad IM, 00:00:00 [place] [facility] Preserv and ABX Free Bran ch 6 MO-64 YRS Influenza Virus 2019-12-07 Completed [facility] Vaccine Quad IM, 00:00:00 [place] [facility] Preserv and ABX Free Bran ch 6 MO-64 YRS Influenza Virus 2019-12-07 Completed [facility] Vaccine Quad IM, 00:00:00 [place] [facility] Preserv and ABX Free Bran ch 6 MO-64 YRS Influenza Virus 2019-12-07 Completed [facility] Vaccine Quad IM, 00:00:00 [place] [facility] Preserv and ABX Free Bran ch 6 MO-64 YRS Influenza Virus 2019-12-07 Completed [facility] Vaccine Quad IM, 00:00:00 [place] [facility] Preserv and ABX Free Bran ch 6 MO-64 YRS Influenza Virus 2019-12-07 Completed [facility] Vaccine Quad IM, 00:00:00 [place] [facility] Preserv and ABX Free Bran ch 6 MO-64 YRS Influenza Virus 2019-12-07 Completed [facility] Vaccine Quad IM, 00:00:00 [place] [facility] Preserv and ABX Free Bran ch 6 MO-64 YRS Influenza Virus 2019-12-07 Completed [facility] Vaccine Quad IM, 00:00:00 [place] [facility] Preserv and ABX Free Bran ch 6 MO-64 YRS Influenza Virus 2019-12-07 Completed [facility] Vaccine Quad IM, 00:00:00 [place] [facility] Preserv and ABX Free Bran ch 6 MO-64 YRS (FLUCELVAX) Influenza Virus 2019-12-07 Completed [facility] Vaccine Quad IM, 00:00:00 [place] [facility] Preserv and ABX Free Bran ch 6 MO-64 YRS (FLUCELVAX) Influenza Virus 2019-12-07 Completed [facility] Vaccine Quad IM, 00:00:00 [place] [facility] Preserv and ABX Free Bran ch 6 MO-64 YRS (FLUCELVAX) Influenza Virus 2019-12-03 Completed [facility] Vaccine Quad .5 mL 00:00:00 [facility] 6+ MO Branch Influenza Virus [...] y of Vaccine Quad .5 mL 00:00:00 [facility] 6+ MO Branch Influenza Virus [...] 00:00:00 [facility] 6+ MO Branch (FLUZONE/FLULAVAL/FL UARIX) Influenza Virus 2019-12-03 Completed [facility] Vaccine Quad .5 mL 00:00:00 [facility] 6+ MO [facility] (FLUZONE/FLULAVAL/FL UARIX) Influenza Virus 2019-12-03 Completed [facility] of Vaccine Quad .5 mL 00:00:00 [facility] IM 6+ MO Branch (FLUZONE/FLULAVAL/FL UARIX) Pneumococcal 13 2019-06-19 Completed [facility] of Conjugate, PCV13 00:00:00 [place] [facility] (Prevnar 13) Branch Pneumococcal 13 2019-06-19 Completed [facility] Conjugate, PCV13 00:00:00 [place] [facility] (Prevnar 13) Branch Pneumococcal 13 2019-06-19 Completed [facility] Conjugate, PCV13 00:00:00 [place] [facility] (Prevnar 13) Branch Pneumococcal 13 2019-06-19 Completed [facility] Conjugate, PCV13 00:00:00 [place] [facility] (Prevnar 13) Branch Pneumococcal 13 2019-06-19 Completed [facility] Conjugate, PCV13 00:00:00 [place] [facility] (Prevnar 13) Branch Pneumococcal 13 2019-06-19 Completed [facility] of Conjugate, PCV13 00:00:00 [place] [facility] (Prevnar 13) Branch Pneumococcal 13 2019-06-19 Completed [facility] of Conjugate, PCV13 00:00:00 [place] [facility] (Prevnar 13) Branch Pneumococcal 13 2019-06-19 Completed [facility] Conjugate, PCV13 00:00:00 [place] [facility] (Prevnar 13) Branch Pneumococcal 13 2019-06-19 Completed [facility] Conjugate, PCV13 00:00:00 [place] [facility] (Prevnar 13) Branch Pneumococcal 13 2019-06-19 Completed [facility] Conjugate, PCV13 00:00:00 [place] [facility] (Prevnar 13) Branch Pneumococcal 13 2019-06-19 Completed [facility] of Conjugate, PCV13 00:00:00 [place] [facility] (Prevnar 13) Branch Pneumococcal 13 2019-06-19 Completed [facility] of Conjugate, PCV13 00:00:00 [place] [facility] (Prevnar 13) Branch Pneumococcal 13 2019-06-19 Completed [facility] of Conjugate, PCV13 00:00:00 [place] [facility] (Prevnar 13) Branch Pneumococcal 13 2019-06-19 Completed [facility] of Conjugate, PCV13 00:00:00 [place] [facility] (Prevnar 13) Branch Pneumococcal 13 2019-06-19 Completed [facility] of Conjugate, PCV13 00:00:00 [place] [facility] (Prevnar 13) Branch Pneumococcal 13 2019-06-19 Completed [facility] Conjugate, PCV13 00:00:00 [place] [facility] (Prevnar 13) Branch Pneumococcal 13 2019-06-19 Completed [facility] Conjugate, PCV13 00:00:00 [place] [facility] (Prevnar 13) Branch Pneumococcal 13 2019-06-19 Completed [facility] of Conjugate, PCV13 00:00:00 [place] [facility] (Prevnar 13) Branch Pneumococcal 13 2019-06-19 Completed [facility] of Conjugate, PCV13 00:00:00 [place] [facility] (Prevnar 13) Branch Pneumococcal 13 2019-06-19 Completed [facility] of Conjugate, PCV13 00:00:00 [place] [facility] (Prevnar 13) Branch Pneumococcal 13 2019-06-19 Completed [facility] of Conjugate, PCV13 00:00:00 [place] [facility] (Prevnar 13) Branch Pneumococcal 13 2019-06-19 Completed [facility] of Conjugate, PCV13 00:00:00 [place] [facility] (Prevnar 13) Branch Pneumococcal 13 2019-06-19 Completed [facility] of Conjugate, PCV13 00:00:00 [place] [facility] (Prevnar 13) Branch Pneumococcal 13 2019-06-19 Completed [facility] of Conjugate, PCV13 00:00:00 [place] [facility] (Prevnar 13) Branch Pneumococcal 13 2019-06-19 Completed [facility] of Conjugate, PCV13 00:00:00 [place] [facility] (Prevnar 13) Branch Pneumococcal 13 2019-06-19 Completed [facility] of Conjugate, PCV13 00:00:00 [place] [facility] (Prevnar 13) Branch Pneumococcal 13 2019-06-19 Completed [facility] of Conjugate, PCV13 00:00:00 [place] [facility] (Prevnar 13) Branch Pneumococcal 13 2019-06-19 Completed [facility] of Conjugate, PCV13 00:00:00 [place] [facility] (Prevnar 13) Branch Pneumococcal 13 2019-06-19 Completed [facility] of Conjugate, PCV13 00:00:00 [place] [facility] (Prevnar 13) Branch Pneumococcal 13 2019-06-19 Completed [facility] of Conjugate, PCV13 00:00:00 [place] [facility] (Prevnar 13) Branch Pneumococcal 13 2019-06-19 Completed [facility] of Conjugate, PCV13 00:00:00 [place] [facility] (Prevnar 13) Branch Pneumococcal 13 2019-06-19 Completed [facility] of Conjugate, PCV13 00:00:00 [place] [facility] (Prevnar 13) Branch Pneumococcal 13 2019-06-19 Completed [facility] of Conjugate, PCV13 00:00:00 [place] [facility] (Prevnar 13) Branch Pneumococcal 13 2019-06-19 Completed [facility] Conjugate, PCV13 00:00:00 [place] [facility] ([facility]ar 13) [facility] Pneumococcal 13 2019-06-19 Completed [facility] Conjugate, PCV13 00:00:00 [place] [facility] (Prevnar 13) Branch Pneumococcal 13 2019-06-19 Completed [facility] Conjugate, PCV13 00:00:00 [place] [facility] (Prevnar 13) Branch Pneumococcal 13 2019-06-19 Completed [facility] Conjugate, PCV13 00:00:00 [place] [facility] (Prevnar 13) Branch Pneumococcal 13 2019-06-19 Completed [facility] Conjugate, PCV13 00:00:00 [place] [facility] (Prevnar 13) Branch Pneumococcal 13 2019-06-19 Completed [facility] of Conjugate, PCV13 00:00:00 [place] [facility] (Prevnar 13) Branch Pneumococcal 13 2019-06-19 Completed [facility] of Conjugate, PCV13 00:00:00 [facility] dical (Prevnar 13) Branch Pneumococcal 13 2019-06-19 Completed [facility]it [facility] of Conjugate, PCV13 00:00:00 [facility] dical (Prevnar 13) Branch Influenza Virus 2018-12-14 Completed [facility] of Vaccine Quad .5 mL 00:00:00 [facility] 6+ MO [facility] Influenza Virus 2018-12-14 Completed [facility] Vaccine Quad .5 mL 00:00:00 [facility] 6+ MO [facility] Influenza Virus 2018-12-14 Completed [facility] Vaccine Quad .5 mL 00:00:00 [facility] 6+ MO [facility] Influenza Virus 2018-12-14 Completed [facility] Vaccine Quad .5 mL 00:00:00 [facility] 6+ MO [facility] Influenza Virus 2018-12-14 Completed [facility] of Vaccine Quad .5 mL 00:00:00 [facility] 6+ MO Branch Influenza Virus 2018-12-14 Completed [facility] of Vaccine Quad .5 mL 00:00:00 [facility] 6+ MO Branch Influenza Virus 2018-12-14 Completed [facility] Vaccine Quad .5 mL 00:00:00 [facility] 6+ MO [facility] Influenza Virus 2018-12-14 Completed [facility] of Vaccine Quad .5 mL 00:00:00 [facility] 6+ MO [facility] Influenza Virus 2018-12-14 Completed [facility] of Vaccine Quad .5 mL 00:00:00 [facility] 6+ MO [facility] Influenza Virus 2018-12-14 Completed [facility] Vaccine Quad .5 mL 00:00:00 [facility] 6+ MO [facility] Influenza Virus 2018-12-14 Completed [facility] of Vaccine Quad .5 mL 00:00:00 [facility] 6+ MO [facility] Influenza Virus 2018-12-14 Completed [facility] of Vaccine Quad .5 mL 00:00:00 [facility] 6+ MO Branch Influenza Virus 2018-12-14 Completed [facility] of Vaccine Quad .5 mL 00:00:00 [facility] 6+ MO Branch Influenza Virus 2018-12-14 Completed [facility] of Vaccine Quad .5 mL 00:00:00 [facility] 6+ MO Branch Influenza Virus 2018-12-14 Completed [facility] of Vaccine Quad .5 mL 00:00:00 [facility] 6+ MO Branch Influenza Virus 2018-12-14 Completed [facility] of Vaccine Quad .5 mL 00:00:00 [facility] 6+ MO Branch Influenza Virus 2018-12-14 Completed [facility] of Vaccine Quad .5 mL 00:00:00 [facility] 6+ MO Branch Influenza Virus 2018-12-14 Completed [facility] of Vaccine Quad .5 mL 00:00:00 [facility] 6+ MO Branch Influenza Virus 2018-12-14 Completed [facility] of Vaccine Quad .5 mL 00:00:00 [facility] 6+ MO [facility] Influenza Virus 2018-12-14 Completed [facility] of Vaccine Quad .5 mL 00:00:00 [facility] 6+ MO Branch Influenza Virus 2018-12-14 Completed [facility] of Vaccine Quad .5 mL 00:00:00 [facility] 6+ MO Branch Influenza Virus 2018-12-14 Completed [facility] of Vaccine Quad .5 mL 00:00:00 [facility] 6+ MO Branch Influenza Virus 2018-12-14 Completed [facility] of Vaccine Quad .5 mL 00:00:00 [facility] 6+ MO Branch Influenza Virus 2018-12-14 Completed [facility] of Vaccine Quad .5 mL 00:00:00 [facility] 6+ MO Branch Influenza Virus 2018-12-14 Completed [...] y of Vaccine Quad .5 mL 00:00:00 [facility] 6+ MO Branch Influenza Virus 2018-12-14 Completed [facility] of Vaccine Quad .5 mL 00:00:00 [facility] 6+ MO Branch Influenza Virus 2018-12-14 Completed [facility] of Vaccine Quad .5 mL 00:00:00 [facility] 6+ MO [facility] Influenza Virus 2018-12-14 Completed [facility] of Vaccine Quad .5 mL 00:00:00 [facility] 6+ MO Branch Influenza Virus 2018-12-14 Completed [facility] of Vaccine Quad .5 mL 00:00:00 [facility] 6+ MO Branch Influenza Virus 2018-12-14 Completed [facility] of Vaccine Quad .5 mL 00:00:00 [facility] 6+ MO Branch Influenza Virus 2018-12-14 Completed [facility] of Vaccine Quad .5 mL 00:00:00 [facility] 6+ MO Branch Influenza Virus 2018-12-14 Completed [facility] Vaccine Quad .5 mL 00:00:00 [facility] 6+ MO Branch Influenza Virus 2018-12-14 Completed [facility] Vaccine Quad .5 mL 00:00:00 [facility] 6+ MO [facility] Influenza Virus 2018-12-14 Completed [facility] of Vaccine Quad .5 mL 00:00:00 [facility] 6+ MO Branch (FLUZONE/FLULAVAL/FL UARIX) Influenza Virus 2018-12-14 Completed [facility] of Vaccine Quad .5 mL 00:00:00 [facility] 6+ MO Branch (FLUZONE/FLULAVAL/FL UARIX) Influenza Virus 2018-12-14 Completed [facility] of Vaccine Quad .5 mL 00:00:00 [facility] 6+ MO Branch (FLUZONE/FLULAVAL/FL UARIX) Pneumococcal 2018-07-15 Completed University o f Polysaccharide, [...] 00:00:00 [place] [facility] PPSV23 (PNEUMOVAX) Branch Influenza Virus 2017-11-30 Completed [facility] of Vaccine 00:00:00 [facility] Influenza Virus 2017-11-30 Completed [facility] of Vaccine 00:00:00 [facility] Influenza Virus 2017-11-30 Completed [facility] of Vaccine 00:00:00 [facility] Influenza Virus 2017-11-30 Completed [facility] of Vaccine 00:00:00 [facility] Influenza Virus 2017-11-30 Completed [facility] of Vaccine 00:00:00 [facility] Influenza Virus 2017-11-30 Completed [facility] of Vaccine 00:00:00 [facility] Influenza Virus 2017-11-30 Completed [facility] of Vaccine 00:00:00 [facility] Influenza Virus 2017-11-30 Completed [facility] of Vaccine 00:00:00 [facility] Influenza Virus 2017-11-30 Completed [facility] of Vaccine 00:00:00 [facility] Influenza Virus 2017-11-30 Completed [facility] of Vaccine 00:00:00 [facility] Influenza Virus 2017-11-30 Completed [facility] of Vaccine 00:00:00 [facility] Influenza Virus 2017-11-30 Completed [facility] of Vaccine 00:00:00 [facility] Influenza Virus 2017-11-30 Completed [facility] of Vaccine 00:00:00 [facility] Influenza Virus 2017-11-30 Completed [facility] of Vaccine 00:00:00 [facility] Influenza Virus 2017-11-30 Completed [facility] of Vaccine 00:00:00 [facility] Influenza Virus 2017-11-30 Completed [facility] of Vaccine 00:00:00 [facility] Influenza Virus 2017-11-30 Completed [facility] of Vaccine 00:00:00 [facility] Influenza Virus 2017-11-30 Completed [facility] of Vaccine 00:00:00 [facility] Influenza Virus 2017-11-30 Completed [facility] of Vaccine 00:00:00 [facility] Influenza Virus 2017-11-30 Completed [facility] of Vaccine 00:00:00 [facility] Influenza Virus 2017-11-30 Completed [facility] of Vaccine 00:00:00 [facility] Influenza Virus 2017-11-30 Completed [facility] of Vaccine 00:00:00 [facility] Influenza Virus 2017-11-30 Completed [facility] of Vaccine 00:00:00 [facility] Influenza Virus 2017-11-30 Completed [facility] of Vaccine 00:00:00 [facility] Influenza Virus 2017-11-30 Completed [facility] of Vaccine 00:00:00 [facility] Influenza Virus 2017-11-30 Completed [facility] of Vaccine 00:00:00 [facility] Influenza Virus 2017-11-30 Completed [facility] of Vaccine 00:00:00 [facility] Influenza Virus 2017-11-30 Completed [facility] of Vaccine 00:00:00 [facility] Influenza Virus 2017-11-30 Completed [facility] of Vaccine 00:00:00 [facility] Influenza Virus 2017-11-30 Completed [facility] of Vaccine 00:00:00 [facility] Influenza Virus 2017-11-30 Completed [facility] of Vaccine 00:00:00 [facility] Influenza Virus 2017-11-30 Completed [facility] of Vaccine 00:00:00 [facility] Influenza Virus 2017-11-30 Completed [facility] of Vaccine 00:00:00 [facility] Influenza Virus 2017-11-30 Completed [facility] of Vaccine 00:00:00 [facility] Influenza Virus 2017-11-30 Completed [facility] of Vaccine 00:00:00 [facility] Influenza Virus 2017-11-30 Completed [facility] of Vaccine 00:00:00 [facility] Influenza Virus 2017-11-30 Completed [facility] of Vaccine 00:00:00 [facility] Influenza Virus 2017-11-30 Completed [facility] of Vaccine 00:00:00 [facility] Influenza Virus 2017-11-30 Completed [facility] of Vaccine 00:00:00 [facility] Influenza Virus 2017-11-30 Completed [facility] of Vaccine 00:00:00 [facility] Influenza Virus 2017-11-30 Completed [facility] of Vaccine 00:00:00 [facility] Rho (d) Immune 2016-11-02 Completed University of Globulin 00:00:00 [facility] Rho (d) Immune 2016-11-02 Completed University of Globulin 00:00:00 [facility] Rho (d) Immune 2016-11-02 Completed University of Globulin 00:00:00 [facility] Rho (d) Immune 2016-11-02 Completed University of Globulin 00:00:00 [facility] Rho (d) Immune 2016-11-02 Completed University of Globulin 00:00:00 [facility] Rho (d) Immune 2016-11-02 Completed University of Globulin 00:00:00 [facility] Rho (d) Immune 2016-11-02 Completed University of Globulin 00:00:00 [facility] Rho (d) Immune 2016-11-02 Completed University of Globulin 00:00:00 [facility] Rho (d) Immune 2016-11-02 Completed University of Globulin 00:00:00 [facility] Rho (d) Immune 2016-11-02 Completed University of Globulin 00:00:00 [facility] Rho (d) Immune 2016-11-02 Completed University of Globulin 00:00:00 [facility] Rho (d) Immune 2016-11-02 Completed [facility] of Globulin 00:00:00 [facility] Rho (d) Immune 2016-11-02 Completed [facility] of Globulin 00:00:00 [facility] Rho (d) Immune 2016-11-02 Completed [facility] of Globulin 00:00:00 [facility] Rho (d) Immune 2016-11-02 Completed [facility] of Globulin 00:00:00 [facility] Rho (d) Immune 2016-11-02 Completed [facility] of Globulin 00:00:00 [facility] Rho (d) Immune 2016-11-02 Completed [facility] of Globulin 00:00:00 [facility] Rho (d) Immune 2016-11-02 Completed [facility] of Globulin 00:00:00 [facility] Rho (d) Immune 2016-11-02 Completed [facility] of Globulin 00:00:00 [facility] Rho (d) Immune 2016-11-02 Completed [facility] of Globulin 00:00:00 [facility] Rho (d) Immune 2016-11-02 Completed [facility] of Globulin 00:00:00 [facility] Rho (d) Immune 2016-11-02 Completed [facility] of Globulin 00:00:00 [facility] Rho (d) Immune 2016-11-02 Completed [facility] of Globulin 00:00:00 [facility] Rho (d) Immune 2016-11-02 Completed [facility] of Globulin 00:00:00 [facility] Rho (d) Immune 2016-11-02 Completed [facility] of Globulin 00:00:00 [facility] Rho (d) Immune 2016-11-02 Completed [facility] of Globulin 00:00:00 [facility] Rho (d) Immune 2016-11-02 Completed [facility] of Globulin 00:00:00 [facility] Rho (d) Immune 2016-11-02 Completed [facility] of Globulin 00:00:00 [facility] Rho (d) Immune 2016-11-02 Completed [facility] of Globulin 00:00:00 [facility] Rho (d) Immune 2016-11-02 Completed [facility] of Globulin 00:00:00 [facility] Rho (d) Immune 2016-11-02 Completed [facility] of Globulin 00:00:00 [facility] Rho (d) Immune 2016-11-02 Completed [facility] of Globulin 00:00:00 [facility] Rho (d) Immune 2016-11-02 Completed [facility] Globulin 00:00:00 [facility] Rho (d) Immune 2016-11-02 Completed [facility] of Globulin 00:00:00 [facility] Rho (d) Immune 2016-11-02 Completed [facility] of Globulin 00:00:00 [facility] Rho (d) Immune 2016-11-02 Completed [facility] of Globulin 00:00:00 [facility] Rho (d) Immune 2016-11-02 Completed [facility] of Globulin 00:00:00 [facility] Rho (d) Immune 2016-11-02 Completed [facility] of Globulin 00:00:00 [facility] Rho (d) Immune 2016-11-02 Completed [facility] Globulin 00:00:00 [facility] Rho (d) Immune 2016-11-02 Completed [facility] of Globulin 00:00:00 [facility] Rho (d) Immune 2016-11-02 Completed [facility] of Globulin 00:00:00 [facility] TDAP 2016-08-17 Completed University of 00:00:00 [facility] TDAP 2016-08-17 Completed University of 00:00:00 [facility] TDAP 2016-08-17 Completed University of 00:00:00 [facility] TDAP 2016-08-17 Completed University of 00:00:00 [facility] TDAP 2016-08-17 Completed University of 00:00:00 [facility] TDAP 2016-08-17 Completed University of 00:00:00 [facility] TDAP 2016-08-17 Completed University of 00:00:00 [facility] TDAP 2016-08-17 Completed University of 00:00:00 [facility] TDAP 2016-08-17 Completed University of 00:00:00 [facility] TDAP 2016-08-17 Completed University of 00:00:00 [facility] TDAP 2016-08-17 Completed University of 00:00:00 [facility] TDAP 2016-08-17 Completed University of 00:00:00 [facility] TDAP 2016-08-17 Completed University of 00:00:00 [facility] TDAP 2016-08-17 Completed University of 00:00:00 [facility] TDAP 2016-08-17 Completed University of 00:00:00 [facility] TDAP 2016-08-17 Completed University of 00:00:00 [facility] TDAP 2016-08-17 Completed University of 00:00:00 [facility] TDAP 2016-08-17 Completed University of 00:00:00 [facility] TDAP 2016-08-17 Completed University of 00:00:00 [facility] TDAP 2016-08-17 Completed University of 00:00:00 [facility] TDAP 2016-08-17 Completed University of 00:00:00 [facility] TDAP 2016-08-17 Completed University of 00:00:00 [facility] TDAP 2016-08-17 Completed University of 00:00:00 [facility] TDAP 2016-08-17 Completed University of 00:00:00 [facility] TDAP 2016-08-17 Completed University of 00:00:00 [facility] TDAP 2016-08-17 Completed University of 00:00:00 [facility] TDAP 2016-08-17 Completed University of 00:00:00 [facility] TDAP 2016-08-17 Completed University of 00:00:00 [facility] TDAP 2016-08-17 Completed University of 00:00:00 [facility] TDAP 2016-08-17 Completed University of 00:00:00 [facility] TDAP 2016-08-17 Completed University of 00:00:00 [facility] TDAP 2016-08-17 Completed University of 00:00:00 [facility] TDAP 2016-08-17 Completed University of 00:00:00 [facility] TDAP 2016-08-17 Completed University of 00:00:00 [facility] TDAP 2016-08-17 Completed University of 00:00:00 [facility] TDAP 2016-08-17 Completed University of 00:00:00 [facility] TDAP 2016-08-17 Completed University of 00:00:00 [facility] TDAP 2016-08-17 Completed University of 00:00:00 [facility] TDAP 2016-08-17 Completed University of 00:00:00 [facility] TDAP 2016-08-17 Completed University of 00:00:00 [facility] TDAP 2016-08-17 Completed University of 00:00:00 [facility] Influenza Virus 2016-03-16 Completed Universit y of Vaccine Quad IM 3+ 00:00:00 [facility] Influenza Virus 2016-03-16 Completed Universit y of Vaccine Quad IM 3+ 00:00:00 [facility] Influenza Virus 2016-03-16 Completed Universit y of Vaccine Quad IM 3+ 00:00:00 [facility] Influenza Virus 2016-03-16 Completed Universit y of Vaccine Quad IM 3+ 00:00:00 [facility] Influenza Virus 2016-03-16 Completed Universit y of Vaccine Quad IM 3+ 00:00:00 [facility] Influenza Virus 2016-03-16 Completed Universit y of Vaccine Quad IM 3+ 00:00:00 [facility] Influenza Virus 2016-03-16 Completed Universit y of Vaccine Quad IM 3+ 00:00:00 [facility] Influenza Virus 2016-03-16 Completed Universit y of Vaccine Quad IM 3+ 00:00:00 [facility] Influenza Virus 2016-03-16 Completed Universit y of Vaccine Quad IM 3+ 00:00:00 [facility] Influenza Virus 2016-03-16 Completed Universit y of Vaccine Quad IM 3+ 00:00:00 [facility] Influenza Virus 2016-03-16 Completed Universit y of Vaccine Quad IM 3+ 00:00:00 [facility] Influenza Virus 2016-03-16 Completed Universit y of Vaccine Quad IM 3+ 00:00:00 [facility] Influenza Virus 2016-03-16 Completed Universit y of Vaccine Quad IM 3+ 00:00:00 [facility] Influenza Virus 2016-03-16 Completed Universit y of Vaccine Quad IM 3+ 00:00:00 [facility] Influenza Virus 2016-03-16 Completed Universit y of Vaccine Quad IM 3+ 00:00:00 [facility] Influenza Virus 2016-03-16 Completed Universit y of Vaccine Quad IM 3+ 00:00:00 [facility] Influenza Virus 2016-03-16 Completed Universit y of Vaccine Quad IM 3+ 00:00:00 [facility] Influenza Virus 2016-03-16 Completed Universit y of Vaccine Quad IM 3+ 00:00:00 [facility] Influenza Virus 2016-03-16 Completed Universit y of Vaccine Quad IM 3+ 00:00:00 [facility] Influenza Virus 2016-03-16 Completed Universit y of Vaccine Quad IM 3+ 00:00:00 [facility] Influenza Virus 2016-03-16 Completed Universit y of Vaccine Quad IM 3+ 00:00:00 [facility] Influenza Virus 2016-03-16 Completed Universit y of Vaccine Quad IM 3+ 00:00:00 [facility] Influenza Virus 2016-03-16 Completed Universit y of Vaccine Quad IM 3+ 00:00:00 [facility] Influenza Virus 2016-03-16 Completed Universit y of Vaccine Quad IM 3+ 00:00:00 [facility] Influenza Virus 2016-03-16 Completed Universit y of Vaccine Quad IM 3+ 00:00:00 [facility] Influenza Virus 2016-03-16 Completed Universit y of Vaccine Quad IM 3+ 00:00:00 [facility] Influenza Virus 2016-03-16 Completed Universit y of Vaccine Quad IM 3+ 00:00:00 [facility] Influenza Virus 2016-03-16 Completed Universit y of Vaccine Quad IM 3+ 00:00:00 [facility] Influenza Virus 2016-03-16 Completed Universit y of Vaccine Quad IM 3+ 00:00:00 [facility] Influenza Virus 2016-03-16 Completed Universit y of Vaccine Quad IM 3+ 00:00:00 [facility] Influenza Virus 2016-03-16 Completed Universit y of Vaccine Quad IM 3+ 00:00:00 [facility] Influenza Virus 2016-03-16 Completed Universit y of Vaccine Quad IM 3+ 00:00:00 [facility] Influenza Virus 2016-03-16 Completed Universit y of Vaccine Quad IM 3+ 00:00:00 [facility] Influenza Virus 2016-03-16 Completed Universit y of Vaccine Quad IM 3+ 00:00:00 [facility] Influenza Virus 2016-03-16 Completed Universit y of Vaccine Quad IM 3+ 00:00:00 [facility] Influenza Virus 2016-03-16 Completed Universit y of Vaccine Quad IM 3+ 00:00:00 [facility] Influenza Virus 2016-03-16 Completed Universit y of Vaccine Quad IM 3+ 00:00:00 [facility] Influenza Virus 2016-03-16 Completed Universit y of Vaccine Quad IM 3+ 00:00:00 [facility] Influenza Virus 2016-03-16 Completed Universit y of Vaccine Quad IM 3+ 00:00:00 [facility] Influenza Virus 2016-03-16 Completed Universit y of Vaccine Quad IM 3+ 00:00:00 [facility] Influenza Virus 2016-03-16 Completed Universit y of Vaccine Quad IM 3+ 00:00:00 [facility] Rubella 2011-09-03 Completed University of 00:00:00 [facility] Rubella 2011-09-03 Completed University of 00:00:00 [facility] Rubella 2011-09-03 Completed University of 00:00:00 [facility] Rubella 2011-09-03 Completed University of 00:00:00 [facility] Rubella 2011-09-03 Completed University of 00:00:00 [facility] Rubella 2011-09-03 Completed University of 00:00:00 [facility] Rubella 2011-09-03 Completed University of 00:00:00 [facility] Rubella 2011-09-03 Completed University of 00:00:00 [facility] Rubella 2011-09-03 Completed University of 00:00:00 [facility] Rubella 2011-09-03 Completed University of 00:00:00 [facility] Rubella 2011-09-03 Completed [facility] of 00:00:00 [facility] Rubella 2011-09-03 Completed [facility] of 00:00:00 [facility] Rubella 2011-09-03 Completed [facility] of 00:00:00 [facility] Rubella 2011-09-03 Completed University of 00:00:00 [facility] Rubella 2011-09-03 Completed University of 00:00:00 [facility] Rubella 2011-09-03 Completed University of 00:00:00 [facility] Rubella 2011-09-03 Completed University of 00:00:00 [facility] Rubella 2011-09-03 Completed University of 00:00:00 [facility] Rubella 2011-09-03 Completed University of 00:00:00 [facility] Rubella 2011-09-03 Completed University of 00:00:00 [facility] Rubella 2011-09-03 Completed University of 00:00:00 [facility] Rubella 2011-09-03 Completed University of 00:00:00 [facility] Rubella 2011-09-03 Completed University of 00:00:00 [facility] Rubella 2011-09-03 Completed University of 00:00:00 [facility] Rubella 2011-09-03 Completed University of 00:00:00 [facility] Rubella 2011-09-03 Completed University of 00:00:00 [facility] Rubella 2011-09-03 Completed University of 00:00:00 [facility] Rubella 2011-09-03 Completed University of 00:00:00 [facility] Rubella 2011-09-03 Completed University of 00:00:00 [facility] Rubella 2011-09-03 Completed University of 00:00:00 [facility] Rubella 2011-09-03 Completed University of 00:00:00 [facility] Rubella 2011-09-03 Completed University of 00:00:00 [facility] Rubella 2011-09-03 Completed University of 00:00:00 [facility] Rubella 2011-09-03 Completed University of 00:00:00 [facility] Rubella 2011-09-03 Completed University of 00:00:00 [facility] Rubella 2011-09-03 Completed University of 00:00:00 [facility] Rubella 2011-09-03 Completed University of 00:00:00 [facility] Rubella 2011-09-03 Completed University of 00:00:00 [facility] Rubella 2011-09-03 Completed [facility] of 00:00:00 [facility] Rubella 2011-09-03 Completed [facility] of 00:00:00 [facility] Rubella 2011-09-03 Completed [facility] of 00:00:00 [facility] Td 2006-04-15 Completed University of 00:00:00 [facility] Td 2006-04-15 Completed [facility] of 00:00:00 [facility] Td 2006-04-15 Completed [facility] of 00:00:00 [facility] Td 2006-04-15 Completed [facility] of 00:00:00 [facility] Td 2006-04-15 Completed [facility] of 00:00:00 [facility] Td 2006-04-15 Completed [facility] of 00:00:00 [facility] Td 2006-04-15 Completed [facility] of 00:00:00 [facility] Td 2006-04-15 Completed [facility] of 00:00:00 [facility] Td 2006-04-15 Completed [facility] of 00:00:00 [facility] Td 2006-04-15 Completed [facility] of 00:00:00 [facility] Td 2006-04-15 Completed [facility] of 00:00:00 [facility] Td 2006-04-15 Completed [facility] of 00:00:00 [facility] Td 2006-04-15 Completed [facility] of 00:00:00 [facility] Td 2006-04-15 Completed University of 00:00:00 [facility] TD, NOS 2006-04-15 Completed [facility] of 00:00:00 [facility] TD, NOS 2006-04-15 Completed [facility] of 00:00:00 [facility] TD, NOS 2006-04-15 Completed [facility] of 00:00:00 [facility] TD, NOS 2006-04-15 Completed [facility] of 00:00:00 [facility] TD, NOS 2006-04-15 Completed [facility] of 00:00:00 [facility] TD, NOS 2006-04-15 Completed [facility] of 00:00:00 [facility] TD, NOS 2006-04-15 Completed [facility] of 00:00:00 [facility] TD, NOS 2006-04-15 Completed [facility] of 00:00:00 [facility] TD, NOS 2006-04-15 Completed [facility] of 00:00:00 [facility] TD, NOS 2006-04-15 Completed [facility] of 00:00:00 [facility] TD, NOS 2006-04-15 Completed [facility] of 00:00:00 [facility] TD, NOS 2006-04-15 Completed University of 00:00:00 [facility] TD, NOS 2006-04-15 Completed University of 00:00:00 [facility] TD, NOS 2006-04-15 Completed University of 00:00:00 [facility] TD, NOS 2006-04-15 Completed University of 00:00:00 [facility] TD, NOS 2006-04-15 Completed University of 00:00:00 [facility] TD, NOS 2006-04-15 Completed University of 00:00:00 [facility] TD, NOS 2006-04-15 Completed University of 00:00:00 [facility] TD, NOS 2006-04-15 Completed University of 00:00:00 [facility] TD, NOS 2006-04-15 Completed University of 00:00:00 [facility] TD, NOS 2006-04-15 Completed University of 00:00:00 [facility] TD, NOS 2006-04-15 Completed University of 00:00:00 [facility] TD, NOS 2006-04-15 Completed University of 00:00:00 [facility] TD, NOS 2006-04-15 Completed University of 00:00:00 [facility] TD, NOS 2006-04-15 Completed University of 00:00:00 [facility] TD, NOS 2006-04-15 Completed University of 00:00:00 [facility] TD, NOS 2006-04-15 Completed University of 00:00:00 [facility] Rubella Unknown Completed [facility] TD, NOS Unknown Completed [facility] Influenza Virus Unknown Completed Universit y of Vaccine Quad IM 3+ [facility] TDAP Unknown Completed [facility] Rho (d) Immune Unknown Completed University of Globulin [facility] Influenza Virus Unknown Completed Universit y of Vaccine [facility] Pneumococcal Unknown Completed University o f Polysaccharide, [facility] ical PPSV23 (PNEUMOVAX) Branch Influenza Virus Unknown Completed Universit y of Vaccine Quad .5 mL [facility] 6+ [place] Branch (FLUZONE/FLULAVAL/FL UARIX) SARS-COV-2 COVID-19 Unknown Completed Unive rsity of PFIZER VACCINE [facility] SARS-COV-2 COVID-19 Unknown Completed Unive rsity of PFIZER VACCINE [facility] Pneumococcal 13 Unknown Completed Universit y of Conjugate, PCV13 [facility] dical (Prevnar 13) Branch Influenza Virus Unknown Completed Universit y of Vaccine [facility] Influenza Virus Unknown Completed Universit y of Vaccine Quad .5 mL [facility] IM 6+ [place] Branch (FLUZONE/FLULAVAL/FL UARIX) Influenza Virus Unknown Completed Universit y of Vaccine Quad IM, [facility] dical Preserv and ABX Free Bran ch 6 MO-64 YRS (FLUCELVAX) Influenza Virus Unknown Completed Universit y of Vaccine [facility] Pneumococcal 20 Unknown Completed Universit y of Conjugate, PCV20 [facility] dical (Prevnar 20) Branch SARS-COV-2 COVID-19 Unknown Completed Unive rsity of PFIZER VACCINE [facility] SARS-COV-2 COVID-19 Unknown Completed Unive rsity of PFIZER VACCINE [facility] Rubella Unknown Completed [facility] TD, NOS Unknown Completed [facility] Influenza Virus Unknown Completed Universit y of Vaccine Quad IM 3+ [facility] TDAP Unknown Completed [facility] Rho (d) Immune Unknown Completed [facility] Influenza Virus Unknown Completed Universit y of Vaccine [facility] Pneumococcal Unknown Completed [place] o f Polysaccharide, [facility] PPSV23 (PNEUMOVAX) Branch Influenza Virus Unknown Completed Universit y of Vaccine Quad .5 mL [facility] 6+ [place] Branch (FLUZONE/FLULAVAL/FL UARIX) SARS-COV-2 COVID-19 Unknown Completed Unive rsity of PFIZER VACCINE [facility] SARS-COV-2 COVID-19 Unknown Completed Unive rsity of PFIZER VACCINE [facility] Pneumococcal 13 Unknown Completed Universit y of Conjugate, PCV13 [facility] dical (Prevnar 13) Branch Influenza Virus Unknown Completed Universit y of Vaccine [facility] Influenza Virus Unknown Completed Universit y of Vaccine Quad .5 mL [facility] IM 6+ [place] Branch (FLUZONE/FLULAVAL/FL UARIX) Influenza Virus Unknown Completed Universit y of Vaccine Quad IM, [facility] dical Preserv and ABX Free Bran ch 6 MO-64 YRS (FLUCELVAX) Pneumococcal 20 Unknown Completed Universit y of Conjugate, PCV20 [facility] dical (Prevnar 20) Branch SARS-COV-2 COVID-19 Unknown Completed Unive rsity of PFIZER VACCINE [facility] SARS-COV-2 COVID-19 Unknown Completed Unive rsity of PFIZER VACCINE [facility] Rubella Unknown Completed [facility] TD, NOS Unknown Completed [facility] Influenza Virus Unknown Completed Universit y of Vaccine Quad IM 3+ [facility] YRS Branch TDAP Unknown Completed [facility] Rho (d) Immune Unknown Completed [facility] Influenza Virus Unknown Completed Universit y of Vaccine [facility] Pneumococcal Unknown Completed [facility] o f Polysaccharide, [facility] ical PPSV23 (PNEUMOVAX) Branch Influenza Virus Unknown Completed Universit y of Vaccine Quad .5 mL [facility] IM 6+ [place] Branch (FLUZONE/FLULAVAL/FL UARIX) SARS-COV-2 COVID-19 Unknown Completed Unive rsity of PFIZER VACCINE [facility] SARS-COV-2 COVID-19 Unknown Completed Unive rsity of PFIZER VACCINE [facility] Pneumococcal 13 Unknown Completed Universit y of Conjugate, PCV13 [facility] dical (Prevnar 13) Branch Influenza Virus Unknown Completed Universit y of Vaccine [facility] Influenza Virus Unknown Completed Universit y of Vaccine Quad .5 mL [facility] 6+ [place] Branch (FLUZONE/FLULAVAL/FL UARIX) Influenza Virus Unknown Completed Universit y of Vaccine Quad IM, [facility] dicak Preserv and ABX Free Bran ch 6 MO-64 YRS (FLUCELVAX) Pneumococcal 20 Unknown Completed Universit y of Conjugate, PCV20 [facility] dical (Prevnar 20) Branch SARS-COV-2 COVID-19 Unknown Completed Unive rsity of PFIZER VACCINE [facility] SARS-COV-2 COVID-19 Unknown Completed Unive rsity of PFIZER VACCINE [facility] Rubella Unknown Completed [facility] TD, NOS Unknown Completed [facility] Influenza Virus Unknown Completed Universit y of Vaccine Quad IM 3+ [facility] YRS Branch TDAP Unknown Completed [facility] Rho (d) Immune Unknown Completed [facility] Globulin [facility] Influenza Virus Unknown Completed Universit y of Vaccine [facility] Pneumococcal Unknown Completed University o f Polysaccharide, [place] [facility] PPSV23 (PNEUMOVAX) Branch Influenza Virus Unknown Completed Universit y of Vaccine Quad .5 mL [facility] IM 6+ MO Branch (FLUZONE/FLULAVAL/FL UARIX) SARS-COV-2 COVID-19 Unknown Completed Unive rsity of PFIZER VACCINE [facility] SARS-COV-2 COVID-19 Unknown Completed Unive rsity of PFIZER VACCINE [facility] Pneumococcal 13 Unknown Completed Universit y of Conjugate, PCV13 [facility] dical (Prevnar 13) Branch Influenza Virus Unknown Completed Universit y of Vaccine [facility] Influenza Virus Unknown Completed Universit y of Vaccine Quad .5 mL [facility] IM 6+ MO Branch (FLUZONE/FLULAVAL/FL UARIX) Influenza Virus Unknown Completed Universit y of Vaccine Quad IM, [facility] dical Preserv and ABX Free Bran ch 6 MO-64 YRS (FLUCELVAX) SARS-COV-2 COVID-19 Unknown Completed Unive rsity of PFIZER VACCINE [facility] SARS-COV-2 COVID-19 Unknown Completed Unive rsity of PFIZER VACCINE [facility] Rubella Unknown Completed [facility] TD, NOS Unknown Completed [facility] Influenza Virus Unknown Completed Universit y of Vaccine Quad IM 3+ [facility] TDAP Unknown Completed [facility] Rho (d) Immune Unknown Completed [facility] Influenza Virus Unknown Completed Universit y of Vaccine [facility] Pneumococcal Unknown Com[facility] [place] [facility] P[facility] ([facility]X) Branch Influenza Virus Unknown Completed Universit y of Vaccine Quad .5 mL [facility] 6+ MO Branch (FLUZONE/FLULAVAL/FL UARIX) SARS-COV-2 COVID-19 Unknown Completed Unive rsity of PFIZER VACCINE [facility] SARS-COV-2 COVID-19 Unknown Completed Unive rsity of PFIZER VACCINE [facility] Pneumococcal 13 Unknown Completed Universit y of Conjugate, PCV13 [facility] dical (Prevnar 13) Branch Influenza Virus Unknown Completed [facility]it y of Vaccine [facility] Influenza Virus Unknown Completed Universit y of Vaccine Quad .5 mL [facility] IM 6+ MO Branch (FLUZONE/FLULAVAL/FL UARIX) Influenza Virus Unknown Completed Universit y of Vaccine Quad IM, [facility] dical Preserv and ABX Free Bran ch 6 MO-64 YRS (FLUCELVAX) SARS-COV-2 COVID-19 Unknown Completed Unive rsity of PFIZER VACCINE [facility] SARS-COV-2 COVID-19 Unknown Completed Unive rsity of PFIZER VACCINE [facility] Rubella Unknown Completed [facility] TD, NOS Unknown Completed [facility] Influenza Virus Unknown Completed Universit y of Vaccine Quad IM 3+ [facility] YRS Branch TDAP Unknown Completed [facility] Rho (d) Immune Unknown Completed University of Globulin [facility] Influenza Virus Unknown Completed Universit y of Vaccine [facility] Pneumococcal Unknown Completed University o f Polysaccharide, [facility] ical PPSV23 (PNEUMOVAX) Branch Influenza Virus Unknown Completed Universit y of Vaccine Quad .5 mL [facility] IM 6+ MO Branch (FLUZONE/FLULAVAL/FL UARIX) SARS-COV-2 COVID-19 Unknown Completed Unive rsity of PFIZER VACCINE [facility] SARS-COV-2 COVID-19 Unknown Completed Unive rsity of PFIZER VACCINE [facility] Pneumococcal 13 Unknown Completed Universit y of Conjugate, PCV13 [facility] dical (Prevnar 13) Branch Influenza Virus Unknown Completed [facility]it y of Vaccine [facility] Influenza Virus Unknown Completed Universit y of Vaccine Quad .5 mL [facility] IM 6+ MO Branch (FLUZONE/FLULAVAL/FL UARIX) Influenza Virus Unknown Completed Universit y of Vaccine Quad IM, [facility] dical Preserv and ABX Free Bran ch 6 MO-64 YRS (FLUCELVAX) SARS-COV-2 COVID-19 Unknown Completed Unive rsity of PFIZER VACCINE [facility] SARS-COV-2 COVID-19 Unknown Completed Unive rsity of PFIZER VACCINE [facility] Rubella Unknown Completed [facility] TD, NOS Unknown Completed [facility] Influenza Virus Unknown Completed Universit y of Vaccine Quad IM 3+ [facility] YRS [place] TDAP Unknown Completed [facility] Rho (d) Immune Unknown Completed [facility] Influenza Virus Unknown Completed Universit y of Vaccine [facility] Pneumococcal Unknown Completed University o f Polysaccharide, [facility] ical PPSV23 (PNEUMOVAX) Branch Influenza Virus Unknown Completed Universit y of Vaccine Quad .5 mL [facility] IM 6+ MO Branch (FLUZONE/FLULAVAL/FL UARIX) SARS-COV-2 COVID-19 Unknown Completed Unive rsity of PFIZER VACCINE [facility] SARS-COV-2 COVID-19 Unknown Completed Unive rsity of PFIZER VACCINE [facility] Pneumococcal 13 Unknown Completed Universit y of Conjugate, PCV13 [facility] dical (Prevnar 13) Branch Influenza Virus Unknown Completed [facility] Vaccine [facility] Influenza Virus Unknown Completed Universit y of Vaccine Quad .5 mL [facility] IM 6+ MO Branch (FLUZONE/FLULAVAL/FL UARIX) Influenza Virus Unknown Completed Universit y of Vaccine Quad IM, [facility] dical Preserv and ABX Free Bran ch 6 MO-64 YRS (FLUCELVAX) SARS-COV-2 COVID-19 Unknown Completed Unive rsity of PFIZER VACCINE [facility] Rubella Unknown Completed [facility] TD, NOS Unknown Completed [facility] Influenza Virus Unknown Completed Universit y of Vaccine Quad IM 3+ [facility] YRS Branch TDAP Unknown Completed [facility] Rho (d) Immune Unknown Completed University of Globulin [facility] Influenza Virus Unknown Completed [facility]it y of Vaccine [facility] Pneumococcal Unknown Completed [facility] o [facility] Polysaccharide, [place] [facility] PPSV23 (PNEUMOVAX) Branch Influenza Virus Unknown Completed Universit y of Vaccine Quad .5 mL [facility] IM 6+ MO Branch (FLUZONE/FLULAVAL/FL UARIX) SARS-COV-2 COVID-19 Unknown Completed Unive rsity of PFIZER VACCINE [facility] SARS-COV-2 COVID-19 Unknown Completed Unive rsity of PFIZER VACCINE [facility] Pneumococcal 13 Unknown Completed Universit y of Conjugate, PCV13 [facility] dical (Prevnar 13) Branch Influenza Virus Unknown Completed Universit y of Vaccine Quad .5 mL [facility] IM 6+ MO Branch (FLUZONE/FLULAVAL/FL UARIX) Influenza Virus Unknown Completed Universit y of Vaccine Quad IM, [facility] dical Preserv and ABX Free Bran ch 6 MO-64 YRS (FLUCELVAX) SARS-COV-2 COVID-19 Unknown Completed Unive rsity of PFIZER VACCINE [facility] Rubella Unknown Completed [facility] TD, NOS Unknown Completed [facility] Influenza Virus Unknown Completed Universit y of Vaccine Quad IM 3+ [facility] YRS [place] TDAP Unknown Completed [facility] Rho (d) Immune Unknown Completed University of Globulin [facility] Influenza Virus Unknown Completed Universit y of Vaccine [facility] Pneumococcal Unknown Completed University o f Polysaccharide, [place] [facility] PPSV23 (PNEUMOVAX) Branch Influenza Virus Unknown Completed Universit y of Vaccine Quad .5 mL [facility] IM 6+ MO Branch (FLUZONE/FLULAVAL/FL UARIX) SARS-COV-2 COVID-19 Unknown Completed Unive rsity of PFIZER VACCINE [facility] SARS-COV-2 COVID-19 Unknown Completed Unive rsity of PFIZER VACCINE [facility] Pneumococcal 13 Unknown Completed Universit y of Conjugate, PCV13 [facility] dical (Prevnar 13) Branch Influenza Virus Unknown Completed Universit y of Vaccine Quad .5 mL [facility] IM 6+ MO Branch (FLUZONE/FLULAVAL/FL UARIX) Influenza Virus Unknown Completed Universit y of Vaccine Quad IM, [facility] dical Preserv and ABX Free Bran ch 6 MO-64 YRS (FLUCELVAX) SARS-COV-2 COVID-19 Unknown Completed Unive rsity of PFIZER VACCINE [facility] Rubella Unknown Completed [facility] TD, NOS Unknown Completed [facility] Influenza Virus Unknown Completed Universit y of Vaccine Quad IM 3+ [facility] YRS [place] TDAP Unknown Completed [facility] Rho (d) Immune Unknown Completed [facility] Influenza Virus Unknown Completed Universit y of Vaccine [facility] Pneumococcal Unknown Completed [facility] PPSV23 (PNEUMOVAX) Branch Influenza Virus Unknown Completed Universit y of Vaccine Quad .5 mL [facility] IM 6+ MO Branch (FLUZONE/FLULAVAL/FL UARIX) SARS-COV-2 COVID-19 Unknown Completed Unive rsity of PFIZER VACCINE [facility] SARS-COV-2 COVID-19 Unknown Completed Unive rsity of PFIZER VACCINE [facility] Pneumococcal 13 Unknown Completed Universit y of Conjugate, PCV13 [facility] dical (Prevnar 13) Branch Influenza Virus Unknown Completed Universit y of Vaccine Quad .5 mL [facility] IM 6+ MO Branch (FLUZONE/FLULAVAL/FL UARIX) Influenza Virus Unknown Completed Universit y of Vaccine Quad IM, [facility] dical Preserv and ABX Free Bran ch 6 MO-64 YRS (FLUCELVAX) SARS-COV-2 COVID-19 Unknown Completed Unive rsity of PFIZER VACCINE [facility] Rubella Unknown Completed [facility] TD, NOS Unknown Completed [facility] Influenza Virus Unknown Completed Universit y of Vaccine Quad IM 3+ [facility] YRS Branch TDAP Unknown Completed [facility] Rho (d) Immune Unknown Completed [facility] Influenza Virus Unknown Completed [facility] y [facility] Vaccine [facility] Pneumococcal Unknown Completed University o f Polysaccharide, [facility] ical PPSV23 (PNEUMOVAX) Branch Influenza Virus Unknown Completed Universit y of Vaccine Quad .5 mL [facility] IM 6+ MO Branch (FLUZONE/FLULAVAL/FL UARIX) SARS-COV-2 COVID-19 Unknown Completed Unive rsity of PFIZER VACCINE [facility] SARS-COV-2 COVID-19 Unknown Completed Unive rsity of PFIZER VACCINE [facility] Pneumococcal 13 Unknown Completed Universit y of Conjugate, PCV13 [facility] dical (Prevnar 13) Branch Influenza Virus Unknown Completed Universit y of Vaccine Quad .5 mL [facility] IM 6+ MO Branch (FLUZONE/FLULAVAL/FL UARIX) Influenza Virus Unknown Completed Universit y of Vaccine Quad IM, [facility] dical Preserv and ABX Free Bran ch 6 MO-64 YRS (FLUCELVAX) SARS-COV-2 COVID-19 Unknown Completed Unive rsity of PFIZER VACCINE [facility] Rubella Unknown Completed [facility] TD, NOS Unknown Completed [facility] Influenza Virus Unknown Completed Universit y of Vaccine Quad IM 3+ [facility] Branch TDAP Unknown Completed [facility] Rho (d) Immune Unknown Completed [facility] Influenza Virus Unknown Completed [facility]it y of Vaccine [facility] Pneumococcal Unknown Completed University o f Polysaccharide, [facility] ical PPSV23 (PNEUMOVAX) Branch Influenza Virus Unknown Completed Universit y of Vaccine Quad .5 mL [facility] IM 6+ MO Branch (FLUZONE/FLULAVAL/FL UARIX) SARS-COV-2 COVID-19 Unknown Completed Unive rsity of PFIZER VACCINE [facility] Pneumococcal 13 Unknown Completed Universit y of Conjugate, PCV13 [facility] dical (Prevnar 13) Branch Influenza Virus Unknown Completed Universit y of Vaccine Quad .5 mL [facility] IM 6+ MO Branch (FLUZONE/FLULAVAL/FL UARIX) Influenza Virus Unknown Completed Universit y of Vaccine Quad IM, [facility] dical Preserv and ABX Free Bran ch 6 MO-64 YRS (FLUCELVAX) Rubella Unknown Completed [facility] TD, NOS Unknown Completed [facility] Influenza Virus Unknown Completed Universit y of Vaccine Quad IM 3+ [facility] TDAP Unknown Completed [facility] Rho (d) Immune Unknown Completed [facility] Influenza Virus Unknown Completed Universit y of Vaccine [facility] Pneumococcal Unknown Completed University o f Polysaccharide, [facility] ical PPSV23 (PNEUMOVAX) Branch Influenza Virus Unknown Completed Universit y of Vaccine Quad .5 mL [facility] IM 6+ MO Branch (FLUZONE/FLULAVAL/FL UARIX) Pneumococcal 13 Unknown Completed Universit y of Conjugate, PCV13 [facility] dical (Prevnar 13) Branch Influenza Virus Unknown Completed Universit y of Vaccine Quad .5 mL [facility] IM 6+ MO Branch (FLUZONE/FLULAVAL/FL UARIX) Influenza Virus Unknown Completed Universit y of Vaccine Quad IM, [facility] dical Preserv and ABX Free Bran ch 6 MO-64 YRS (FLUCELVAX) Rubella Unknown Completed [facility] TD, NOS Unknown Completed [facility] Influenza Virus Unknown Completed Universit y of Vaccine Quad IM 3+ [facility] YRS [place] TDAP Unknown Completed [facility] Rho (d) Immune Unknown Completed [facility] Influenza Virus Unknown Completed [facility]it y of Vaccine [facility] Pneumococcal Unknown Completed University o f Polysaccharide, [facility] ical PPSV23 (PNEUMOVAX) Branch Influenza Virus Unknown Completed Universit y of Vaccine Quad .5 mL [facility] 6+ MO Branch (FLUZONE/FLULAVAL/FL UARIX) Pneumococcal 13 Unknown Completed Universit y of Conjugate, PCV13 [facility] dical (Prevnar 13) Branch Rubella Unknown Completed [facility] TD, NOS Unknown Completed [facility] Influenza Virus Unknown Completed Universit y of Vaccine Quad IM 3+ [facility] YRS [place] TDAP Unknown Completed [facility] Rho (d) Immune Unknown Completed [facility] Influenza Virus Unknown Completed Universit y of Vaccine [facility] Pneumococcal Unknown Completed University o f Polysaccharide, [facility] ical PPSV23 (PNEUMOVAX) Branch Influenza Virus Unknown Completed Universit y of Vaccine Quad .5 mL [facility] 6+ MO Branch (FLUZONE/FLULAVAL/FL UARIX) SARS-COV-2 COVID-19 Unknown Completed Unive rsity of PFIZER VACCINE [facility] SARS-COV-2 COVID-19 Unknown Completed Unive rsity of PFIZER VACCINE [facility] Branch Pneumococcal 13 Unknown Completed Universit y of Conjugate, PCV13 [facility] dical (Prevnar 13) Branch Influenza Virus Unknown Completed [facility]it y of Vaccine [facility] Influenza Virus Unknown Completed Universit y of Vaccine Quad .5 mL [facility] IM 6+ MO Branch (FLUZONE/FLULAVAL/FL UARIX) Influenza Virus Unknown Completed Universit y of Vaccine Quad IM, [facility] dical Preserv and ABX Free Bran ch 6 MO-64 YRS (FLUCELVAX) Influenza Virus Unknown Completed Universit y of Vaccine [facility] Pneumococcal 20 Unknown Completed Universit y of Conjugate, PCV20 [facility] dical (Prevnar 20) Branch SARS-COV-2 COVID-19 Unknown Completed Unive rsity of PFIZER VACCINE [facility] SARS-COV-2 COVID-19 Unknown Completed Unive rsity of PFIZER VACCINE [facility] Rubella Unknown Completed [facility] TD, NOS Unknown Completed [facility] Influenza Virus Unknown Completed Universit y of Vaccine Quad IM 3+ [facility] TDAP Unknown Completed [facility] Rho (d) Immune Unknown Completed [facility] Influenza Virus Unknown Completed Universit y of Vaccine [facility] Pneumococcal Unknown Completed [place] [facility] Polysaccharide, [facility] PPSV23 (PNEUMOVAX) Branch Influenza Virus Unknown Completed Universit y of Vaccine Quad .5 mL [facility] 6+ MO Branch (FLUZONE/FLULAVAL/FL UARIX) SARS-COV-2 COVID-19 Unknown Completed Unive rsity of PFIZER VACCINE [facility] SARS-COV-2 COVID-19 Unknown Completed Unive rsity of PFIZER VACCINE [facility] Pneumococcal 13 Unknown Completed Universit y of Conjugate, PCV13 [facility] dical (Prevnar 13) Branch Influenza Virus Unknown Completed [facility]it y of Vaccine [facility] Influenza Virus Unknown Completed Universit y of Vaccine Quad .5 mL [facility] IM 6+ MO Branch (FLUZONE/FLULAVAL/FL UARIX) Influenza Virus Unknown Completed Universit y of Vaccine Quad IM, [facility] dical Preserv and ABX Free Bran ch 6 MO-64 YRS (FLUCELVAX) Influenza Virus Unknown Completed Universit y of Vaccine [facility] Pneumococcal 20 Unknown Completed Universit y of Conjugate, PCV20 [facility] dical (Prevnar 20) Branch SARS-COV-2 COVID-19 Unknown Completed Unive rsity of PFIZER VACCINE [facility] SARS-COV-2 COVID-19 Unknown Completed Unive rsity of PFIZER VACCINE [facility] Rubella Unknown Completed [facility] TD, NOS Unknown Completed [facility] Influenza Virus Unknown Completed Universit y of Vaccine Quad IM 3+ [facility] YRS Branch TDAP Unknown Completed [facility] Rho (d) Immune Unknown Completed [facility] Influenza Virus Unknown Completed Universit y of Vaccine [facility] Pneumococcal Unknown Completed [facility] Polysaccharide, [facility] ica PPSV23 (PNEUMOVAX) Branch Influenza Virus Unknown Completed Universit y of Vaccine Quad .5 mL [facility] 6+ MO Branch (FLUZONE/FLULAVAL/FL UARIX) SARS-COV-2 COVID-19 Unknown Completed Unive rsity of PFIZER VACCINE [facility] SARS-COV-2 COVID-19 Unknown Completed Unive rsity of PFIZER VACCINE [facility] Pneumococcal 13 Unknown Completed Universit y of Conjugate, PCV13 [facility] dical (Prevnar 13) Branch Influenza Virus Unknown Completed [facility]it y of Vaccine [facility] Influenza Virus Unknown Completed Universit y of Vaccine Quad .5 mL [facility] 6+ MO Branch (FLUZONE/FLULAVAL/FL UARIX) Influenza Virus Unknown Completed Universit y of Vaccine Quad IM, [facility] dicak Preserv and ABX Free Bran ch 6 MO-64 YRS (FLUCELVAX) Influenza Virus Unknown Completed Universit y of Vaccine [facility] Pneumococcal 20 Unknown Completed Universit y of Conjugate, PCV20 [facility] dical (Prevnar 20) Branch SARS-COV-2 COVID-19 Unknown Completed Unive rsity of PFIZER VACCINE [facility] SARS-COV-2 COVID-19 Unknown Completed Unive rsity of PFIZER VACCINE [facility] FLUCELVAX QUAD PF Unknown Completed [facility] FLUBLOK QUAD PF Unknown Completed [facility] Influenza Trivalent Unknown Completed [facility] FLUCELVAX QUAD PF Unknown [facility] PF Unknown Com[facility] Influenza, Unknown Completed [facility] Pneumococcal Unknown Completed [facility]ent [facility] Vaccine Pneumococcal Unknown Completed [facility] Conjugate [facility] Pneumococcal Unknown Completed [facility] Polysaccharide [facility] Rho (D) Immune Unknown Completed [facility] Globulin [facility] Rubella Unknown Completed [facility] PFIZER COVID-19 MRNA Unknown Completed [facility]ACC[facility]ATION [facility] PFIZER COVID-19 MRNA Unknown Completed [facility] PFIZER COVID-19 MRNA Unknown Completed [facility] PFIZER COVID-19 MRNA Unknown Completed [facility] Td, Unspecified Unknown Completed [facility] Tdap Unknown Completed [facility] Influenza, Unknown Completed [facility] Injectable, Hospital Quadrivalent, Preservative Free Influenza, Unknown Completed [facility] Injectable, Hospital Quadrivalent, Preservative Free Influenza, Unknown Completed [facility] Injectable, Hospital Quadrivalent, Preservative Free Vital Signs Vital Name Observation Time Observation Value Comments Source Systolic blood 2023-02-05 23:30:00 116 mm[Hg] Univer sity of pressure [facility] Diastolic blood 2023-02-05 23:30:00 76 mm[Hg] Unive rsity of [facility] Heart rate 2023-02-05 23:30:00 76 /min Universi ty [facility] Body temperature 2023-02-05 23:30:00 37.17 [facility] 2023-02-05 23:30:00 16 /min [facility] Body height 2023-02-05 23:30:00 175.3 cm [facility] ty [facility] Body weight 2023-02-05 23:30:00 72.122 kg Univers ty [facility] BMI 2023-02-05 23:30:00 23.48 kg/m2 [facility] Oxygen saturation in 2023-02-05 23:30:00 100 /min [facility] Arterial blood by [facility] Pulse oximetry Branch Systolic blood 2023-02-05 22:53:00 112 mm[Hg] Univer sity of pressure [facility] Diastolic blood 2023-02-05 22:53:00 73 mm[Hg] Unive rsity of pressure [facility] Heart rate 2023-02-05 22:53:00 82 /min Universi ty of [facility] Systolic blood 2022-11-11 20:20:00 117 mm[Hg] Univer sity of pressure [facility] Diastolic blood 2022-11-11 20:20:00 76 mm[Hg] Unive rsity of pressure [facility] Heart rate 2022-11-11 20:20:00 70 /min Universi ty [facility] Body temperature 2022-11-11 20:20:00 37 Tanisha [facility] Respiratory rate 2022-11-11 20:20:00 17 /min [facility] Body height 2022-11-11 20:20:00 175.3 cm [facility] Body weight 2022-11-11 20:20:00 69.003 kg [facility] BMI 2022-11-11 20:20:00 22.46 kg/m2 [facility] Oxygen saturation in 2022-11-11 20:20:00 97 /min University of Arterial blood by [facility] sara Pulse oximetry Branch Systolic blood 2022-10-26 03:48:00 103 mm[Hg] Univer sity of pressure [facility] Diastolic blood 2022-10-26 03:48:00 65 mm[Hg] Unive rsity of pressure [facility] Heart rate 2022-10-26 03:48:00 49 /min [facility] Body temperature 2022-10-26 03:48:00 36.61 Tanisha [facility] Oxygen saturation in 2022-10-26 03:48:00 96 /min University of Arterial blood by [facility] Pulse oximetry Branch Respiratory rate 2022-10-26 01:15:00 18 /min [facility] Body height 2022-10-26 01:15:00 175.3 cm [facility] Body weight 2022-10-26 01:15:00 67.586 kg [facility] BMI 2022-10-26 01:15:00 22.00 kg/m2 [facility] Systolic blood 2022-10-25 14:00:00 108 mm[Hg] Univer sity of pressure [facility] Diastolic blood 2022-10-25 14:00:00 66 mm[Hg] Unive rsity of pressure [facility] Heart rate 2022-10-25 14:00:00 49 /min [facility] Body temperature 2022-10-25 14:00:00 36.89 Tanisha [facility] Respiratory rate 2022-10-25 14:00:00 19 /min [facility] Oxygen saturation in 2022-10-25 14:00:00 100 /min University of Arterial blood by [place] [employer] sara Pulse oximetry Branch Body height 2022-10-25 12:33:00 175.3 cm [facility] Body weight 2022-10-25 12:33:00 67.586 kg [facility] BMI 2022-10-25 12:33:00 22.00 kg/m2 [facility] Systolic blood 2022-10-13 02:56:00 119 mm[Hg] Univer sity of pressure [facility] Diastolic blood 2022-10-13 02:56:00 84 mm[Hg] Unive rsity of pressure [facility] Heart rate 2022-10-13 02:56:00 60 /min [facility] Respiratory rate 2022-10-13 02:56:00 18 /min [facility] Oxygen saturation in 2022-10-13 02:56:00 99 /min University of Arterial blood by [facility] Pulse oximetry Branch Body temperature 2022-10-13 00:35:00 36.72 Tanisha [facility] Body height 2022-10-13 00:35:00 175.3 cm [facility] Body weight 2022-10-13 00:35:00 65.772 kg [facility] BMI 2022-10-13 00:35:00 21.41 kg/m2 [facility] Systolic blood 2022-07-18 19:17:00 119 mm[Hg] Univer sity of pressure [facility] Diastolic blood 2022-07-18 19:17:00 78 mm[Hg] Unive rsity of pressure [facility] Heart rate 2022-07-18 19:17:00 69 /min [facility] Body temperature 2022-07-18 19:17:00 36.72 Tanisha [facility] Body height 2022-07-18 19:17:00 175.3 cm [facility] Body weight 2022-07-18 19:17:00 75.388 kg [facility] BMI 2022-07-18 19:17:00 24.54 kg/m2 [facility] Systolic blood 2022-03-28 19:53:00 115 mm[Hg] Univer sity of pressure [facility] Diastolic blood 2022-03-28 19:53:00 77 mm[Hg] Unive rsity of pressure [facility] Heart rate 2022-03-28 19:53:00 70 /min [facility] Body temperature 2022-03-28 19:53:00 36.72 Tanisha [facility] Body height 2022-03-28 19:53:00 175.3 cm [facility] Body weight 2022-03-28 19:53:00 78.744 kg [facility] BMI 2022-03-28 19:53:00 25.64 kg/m2 [facility] Systolic blood 2022-02-26 17:51:00 116 mm[Hg] Univer sity of pressure [facility] Diastolic blood 2022-02-26 17:51:00 79 mm[Hg] Unive rsity of pressure [facility] Heart rate 2022-02-26 17:51:00 70 /min [facility] Body temperature 2022-02-26 17:51:00 36.78 Tanisha [facility] Respiratory rate 2022-02-26 17:51:00 17 /min [facility] Body height 2022-02-26 17:51:00 175.3 cm [facility] Body weight 2022-02-26 17:51:00 79.181 kg [facility] BMI 2022-02-26 17:51:00 25.78 kg/m2 [facility] Oxygen saturation in 2022-02-26 17:51:00 96 /min University Arterial blood by [facility] Pulse oximetry Branch Systolic blood 2022-02-08 19:28:00 121 mm[Hg] Univer sity of pressure [facility] Diastolic blood 2022-02-08 19:28:00 82 mm[Hg] Unive rsity of pressure [facility] Heart rate 2022-02-08 19:28:00 72 /min [facility] Body temperature 2022-02-08 19:28:00 36.83 Tanisha [facility] Respiratory rate 2022-02-08 19:28:00 19 /min [facility] Body height 2022-02-08 19:28:00 175.3 cm [facility] Body weight 2022-02-08 19:28:00 80.287 kg [facility] BMI 2022-02-08 19:28:00 26.14 kg/m2 Universi ty of [facility] Systolic blood 2022-01-11 19:33:00 120 mm[Hg] Univer sity of pressure [facility] Diastolic blood 2022-01-11 19:33:00 79 mm[Hg] Unive rsity of pressure [facility] Heart rate 2022-01-11 19:33:00 71 /min [facility] Body temperature 2022-01-11 19:33:00 36.89 Tanisha [facility] Respiratory rate 2022-01-11 19:33:00 16 /min [facility] Body height 2022-01-11 19:33:00 175.3 cm [facility] Body weight 2022-01-11 19:33:00 77.111 kg [facility] BMI 2022-01-11 19:33:00 25.10 kg/m2 Universi ty of [facility] Oxygen saturation in 2022-01-11 19:33:00 100 /min University Arterial blood by [facility] Pulse oximetry Branch Systolic blood 2021-12-27 19:52:00 111 mm[Hg] Univer sity of pressure [facility] Diastolic blood 2021-12-27 19:52:00 69 mm[Hg] Unive rsity of pressure [facility] Heart rate 2021-12-27 19:52:00 76 /min [facility] Body temperature 2021-12-27 19:52:00 36.72 Tanisha Univ ersity [facility] Respiratory rate 2021-12-27 19:52:00 18 /min [facility] Body height 2021-12-27 19:52:00 175.3 cm [facility] Body weight 2021-12-27 19:52:00 81.285 kg [facility] BMI 2021-12-27 19:52:00 26.46 kg/m2 [facility] Oxygen saturation in 2021-12-27 19:52:00 99 /min University Arterial blood by [facility] Pulse oximetry Branch Height 2020-09-07 00:00:00 69 [in_i] [facility] BMI (Body Mass 2020-09-07 00:00:00 43.1 kg/m2 [facility] Body Weight 2020-09-07 00:00:00 292 [lb_av] [facility] Systolic blood 2022-11-06 19:12:00 100 mm[Hg] [facility] pressure Diastolic blood 2022-11-06 19:12:00 64 mm[Hg] [facility] pressure Heart rate 2022-11-06 19:12:00 72 /min [facility] Body temperature 2022-11-06 19:12:00 36.78 Tanisha [facility] Body height 2022-11-06 19:12:00 175.3 cm [facility] Body weight 2022-11-06 19:12:00 69.4 kg [facility] BMI 2022-11-06 19:12:00 22.59 kg/m2 [facility] Oxygen saturation in 2022-11-06 19:12:00 98 /min [facility] Arterial blood by Pulse oximetry Procedures Procedure Date / Time Performing Clinician Source Performed CONSENT/REFUSAL FOR 2023-02-05 23:19:42 Doctor Unassigned, [facility] DIAGNOSIS AND TREATMENT [facility] CBC WITH PLATELET AND 2023-01-02 12:57:00 [facility] DIFFERENTIAL COMPREHENSIVE METABOLIC 2023-01-02 12:57:00 [facility] PANEL LIPID PANEL 2023-01-02 12:57:00 [facility] TSH WITH REFLEX TO FREE 2023-01-02 12:57:00 [facility] T4 HEMOGLOBIN A1C 2023-01-02 12:57:00 [facility] URINALYSIS SCREEN AND 2023-01-02 12:57:00 [facility] MICROSCOPY, WITH REFLEX TO CULTURE VITAMIN D 25 HYDROXY 2023-01-02 12:57[facility] L[facility] POCT URINALYSIS 2022-11-11 20:21:00 Kirstin Rankin [facility] [place] ASSIGNMENT OF BENEFITS 2022-11-11 20:11:48 Doctor Unassigned, [facility] XR CHEST 2 VW 2022-10-26 02:29:53 Coral Schneider [facility] LIPASE 2022-10-26 02:24:00 Coral Schneider [facility] TROPONIN I 2022-10-26 02:24:00 Coral Schneider [facility] COMP. METABOLIC PANEL 2022-10-26 02:24:00 [id number] [place] CBC WITH DIFF 2022-10-26 02:24:00 Coral Schneider [facility] N-TERMINAL PRO-BNP 2022-10-26 02:24:00 Coral Schneider [facility] [place] ASSIGNMENT OF BENEFITS 2022-10-26 01:29:24 Doctor Unassigned, [facility] CONSENT/REFUSAL FOR 2022-10-26 00:57:26 [facility] DIAGNOSIS AND TREATMENT [facility] CONSENT/REFUSAL FOR 2022-10-25 12:30:38 Doctor Christinessrahul, [facility] DIAGNOSIS AND TREATMENT [facility] XR KNEE 3 VW LEFT 2022-10-13 01:30:[address] [facility] [place] XR TIBIA FIBULA 2 VW LEFT 2022-10-13 01:30:23 Ruth Pitt [facility] [place] ASSIGNMENT OF BENEFITS 2022-10-13 01:14:18 Doctor Unass[facility], [facility] NOTICE OF PRIVACY 2022-10-13 00:34:02 Doctor Kiera, [facility] PRACTICES [facility] CONSENT/REFUSAL FOR 2022-10-13 00:32:08 Doctor Christinessrahul, [facility] DIAGNOSIS AND TREATMENT [facility] ULTRASOUND 2022-07-18 05:01:00 Doctor Kiera, [facility] [place] [facility] POCT TEST 2022-07-18 00:00:00 [facility]URANCE CORRESPONDENCE 2022-04-28 06:01:00 Doctor Qureshi, [facility] [place] [facility] POCT URINALYSIS 2022-02-08 19:38:00 Jami Barreto [facility] GALV ONLY - INFLUENZA A B 2022-01-11 20:06:00 Lenin Terrell [facility] RSV PCR [facility] Branch POCT URINALYSIS 2022-01-11 00:00:00 Lenin Terrell o f [facility] POCT URINALYSIS AUTO 2021-12-27 19:56:00 Genoveva Alexandre [facility] AUTHORIZATION TO RELEASE 2021-12-27 05:01:00 Doctor Qureshi [facility] TO [facility] Name [facility] Plan of Care Planned Activity Planned Date Details Comments Source Future Scheduled Test 2023-01-27 COVID-19 VACCINE ([address] [place] [address] 22:14:28 - season) [code = COVID-19 VACCINE ( - season)] Future Scheduled Test 2023-01-27 INFLUENZA VACCINE [facility] 22:14:28 (#1) [code = INFLUENZA VACCINE (#1)] Future Scheduled Test 2023-01-27 [facility] 22:14:28 malignant neoplasm of cervix (procedure) [code = 911508536] Future Scheduled Test 2023-01-27 RSV VACCINES > 60 M [facility] 22:14:28 YR (1 - 1-dose 60+ series) [code = RSV VACCINES > 60 YR (1 - 1-dose 60+ series)] Future Scheduled Test 2022-09-30 COVID-19 VACCINE [facility] 14:12:01 (#1) [code = COVID-19 VACCINE (#1)] Future Scheduled Test 2022-09-[address] [facility] 14:12:01 screening (procedure) [code = 112786616] Future Scheduled Test 2022-09-30 [facility] 14:12:01 malignant neoplasm of cervix (procedure) [code = 926729568] Future Scheduled Test 2022-09-30 INFLUENZA VACCINE [facility] 14:12:01 [code = INFLUENZA VACCINE] Instructions [facility] Practice Encounters Start End Encounter Admission Attending Care Care Encounter Source Date/Time Date/Time Type Type Clinicians Facility Department ID 2021-02-13 Emergency [facility] [id number] Univers 07:31:15 ity [facility] 2021-02-12 Emergency [facility] [id number] Univers 02:16:24 ity [facility] 2021-02-11 Emergency [facility] [id number] [facility]09 Emergency [facility] [id number] [facility] 2023-02-05 2023-02-05 Emergency X [facility] ERT [id number] Univers 18:31:00 21:44:00 [facility] 2023-02-05 2023-02-05 Emergency [facility] 1.2.840.114 [id number] Univers 18:31:00 21:44:00 Marley CAMPOS [id number] i ty [facility] 4.2.7.2.686 [facility] [id number] [address] 2023-02-05 2023-02-05 Outpatient Shari AGUIRRE [facility] [id number] Univers 17:45:00 17:46:00 SAKSHI jesus [facility] 2023-02-05 2023-02-05 Nurse Nurse, [facility] 1.2.840.114 [id number] Univers 17:45:00 17:46:00 Visit Unknown, Attending HEALTH [id number] ann marie Sakshi Aguirre 4.2.7.2.686 [facility] [phone] [address] MEDICAL OFFICE BUILDING 2023-01-29 2023-01-29 Outpatient SFA [id number] [place] 18:00:07 18:00:07 [id number] F [place] 2023-01-22 2023-01-22 Orders Anna, 1.2.840.1 [id number] Methodi 00:00:00 00:00:00 Only Wondiful [address]92.1.[address] 3.430.2.7 Hospit a .3.612658 l .8 2023-01-10 2023-01-10 Refill Anna, 1.2.840.1 [id number] Methodi 00:00:00 00:00:[address] 3.430.2.7 Hospit a .3.005060 l .8 2023-01-03 2023-01-03 Outpatient SFA [id number] [place] 13:13:37 13:13:37 [id number] F [place] 2022-12-27 2022-12-27 [facility] 1.2.840.114 [id number] Univers 00:00:00 00:00:00 [facility] [id number] it y of [facility] 4.2.7.2.686 Jesus as KIRAN?BLEA [id number] Wi dical KNEY [address] [facility] OFFICE BUILDING 2022-12-20 2022-12-20 Outpatient SFA [id number] [place] 14:55:45 14:55:45 [id number] [place] 2022-12-19 2022-12-19 Telephone Christie Gonzalez [facility] 1.2.840.114 [id number] Univers 00:00:00 00:00:00 Ernie CAMPOS 350.1.13.10 i ty of [facility] [place].7.2.[place] [id number] Wi dical NAL [address] [facility] 2022-12-18 2022-12-18 Patient Kendra Gonzalezen [facility] 1.2.401.930 [id number] Univers 00:00:00 00:00:00 Secure Msg Ernie [facility] 350.1.13.10 ity [facility] [place].7.2.[place] [id number] Wi dical NAL [address] [facility] 2022-12-17 2022-12-17 [facility] 1.2.840.114 [id number] Univers 00:00:00 00:00:00 [facility] [id number] it y of Raphael [facility] 4.2.7.2.686 Jesus as KIRAN?BLEA [id number] Wi stacie HOBBS [address] [place] MEDICAL OFFICE [facility] 2022-12-06 2022-12-06 Outpatient CHRISTIE FELIZ [facility] [id number] Univers 08:30:00 08:30:00 ity of [facility] 2022-12-04 2022-12-04 Outpatient [facility] [id number] [place] 09:08:02 09:08:02 [id number] [address] [place] 2022-11-30 2022-11-30 Outpatient Shari GONZALEZ [facility] [id number] Univers 09:30:00 09:30:00 ity of [facility] 2022-11-20 2022-11-20 Outpatient [facility] [id number] [place] 13:13:41 13:13:41 [id number] F [place] 2022-11-11 2022-11-11 Outpatient Shari RANKIN [facility] [id number] Univers 15:20:00 15:41:21 KIRSTIN [facility] 2022-11-11 2022-11-11 Urgent Kirstin Rankin [facility] 1.2.840.114 [id number] Univers 15:20:00 15:41:21 Care Unknown, [facility] 350.1.13.10 ity of [place] 4.2.7.2.686 Jesus as KIRAN?BLEA [phone] Wi stacie HOBBS [address] [place] MEDICAL OFFICE [facility] 2022-11-11 2022-11-11 Orders Doctor LEVY 1.2.840.114 [id number] Univers 00:00:00 00:00:00 Only Unassigned, STEPHANIE 350.1.13.10 ity of [place] [facility] 4.2.7.2.686 Jesus as [id number] [address] 2022-11-06 2022-11-06 Office Anna 1.2.840.1 [id number] Methodi 14:00:00 14:48:28 Visit Nidhi 70018.1.[address] 3.430.2.7 Hospit a .3.326501 l .8 2022-11-06 2022-11-06 Outpatient SFA SFA [id number] [place] 10:35:08 10:35:08 [id number] F [place] 2022-11-06 2022-11-06 Outpatient ANNA, [facility] [id number] [place] 00:00:00 00:00:[address] 2022-10-29 2022-10-29 Telephone Anna, 1.2.840.1 [id number] Methodi 00:00:00 00:00:[address] 3.430.2.7 Hospit a .3.760048 l .8 2022-10-28 2022-10-28 Emergency EM Michael Hernandez [facility] LA00 [id number] [facility] 20:27:00 23:30:00 29 [facility] 2022-10-25 2022-10-25 Emergency [facility] [id number] Univers 20:19:00 23:02:00 WHITNEYO ann marie [facility] 2022-10-25 2022-10-25 Emergency [facility] 1.2.840.114 [id number] Univers 20:19:00 23:02:00 Coral CAMPOS 350.1.13.10 ity [facility] 4.2.7.2.686 [facility] [id number] [address] 2022-10-25 2022-10-25 Emergency X [facility] ERT [id number] Univers 07:34:00 09:13:00 AYANNA jesus [facility] 2022-10-25 2022-10-25 Emergency [facility] 1.2.840.114 [id number] Univers 07:34:00 09:13:00 Ayanna CAMPOS 350.1.13.10 i ty [facility] 4.2.7.2.686 [facility] [id number] [address] 2022-10-12 2022-10-12 Emergency X SWEETIE [facility] ERT [id number] Univers 19:56:00 22:05:00 RUTH ity of [facility] 2022-10-12 2022-10-12 Emergency [facility] 1.2.727.796 [id number] Univers 19:56:00 22:05:00 Ruth CAMPOS 350.1.13.10 ity of [facility] 4.2.7.2.[place] [id number] [facility] [address] [place] 2022-10-12 2022-10-12 Orders Doctor CAM 1.2.840.114 [id number] Univers 00:00:00 00:00:00 Only Unassigned, STEPHANIE 350.1.13.10 ity of [place] [facility] 4.2.7.2.686 Jesus as [id number] [facility] [address] [place] 2022-10-08 2022-10-08 [facility] 1.2.840.114 [id number] Univers 00:00:00 00:00:00 [facility] 350.1.13.10 it y of [place] 4.2.7.2.686 Jesus as KIRAN?BLEA [id number] [address] MEDICAL OFFICE [facility] 2022-08-27 2022-08-27 [facility] 1.2.840.114 [id number] Univers 00:00:00 00:00:00 [facility] 350.1.13.10 it y of [place] 4.2.7.2.686 Jesus as KIRAN?BLEA [id number] [address] MEDICAL OFFICE [facility] 2022-08-24 2022-08-24 Outpatient CHRISTIE FELIZ [facility] [id number] Univers 10:00:00 10:00:00 ity of [facility] 2022-08-02 2022-08-02 [facility]phone [facility] 1.2.840.114 [id number] Univers 00:00:00 00:00:00 [facility] 350.1.13.10 it y of [place] 4.2.7.2.686 Jesus as KIRAN?BLEA [id number] [address] MEDICAL OFFICE BUILDING 2022-07-26 2022-07-26 Telephone Christie Gonzalez [facility] YADIRA 1.2.840.114 [id number] Univers 00:00:00 00:00:00 Ernie LUIS FERNANDO 350.1.13.10 it y [place] [facility] [id number] [address] 2022-07-26 2022-07-26 Case Carlos [facility] 1.2.375.005 [id number] Univers 00:00:00 00:00:00 Management Ernie CAMPOS 350.1.13.10 ity of [facility] 4.[place].7.2.[place] [id number] [address] 2022-07-26 2022-07-26 Patient Christie Gonzalez [facility] YADIRA 1.2.840.114 [id number] Univers 00:00:00 00:00:00 Secure Msg Ernie LUIS FERNANDO 350.1.13.10 ity of [place]2.[place] [id number] [address] 2022-07-24 2022-07-24 SHORTY Norton 1.2.840.114 [id number] Univers 00:00:00 00:00:00 Rhett JADE 350.1.13.10 it y of Raphael [place] 4.2.7.2.686 Jesus as KIRAN?BLEA [id number] [address] MEDICAL OFFICE BUILDING 2022-07-24 2022-07-24 CAM [place] 1.2.840.114 [id number] Univers 00:00:00 00:00:00 Rhett BROWN 350.1.13.10 it y of [facility] 4.2.7.2.686 Jesus as [id number] [address] 2022-07-20 2022-07-20 Outpatient Shari GONZALEZ [facility] [id number] Univers 13:30:00 13:30:00 ity of [facility] 2022-07-18 2022-07-18 Outpatient Shari GONZALEZ [facility] [id number] Univers 14:15:00 15:02:25 ity of [facility] 2022-07-18 2022-07-18 Office Christie Gonzalez [facility] 1.2.842.165 [id number] Univers 14:15:00 15:02:25 Visit Ernie CAMPOS 350.1.13.10 i ty of [place].2.[place] [id number] Wi dical NAL [address] [facility] 2022-07-18 2022-07-18 Orders Doctor CAM 1.2.840.114 [id number] Univers 00:00:00 00:00:00 Only Unassigned, STEPHANIE 350.1.13.10 ity of [place] [facility] 4.2.7.2.686 Jesus as [id number] [address] 2022-07-17 2022-07-17 Nickel Plater 2, Adc Lab [facility] 1.2.840.114 [id number] Univers 14:15:00 14:30:00 Visit Christie Gonzalez 350.1.13.10 ity of [place]2.[place] [id number] Wi dical NAL [address] [facility] 2022-07-17 2022-07-17 Outpatient R CHRISTIE GONZALEZ [facility] [id number] Univers 14:15:00 14:15:00 ity of [facility] 2022-07-16 2022-07-16 Patient Christie Gonzalez [facility] 1.2.840.114 [id number] Univers 00:00:00 00:00:00 Secure Msg Ernie WTASON 350.1.13.10 [place] [id number] [address] 2022-06-25 2022-06-25 Outpatient R CHRISTIE GONZALEZ [facility] [id number] Univers 12:30:00 12:30:00 ity of [facility] 2022-06-25 2022-06-25 Telephone Kaleb [facility] 1.2.840.114 10 [id number] Univers 00:00:00 00:00:00 Mohini WATSON 350.1.13.10 it [place] [id number] [facility] [address] [place] 2022-06-19 2022-06-19 Telephone Christie Gonzalez [facility] 1.2.840.114 [id number] Univers 00:00:00 00:00:00 Cam [place] 350.1.13.10 i ty of [facility] 4.2.7.2.[place] [phone] [address] 2022-06-19 2022-06-19 Patient Christie Gonzalez [facility] 1.2.428.462 [id number] Univers 00:00:00 00:00:00 Secure Msg Cam [place] 350.1.13.10 ity of [place] [id number] [address] 2022-05-26 2022-05-26 [facility] 1.2.840.114 [id number] Univers 00:00:00 00:00:00 [facility] 350.1.13.10 it y of [place] 4.2.7.2.686 Jesus as KIRAN?BLEA [id number] [address] OFFICE [facility] 2022-05-17 2022-05-17 [facility] 1.2.840.114 [id number] Univers 00:00:00 00:00:00 [facility] 350.1.13.10 it y of [place] 4.2.7.2.686 Jesus as KIRAN?BLEA [id number] [address] 2022-05-07 2022-05-07 Outpatient R [facility] [id number] Univers 15:00:00 15:00:00 ity of [facility] 2022-04-28 2022-04-28 Orders Doctor LEVY 1.2.840.114 [id number] Univers 00:00:00 00:00:00 Only Unassigned, STEPHANIE 350.1.13.10 ity of [place] [facility] 4.2.7.2.686 Jesus as [phone] [address] 2022-04-04 2022-04-04 Outpatient R CARLOS CHRISTIE [facility] [id number] Univers 09:15:00 09:15:00 ity of [facility] 2022-03-28 2022-03-28 Outpatient R CHRISTIE GONZALEZ [facility] [id number] Univers 13:30:00 14:22:25 ity of [facility] 2022-03-28 2022-03-28 Office Christie Gonzalez [facility] 1.2.954.915 [id number] Univers 13:30:00 14:22:25 Visit Cam B[place] 350.1.13.10 i ty of [facility] 4.2.7.2.686 [place] [phone] Me dical [facility] [address] 2022-03-02 2022-03-02 Vicky Foster [facility] 1.2.840.114 [id number] Univers 00:00:00 00:00:00 Rhett HEALTH 350.1.13.10 it y of [place] [facility] 4.2.7.2.686 Jesus as KIRAN?BLEA [id number] [facility] [address] [facility] OFFICE [facility] 2022-02-26 2022-02-26 Outpatient R CHUCHO [facility] [id number] Univers 11:20:00 12:28:20 [facility]-26 2022-02-26 Urgent Kirstin Rankin [facility] 1.2.840.114 [id number] Univers 11:20:00 12:28:20 Care Unknown, Attending HEALTH 350.1.13.10 ity of [place] 4.2.7.2.686 Jesus as KIRAN?BLEA [phone] [facility] [address] [facility] OFFICE [facility] 2022-02-26 2022-02-26 Gold Rankin [facility] 1.2.840.114 [id number] Univers 00:00:00 00:00:00 (Out) Kirstin HEALTH 350.1.13.10 it y of [place] 4.2.7.2.686 Jesus as KIRAN?BLEA [phone] [facility] [address] [place] MEDICAL OFFICE [facility] 2022-02-10 2022-02-10 Telephone Nidhi [facility] 1.2.840.114 [id number] Univers 00:00:00 00:00:00 Ranma HEALTH 350.1.13.10 it y of [place] 4.2.7.2.686 [place] [facility] [phone] [facility] PRIMARY & [address] SPECIALTY CARE 2022-02-08 2022-02-08 Outpatient R ESTEVAN [facility] [id number] Univers 14:20:00 15:06:37 JAMI montes de oca [facility] 2022-02-08 2022-02-08 Urgent Susanna Barretotany [facility] 1.2.840. 114 [id number] Univers 14:20:00 15:06:37 Care Unknown, [facility] 350.1.13.10 ity of [place] 4.2.7.2.686 Jesus as KIRAN?BLEA [id number] [facility] [address] MEDICAL OFFICE BUILDING 2022-02-01 2022-02-01 Refill [facility] 1.2.840.114 [id number] Univers 00:00:00 00:00:00 [facility] 350.1.13.10 it y of [place] 4.2.7.2.686 Jesus as KIRAN?BLEA [id number] [facility] [address] [place] MEDICAL OFFICE BUILDING 2022-01-24 2022-01-24 Patient [facility] 1.2.840.114 [id number] Univers 00:00:00 00:00:00 Secure Msg [facility] 350.1.13.10 ity of [place] 4.2.7.2.686 Jesus as KIRAN?BLEA [id number] [address] MEDICAL OFFICE BUILDING 2022-01-22 2022-01-22 Outpatient R BETTIE [facility] [id number] Univers 00:00:00 00:00:00 GENOVEVA montes de oca [facility] 2022-01-19 2022-01-19 Outpatient R CHRISTIE GONZALEZ [facility] [id number] Univers 14:00:00 14:00:00 ity of [facility] 2022-01-19 2022-01-19 Outpatient CHRISTIE FELIZ [facility] [id number] Univers 14:00:00 14:00:00 ity of [facility] 2022-01-11 2022-01-11 Outpatient R NIDHI [facility] [id number] Univers 14:30:00 15:22:07 RANIA ity of [facility] 2022-01-11 2022-01-11 Urgent Lenin Terrell [facility] 1.2.840.114 [id number] Univers 14:30:00 15:22:07 Care Unknown, Attending HEALTH 350.1.13.10 ity of [place] 4.2.7.2.686 Jesus as KIRAN?BLEA [id number] [address] MEDICAL OFFICE BUILDING 2021-12-29 2021-12-29 Telephone [facility] 1.2.840.114 [id number] Univers 00:00:00 00:00:00 Genoveva BETH 350.1.13.10 ity of [facility] 4.2.7.2.686 [place] [phone] Wi dic[address] 2021-12-27 2021-12-27 Outpatient [facility] [id number] Univers 14:45:00 15:28:26 GENOVEVA jesus o f [facility] 2021-12-27 2021-12-27 Office Alexandre, [facility] 1.2.840.114 [id number] Univers 14:45:00 15:28:26 Visit Genoveva NANCYAMAIRANI 350.1.13.10 ity of [place].2.[place] ABELIO [phone] [address] 2021-12-27 2021-12-27 Outpatient R [facility] [id number] Univers 14:45:00 15:28:26 GENOVEVA jesus o f [facility] 2021-12-27 2021-12-27 Orders Doctor LEVY 1.2.840.114 [id number] Univers 00:00:00 00:00:00 Only Unassigned, STEPHANIE 350.1.13.10 ity of [place] [facility] 4.2.7.2.686 Jesus as [phone] [address] 2021-12-22 2021-12-22 Outpatient R TIANA SMITH [facility] [id number] Univers 15:30:00 15:30:00 ity [facility] 2021-12-20 2021-12-20 CAM Yanez 1.2.840.114 [id number] Univers 00:00:00 00:00:00 (Out) Allison BROWN 350.1.13.10 it y of [facility] 4.2.7.2.686 Jesus as [id number] [address] 2021-12-19 2021-12-19 Outpatient R [facility] [id number] Univers 12:40:00 13:52:42 JAMI todd [facility] 2021-12-19 2021-12-19 Urgent Kirstin Rankin [facility] 1.2.840.114 [id number] Univers 12:40:00 13:00:00 [facility] 350.1.13.10 ity [facility] 4.2.7.2.686 Jesus as KIRAN?BLEA [phone] [address] MEDICAL OFFICE BUILDING 2021-12-13 2021-12-13 Outpatient [facility] [id number] Univers 09:45:00 09:45:00 GENOVEVA [facility] 2021-12-13 2021-12-13 Outpatient [facility] [id number] Univers 09:45:00 09:45:00 GENOVEVA [facility] 2021-12-13 2021-12-13 CAM Hdz 1.2.840.114 [id number] Univers 00:00:00 00:00:00 (Out) Radha BROWN 350.1.13.10 it y [facility] 4.2.7.2.686 Jesus as [phone] [address] 2021-12-12 2021-12-12 Outpatient R [facility] [id number] Univers 15:20:00 16:12:56 FADY ity [facility] 2021-12-12 2021-12-12 Urgent Fady Kimble [facility] 1.2.840.114 [id number] Univers 15:20:00 16:12:56 [facility] 350.1.13.10 ity of [place] 4.2.7.2.686 Jesus as KIRAN?BLEA [phone] [facility] [address] [place] MEDICAL OFFICE [facility] 2021-12-05 2021-12-05 Patient [facility] 1.2.840.114 [id number] Univers 00:00:00 00:00:00 Secure Msg Kellie Stone [place] 350.1.13.10 ity of [facility] 4.2.7.2.686 [place] ESS[place] [id number] [address] 2021-12-04 2021-12-04 [facility] 1.2.840.114 [id number] Univers 00:00:00 00:00:00 [facility] 350.1.13.10 it y of [place] 4.2.7.2.686 Jesus as KIRAN?BLEA [id number] [address] OFFICE [facility] 2021-12-04 2021-12-04 [facility] 1.2.840.114 [id number] Univers 00:00:00 00:00:00 [facility] 350.1.13.10 it y of [place] 4.2.7.2.686 Jesus as KIRAN?BLEA [phone] [address] OFFICE [facility] 2021-12-01 2021-12-01 Outpatient R TIANA SMITH [facility] [id number] Univers 14:30:00 14:30:00 ity of [facility] 2021-11-29 2021-11-29 Outpatient [facility] [id number] Univers 15:30:00 15:30:00 GENOVEVA montes de oca [facility] 2021-11-29 2021-11-29 Outpatient R BETTIE [facility] [id number] Univers 15:30:00 15:30:00 GENOVEVA montes de oca [facility] 2021-11-29 2021-11-29 Outpatient Shari [facility] [id number] Univers 15:30:00 15:30:00 GENOVEVA ity o f [facility] 2021-11-23 2021-11-23 Orders Doctor CAM 1.2.840.114 [id number] Univers 00:00:00 00:00:00 Only Unassigned, STEPHANIE 350.1.13.10 ity of [place] [facility] 4.2.7.2.686 Jesus as [phone] [address] 2021-11-21 2021-11-21 Nickel Plater 2, Marian Lab [facility] 1.2.840.114 [id number] Univers 11:15:00 11:30:00 Visit Rhett Foster [place] 350.1.1 3.10 ity of [facility] 4.2.7.2.686 [place] [phone] Wi dicmagdaleno [facility] [address] 2021-11-21 2021-11-21 Office Tiana Smith [facility] 1.2.840.114 [id number] Univers 10:30:00 10:30:00 Visit BETH 350.1.13.10 i ty of [place]2.7.2.686 [place] [id number] Wi stacie CELIA [address] 2021-11-21 2021-11-21 Outpatient R TIANA SMITH [facility] [id number] Univers 10:30:00 10:21:35 ity of [facility] 2021-11-21 2021-11-21 Nickel Plater Lab, Stephan Serna [facility] 1.2.840.1 14 [id number] Univers 09:00:00 09:15:00 Visit Rhett Foster [facility] 350.1.13 .10 ity of [facility] 4.2.7.2.686 Jesus as KIRAN?BLEA [phone] Wi stacie FABY [address] [place] [address] 2021-11-21 2021-11-21 Office Cristian [facility] 1.2.840.114 [id number] [facility] 08:30:00 08:53:44 Visit [facility] 350.1.13.10 it y of [place] 4.2.7.2.686 Jesus as KIRAN?BLEA [phone] Wi stacie HOBBS [address] [place] MEDICAL OFFICE [facility] 2021-11-21 2021-11-21 Outpatient R CRISTIAN [facility] [id number] Univers 08:30:00 08:53:44 RHETT todd [facility] 2021-11-21 2021-11-21 Outpatient R CRISTIAN [facility] [id number] Univers 08:30:00 08:30:00 RHETT todd [facility] 2021-11-16 2021-11-16 Telephone [facility] 1.2.840.114 [id number] Univers 00:00:00 00:00:00 [facility] 350.1.13.10 it y of [place] 4.2.7.2.686 Jesus as KIRAN?BLEA [phone] Wi stacie [address] MEDICAL OFFICE [facility] 2021-11-09 2021-11-09 Emergency X RADHA, K [facility] ERT [id number] Univers 14:01:00 17:13:00 ity of [facility] 2021-11-09 2021-11-09 Emergency Radha, Heather [facility] 1.2.840.114 [id number] Univers 14:01:00 17:13:00 Taishachidi [place] 350.1.13.10 i ty of [place].2.7.2.686 [place] [id number] [address] 2021-11-07 2021-11-07 Outpatient R [facility] [id number] Univers 17:20:00 17:56:21 KIRSTIN ity [facility] 2021-11-07 2021-11-07 Urgent Chucho [facility] 1.2.840.114 [id number] Univers 17:20:00 17:56:21 Care Kirstin HEALTH 350.1.13.10 it y of [place] 4.2.7.2.686 Jesus as KIRAN?BLEA [phone] Wi stacie HOBBS [address] [place] MEDICAL OFFICE [facility] 2021-11-03 2021-11-03 Refill Doctor [facility] 1.2.840.114 [id number] Univers 00:00:00 00:00:00 Unassigned, HEALTH 350.1.13.10 ity of [place] 4.2.7.2.686 Jesus as KIRAN?BLEA [phone] Wi dicmagdaleno HOBBS [address] [place] MEDICAL OFFICE BUILDING 2021-10-19 2021-10-19 Outpatient R CRISTIAN [facility] [id number] Univers 09:00:00 09:00:00 RHETT jesus [facility] 2021-10-10 2021-10-10 Telephone [facility] 1.2.840.114 [id number] Univers 00:00:00 00:00:00 [facility] 350.1.13.10 it y of [place] 4.2.7.2.686 Jesus as KIRAN?BLEA [phone] Wi dicmagdaleno HOBBS [address] [place] MEDICAL OFFICE [facility] 2021-10-10 2021-10-10 Patient [facility] 1.2.840.114 [id number] Univers 00:00:00 00:00:00 [facility] 350.1.13.10 ity of [place] 4.2.7.2.686 Jesus as KIRAN?BLEA [phone] Wi stacie HOBBS [address] [place] MEDICAL OFFICE [facility] 2021-10-09 2021-10-09 Outpatient R CRISTIAN [facility] [id number] Univers 10:30:00 10:30:00 RHETT [facility] 2021-09-29 2021-09-29 Urgent Fady Kimble [facility] 1.2.840.114 [id number] Univers 17:45:00 18:05:00 Care Lenin Terrell [facility] 350.1.13.10 ity of [place] 4.2.7.2.686 Jesus as KIRAN?BLEA [phone] Wi dicmagdaleno HOBBS [address] [place] MEDICAL OFFICE [facility] 2021-09-29 2021-09-29 Outpatient R NIDHI [facility] [id number] Univers 17:45:00 17:45:00 LENIN [facility] 2021-09-29 2021-09-29 Outpatient R LAMIN [facility] [id number] Univers 17:45:00 17:45:00 FADY jesus [facility] 2021-09-26 2021-09-26 Patient Josue [facility] 1.2.840.114 [id number] Univers 00:00:00 00:00:00 Secure Msg Kellie JADE 350.1.13.10 ity [facility] 4.2.7.2.686 Jesus as KIRAN?BLEA [phone] [address] MEDICAL OFFICE [facility] 2021-09-26 2021-09-26 Patient Cristian [facility] 1.2.840.114 [id number] Univers 00:00:00 00:00:00 Secure Msg Rhett JADE 350.1.13.10 ity of [place] 4.2.7.2.686 Jesus as KIRAN?BLEA [id number] [address] OFFICE [facility] 2021-09-14 2021-09-14 Orders Doctor CAM 1.2.840.114 [id number] Univers 00:00:00 00:00:00 Only Unassigned, STEPHANIE 350.1.13.10 ity of [place] [facility] 4.2.7.2.686 Jesus as [phone] [address] 2021-09-12 2021-09-12 Outpatient R FRANCESMAURYRIRI [facility] [id number] Univers 08:30:00 08:30:00 RHETT ity [facility] 2021-09-12 2021-09-12 Patient Cristian [facility] 1.2.840.114 [id number] Univers 00:00:00 00:00:00 Secure Msg Rhett JADE 350.1.13.10 ity of [place] [facility] 4.2.7.2.686 Jesus as KIRAN?BLEA [id number] [address] MEDICAL OFFICE [facility] 2021-08-31 2021-08-31 Emergency X Heather GARCIA [facility] ERT [id number] Univers 18:04:00 19:19:00 ity of [facility] 2021-08-31 2021-08-31 Emergency Heather Garcia [facility] 1.2.840.114 [id number] Univers 18:04:00 19:19:00 Taisha BETH 350.1.13.10 i ty of [place]2.7.2.[place] [phone] [facility] [address] [place] 2021-08-17 2021-08-17 Outpatient R KAELASONIA [facility] [id number] Univers 10:30:00 10:30:00 BRIANNAVERONICA jesus [facility] 2021-08-17 2021-08-17 Outpatient R CHAPO [facility] [id number] Univers 10:30:00 10:30:00 BRIANNA ity [facility] 2021-08-14 2021-08-14 Patient [facility] 1.2.840.114 [id number] Univers 00:00:00 00:00:00 Secure Msg [facility] 350.1.13.10 ity of [place] 4.2.7.2.686 Jesus as KIRAN?BLEA [phone] [address] MEDICAL OFFICE [facility] 2021-08-11 2021-08-11 Nickel Plater Lab, [facility] 1.2.840.1 14 [id number] Univers 15:30:00 15:57:12 Visit Rhett Foster [facility] 350.1.13 .10 ity of [place] 4.2.7.2.686 Jesus as KIRAN?BLEA [phone] [facility] [address] MEDICAL OFFICE [facility] 2021-08-11 2021-08-11 Outpatient R CRISTIAN [facility] [id number] Univers 15:30:00 15:30:00 RHETT todd [facility] 2021-08-11 2021-08-11 Office [facility] 1.2.840.114 [id number] Univers 15:15:00 15:30:00 Visit [facility] 350.1.13.10 it y of [facility] 4.2.7.2.686 Jesus as KIRAN?BLEA [id number] [address] MEDICAL OFFICE [facility] 2021-08-11 2021-08-11 Outpatient R CRISTIAN [facility] [id number] Univers 15:15:00 15:15:00 RHETT todd [facility] 2021-08-09 2021-08-09 Emergency X [facility] ERT [id number] Univers 15:24:00 19:19:00 TIANA ity of [facility] 2021-08-09 2021-08-09 Emergency [facility] 1.2.763.508 [id number] Univers 15:24:00 19:19:00 Tiana CAMPOS 350.1.13.10 i ty of [facility] 4.2.7.2.686 [place] [phone] [facility] [address] 2021-08-09 2021-08-09 Emergency X [facility] ERT [id number] Univers 15:24:00 19:19:00 TIANA ity of [facility] 2021-08-02 2021-08-02 [facility] 1.2.840.114 [id number] Univers 00:00:00 00:00:00 Wondiful A HEALTH 350.1.13.10 ity of [place] 4.2.7.2.686 Jesus as KIRAN?BLEA [phone] Wi stacie HOBBS [address] [place] [address] MEDICAL OFFICE BUILDING 2021-07-27 2021-07-27 Vicky [facility] 1.2.840.114 [id number] Univers 00:00:00 00:00:00 Wondiful A HEALTH 350.1.13.10 ity of [place] 4.2.7.2.686 Jesus as PROFESSIO [phone] Wi diamondak CELIA [address] [place] [address] OFFICE BUILDING ONE 2021-07-03 2021-07-03 Outpatient R LUIS FERNANDO [facility] [id number] Univers 09:00:00 09:00:00 ORQUIDEA jesus of [facility] 2021-06-23 2021-06-23 Outpatient R ESTEVAN [facility] [id number] Univers 12:40:00 12:40:00 JAMI montes de oca [facility] 2021-06-19 2021-06-19 Orders Doctor LEVY 1.2.840.114 [id number] Univers 00:00:00 00:00:00 Only Unassigned, STEPHANIE 350.1.13.10 ity of [place] [facility] 4.2.7.2.686 Jesus as [phone] [place] [address] 2021-06-06 2021-06-06 Outpatient R CHRISTIE GONZALEZ [facility] [id number] Univers 15:45:00 15:45:00 ity of [facility] 2021-06-06 2021-06-06 Nickel Plater [facility] Main [facility] 1.2.8 40.114 [id number] Univers 08:15:00 08:30:00 Visit Nidhi Castillo [place] 350.1.13. 10 ity of [facility] 4.2.7.2.686 [place] [phone] Wi dical [facility] [address] 2021-06-06 2021-06-06 Outpatient R ANNA [facility] [id number] Univers 08:15:00 08:15:00 WONDIFUL ity o f [facility] 2021-06-06 2021-06-06 Patient [facility] 1.2.840.114 [id number] Univers 00:00:00 00:00:00 Secure Msg Wondiful A HEALTH 350.1.13.10 ity of [facility] 4.2.7.2.686 Jesus as KIRAN?BLEA [phone] [facility] [address] OFFICE [facility] 2021-06-05 2021-06-05 Patient Kosciusko [facility] 1.2.840.114 [id number] Univers 00:00:00 00:00:00 Secure Msg Wondiful A HEALTH 350.1.13.10 ity of [facility] 4.2.7.2.686 Jesus as KIRAN?BLEA [phone] [facility] [address] [facility] OFFICE [facility] 2021-06-02 2021-06-02 Outpatient [facility] [id number] Univers 09:30:00 10:18:39 ORQUIDEA ity of [facility] 2021-06-02 2021-06-02 Office [facility] 1.2.840.114 [id number] Univers 09:30:00 10:18:39 Visit [place] [facility] 350.1.13.10 i [place].2.[place] [phone] Wi dical NAL 0[address] [facility] 2021-06-02 2021-06-02 Outpatient R LUIS FERNANDO, [facility] [id number] Univers 09:30:00 09:30:00 ORQUIDEA ity of [facility] 2021-06-02 2021-06-02 Orders Doctor CAM [id number] Univers 00:00:00 00:00:00 Only Unassigned, STEPHANIE 350.1.13.10 ity of [place] [facility] 4.2.7.2.686 Jesus as [phone] [facility] [address] 2021-06-01 2021-06-01 [facility] [id number] Univers 17:35:12 23:59:00 Encounter Wondiful A [place] 350.1.13.10 ity [facility] 4.2.7.2.686 [facility] [phone] [facility] [address] [place] 2021-06-01 2021-06-01 [facility] 1.2.284.103 [id number] Univers 17:34:45 17:34:45 Encounter Wondiful A [place] 350.1.13.10 ity of [facility] 4.2.7.2.686 [facility] [phone] [facility] [address] [place] 2021-06-01 2021-06-01 [facility] [id number] Univers 00:00:00 17:34:45 WONDIFUL ity o f [facility] 2021-06-01 2021-06-01 [facility] [id number] Univers 00:00:00 17:34:45 WONDIFUL [facility] [place] 2021-06-01 2021-06-01 [facility] 1.2.840.114 [id number] Univers 00:00:00 00:00:00 Management Wondiful A HEALTH 350.1.13.10 ity of [place] 4.2.7.2.686 Jesus as KIRAN?BLEA [phone] Wi stacie [address] MEDICAL OFFICE BUILDING 2021-05-31 2021-05-31 Patient [facility] 1.2.840.114 [id number] Univers 00:00:00 00:00:00 Secure Msg Wondiful A HEALTH 350.1.13.10 ity of [place] 4.2.7.2.686 Jesus as KIRAN?BLEA [phone] Wi stacie HOBBS 044 [facility] OFFICE [facility] 2021-05-29 2021-05-29 Nickel Plater Lab, Ang - Db [facility] 1.2.840.1 14 [id number] Univers 16:00:00 16:15:00 Visit Nidhi Castillo HEALTH 350.1.13.1 0 ity of [place] 4.2.7.2.686 Jesus as KIRAN?BLEA [phone] Wi stacie HOBBS 353 [facility] OFFICE [facility] 2021-05-29 2021-05-29 Office Anna [facility] 1.2.840.114 [id number] Univers 15:15:00 16:04:04 Visit Nidhi A HEALTH 350.1.13.10 ity of [place] 4.2.7.2.686 Jesus as KIRAN?BLEA [phone] Wi stacie HOBBS 044 [facility] OFFICE [facility] 2021-05-29 2021-05-29 Outpatient R ANNA [facility] [id number] Univers 15:15:00 16:04:04 WONDIFUL ity o f [facility] [place] 2021-05-29 2021-05-29 Outpatient R ANNA [facility] [id number] Univers 16:00:00 16:00:00 WONDIFUL ity o f [facility] [place] 2021-05-24 2021-05-24 Office Christie Gonzalez [facility] 1.2.016.749 [id number] Univers 14:00:00 15:16:00 Visit Cam [facility] 350.1.13.10 i ty of [facility] 4.2.7.2.[place] [phone] Wi stacie YANG [address] [facility] 2021-05-24 2021-05-24 Outpatient R CHRISTIE GONZALEZ [facility] [id number] Univers 14:00:00 15:16:00 ity [facility] 2021-05-24 2021-05-24 Outpatient CHRISTIE FELIZ [facility] [id number] Univers 14:00:00 14:00:00 ity of [facility] [place] 2021-05-18 2021-05-[address] [facility] ERT [id number] Univers 12:38:00 16:17:00 RUTH jesus [facility] 2021-05-18 2021-05-18 Emergency [facility] 1.2.623.755 [id number] Univers 12:38:00 16:17:00 Ruthlaron [place] 350.1.13.10 ity of [facility] 4.2.7.2.686 [place] [phone] [facility] [address] [place] 2021-05-18 2021-05-[address] [facility] ERT [id number] Univers 12:38:00 16:17:00 RUTH jesus [facility] 2021-05-18 2021-05-18 Orders Doctor CAM 1.2.840.114 [id number] Univers 00:00:00 00:00:00 Only Unassigned, STEPHANIE 350.1.13.10 ity of [place] [facility] 4.2.7.2.686 Jesus as [phone] [facility] 009 [place] 2021-04-26 2021-04-26 Refill [facility] 1.2.840.114 [id number] Univers 00:00:00 00:00:00 Wondiful A HEALTH 350.1.13.10 ity of [place] 4.2.7.2.686 Jeuss as PROFESSIO [phone] [address] OFFICE BUILDING ONE 2021-04-26 2021-04-26 Patient [facility] 1.2.840.114 [id number] Univers 00:00:00 00:00:00 Secure Msg Wondiful A HEALTH 350.1.13.10 ity of [facility] 4.2.7.2.686 Jesus as KIRAN?BLEA [phone] [facility] FABY [address] [place] [address] OFFICE BUILDING 2021-04-26 2021-04-26 Patient [facility] 1.2.840.114 [id number] Univers 00:00:00 00:00:00 Secure Msg Wondiful A HEALTH 350.1.13.10 ity of [facility] 4.2.7.2.686 Jesus as KIRAN?BLEA [phone] Wi stacie HOBBS 044 [facility] OFFICE [facility] 2021-03-14 2021-03-14 Nickel Plater Lab, Ang - Db [facility] 1.2.840.1 14 [id number] Univers 08:04:04 08:13:31 Visit Nidhi Castillo A HEALTH 350.1.13.1 0 ity of [place] 4.2.7.2.686 Jesus as KIRAN?BLEA [phone] Wi stacie HOBBS 353 [facility] OFFICE [facility] 2021-03-14 2021-03-14 Out[facility] [id number] Univers 08:00:00 08:00:00 WONDIFUL ity o f [facility] [place] 2021-03-13 2021-03-13 Outpatient R [facility] [id number] Univers 08:15:00 08:15:00 ity of [facility] [place] 2021-02-17 2021-02-17 Office [facility] 1.2.840.114 [id number] Univers 09:38:57 10:08:57 Visit Wondiful A HEALTH 350.1.13.10 ity of [place] 4.2.7.2.686 Jesus as KIRAN?BLEA [phone] Wi stacie HOBBS [address] [place] [address] 2021-02-17 2021-02-17 Outpatient [facility] [id number] Univers 10:00:00 10:00:00 WONDIFUL ity o f [facility] [place] 2021-02-05 2021-02-05 Outpatient Freeman_P VFP VFP [id number] Village 00:00:00 00:00:00 [id number] Family Practic e 2021-01-17 2021-01-17 Refill [facility] 1.2.840.114 [id number] Univers 00:00:00 00:00:00 Wondiful A Health 350.1.13.10 ity of [place] 4.2.7.2.686 Jesus as Professio [phone] Wi stacie yang [address] [place] [address] One 2020-12-20 2020-12-20 Letter CAM Jimenez 1.2.840.114 [id number] Univers 00:00:00 00:00:00 (Out) Radha Head STEPHANIE 350.1.13.10 it y of HOSPITAL 4.2.7.2.686 Jesus as [phone] [facility] 019 [place] 2020-12-20 2020-12-20 Patient Doctor CAM 1.2.840.114 [id number] Univers 00:00:00 00:00:00 Secure Msg Unassigned, STEPHANIE 350.1.13.10 ity of [place] [facility] 4.2.7.2.686 Jesus as [phone] [address] 2020-12-18 2020-12-18 Outpatient R CHUCHO [facility] [id number] Univers 17:45:00 17:45:00 KIRSTIN [facility] 2020-12-18 2020-12-18 Laboratory Only, Ang Db Test [facility] 1.2.8 40.114 [id number] Univers 17:01:48 17:16:48 Only Chucho [facility] 350.1.13.10 ity of [place] 4.2.7.2.686 Jesus as Kiran?Blea [phone] [facility] [address] [place] Medical Office Building 2020-12-14 2020-12-14 Orders Doctor CAM 1.2.840.114 [id number] Univers 00:00:00 00:00:00 Only Unassigned, STEPHANIE 350.1.13.10 ity of [place] [facility] 4.2.7.2.686 Jesus as [phone] [facility] 009 [place] 2020-12-02 2020-12-02 Telephone Anna [facility] 1.2.840.114 [id number] Univers 00:00:00 00:00:00 Wondiful A Health 350.1.13.10 ity of [place] 4.2.7.2.686 Jesus as Kiran?Blea [phone] [facility] 0[address] [place] Medical Office Building 2020-11-30 2020-11-30 Outpatient Shari FOSTER [facility] [id number] Univers 08:30:00 08:30:00 RHETT jesus [facility] 2020-11-25 2020-11-25 Patient Anna [facility] 1.2.840.114 [id number] Univers 00:00:00 00:00:00 Secure Msg Wondiful A [facility] 350.1.13.10 ity of [place] 4.2.7.2.686 Jesus as ABELIO [phone] [facility] [address] [place] OFFICE [facility] ONE 2020-11-24 2020-11-24 Outpatient Sh[facility] [id number] Univers 10:30:00 10:30:00 WONDIFUL ity o tavon [facility] [place] 2020-11-24 2020-11-24 Outpatient Shari [facility] [id number] Univers 08:00:00 08:00:00 WONDIFUL ity o [facility] 2020-11-04 2020-11-04 Patient Doctor CAM 1.2.840.114 [id number] Univers 00:00:00 00:00:00 Secure Msg Unassigned, STEPHANIE 350.1.13.10 [facility] 4.2.7.2.686 Jesus as [phone] [address] 2020-11-02 2020-11-02 Outpatient Shari [facility] [id number] Univers 11:15:00 11:15:00 JAMI winston [facility] 2020-10-26 2020-10-26 Outpatient Shari [facility] [id number] Univers 16:00:00 16:00:00 JAMI winston [facility] 2020-09-09 2020-09-09 Outpatient RICKEY_P_W [facility] [place] [id number] [id number] [facility] 08:41:00 08:41:00 [id number] Family Practic e 2020-09-07 2020-09-07 Porchae B SARAVANANMAN_P_W VFP [place] - 1553 694-20 [facility] 00:00:00 00:00:00 YOVANY [facility] [id number] 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, [place] [address], ([facility]) [place] [address] , Ph. 2020-09-06 2020-09-06 Outpatient FREEMAN_P_W VFP VFP 155 [id number] [facility] 07:41:00 07:41:00 AG [id number] Family Practic e 2020-07-29 2020-07-29 Telephone Anna [facility] 1.2.840.114 [id number] Univers 00:00:00 00:00:00 Wondiful A Health 350.1.13.10 ity of [place] 4.2.7.2.686 Jesus as Professio [phone] Wi dical nal [address] [place] Office Building One 2020-07-08 2020-07-08 Outpatient R ANNA [facility] [id number] Univers 11:15:00 11:15:00 WONDIFUL ity o f [facility] [place] 2020-07-04 2020-07-04 Patient Archie [facility] 1.2.840.114 [id number] Univers 00:00:00 00:00:00 Outreach [facility] 350.1.13.10 i ty of [facility] 4.2.7.2.686 [place] [phone] Wi dical [address] [place] 2020-06-21 2020-06-21 Outpatient R ANNA [facility] [id number] Univers 09:30:00 09:30:00 WONDIFUL ity o f [facility] [place] 2020-06-17 2020-06-17 Telephone [facility] 1.2.611.574 [id number] Univers 00:00:00 00:00:00 Rosmichellenda R [employer] 350.1.13.10 ity of REGIONAL 4.2.7.2.686 Jesus as MATERNAL [phone] Med ical & CHILD [address] [place] [address] 2020-06-17 2020-06-17 Patient Doctor [facility] 1.2.840.114 [id number] Univers 00:00:00 00:00:00 Secure Msg Unassigned, [employer] 350.1.13.10 ity of [place] REGIONAL 4.2.7.2.686 Jesus as MATERNAL [phone] [facility] ical & CHILD [address] [place] [address] 2020-06-15 2020-06-15 Telephone [facility] 1.2.361.012 [id number] Univers 00:00:00 00:00:00 Braulio R [employer] 350.1.13.10 ity of [facility] 4.2.7.2.686 Jesus as MATERNAL [phone] [facility] & CHILD [address] [place] [address] 2020-06-14 2020-06-14 Office [facility] 1.2.840.114 [id number] Univers 13:53:55 14:50:39 Visit Marthaelizabeth R [employer] 350.1.13.10 ity of [facility] 4.2.7.2.686 Jesus as MATERNAL [phone] [facility] & CHILD [address] [place] [address] 2020-06-14 2020-06-14 Outpatient R [facility] [id number] Univers 14:15:00 14:15:00 BRAULIO ity o f [facility] [place] 2020-06-13 2020-06-13 Emergency [facility] 1.2.840.114 [id number] Univers 16:46:00 21:26:00 Pascale [place] 350.1.13.10 i ty of [place].2.7.2.686 [place] [phone] [facility] [address] [place] 2020-06-13 2020-06-13 Orders Doctor CAM 1.2.840.114 [id number] Univers 00:00:00 00:00:00 Only Unassigned, STEPHANIE 350.1.13.10 ity of [place] [facility] 4.2.7.2.686 Jesus as [phone] [facility] [address] [place] 2020-06-10 2020-06-10 Patient Anna [facility] 1.2.840.114 [id number] Univers 00:00:00 00:00:00 Secure Msg Wondiful A HEALTH 350.1.13.10 ity of [place] 4.2.7.2.686 Jesus as PROFESSIO [phone] Wi dical [facility] [address] [place] OFFICE BUILDING ONE 2020-04-26 2020-04-26 Patient Anna [facility] 1.2.840.114 [id number] Univers 00:00:00 00:00:00 Secure Msg Wondiful A HEALTH 350.1.13.10 ity of [place] 4.2.7.2.686 Jesus as PROFESSIO [phone] [address] 2020-04-16 2020-04-16 Emergency [facility] 1.2.297.903 [id number] Univers 08:58:00 10:27:00 Teri [place] 350.1.13.10 i ty of [place] 4.2.7.2.686 [place] [phone] [address] 2020-04-11 2020-04-11 Telephone [facility] 1.2.840.114 [id number] Univers 00:00:00 00:00:00 Wondiful A Health 350.1.13.10 ity of [place] 4.2.7.2.686 Jesus as Professio [phone] [address] 2020-03-14 2020-03-14 Outpatient DANTE, [facility] [id number] [place] 00:00:00 00:00:00 KATYA [address] 2020-02-23 2020-02-23 Outpatient DANTE, [facility] [id number] [place] 00:00:00 00:00:00 KATYA [address] 2020-02-02 2020-02-02 Outpatient R [facility] [id number] Univers 13:30:00 13:30:00 ity [facility] 2020-01-26 2020-01-26 Nurse Visit, Ang-Rmchp Nurse [facility] 1.2 .840.114 [id number] Univers 14:47:26 14:51:43 Visit Nick Bernard [employer]ST[employer]ER 350.1.13.10 ity [facility] 4.2.7.2.686 Jesus as MATERNAL [phone] Med ical & CHILD 107 [facility] 2020-01-26 2020-01-26 Outpatient R JOANA [facility] [id number] Univers 14:45:00 14:45:00 NICK jesus [facility] 2020-01-26 2020-01-26 Orders Doctor LEVY 1.2.840.114 [id number] Univers 00:00:00 00:00:00 Only Unassigned, STEPHANIE 350.1.13.10 ity of [place] [facility] 4.2.7.2.686 Jesus as [phone] [address] 2020-01-10 2020-01-10 Urgent Provider, [facility] 1.2.840.114 [id number] Univers 09:42:48 10:02:48 Care Unknown, Attending Health 350.1.13.10 ity of [place] 4.2.7.2.686 Jesus as Professio [phone] [address] Office [facility] 2020-01-10 2020-01-10 Outpatient R UNKNOWN, [facility] [id number] Univers 10:00:00 10:00:00 ATTENDING ity of [facility] [place] 2020-01-06 2020-01-06 Case Anna [facility] 1.2.840.114 [id number] Univers 00:00:00 00:00:00 Management Wondiful A [place] 350.1.13.10 ity of [place] 4.2.7.2.686 [place] Profess[place] [phone] [address] 2020-01-05 2020-01-05 Patient Anna [facility] 1.2.840.114 [id number] Univers 00:00:00 00:00:00 Secure Msg Wondiful A HEALTH 350.1.13.10 ity of [place] 4.2.7.2.686 Jesus as PROFESSIO [phone] [address] 2020-01-05 2020-01-05 Patient Anna [facility] 1.2.840.114 [id number] Univers 00:00:00 00:00:00 Secure Msg Wondiful A [place] 350.1.13.10 ity of [place] 4.2.7.2.686 [place] Professio [phone] [address] 2020-01-01 2020-01-01 Nickel Plater Lab, Adc Fam Pob I [facility] 1.2. 840.114 [id number] Univers 14:43:56 14:53:56 Visit Judson Castillozac A Health 350.1.13.1 0 ity of [place] 4.2.7.2.686 Jesus as Professio [phone] [address] Office [facility] 2020-01-01 2020-01-01 Office [facility] 1.2.840.114 [id number] Univers 13:50:07 14:43:24 Visit Wondiful A Health 350.1.13.10 ity of [place] 4.2.7.2.686 Jesus as Professio [phone] [address] 2020-01-01 2020-01-01 Outpatient R ANNA [facility] [id number] Univers 14:00:00 14:00:00 WONDIFUL ity o f [facility] [place] 2020-01-01 2020-01-01 Refill [facility] 1.2.840.114 [id number] Univers 00:00:00 00:00:00 Wondiful A Health 350.1.13.10 ity of [place] 4.2.7.2.686 Jesus as Professio [phone] [address] Office [facility] 2019-12-11 2019-12-11 Patient Anna [facility] 1.2.840.114 [id number] Univers 00:00:00 00:00:00 Secure Msg Wondiful A Health 350.1.13.10 ity of [place] 4.2.7.2.686 Jesus as Professio [phone] [address] 2019-12-10 2019-12-10 Outpatient R ANNA [facility] [id number] Univers 10:15:00 10:15:00 WONDIFUL ity o f [facility] [place] 2019-11-30 2019-11-30 Outpatient R ANNA [facility] [id number] Univers 11:15:00 11:15:00 WONDIFUL ity o f [facility] [place] 2019-11-24 2019-11-24 Outpatient R ANNA [facility] [id number] Univers 11:30:00 11:30:00 WONDIFUL ity o f [facility] [place] 2019-11-10 2019-11-10 Patient Anna [facility] 1.2.840.114 [id number] Univers 00:00:00 00:00:00 Secure Msg Wondiful A HEALTH 350.1.13.10 ity of [place] 4.2.7.2.686 Jesus as PROFESSIO [phone] Wi dical NAL 044 [facility] 2019-11-10 2019-11-10 Refdelfino Lemonlauren [facility] 1.2.840.114 [id number] Univers 00:00:00 00:00:00 Wondiful A [place] 350.1.13.10 ity of [place].2.7.2.686 [place] Profess[place] [phone] Wi dical nal 044 [facility] 2019-11-07 2019-11-07 Refdelfino Anna [facility] 1.2.840.114 [id number] Univers 00:00:00 00:00:00 Wondiful A Health 350.1.13.10 ity of [place] 4.2.7.2.686 Jesus as Professio [phone] Wi dical nal 044 [facility]amed [facility] 2019-10-26 2019-10-26 Patient Anna [facility] 1.2.840.114 [id number] Univers 00:00:00 00:00:00 Secure Msg Wondiful A [place] 350.1.13.10 ity of [place] 4.2.7.2.686 [place] Profess[place] [phone] Wi dical nal 044 [facility] 2019-10-01 2019-10-01 Refdelfino Castillo [facility] 1.2.840.114 [id number] Univers 00:00:00 00:00:00 Wondiful A Health 350.1.13.10 ity of [place] 4.2.7.2.686 Jesus as Professio [phone] Wi dical nal 044 Formerly Named [facility] 2019-09-25 2019-09-25 Vicky Negrete [place] 1.2.840.114 [id number] Univers 00:00:00 00:00:00 Ulises S Health 350.1.13.10 it y of Surgical 4.2.7.2.686 Jesus as Specialti [phone] Wi stacie es [address] [facility] 2019-09-23 2019-09-23 Refdelfino Negrete [place] 1.2.840.114 [id number] Univers 00:00:00 00:00:00 Ulises S Health 350.1.13.10 it y of Surgical 4.2.7.2.686 Jesus as Specialti [phone] Me dical es 198 [facility] 2019-09-22 2019-09-22 Refill [facility] 1.2.840.114 [id number] Univers 00:00:00 00:00:00 Ulises S Health 350.1.13.10 it y of Surgical 4.2.7.2.686 Jesus as Specialti [phone] Me dical es 198 [facility] 2019-09-17 2019-09-17 Outpatient R AL [facility] [id number] Univers 14:00:00 14:00:00 ann mar[address] HEWITT of [facility] 2019-09-17 2019-09-17 Telemedici Al [facility] 1.2.840.114 [id number] Univers 06:54:42 07:24:42 ne Visit Jl, ALPHONSE 350.1.13.10 ity [facility] 4.2.7.2.686 Jesus as CENTER AT [phone] Me dical VICTORY 072 [facility] 2019-08-26 2019-08-26 Office [facility] 1.2.840.114 [id number] Univers 14:22:22 14:37:22 Visit Ulises Etienne [facility] 350.1.13.10 it y of Surgical 4.2.7.2.686 Jesus as Specialti [phone] Me dical es 198 [facility] 2019-08-26 2019-08-26 Outpatient R [facility] [id number] Univers 14:30:00 14:30:00 ULISES ity [facility] 2019-08-26 2019-08-26 Transition Darinel Coates 1.2.840.114 [id number] Univers 00:00:00 00:00:00 of Care Eda Rojas 350.1.13.10 it y of [place].2.7.2.686 [place] [id number] [address] 2019-08-24 2019-08-24 Emergency X WM [facility] ERT [id number] Univers 14:44:51 17:10:00 TIANA ity of [facility] 2019-08-24 2019-08-24 Emergency [facility] 1.2.966.303 [id number] Univers 14:44:51 17:10:00 Tiana R Beth 350.1.13.10 i ty of [place] 4.2.7.2.686 [place] [phone] [facility] [address] [place] 2019-08-24 2019-08-24 Orders Doctor CAM 1.2.840.114 [id number] Univers 00:00:00 00:00:00 Only Unassigned, STEPHANIE 350.1.13.10 ity of [place] [facility] 4.2.7.2.686 Jesus as [phone] [facility] 00[address] [place] 2019-07-10 2019-07-10 Outpatient [facility] [id number] Univers 08:00:00 08:00:00 WONDIFUL ity o f [facility] [place] 2019-07-09 2019-07-09 Telemedici [facility] 1.2.840.114 [id number] Univers 09:21:11 16:23:59 ne Visit Wondiful A Health 350.1.13.10 ity of [place] 4.2.7.2.686 Jesus as Professio [phone] [address] 2019-07-09 2019-07-09 Outpatient R [facility] [id number] Univers 14:45:00 14:45:00 WONDIFUL ity o f [facility] 2019-07-07 2019-07-07 Patient [facility] 1.2.840.114 [id number] Univers 00:00:00 00:00:00 Secure Msg Wondiful A Health 350.1.13.10 ity of [place] 4.2.7.2.686 Jesus as Professio [phone] [address] 2019-07-03 2019-07-03 Refill [facility] 1.2.840.114 [id number] Univers 00:00:00 00:00:00 Wondiful A Health 350.1.13.10 ity of [place] 4.2.7.2.686 Jessu as Professio [phone] Wi dicak nal [address] One 2019-04-28 2019-04-28 Transition Darinel Montoya 1.2.840.114 [id number] Univers 00:00:00 00:00:00 of Care Margi Stone Rojas 350.1.13.10 i ty of [place].2.7.2.686 [place] [phone] [address] 2019-04-28 2019-04-28 Patient Darinel Montoya 1.2.840.114 [id number] Univers 00:00:00 00:00:00 Outreach Margi Stone Rojas 350.1.13.10 [phone] [address] 2019-04-28 2019-04-28 Patient Anna [facility] 1.2.840.114 [id number] Univers 00:00:00 00:00:00 Secure Msg [facility] [id number] ity of [place] 4.2.7.2.686 Jesus as Professio [phone] [address] [facility] 2019-04-27 2019-04-27 Emergency X KD [facility] ERT [id number] Univers 19:01:22 21:11:00 TERI ity of [facility] 2019-04-25 2019-04-25 [facility] 1.2.840.114 [id number] Univers 00:00:00 00:00:00 W[facility]iful [facility] 350.1.13.10 ity of [place] 4.2.7.2.686 Jesus as Professio [phone] Wi dicak nal [address] [place] [address] Office [address] [facility] 2019-04-16 2019-04-16 [facility] 1.2.840.114 [id number] Univers 00:00:00 00:00:00 Secure Msg [facility] [id number] ity of [place] 4.2.7.2.686 Jesus as Professio [phone] [facility] nal [address] [place] [address] Office [address] [facility] 2019-04-14 2019-04-14 Patient Doctor [facility] 1.2.840.114 [id number] Univers 00:00:00 00:00:00 Secure Msg Unassigned, [employer] 350.1.13.10 ity of [place] [facility] 4.2.7.2.686 Jesus as MATERNAL [phone] Med ical & CHILD 107 [facility] 2019-04-10 2019-04-10 Patient Anna [facility] 1.2.840.114 [id number] Univers 00:00:00 00:00:00 Secure Msg [employer] 350.1.13.10 ity of [place] 4.2.7.2.686 Jesus as Professio [phone] Wi dical [facility] [address] [place] 2019-03-29 2019-03-29 Emergency X [facility] ERT [id number] [employer] 10:20:43 13:20:00 AMADOU jesus [facility] Results Test Description Test Time Test Comments Results Result Comments Source Comprehensive metabolic panel 2023-01-03 07:28:00 Test Item Value Reference Range Interpretation Comme nts Glucose (test code = 77 mg/dL 65-99 Fastin g reference 2345-7) interval BUN (test code = 3094-0) 14 mg/dL 7-25 Creatinine (test code = 0.69 mg/dL 0.50-0.97 2160-0) eGFR (test code = 72069-2) 114 See_Comment [Automated message] The system [employer] generated this result transmitted ref erence range: > OR = 6 0 mL/min/1.73m2. The reference range was not used to int erpret this result as normal/abnormal . BUN/creatinine ratio (test SEE NOTE: See_Comment Not Reported: BUN and code = 3097-3) Creatinine ar e within reference range . [Automated mess age] The system [employer] generated this result transmitted ref erence range: 6 - 22 ( calc). The reference r shira was not used to interpret this result as normal/abnor mal. Sodium (test code = 140 mmol/L 901-048 1804-2) Potassium (test code = 4.2 mmol/L 3.5-5.3 2823-3) Chloride (test code = 105 mmol/L 98-110 2075-0) CO2 (test code = 2027-) 30 mmol/L 20-32 Calcium (test code = 9.0 mg/dL 8.6-10.2 42375-5) Protein (test code = 6.0 g/dL 6.1-8.1 L 2885-2) Albumin (test code = 3.9 g/dL 3.6-5.1 1751-7) Globulin, total (test code 2.1 See_Comment [Automated message] = 56043-8) The system [employer] generated this result transmitted ref erence range: 1.9 - 3. 7 g/dL (calc). The ref erence range was not u sed to interpret this result as normal/abnor mal. Albumin/globulin ratio 1.9 See_Comment [Aut omated message] (test code = 1759-0) The Link[employer] tem which generated this result transmitted ref erence range: 1.0 - 2. 5 (calc). The ref erence range was not u sed to interpret this result as normal/abnor mal. Total bilirubin (test code 0.8 mg/dL 0.2-1.2 = 1974-) Alkaline phosphatase (test 58 U/L 31-125 code = 6768-6) AST (test code = 0-8) 12 U/L 10-30 ALT (test code = 1742-6) 9 U/L 6-29 MILA (test code = MILA) FASTING:YES FASTING: YES RAC (test code = RAC) Performing Organization Information: Site ID: [facility]GA [facility] Address: [address] [place] [phone] Director: Kaylie Cui Lab Interpretation (test Abnormal code = 56930-7) [facility] [id number] 07:28:00 Test Item Value Reference Range Interpretation Comments Cholesterol, total 172 mg/dL <=200 (test code = 2092-3) HDL cholesterol 63 mg/dL See_Comment [Automated (test code = 2084-12) message ] The system which generated this result transmitted reference range : > OR = 50. The reference range was not used to interpret this result as normal/abnormal . Triglycerides (test 73 mg/dL <=150 code = 2571-8) LDL cholesterol 93 mg/dL (calc) Reference ra nge: calculated (test <100 Desira ble code = 02147-4) range <100 m g/dL for primary prevention; <70 mg/dL for patients with C HD or diabetic patients with > or = 2 CHD risk factors. LDL-C is now calculated using the Elvia calculation, which is a validated novel method providin g better accuracy than the Friedewald equation in the estimation of LDL-C. Shayne S S et al. CHELSI. 2013;310(19): 9308-7877 (http://educati on .PitchEngine .com/faq/NSR018 ) Cholesterol/HDL 2.7 See_Comment [Automated ratio (test code = message] The 9830-1) system which generated this result transmitted reference range : <5.0 (calc). Th e reference range was not used to interpret this result as normal/abnormal . Non-HDL cholesterol 109 See_Comment For valorie ents with (test code = diabetes plus 1 61524-3) major ASCVD ris k factor, treatin g to a non-HDL-C goal of <100 mg/dL (LDL-C of <70 mg/dL) is considered a therapeutic option. [Automated message] The system which generated this result transmitted reference range : <130 mg/dL (calc). The reference range was not used to interpret this result as normal/abnormal . MILA (test code = FASTING:YES MILA) FASTING: YES RAC (test code = Performing RAC) Organization Information: Site ID: RGA Name: [facility] Address: [address] [place] [phone] Director: [facility]ui [facility] [id number] 07:28:00 Test Item Value Reference Range Interpretation Comments Hemoglobin A1C 5.0 See_Comment For the purpo se of (test code = screening for t he 4548-4) presence ofdiab etes: <5.7% Consisten t with the absence of diabetes5.7-6.4 % Consistent with increased risk for diabetes (prediabetes)> or =6.5% Consisten t with diabetes This a ssay result is consi stent with a decrease d riskof diabetes . Currently, no consensus exist s regarding use ofhemoglobin A1 c for diagnosis of di abetes in children. According to [place] Diabetes Associ ation (ADA)guidelines , hemoglobin A1c <7.0% represents optimalcontrol in non- di abetic patients. Differentmetric s may apply to specif ic patient populat ions. Standards of Wi dical Care in Diabetes(ADA). [Automated mess age] The system whic h generated this result transmitted ref erence range: <5.7 % o f total Hgb. The reference range was not used to int erpret this result as normal/abnormal . MILA (test code = FASTING:YES MILA) FASTING: YES RAC (test code = Performing RAC) Organization Information: Site ID: RGA Name: [facility] Address: [address] [place] [phone] Director: Kaylie Cui [facility] with platelet and [id number] 07:28:00 Test Item Value Reference Range Interpretation Comments WBC (test code = 5.5 See_Comment [Automated 9817-2) message] The system which generated this result transmitted reference range : 3.8 - 10.8 Thousand/uL. Th e reference range was not used to interpret this result as normal/abnormal . RBC (test code = 4.77 See_Comment [Automated 800-8) message] The system which generated this result transmitted reference range : 3.80 - 5.10 Million/uL. The reference range was not used to interpret this result as normal/abnormal . HGB (test code = 13.6 g/dL 11.7-15.5 718-7) HCT (test code = 42.3 % 35.0-45.0 4544-3) MCV (test code = 88.7 fL 80.0-100.0 787-2) MCH (test code = 28.5 pg 27.0-33.0 785-6) MCHC (test code = 32.2 g/dL 32.0-36.0 786-4) RDW (test code = 12.6 % 11.0-15.0 788-0) Platelet count 208 See_Comment [Automated (test code = message] The 507-3) system which generated this result transmitted reference range : 140 - 400 Thousand/uL. Th e reference range was not used to interpret this result as normal/abnormal . MPV (test code = 9.2 fL 7.5-12.5 776-5) Neutrophils, 3658 See_Comment [Automated absolute (test message] The code = 751-8) system which generated this result transmitted reference range : 1,500 - 7,800 cells/uL. The reference range was not used to interpret this result as normal/abnormal . Lymphocytes, 1282 See_Comment [Automated absolute (test message] The code = 731-0) system which generated this result transmitted reference range : 850 - 3,900 cells/uL. The reference range was not used to interpret this result as normal/abnormal . Monocytes, 435 See_Comment [Automated absolute (test message] The code = 742-7) system which generated this result transmitted reference range : 200 - 950 cells/uL. The reference range was not used to interpret this result as normal/abnormal . Eosinophils, 77 See_Comment [Automated absolute (test message] The code = 711-2) system which generated this result transmitted reference range : 15 - 500 cells/uL. The reference range was not used to interpret this result as normal/abnormal . Basophils, 50 See_Comment [Automated absolute (test message] The code = 704-7) system which generated this result transmitted reference range : 0 - 200 cells/u L. The reference range was not used to interpr et this result as normal/abnormal . Neutrophils (test 66.5 % code = 770-8) Lymphocytes (test 23.3 % code = 736-9) Monocytes (test 7.9 % code = 5905-5) Eosinophils (test 1.4 % code = 713-8) Basophils + RC 0.9 % (test code = 706-2) MILA (test code = FASTING:YES MILA) FASTING: YES RAC (test code = Performing RAC) Organization Information: Site ID: RGA [facility] Address: [address] [place] [phone] Director: Kaylie Byrnes [facility] 25 hydroxy [id number] 07:28:00 Test Item Value Reference Range Interpretation Comments Vitamin D, 47 ng/mL 30-100 Vitamin D Statu s 25-hydroxy (test 25-OH Vitam in D: code = 1988-06) Deficiency: < 20 ng/mLInsufficie ncy : 20 - 29 ng/mLOptimal: > or = 30 ng/mL For 25-OH Vitamin D testing on patients on D2-supplementat ion and patients fo r whom quantitati on of D2 and D3 fractions is required, the QuestAssureD(TM )25 -OH VIT D, (D2,D3), LC/MS/ MS is recommended: order code 9288 8 (patients >2yrs ). See Note 1 Note 1 For additional information, please refer to http://educatio n.Q uestDiagnostics .co m/faq/FDJ550 (T his link is being provided for informational/e randy ational purpose s only.) MILA (test code = FASTING:YES FASTING: MILA) YES RAC (test code = Performing RAC) Organization Information: Site ID: RGA [facility] Address: [address] [place] [phone] Director: Kaylie Cui [facility] Center[facility]inalysis screen and microscopy, with reflex to culture 2023-01-03 07:28:00 Test Item Value Reference Range Interpretation Comments Color, UA (test code YELLOW YELLOW = 5778-6) Appearance, UA (test CLOUDY CLEAR A code = 5767-9) Specific gravity, UA 1.020 1.001-1.035 (test code = 5811-5) pH, UA (test code = 8.5 5.0-8.0 H 5803-2) Glucose, UA (test NEGATIVE NEGATIVE code = 40600-9) Bilirubin, UA (test NEGATIVE NEGATIVE code = 5770-3) Ketones, UA (test NEGATIVE NEGATIVE code = 2514-8) Blood, UA (test code NEGATIVE NEGATIVE = 5794-3) Protein, UA (test TRACE NEGATIVE A code = 20061-2) Nitrite, UA (test NEGATIVE NEGATIVE code = 5802-4) Leukocyte esterase, NEGATIVE NEGATIVE UA (test code = 5799-2) WBC, UA (test code = NONE SEEN See_Comment [Autom ated 5821-4) message] The system which generated this result transmitted reference range : < OR = 5 /HPF. The reference range was not used to interpr et this result as normal/abnormal . RBC, UA (test code = NONE SEEN See_Comment [Autom ated 91231-6) message] The system which generated this result transmitted reference range : < OR = 2 /HPF. The reference range was not used to interpr et this result as normal/abnormal . Squamous epithelial 0-5 See_Comment [Automa melo cells, UA (test code message ] The = 38982-4) system which generated this result transmitted reference range : < OR = 5 /HPF. The reference range was not used to interpr et this result as normal/abnormal . Bacteria, UA (test NONE SEEN NONE SEEN /HPF code = 5769-5) Hyaline casts, UA NONE SEEN NONE SEEN /LPF (test code = 5796-8) Note: (test code = This urin e was 8251-1) analyzed for th e presence of WBC , RBC, bacteria, casts, and othe r formed elements . Only those elements seen were reported. Reflex (test code = NO CULTU RE 630-4) INDICATED MILA (test code = FASTING:YES MILA) FASTING: YES RAC (test code = Performing RAC) Organization Information: Site ID: [facility] Address: [address] [place] [phone] Director: Kaylie Cui Lab Interpretation Abnormal (test code = 48281-6) [facility] with reflex to free [id number] 07:28:00 Test Item Value Reference Range Interpretation Comments TSH (test code 2.55 mIU/L Reference Ra nge > = 3016-3) or = 20 Years 0.40-4.50 Range s First trimester 0.26-2.[address] Sec[address] trimester 0.55-2.73 Third trimester 0.43-2.91 MILA (test code FASTING:YES FASTING: = MILA) YES RAC (test code Performing = RAC) Organization Information: Site ID: [facility] Name[facility] Address: [address] [place] [phone] Director: Kaylie Cui [facility] URINALYSIS W SPECIFIC [id number] 20:27:00 Test Item Value Reference Range Interpretation Comments POCT U SP GRAV (test 1.010 mg/dl 1.005-1.025 code = 4475) POCT PH U (test code = 7 mg/dl 5-8 0439) POCT U LEUK EST (test 2+ Negative - code = 3263) Negative POCT U NIT (test code positive Negative - = 3262) Negative POCT U PROT (test code 30+ Negative - = 3259) Negative POCT U GLU (test code negative Negative - = 3256) Negative POCT U KETONE (test small Negative - code = 3258) Negative POCT U UROBILI (test normal 0.2-1 code = 3260) POCT U BILI (test code negative Negative - = 3261) Negative POCT U BLD (test code 50 Negative - = 3257) Negative POCT U COLOR (test dark code = 3266) POCT U APPEAR (test cloudy code = 3267) MILA (test code = MILA) accurate development and interpretation of all internal controls Lab Interpretation Abnormal (test code = 74548-6) [facility] METABOLIC [id number] 21:37:00 Test Item Value Reference Range Interpretation Comments SODIUM (test code 141 mmol/L 134-147 N = NA) POTASSIUM (test 4.6 mmol/L 3.4-5.0 N code = K) CHLORIDE (test 107 mmol/L 100-108 N code = CL) CARBON DIOXIDE 30 mmol/L 21-32 N (test code = CO2) ANION GAP (test 4.0 GAP calc 4.0-15.0 N code = GAP) GLUCOSE (test code 67 MG/DL 70-110 L = GLU) BLOOD UREA 16 MG/DL 7-18 N NITROGEN (test code = BUN) GLOMERULAR >=60 max >60 The Glomerular FILTRATION RATE estimate estGFR Filtratio n Rate is a (test code = GFR) calculated parameterbased on serum Creatinin e, patient age and sex. GFR valuesless than 60 mL/min/1.73 square meters are otilia cative ofChronic Kidne y Disease. Values less than 15 mL/min/1.73squa re meters indicate Kidney failure. The calculation for GFR is based on the CK D-EPI (2020) calculat ion. This formulais race indifferent and is the recommended formula for GFR by the National Kidney Foundation for Adults.The GFR will not calculate i f the sex is unknown or if thepatient's ag e is <18 years. CREATININE (test 0.8 MG/DL 0.6-1.0 N code = CREAT) CALCIUM (test code 9.1 MG/DL 8.5-10.1 N = CA) NT PRO-BRAIN NATRIURETIC [id number] 21:37:00 Test Item Value Reference Range Interpretation Comments NT PRO-BRAIN NATRIURETIC PEPTI 227 PG/ML 0-100 H (test code = PROBNP) TROP-I HIGH [id number] 21:37:00 Test Item Value Reference Range Interpretation Comments TROP-I HIGH 3.5 ng/L 0-54 N CAUTION: Units of the SENSITIVITY (test current te st methodology code = TROPIHS) (ng/L) diffe rfrom the prior test meth odology (ng/mL) by a fa ctor of 1000. 99t h Percentile Uppe r Reference Limit (URL):Fem ales: 54 ng/LMales: 79 n g/L In order to distin guish acute elevations of h igh sensitivitytrop onin from other clinical conditions, the FourthUnive rsal Definition of M yocardial Infarction stressesclinica l assessment and the demonstration o f a rise and/orfall in s erial troponin result s above the URL. Results fr om different metho dologies should not be c omparedto one another as quantitative re sults and URLs may varyby method. [id number] 21:18:00 Test Item Value Reference Range Interpretation Comments D-DIMER (test 416 ng/mLFEU 215-500 N THROMBOSIS AND /OR PULMONARY code = EMBOLISM AND TH E CLINICAL DDIMER) CUT-OFF VALUE F OR EXCLUSION (500 ng/mL FEU) OF THESE CONDITIONSIS VA LIDATED BY THE MANUFACTURE R OF THE METHOD. A NEGAT HENRIETTA D-DIMER RESULT WHEN COM BINED WITH A CLINICALASSESSM ENT OF LOW PRETEST PROBABI LITY HAS BEEN SHOWN TO HAVEA HIGH NEGATIVE PREDICTIVE VALU E OF DVT OR PE. D-DIMER CALVIN UES >500 ng/mL FEU ARE N OT DIAGNOSTIC FOR DVT, PEor D IC WITHOUT OTHER CONFIRMAT ORY TESTS AND APPROPRIATECLIN ICAL EUALUATIONS. CBC W/O [id number] 21:13:00 Test Item Value Reference Range Interpretation Comments WHITE BLOOD CELL (test code = WBC) 9.7 K/mm3 3.5-11.0 N RED BLOOD CELL (test code = RBC) 4.85 M/mm3 4.70-6.10 N HEMOGLOBIN (test code = HGB) 14.1 G/DL 10.4-14.9 N HEMATOCRIT (test code = HCT) 41.7 % 31.5-44.1 N MEAN CELL VOLUME (test code = MCV) 86.0 Fl 84.5-98.6 N MEAN CELL HGB (test code = MCH) 29.1 pg 27.0-34.2 N MEAN CELL HGB CONCETRATION (test 33.8 G/DL 31.5-34.0 N code = MCHC) RED CELL DISTRIBUTION WIDTH (test 13.2 SD 11.5-14.5 N code = RDW) PLATELET COUNT (test code = PLT) 270 K/mm3 150-450 N MEAN PLATELET VOLUME (test code = 9.60 fL 7.0-10.5 N MPV) - XR CHEST 1 [id number] 21:11:00 [facility] 1985 Sex: F Name: BEVERLEY JIM[facility]NEZ [facility] : 1985 Age/S: 36 / F [address] Unit #: [id number] Loc: [place] [address] Phys: Heidy Bryant NP Acct: [id number] Dis Date: Status: PRE ER PHONE #: [phone] Exam Date: 10/28/20222100 FAX #: Reason: chest pain EXAMS: CPT: [id number] XR CHEST 1 V 13600 Fluoro Time: DAP (Gy m2): Air Kerma (mGy): EXAM: AP chest LOCATION: H12 HISTORY: chest pain COMPARISON: None. FINDINGS: The lungs are clear. No infiltrate or effusion isseen. The pulmonary vasculature is normal. The heart size is normal. The mediastinal silhouette is unremarkable. The bony thorax is intact. IMPRESSION: No acute disease. at 2110 Reported and signed by: Yong Talbert M.D. 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 Name: BEVERLEY JIMÉNEZ [facility] : 1985 Age/S: 36 / F [address] Unit #: [id number] Loc: [place] [address] Phys: Heidy Bryant NP Acct: [id number] Dis Date: Status: PRE ER PHONE #: [phone] Exam Date: 10/28/20222100 FAX#: Reason: chest pain EXAMS: CPT: [id number] XR CHEST 1 V 87915 Fluoro Time: DAP (Gy m2): Air Kerma(mGy): (Continued) Technologist: Consuelo Arenas Trnscb Date/Time: 10/28/2022 (2110) Nicko Orig Print D/T: S: 10/28/2022 (2113) PAGE 2 Signed ReportJUSTO [id number] 03:03:15 Test Item Value Reference Range Interpretation Comments TROPONIN I (test code = 0.001 ng/mL <=0.034 8169420744) MILA (test code = MILA) Reference (Normal) Range (defined by the 99th percentile reference limit): <= 0.034 ng/mL Note: Cardiac troponin begins to rise 3-4 hours after the onset of ischemia. Repeat in 4-6 hours if the sample was drawn within 3-4 hours of the onset of the symptom and found normal. Diagnosis of myocardial injury is made with acute changes in cTn concentrations with at least one serial sample above the 99th percentile upper reference limit (URL), taken together with the patient's clinical presentation. Biotin has been reported to cause a negative bias, interpret results relative to patient's use of biotin. Lab Interpretation Normal (test code = 83576-4) [id number] 03:00:37 Test Item Value Reference Range Interpretation Comments NT-proBNP (test code = 39571-5) 108 pg/mL <=125 Lab Interpretation (test code = Normal 86120-6) [facility] METABOLIC PANEL (73618)2022-10-26 02:51:34 Test Item Value Reference Range Interpretation Comments NA (test code = 138 mmol/L 135-145 7301695709) K (test code = 3.9 mmol/L 3.5-5.0 0788775607) CL (test code = 109 mmol/L 98-108 H 0732960524) CO2 TOTAL (test code = 21 mmol/L 23-31 L 1397768927) AGAP (test code = 8 2-16 8534851142) BUN (test code = 18 mg/dL 7-23 5369790226) GLUCOSE (test code = 114 mg/dL 70-110 H 0765913950) CREATININE (test code = 0.62 mg/dL 0.50-1.04 9853902436) TOTAL BILI (test code = 0.5 mg/dL 0.1-1.1 9766900133) CALCIUM (test code = 9.1 mg/dL 8.6-10.6 4741468169) T PROTEIN (test code = 6.7 g/dL 6.3-8.2 4555795302) ALBUMIN (test code = 3.9 g/dL 3.5-5.0 7579714439) ALK PHOS (test code = 70 U/L 34-122 0271088889) ALTv (test code = 15 U/L 5-35 1742-6) AST(SGOT) (test code = 19 U/L 13-40 9229941401) eGFR (test code = 108.3 mL/min/1.73m2 5595467589) MILA (test code = MILA) Association of Glomerular Filtration Rate (GFR) and Staging of Kidney Disease* + --+ --+ ------+| GFR (mL/min/1.73 m2) ?| With Kidney Damage ?| ?Without Kidney Damage+ --------+ --------+ +| ?>90 ?| ?Stage one ?| ? Normal ?+ ---+ ---+ -------+| ?60-89 ?| ?Stage two ?| ? Decreased GFR ? + --+ --+ ------+| ?30-59 ?| ?Stage three ?| ? Stage three ? + --+ --+ ------+| ?15-29 ?| ?Stage four ? | ? Stage four ?+ ---+ ---+ -------+| ?<15 (or dialysis) ? ?| ?Stage five ? | ? Stage five ?+ ---+ ---+ -------+ *Each stage assumes the associated GFR level [...] or urine or abnormalities in imaging tests). Lab Interpretation Abnormal (test code = 19346-9) [facility]2023-[facility]-14 02:51:34 Test Item Value Reference Range Interpretation Comments LIPASE (test code = 4833641472) 64 U/L 0-220 Lab Interpretation (test code = Normal 05377-8) [facility] WITH [id number] 02:41:15 Test Item Value Reference Range Interpretation Comments WBC (test code = 7.72 See_Comment [Automated 2740-2) message] The sy stem which generated this result transmitted reference range : 4.30 - 11.10 10*3/?L. The reference range was not used to interpret this result as normal/abnormal . RBC (test code = 4.57 See_Comment [Automated 606-6) message] The sy stem which generated this result transmitted reference range : 3.93 - 5.25 10*6/?L. The reference range was not used to interpret this result as normal/abnormal . HGB (test code = 13.6 g/dL 11.6-15.0 718-7) HCT (test code = 39.2 % 35.7-45.2 4544-3) MCV (test code = 85.8 fL 80.6-95.5 787-2) MCH (test code = 29.8 pg 25.9-32.8 785-6) MCHC (test code = 34.7 g/dL 31.6-35.1 786-4) RDW-SD (test code = 40.3 fL 39.0-49.9 14228-6) RDW-CV (test code = 13.0 % 12.0-15.5 788-0) PLT (test code = 201 See_Comment [Automated 777-3) message] The sy stem which generated this result transmitted reference range : 166 - 358 10*3/ ?L. The reference r shira was not used to interpret this result as normal/abnormal . MPV (test code = 9.4 fL 9.5-12.9 L 00575-2) NRBC/100 WBC (test 0.0 See_Comment [Automat ed code = 4648588900) message] The system which generated this result transmitted reference range : 0.0 - 10.0 /100 WBCs. The refer ence range was not u sed to interpret th is result as normal/abnormal . NRBC x10^3 (test code See_Comment [Auto mated = 0662649545) message] The s ystem which generated this result transmitted reference range : 10*3/?L. The reference range was not used to interpret this result as normal/abnormal . GRAN MAT (NEUT) % 70.5 % (test code = 770-8) IMM GRAN % (test code 0.40 % = 1485141109) LYMPH % (test code = 21.4 % 736-9) MONO % (test code = 6.9 % 5905-5) EOS % (test code = 0.4 % 713-8) BASO % (test code = 0.4 % 706-2) GRAN MAT x10^3(ANC) 5.45 10*3/uL 1.88-7.09 (test code = 8910925336) IMM GRAN x10^3 (test 0.03 10*3/uL 0.00-0.06 code = 0150073290) LYMPH x10^3 (test code 1.65 10*3/uL 1.32-3.29 = 731-0) MONO x10^3 (test code 0.53 10*3/uL 0.33-0.92 = 742-7) EOS x10^3 (test code = 0.03 10*3/uL 0.03-0.39 711-2) BASO x10^3 (test code 0.03 10*3/uL 0.01-0.07 = 704-7) Lab Interpretation Abnormal (test code = 37732-4) [facility] [id number] 19:19:00 Test Item Value Reference Range Interpretation Comments POCT PREG (test code = 1605) Negative On board controls acceptable with C Yes Line (test code = 3574) POCT PREG LOT # (test code = 3575) POCT PREG TEST DATE (test code = 3576) [facility] [id number] 19:19:00 Test Item Value Reference Range Interpretation Comments POCT PREG (test code = 1605) Negative On board controls acceptable with C Yes Line (test code = 3574) POCT PREG LOT # (test code = 3575) POCT PREG TEST DATE (test code = 3576) [facility] URINALYSIS W SPECIFIC [id number] 19:38:00 Test Item Value Reference Range Interpretation Comments POCT U SP GRAV (test 1.005 mg/dl 1.005-1.025 code = 3255) POCT PH U (test code = 7 mg/dl 5-8 3254) POCT U LEUK EST (test negative Negative - code = 3263) Negative POCT U NIT (test code negative Negative - = 3262) Negative POCT U PROT (test code trace Negative - = 3259) Negative POCT U GLU (test code normal Negative - = 3256) Negative POCT U KETONE (test negative Negative - code = 3258) Negative POCT U UROBILI (test normal 0.2-1 code = 3260) POCT U BILI (test code negative Negative - = 3261) Negative POCT U BLD (test code negative Negative - = 3257) Negative POCT U COLOR (test yellow code = 3266) POCT U APPEAR (test clear code = 3267) MILA (test code = MILA) accurate development and interpretation of all internal controls Lab Interpretation Abnormal (test code = 09874-8) [facility] URINALYSIS W SPECIFIC [id number] 20:05:00 Test Item Value Reference Range Interpretation Comments POCT U SP GRAV (test code = 1.020 mg/dl 1.005-1.025 3255) POCT PH U (test code = 3254) 5 mg/dl 5-8 POCT U LEUK EST (test code = trace Negative - Negative 3263) POCT U NIT (test code = 3262) negative Negative - Negative POCT U PROT (test code = trace Negative - Negative 3259) POCT U GLU (test code = 3256) normal Negative - Negative POCT U KETONE (test code = negative Negative - Negative 3258) POCT U UROBILI (test code = normal 0.2-1 3260) POCT U BILI (test code = negative Negative - Negative 3261) POCT U BLD (test code = 3257) trace Negative - Negative POCT U COLOR (test code = yellow 3266) POCT U APPEAR (test code = clear 3267) [facility] URINALYSIS, [id number] 19:57:00 Test Item Value Reference Range Interpretation Comments POCT U SP GRAV (test code = 1.020 mg/dl 1.005-1.025 3255) POCT PH U (test code = 3254) 6.0 mg/dl 5-8 POCT U LEUK EST (test code = negative Negative - Negative 3263) POCT U NIT (test code = 3262) negative Negative - Negative POCT U PROT (test code = negative Negative - Negative 3259) POCT U GLU (test code = 3256) negative Negative - Negative POCT U KETONE (test code = trace Negative - Negative 3258) POCT U UROBILI (test code = 0.2 mg/dl 0.2-1 3260) POCT U BILI (test code = negative Negative - Negative 3261) POCT U BLD (test code = 3257) negative Negative - Negative POCT U COLOR (test code = yellow 3266) POCT U APPEAR (test code = clear 3267) Lab Interpretation (test code Abnormal = 20561-0) [facility] [id number] 19:57:00 Test Item Value Reference Range Interpretation Comments POCT U SP GRAV (test code = 1.020 mg/dl 1.005-1.025 3255) POCT PH U (test code = 3254) 6.0 mg/dl 5-8 POCT U LEUK EST (test code = negative Negative - Negative 3263) POCT U NIT (test code = 3262) negative Negative - Negative POCT U PROT (test code = negative Negative - Negative 3259) POCT U GLU (test code = 3256) negative Negative - Negative POCT U KETONE (test code = trace Negative - Negative 3258) POCT U UROBILI (test code = 0.2 mg/dl 0.2-1 3260) POCT U BILI (test code = negative Negative - Negative 3261) POCT U BLD (test code = 3257) negative Negative - Negative POCT U COLOR (test code = yellow 3266) POCT U APPEAR (test code = clear 326) Lab Interpretation (test code Abnormal = 39028-0) [facility]
[2023-02-06] MEDS ORDERED: KETOROLAC 30 MG/ML INJ ONE (09:07)
[2023-02-06] MEDS ORDERED: HYDROCODONE/APAP 10/325 TAB ONE (09:07)
--- NOTE | 2023-02-06 09:14 | ER ---
Nurse's Notes [facility] Name: Chantal Crews Age: 37 yrs Sex: Female : 1985 Arrival Date: 02/06/2023 Time: 08:32 Bed 4 Private MD: Diagnosis: Pain in right shoulder;Strain of muscle(s) and tendon(s) of the rotator cuff of right shoulder Presentation: 02/06 08:41 Chief complaint: Patient states: R shoulder pain getting worse since Saturday. No trauma ll1 or falls. Coronavirus screen: Vaccine status: Patient reports receiving the 2nd dose of the covid vaccine. Client denies travel out of the [place] in the last 14 days. At this time, the client does not indicate any symptoms associated with coronavirus-19. Ebola Screen: Patient denies travel to an Ebola-affected area in the 21 days before illness onset. Initial Sepsis Screen: Does the patient meet any 2 criteria? No. Patient's initial sepsis screen is negative. Does the patient have a suspected source of infection? Yes: Bone or joint infection. Risk Assessment: Do you want to hurt yourself or someone else? Patient reports no desire to harm self or others. Onset of symptoms was February 03, 2023. 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 - Social history:: Smoking status: Patient reports the use of cigarette tobacco products, smokes one pack cigarettes per day. Screenin:40 [facility] ED Fall Risk Assessment (Adult) History of falling in the last 3 months, rs5 including since admission No falls in past 3 months (0 pts) Confusion or Disorientation No (0 pts) Intoxicated or Sedated No (0 pts) Impaired Gait No (0 pts) Mobility Assist Device Used No (0 pt) Altered Elimination No (0 pt) Score/Fall Risk Level 0 - 2 = Low Risk Oriented to surroundings, Maintained a safe environment. Abuse screen: Denies threats or abuse. Nutritional screening: No deficits noted. Tuberculosis screening: No symptoms or risk factors identified. Assessment: 08:40 Pain: Complains of pain in right shoulder Pain radiates to back of neck Pain currently rs5 is 9 out of 10 on a pain scale. Quality of pain is described as aching, Pain began 2-3 days ago. Is continuous, Aggravated by repositioning. 08:40 General: Appears in no apparent distress. uncomfortable, Behavior is calm, cooperative. rs5 Pain: Noted to be grimacing. Neuro: Level of Consciousness is awake, alert, obeys commands, Oriented to person, place, time, situation. Cardiovascular: Heart tones S1 S2 present Rhythm is regular. Respiratory: Airway is patent Respiratory effort is even, unlabored, Respiratory pattern is regular, symmetrical, Breath sounds are clear bilaterally. GI: Abdomen is round non-distended, Bowel sounds present X 4 quads. Abd is soft and non tender X 4 quads. : No signs and/or symptoms were reported regarding the genitourinary system. EENT: No signs and/or symptoms were reported regarding the EENT system. Derm: Skin is intact, Skin is pink, warm \T\ dry. Musculoskeletal: Range of motion: limited in right arm. 09:26 Reassessment: Reassessment: Patient states feeling better. Patient states symptoms have rs5 improved. 09:40 Pain: Complains of pain in right shoulder Pain does not radiate. Pain currently is 3 rs5 out of 10 on a pain scale. Quality of pain is described as aching, Is continuous. Vital Signs: 08:37 BP 121 / 90; Pulse 65; Resp 17; Temp 97.8(O); Pulse Ox 99% on R/A; rs5 08:41 Pulse 60; Resp 16; Pulse Ox 100% ; Weight 72.12 kg; Height 5 ft. 9 in. ; Pain 10/10; ll1 09:16 BP 112 / 84; Pulse 72; Resp 17; Temp 98(O); Pulse Ox 99% on R/A; rs5 08:41 Body Mass Index 23.48 (72.12 kg, 175.26 cm) ll1 08:41 Pain Scale: Adult ll1 ED Course: 08:34 Patient arrived in ED. rg4 08:38 Cristopher Cordova MD is Attending Physician. hillary 08:40 Arm band placed on Patient placed in an exam room, on a stretcher. ll1 08:40 Patient has correct armband on for positive identification. Placed in gown. Bed in low rs5 position. Side rails up X2. 08:42 Triage completed. ll1 08:42 Ulises Alexandre, STONE is Primary Nurse. rs5 09:11 Chaz Payne MD is Referral Physician. hillary 09:48 No provider procedures requiring assistance completed. Patient did not have IV access rs5 during this emergency room visit. 09:55 Shoulder Right (2 View) XRAY In Process Unspecified. EDMS Administered Medications: 08:55 Drug: [place] PO 10 mg-325 mg 1 tabs PO once Route: PO; rs5 09:35 Follow up: Response: No adverse reaction; Pain is decreased rs5 08:55 Drug: Ketorolac IM 60 mg IM once Route: IM; Site: left deltoid; rs5 09:30 Follow up: Response: No adverse reaction; Pain is decreased rs5 Medication: 08:40 VIS not applicable for this client. rs5 Outcome: 09:13 Discharge ordered by . hillary 09:48 Discharged to home ambulatory, rs5 09:48 Condition: stable 09:48 Discharge instructions given to patient, Instructed on discharge instructions, follow up and referral plans. medication usage, Demonstrated understanding of instructions, follow-up care, medications, 09:49 Patient left the ED. rs5 Signatures: Dispatcher [employer] EDMS Cristopher Cordova MD MD cha Garcia, Rubi rg4 Caty Mcgee RN RN ll1 Ulises Alexandre, STONE RN rs5 Corrections: (The following items were deleted from the chart) 09:28 09:17 General: Appears in no apparent distress. uncomfortable, Behavior is calm, rs5 cooperative, rs5 09:28 09:17 Pain: Complains of pain in right shoulder Pain radiates to back of neck Pain rs5 currently is 9 out of 10 on a pain scale. Quality of pain is described as aching, Pain began 2-3 days ago. Is continuous, Aggravated by repositioning, rs5 09:28 09:17 Pain: Noted to be grimacing, rs5 rs5 09:28 09:17 Neuro: Level of Consciousness is awake, alert, obeys commands, Oriented to rs5 person, place, time, situation, rs5 09:17 Cardiovascular: Heart tones S1 S2 present Rhythm is regular rs5 rs5 09:17 Respiratory: Airway is patent Respiratory effort is even, unlabored, Respiratory rs5 pattern is regular, symmetrical, Breath sounds are clear bilaterally. rs5 :17 GI: Abdomen is round non-distended, Bowel sounds present X 4 quads. Abd is soft rs5 and non tender X 4 quads. rs5 :17 : No signs and/or symptoms were reported regarding the genitourinary system. rs5rs5 09:17 EENT: No signs and/or symptoms were reported regarding the EENT system. rs5 rs5 09:17 Derm: Skin is intact, Skin is pink, warm \T\ dry. rs5 rs5 09:17 Musculoskeletal: Range of motion: limited in right arm rs5 rs5
--- NOTE | 2023-02-06 09:14 | EDPHYS ---
Physician Documentation [facility] Name: Chantal Crews Age: 37 yrs Sex: Female : 1985 Arrival Date: 02/06/2023 Time: 08:32 Bed 4 Private MD: TELLY Physician Cristopher Cordova HPI: 02/06 09:05 This 37 yrs old Female presents to ER via Ambulatory with complaints of hillary Shoulder Pain. 09:05 The patient or guardian complains of decreased range of motion, pain, that is acute. hillary right shoulder. Context: resulted from lifting or carrying, an unknown reason, The patient experiences decreased range of motion, The patient reports no obvious deformity. Onset: The symptoms/episode began/occurred 3 day(s) ago. Modifying factors: the symptoms are alleviated by remaining still, The symptoms are aggravated by lifting weight, movement, rotation of arm. Associated signs and symptoms: The patient has no apparent associated signs or symptoms. Severity of symptoms: At their worst the symptoms were moderate, in the emergency department the symptoms are unchanged. Treatment prior to arrival includes: no previous treatment. [employer]: 08:45 0, Full Term 0, Premature 0, 0, Living 0, LMP N/A - control rs5 method, Not Historical: - Allergies: 08:40 No Known Allergies; ll1 - PMHx: 08:40 depressive disorder; Hypertensive disorder; ll1 - PSHx: 08:40 adenoid sx; Appendectomy; section; gastric sleeve; Tonsillectomy; ll1 - Immunization history:: Adult Immunizations up to date. - Social history:: Smoking status: Patient reports the use of cigarette tobacco products, smokes one pack cigarettes per day. ROS: 09:07 Constitutional: Negative for fever, chills, and weight loss, Eyes: Negative for injury, hillary pain, redness, and discharge, ENT: Negative for injury, pain, and discharge, Neck: Negative for injury, pain, and swelling, Cardiovascular: Negative for chest pain, palpitations, and edema, Respiratory: Negative for shortness of breath, cough, wheezing, and pleuritic chest pain, Abdomen/GI: Negative for abdominal pain, nausea, vomiting, diarrhea, and constipation, Back: Negative for injury and pain, Skin: Negative for injury, rash, and discoloration, Neuro: Negative for headache, weakness, numbness, tingling, and seizure, Psych: Negative for depression, anxiety, suicide ideation, homicidal ideation, and hallucinations, Allergy/Immunology: Negative for hives, rash, and allergies, Endocrine: Negative for neck swelling, polydipsia, polyuria, polyphagia, and marked weight changes, Hematologic/Lymphatic: Negative for swollen nodes, abnormal bleeding, and unusual bruising, 09:07 MS/extremity: Positive for decreased range of motion, pain, of the anterior aspect of right shoulder and posterior aspect of right shoulder, Exam: 09:07 Constitutional: This is a well developed, well nourished patient who is awake, alert, hillary and in no acute distress. Head/Face: Normocephalic, atraumatic. Eyes: Pupils equal round and reactive to light, extra-ocular motions intact. Lids and lashes normal. Conjunctiva and sclera are non-icteric and not injected. Cornea within normal limits. Periorbital areas with no swelling, redness, or edema. ENT: Nares patent. No nasal discharge, no septal abnormalities noted. Tympanic membranes are normal and external auditory canals are clear. Oropharynx with no redness, swelling, or masses, exudates, or evidence of obstruction, uvula midline. Mucous membranes moist. Neck: Trachea midline, no thyromegaly or masses palpated, and no cervical lymphadenopathy. Supple, full range of motion without nuchal rigidity, or vertebral point tenderness. No Meningismus. Chest/axilla: Normal chest wall appearance and motion. Nontender with no deformity. No lesions are appreciated. Cardiovascular: Regular rate and rhythm with a normal S1 and S2. No gallops, murmurs, or rubs. Normal PMI, no JVD. No pulse deficits. Respiratory: Lungs have equal breath sounds bilaterally, clear to auscultation and percussion. No rales, rhonchi or wheezes noted. No increased work of breathing, no retractions or nasal flaring. Abdomen/GI: Soft, non-tender, with normal bowel sounds. No distension or tympany. No guarding or rebound. No evidence of tenderness throughout. Back: No spinal tenderness. No costovertebral tenderness. Full range of motion. Skin: Warm, dry with normal turgor. Normal color with no rashes, no lesions, and no evidence of cellulitis. Neuro: Awake and alert, GCS 15, oriented to person, place, time, and situation. Cranial nerves II-XII grossly intact. Motor strength 5/5 in all extremities. Sensory grossly intact. Cerebellar exam normal. Normal gait. Psych: Awake, alert, with orientation to person, place and time. Behavior, mood, and affect are within normal limits. 09:07 Musculoskeletal/extremity: ROM: limited active range of motion due to pain, limited passive range of motion due to pain, Circulation is intact in all extremities. Sensation intact. Compartment Syndrome exam of affected extremity: is normal. DVT Exam: no swelling, negative Homans' sign noted on exam, no appreciated bluish discoloration, no erythema, no increased warmth, pain, tenderness, Vital Signs: 08:37 BP 121 / 90; Pulse 65; Resp 17; Temp 97.8(O); Pulse Ox 99% on R/A; rs5 08:41 Pulse 60; Resp 16; Pulse Ox 100% ; Weight 72.12 kg; Height 5 ft. 9 in. ; Pain 10/10; ll1 09:16 BP 112 / 84; Pulse 72; Resp 17; Temp 98(O); Pulse Ox 99% on R/A; rs5 08:41 Body Mass Index 23.48 (72.12 kg, 175.26 cm) ll1 08:41 Pain Scale: Adult ll1 MDM: 08:38 Patient medically screened. hillary 09:09 Differential diagnosis: Anterior dislocation without fracture, Posterior dislocation hillary without fracture, humeral head fracture, DJD, tendonitis. Data reviewed: vital signs, nurses notes, radiologic studies, plain films. Consideration of Admission/Observation Escalation of care including admission/observation considered. I considered the following discharge prescriptions or medication management in the emergency department Medications were administered in the Emergency Department. See MAR. Independent interpretation of the following test(s) in the Emergency Department X-Ray: My interpretation is no fx , no dislocation. Care significantly affected by the following chronic conditions: Hypertension, depression. Counseling: I had a detailed discussion with the patient and/or guardian regarding the historical points, exam findings, and any diagnostic results supporting the discharge/admit diagnosis, radiology results, the need for outpatient follow up, for definitive care, a family practitioner, a orthopedic surgeon. 02/06 08:44 Order name: Shoulder Right (2 View) XRAY [facility] 02/06 08:44 Order name: Ice pack; Complete Time: 09:03 [facility] 02/06 08:44 Order name: Sling; Complete Time: 09:03 [facility] Administered Medications: 08:55 Drug: [place] PO 10 mg-325 mg 1 tabs PO once Route: PO; rs5 09:35 Follow up: Response: No adverse reaction; Pain is decreased rs5 08:55 Drug: Ketorolac IM 60 mg IM once Route: IM; Site: left deltoid; rs5 09:30 Follow up: Response: No adverse reaction; Pain is decreased rs5 Disposition Summary: 02/06/23 09:13 Discharge Ordered Notes: Location: Home [facility] Problem: new hillary Symptoms: have improved hillary Condition: Stable hillary Diagnosis - Pain in right shoulder hillary - Strain of muscle(s) and tendon(s) of the rotator cuff of right shoulder hillary Followup: hillary - With: Private Physician - When: 2 - 3 days - Reason: Recheck today's complaints, Continuance of care, Re-evaluation by your physician Followup: hillary - With: Chaz Payne MD - When: 2 - 3 days - Reason: Recheck today's complaints, Continuance of care, Re-evaluation by your physician Discharge Instructions: - Discharge Summary Sheet hillary - Joint Pain hillary - Musculoskeletal Pain hillary - Shoulder Pain [facility] - Shoulder Pain, [id number] [facility] Forms: - Medication Reconciliation Form [facility] - Thank You Letter [facility] - Antibiotic Education hillary - Prescription Opioid Use hillary - Patient Portal Instructions [facility] - Leadership Thank You Letter [facility] Prescriptions: - acetaminophen-codeine 300-30 mg Oral tablet - take 2 tablet ORAL route every 6 hours; 18 tablet; Refills: 0, Product [facility] Selection Permitted - diclofenac sodium 50 mg Oral tablet, delayed release (enteric coated) - take 1 tablet ORAL route every 12 hours as needed for pain; 20 tablet; Refills: [facility] 0, Product Selection Permitted - Medrol (Bryan) 4 mg Oral Tablets, Dose Pack - take 1 tablet ORAL route as directed - follow package instructions; 1 packet; [facility] Refills: 0, Product Selection Permitted Signatures: Dispatcher [employer] Cristopher Adams MD MD cha Lewis, Lynsay RN RN ll1 Ulises Alexandre RN RN rs5
--- NOTE | 2023-02-06 10:09 | RAD REPORT ---
EXAM DESCRIPTION: RAD - Shoulder Right 2 View - 02/06/2023 9:53 am CLINICAL HISTORY: PAIN COMPARISON: No comparisons FINDINGS/IMPRESSION: No acute fracture. No malalignment. No significant focal degenerative changes.
[2023-02-07 15:44] VITALS: BP 112/84; TEMP 98; O2SAT 99
== END 2023-02-06 09:49 | disposition home or self-care (01) ==
LOC: ER 08:32
DX: S46.011A Strain of muscle(s) and tendon(s) of the rotator cuff of right shoulder, initial encounter (principal); F17.210 Nicotine dependence, cigarettes, uncomplicated
CPT/HCPCS: 96372; 99284